=== PATIENT | male | born 1940 | race Caucasian/White ===

== ENCOUNTER 2016-07-15 11:47 | Emergency (ER) | payer MEDICARE ==
[~2016-07-15] VITALS: Ht 188 cm; Wt 97.1 kg
[~2016-07-15 11:47] MED LIST: ALBU8.5H2 IH; BUDE0.5A2 IH; CYCL10TA9 PO; HYDR-3730 PO; IPRA0.2S51 IH; TIOT18CA2 IH; [UNRECOGNIZED DRUG - OTHER] IH
--- OUTSIDE RECORDS SUMMARY | 2016-07-15 11:54 | XMS REPORT | Continuity of Care Document ---
Author Author [facility] Organization [facility] Address Unknown Phone Unavailable Care Team Providers Care Vehicle Assembler Name Role Phone SOPHY ALVARADO MD PCP Insurance Providers Payer Name Policy Number Subscriber Name Relationship [employer] [id number] Ruiz Larose 18 Self / Same As Patient Blue Cross [facility] Supp [id number] Ruiz Larose 18 Self / Same As Patient Advance Directives Directive Response Recorded Date/Time Advance Directives No 03/30/15 3:57pm Health Care Power of Analytical Chemist No 03/30/15 3:57pm Organ Donor No 03/30/15 3:57pm Problems No problem information available. Medications Current Home Medications Medication Dose Units Route Directions Days/Qty Instructions Start Date Albuterol 8.5 Gm 2 Puff Inhalation Twice A Day 06/30/10 Budesonide (Pulmicort Nebs) 0.5 Mg/2 Ml 1 Each Inhalation Twice A Day 06/30/10 Formoterol 20 Mcg/2 Ml 20 Mcg Inhalation Twice A Day 06/30/10 Ipratropium [place] 0.2 Mg/Ml 0.2 Mg Inhalation Daily 06/30/10 Tiotropium [place] 1 Inh 1 Inh Inhalation Daily 03/30/15 Cyclobenzaprine Hcl 10 Mg 10 Mg Oral Daily 03/30/15 Hydrocodone/Acetaminophen 1 Each 1-2 Each Oral Every 6 Hours 35 Social History Social History Problem Response Recorded Date/Time Alcohol Use Denies Use 03/30/2015 3:57pm Recreational Drug Use No 03/30/2015 3:57pm Hospital Discharge Instructions No hospital discharge instructions. Plan of Care Prescriptions See Medication Section Functional Status No functional status results. Allergies, Adverse Reactions, Alerts No known allergies. Immunizations No immunization records. Vital Signs No known vital signs results. Results No known relevant diagnostic tests, laboratory data and/or discharge summary. Procedures No known history of procedures. Encounters Encounter Location Arrival/Admit Date Discharge/Depart Date Attending Provider Discharged Recurring [facility] 11/19/15 9:00am 11:59pm HERB SANTANA DO
[2016-07-15] MEDS: RT-ALBUTEROL/IPRATROPIUM 3 ML (DUONEB) VIAL INH ONE (12:30)
--- NOTE | 2016-07-15 12:36 | ED Respiratory ---
General Chief Complaint: Respiratory Problems Stated Complaint: SOA Source: patient Exam Limitations: no limitations History of Present Illness Time seen by provider: 12:35 Initial Comments To ER with worsening shortness of breath over the past 2-3 days. Has a history of COPD and wears oxygen [id number]. He follows with Dr. Moreland. He was recently treated with steroids and antibiotics for pneumonia finishing these about 3 weeks ago. Timing/Duration: getting worse Severity: moderate Associated Symptoms: cough fever/chills (chills but no measured fever) shortness of breath wheezing Allergies and Home Medications Allergies Coded Allergies: No Known Drug Allergies (Unverified , 07/05/10) Home Medications Acetaminophen with Codeine 1 Each Tablet #14 1 EACH PO Q4H PRN PRN COUGH Prescribed by: JACKY RUANO on 07/15/16 1351 Albuterol 8.5 Gm Hfa.aer.ad 2 PUFF IH BID (Reported) Azithromycin 250 Mg Tablet #6 250 MG PO UD TAKE 2 TABLETS ON DAY ONE THEN TAKE 1 TABLET DAILY FOR FOUR MORE DAYS Prescribed by: JACKY RUANO on 07/15/16 1351 Budesonide 0.5 Mg/2 Ml Ampul.neb 1 EACH IH BID (Reported) Cyclobenzaprine HCl 10 Mg Tablet 10 MG PO DAILY (Reported) Formoterol 20 Mcg/2 Ml Vial.neb 20 MCG IH BID (Reported) Hydrocodone/Acetaminophen 1 Each Tablet #35 1-2 EACH PO Q6H Prescribed by: AALIYAH REID on 04/07/15 1507 Ipratropium [place] 0.2 Mg/Ml Solution 0.2 MG IH DAILY (Reported) Prednisone 5 Mg Tablet #55 5 MG PO UD 50 mg today, reduce dose by 1 tablet daily until gone Prescribed by: JACKY RUANO on 07/15/16 1351 Tiotropium [place] 1 Inh Aerp 1 INH IH DAILY (Reported) Constitutional: see HPI EENTM: see HPI Respiratory: see HPI cough short of breath (() wheezing Cardiovascular: no symptoms reported Genitourinary: no symptoms reported Musculoskeletal: no symptoms reported Skin: no symptoms reported Psychiatric/Neurological: No Symptoms Reported Hematologic/Lymphatic: No Symptoms Reported Immunological/Allergic: no symptoms reported Past Bkmvomt-Rwhboq-Cvmdqc Hx Patient Social History Former Smoker/When Quit: May 08, 1986 Immunizations Up To Date Date of Pneumonia Vaccine: Jan 06, 2014 Date of Influenza Vaccine: Jan 06, 2015 Surgeries HX Surgeries: Yes (RIGHT SHOULDER X2, LEFT SHOULDER X1, bilat feet sx) Respiratory Hx Respiratory Disorders: Yes (WEARS OXYGEN AT HS AND PRN) Respiratory Disorders: COPD Cardiovascular Hx Cardiac Disorders: Yes (HX OF RHUEMATIC FEVER 6TH GRADER) Neurological Hx Neurological Disorders: No Genitourinary Hx Genitourinary Disorders: No Gastrointestinal Hx Gastrointestinal Disorders: Yes Gastrointestinal Disorders: Gall Bladder Disease Musculoskeletal Hx Musculoskeletal Disorders: Yes Musculoskeletal Disorders: Arthritis Endocrine Hx Endocrine Disorders: No HEENT HX ENT Disorders: Yes (GLASSES, DENTURES) Cancer Hx Cancer: No Psychosocial Hx Psychiatric Problems: No Integumentary HX Skin/Integumentary Disorder: No Blood Transfusions Hx Blood Disorders: No Physical Exam Vital Signs Vital Sign - Last 12Hours 07/15/16 07/15/16 11:50 12:30 Temp 99.3 Pulse 110 Resp 28 B/P 156/90 Pulse Ox 93 O2 Delivery Room Air O2 Flow Rate 4 Capillary Refill : General Appearance: WD/WN no apparent distress Eyes: Bilateral Eye EOMI, Bilateral Eye Normal Inspection, Bilateral Eye PERRL HEENT: PERRL/EOMI normal ENT inspection Neck: non-tender full range of motion Respiratory: no respiratory distress no accessory muscle use decreased breath sounds wheezing Cardiovascular: regular rate, rhythm no murmur Gastrointestinal: normal bowel sounds non tender soft Neurologic/Psychiatric: alert normal mood/affect oriented x 3 Skin: normal color warm/dry Progress/Results/Core Measures Results/Orders Lab Results Laboratory Tests Test 07/15/16 12:20 07/15/16 12:51 Range/Units Alanine Aminotransferase (ALT/SGPT) 35 0-55 U/L Albumin 4.2 3.2-4.5 G/DL Alkaline Phosphatase 197 H 40-136 U/L Anion Gap 9 5-14 MMOL/L Aspartate Amino Transf (AST/SGOT) 23 5-34 U/L BUN/Creatinine Ratio 14 Basophils # (Auto) 0.1 0.0-0.1 10^3/uL Basophils (%) (Auto) 1 0-10 % Blood Urea Nitrogen 15 7-18 MG/DL Calcium Level 9.5 8.5-10.1 MG/DL Carbon Dioxide Level 26 21-32 MMOL/L Chloride Level 102 98-107 MMOL/L Creatinine 1.05 0.60-1.30 MG/DL Eosinophils # (Auto) 0.7 H 0.0-0.3 10^3/uL Eosinophils (%) (Auto) 7 0-10 % Estimat Glomerular Filtration Rate > 60 Glucose Level 247 H 70-105 MG/DL Hematocrit 44 40-54 % Hemoglobin 14.7 13.3-17.7 G/DL Lactic Acid Level 1.91 0.50-2.00 MMOL/L Lymphocytes # (Auto) 1.1 1.0-4.0 X 10^3 Lymphocytes (%) (Auto) 10 L 12-44 % Mean Corpuscular Hemoglobin 31 25-34 PG Mean Corpuscular Hemoglobin Concent 33 32-36 G/DL Mean Corpuscular Volume 93 80-99 FL Mean Platelet Volume 10.3 7.4-10.4 FL Monocytes # (Auto) 0.6 0.0-1.0 X 10^3 Monocytes (%) (Auto) 6 0-12 % Neutrophils # (Auto) 8.3 H 1.8-7.8 X 10^3 Neutrophils (%) (Auto) 77 H 42-75 % Platelet Count 205 130-400 10^3/uL Potassium Level 4.6 3.6-5.0 MMOL/L Red Blood Count 4.77 4.35-5.85 10^6/uL Red Cell Distribution Width 12.4 10.0-14.5 % Sodium Level 137 135-145 MMOL/L Total Bilirubin 0.5 0.1-1.0 MG/DL Total Protein 7.4 6.4-8.2 G/DL White Blood Count 10.7 4.3-11.0 10^3/uL Christiano Test YES-POS Arterial Blood Base Excess 2.3 -2.5-2.5 MMOL/L Arterial Blood HCO3 27 23-27 MMOL/L Arterial Blood Oxygen Saturation 98 94-100 % Arterial Blood Partial Pressure CO2 48 H 35-45 MMHG Arterial Blood Partial Pressure O2 102 H 79-93 MMHG Arterial Blood Total CO2 28.6 21.0-31.0 MMOL/L Arterial Blood pH 7.37 7.37-7.43 Blood Gas Inspired Oxygen 4L Blood Gas Patient Temperature 98.5 Blood Gas Puncture Site RT RAD Blood Gas Ventilator Setting NO My Orders Orders-JACKY RUANO ELECTROMECHANISMS DESIGN DRAFTER Cbc With Automated Diff (07/15/16 12:19) Comprehensive Metabolic Panel (07/15/16 12:19) Chest Pa/Lat (2 View) (07/15/16 12:19) Saline Lock/Iv-Start (07/15/16 12:19) Albuterol/Ipra Inhalation Soln (Duoneb I (07/15/16 12:30) Methylprednisolone Sod Succ (Solu-Medrol (07/15/16 12:30) Svn Sm Volume Nebulizer Rt-Rfs (07/15/16 12:19) Lactic Acid Analyzer (07/15/16 12:19) Blood Culture (07/15/16 12:19) Albuterol Pre-Mix Nebs (Rt) (Proventil P (07/15/16 12:45) Svn Sm Volume Nebulizer Rt-Rfs (07/15/16 12:42) Arterial Blood Gas (07/15/16 12:52) Medications Given in ED Current Medications Medications Dose Ordered Sig/Zina Route Start Time Stop Time Status Last Admin Dose Admin Albuterol/ Ipratropium 6 ml ONCE ONCE INH 07/15/16 12:30 07/15/16 12:31 DC 07/15/16 12:30 6 ML Methylprednisolone Sodium Succinate 125 mg ONCE ONCE IVP 07/15/16 12:30 07/15/16 12:31 DC 07/15/16 12:54 125 MG Vital Signs/I&O Vital Sign - Last 12Hours 07/15/16 07/15/16 07/15/16 11:50 12:30 12:58 Temp 99.3 Pulse 110 Resp 28 B/P 156/90 Pulse Ox 93 92 97 O2 Delivery Room Air O2 Flow Rate 4 4 Diagnostic Imaging Diagonstic Imaging: Xray Plain Films/CT/US/NM/MRI: chest Comments NAME: [facility] REC#: [id number] PT STATUS: REG ER : 1940 PHYSICIAN: JACKY RUANO APRN ADMIT DATE: 07/15/16/ER Draft Date of Exam:07/15/16 CHEST PA/LAT (2 VIEW) INDICATION: History of COPD with cough and shortness of breath x3 to 4 days. TECHNIQUE: 2-view chest 1:52 PM. CORRELATION STUDY: 08/26/2015. FINDINGS: The heart size, mediastinal configuration and pulmonary vasculature are within normal limits. There are rather pronounced emphysematous changes about lung cross. Rather marked bullous changes at the lung apices right greater than left with areas of scarring appearing generally stable. No infiltrate. Likely prior rotator cuff surgery with anchor screws over the right humeral head. IMPRESSION: Marked severity emphysematous lung disease. Negative for acute cardiopulmonary abnormality. Dictated on workstation # [id number] Dict: 07/15/16 1344 Trans: 07/15/16 1349 [id number] Interpreted by: MESHA CROWLEY DO Electronically signed by: Departure Communication Progress Notes 1303- dyspnea improved. O2 94% on baseline 4 L of O2. Obviously he does have oxygen at home to use. He also has a nebulizer and an adequate supply of albuterol. 1340-lungs remain very wheezy after 2 DuoNeb and 2 albuterol treatments. Oxygen saturation is 97 percent on his baseline 4 L of oxygen. Impression Impression: Primary Impression: COPD exacerbation Disposition: HOME, SELF-CARE Condition: Stable Departure-Patient Inst. Decision time for Depature: 13:39 Referrals: NO,LOCAL PHYSICIAN (PCP/Family) Primary Care Physician Patient Instructions: Exacerbation of COPD Add. Discharge Instructions: 1. Steroids as directed 2. Antibiotic as directed 3. Continue with your oxygen therapy and nebulized breathing treatments 4. Follow-up with Dr. Rob next week 5. Return to emergency room if you feel the chart worsening in any way Scripts Acetaminophen with Codeine (Acetaminophen-Cod #3 Tablet)1 Each Tablet1 Each PO Q4H PRN COUGH #14 TAB Prov:JACKY RUANO APRN 07/15/16 Azithromycin 250 Mg [id number] Mg PO UD #6 TAB TAKE 2 TABLETS ON DAY ONE THEN TAKE 1 TABLET DAILY FOR FOUR MORE DAYS Prov:JACKY RUANO APRN 07/15/16 Prednisone 5 Mg Tablet5 Mg PO UD #55 TAB 50 mg today, reduce dose by 1 tablet daily until gone Prov:JACKY RUANO APRN 07/15/16 Copy Copies To 1: LASHAY ROB MD, PETER J APRN Jul 15, 2016 12:36
[2016-07-15 12:37] LABS: BASOPHILS # (AUTO) 0.1 10^3/uL (0.0-0.1); BASOPHILS % (AUTO) 1 % (0-10); EOSINOPHILS # (AUTO) 0.7 10^3/uL (0.0-0.3); EOSINOPHILS % (AUTO) 7 % (0-10); LYMPHOCYTES # (AUTO) 1.1 X 10^3 (1.0-4.0); LYMPHOCYTES % (AUTO) 10 % (12-44); MEAN CORPUSCULAR HEMOGLOBIN 31 PG (25-34); MEAN CORPUSCULAR HGB CONC 33 G/DL (32-36); MEAN CORPUSCULAR VOLUME 93 FL (80-99); MEAN PLATELET VOLUME 10.3 FL (7.4-10.4); MONOCYTES # (AUTO) 0.6 X 10^3 (0.0-1.0); MONOCYTES % (AUTO) 6 % (0-12); NEUTROPHILS # (AUTO) 8.3 X 10^3 (1.8-7.8); NEUTROPHILS % (AUTO) 77 % (42-75); PLATELET COUNT 205 10^3/uL (130-400); RED BLOOD COUNT 4.77 10^6/uL (4.35-5.85); RED CELL DISTRIBUTION WIDTH 12.4 % (10.0-14.5); WHITE BLOOD COUNT 10.7 10^3/uL (4.3-11.0)
[2016-07-15] MEDS: methylPREDNISolone 125 MG (Solu-MEDROL) VIAL IVP ONE (12:54)
[2016-07-15 12:56] LABS: ALANINE AMINOTRANSFERASE 35 U/L (0-55); ALBUMIN 4.2 G/DL (3.2-4.5); ANION GAP 9 MMOL/L (5-14); ASPARTATE AMINO TRANSFERASE 23 U/L (5-34); BILIRUBIN,TOTAL 0.5 MG/DL (0.1-1.0); BLOOD UREA NITROGEN 15 MG/DL (7-18); BUN/CREATININE RATIO 14; CALCIUM 9.5 MG/DL (8.5-10.1); CARBON DIOXIDE 26 MMOL/L (21-32); CHLORIDE 102 MMOL/L (98-107); CREATININE SERUM 1.05 MG/DL (0.60-1.30); GFR ESTIMATED > 60; GLUCOSE 247 MG/DL (70-105); POTASSIUM 4.6 MMOL/L (3.6-5.0); SODIUM 137 MMOL/L (135-145); TOTAL PROTEIN 7.4 G/DL (6.4-8.2)
[2016-07-15] MEDS: RT-ALBUTEROL SULF 2.5 MG/3 ML PRE-MIX VIAL INH SCH (12:57)
[2016-07-15 12:59] LABS: ABG BASE EXCESS 2.3 MMOL/L (-2.5-2.5); ABG HCO3 27 MMOL/L (23-27); ABG OXYGEN SATURATION 98 % (94-100); ABG PCO2 48 MMHG (35-45); ABG PH 7.37 (7.37-7.43); ABG PO2 102 MMHG (79-93); ABG TCO2 28.6 MMOL/L (21.0-31.0)
[2016-07-15 13:00] LABS: ALLENS TEST YES-POS; PATIENT TEMP 98.5
--- NOTE | 2016-07-15 13:49 | Diagnostic Imaging Report ---
INDICATION: History of COPD with cough and shortness of breath x3 to 4 days. TECHNIQUE: 2-view chest 1:52 PM. CORRELATION STUDY: 08/26/2015. FINDINGS: The heart size, mediastinal configuration and pulmonary vasculature are within normal limits. There are rather pronounced emphysematous changes about lung cross. Rather marked bullous changes at the lung apices right greater than left with areas of scarring appearing generally stable. No infiltrate. Likely prior rotator cuff surgery with anchor screws over the right humeral head. IMPRESSION: Marked severity emphysematous lung disease. Negative for acute cardiopulmonary abnormality. Dictated by: Dictated on workstation # [id number]
[2016-07-15] MEDS ORDERED: PRED5TAB PO (13:51)
[2016-07-15] MEDS ORDERED: ACET1TAB43 PO (13:51)
[2016-07-15] MEDS ORDERED: AZIT250T5 PO (13:51)
[2016-07-15 14:14] VITALS: BP 142/78
== END 2016-07-15 14:15 | disposition home or self-care (01) ==
LOC: EDUNIT# 11:47 → ER 11:50
DX: J44.1 Chronic obstructive pulmonary disease with (acute) exacerbation (principal)
CPT/HCPCS: 36415; 71020; 80053; 82805; 83605; 85025; 87040; 94640; 96374

== ENCOUNTER → 2018-08-06 | Outpatient (CLI) | payer MEDICARE ==
[~2018-08-06] VITALS: Ht 175.3 cm; Wt 95.7 kg
[~2018-08-06] MED LIST changes: +ACET1TAB43 PO; +AZIT250T12 PO; +PRED5TAB PO; +RT-ALBUTEROL SULF 2.5 MG/3 ML PRE-MIX VIAL INH ONE
[2018-08-06 10:51] VITALS: BP 130/60
== END ==
LOC: RT 10:46
PROVIDERS: ATTEND Nurse Practitioner Family
DX: J43.9 Emphysema, unspecified (principal); R09.02 Hypoxemia; R06.02 Shortness of breath; J45.909 Unspecified asthma, uncomplicated; E66.9 Obesity, unspecified; Z68.31 Body mass index [BMI] 31.0-31.9, adult
CPT/HCPCS: 94060; 94726; 94729

== ENCOUNTER → 2018-08-20 | Outpatient (CLI) | payer MEDICARE ==
[~2018-08-20] MED LIST changes: -RT-ALBUTEROL SULF 2.5 MG/3 ML PRE-MIX VIAL INH ONE
[2018-08-20 12:31] LABS: ABG BASE EXCESS 1.9 MMOL/L (-2.5-2.5); ABG OXYGEN SATURATION 84 % (94-100); ABG PCO2 48 MMHG (35-45); ABG PH 7.36 (7.37-7.43); ABG PO2 50 MMHG (79-93); ABG TCO2 28.5 MMOL/L (21.0-31.0)
[2018-08-20 12:33] LABS: ALLENS TEST YES-POS; INSPIRED O2 2; PATIENT TEMP 97; VENTILATOR NO
--- NOTE | 2018-08-20 13:51 | Diagnostic Imaging Report ---
INDICATION: Reactive airways disease. PA and lateral chest. FINDINGS: There are emphysematous changes in the lungs with some air trapping. There are no infiltrates, effusions or pneumothoraces. IMPRESSION: COPD. No acute abnormalities seen. Dictated by: Dictated on workstation # [id number]
== END ==
LOC: RAD 11:36
PROVIDERS: ATTEND Nurse Practitioner Family
DX: J43.9 Emphysema, unspecified (principal); J45.909 Unspecified asthma, uncomplicated; E66.9 Obesity, unspecified
CPT/HCPCS: 71046; 82805

== ENCOUNTER 2018-09-13 08:00 | Outpatient (RCR) | payer MEDICARE ==
[2018-09-13 14:00] VITALS: BP 123/60
[2018-09-13 15:00] VITALS: BP 100/64
[2018-09-20 13:00] VITALS: BP 130/40
[2018-09-20 13:46] VITALS: BP 110/54
[2018-10-09 13:40] VITALS: BP 120/62
[2018-10-09 14:45] VITALS: BP 128/65
[2018-10-30 14:00] VITALS: BP 142/60
[2018-10-30 15:00] VITALS: BP 121/61
[2018-11-01 13:45] VITALS: BP 125/60
[2018-11-01 14:40] VITALS: BP 122/60
[2018-11-13 14:00] VITALS: BP 130/64
[2018-11-13 15:00] VITALS: BP 120/60
[2018-11-15 13:20] VITALS: BP 140/60
[2018-11-15 14:30] VITALS: BP 120/50
== END 2018-12-12 | disposition home or self-care (01) ==
LOC: PULM 08:00
PROVIDERS: ATTEND Internal Medicine Critical Care Medicine
DX: J45.909 Unspecified asthma, uncomplicated (principal); E66.9 Obesity, unspecified; R06.02 Shortness of breath; R09.02 Hypoxemia; Z87.09 Personal history of other diseases of the respiratory system

== ENCOUNTER → 2018-11-29 | Outpatient (CLI) | payer MEDICARE ==
[2018-11-29 14:14] LABS: BASOPHILS % (AUTO) 0 % (0-10); EOSINOPHILS # (AUTO) 0.4 10^3/uL (0.0-0.3); EOSINOPHILS % (AUTO) 5 % (0-10); HEMATOCRIT 44 % (40-54); HEMOGLOBIN 14.6 G/DL (13.3-17.7); LYMPHOCYTES # (AUTO) 1.3 X 10^3 (1.0-4.0); LYMPHOCYTES % (AUTO) 15 % (12-44); MEAN CORPUSCULAR HEMOGLOBIN 31 PG (25-34); MEAN CORPUSCULAR HGB CONC 33 G/DL (32-36); MEAN CORPUSCULAR VOLUME 93 FL (80-99); MEAN PLATELET VOLUME 9.9 FL (7.4-10.4); MONOCYTES # (AUTO) 0.6 X 10^3 (0.0-1.0); MONOCYTES % (AUTO) 7 % (0-12); NEUTROPHILS # (AUTO) 6.2 X 10^3 (1.8-7.8); NEUTROPHILS % (AUTO) 73 % (42-75); PLATELET COUNT 212 10^3/uL (130-400); RED CELL DISTRIBUTION WIDTH 12.4 % (10.0-14.5); WHITE BLOOD COUNT 8.4 10^3/uL (4.3-11.0)
[2018-11-29 14:32] LABS: BUN/CREATININE RATIO 12; CALCIUM 9.5 MG/DL (8.5-10.1); CARBON DIOXIDE 27 MMOL/L (21-32); CHLORIDE 104 MMOL/L (98-107); CREATININE SERUM 0.92 MG/DL (0.60-1.30); GFR ESTIMATED > 60; GLUCOSE 150 MG/DL (70-105); POTASSIUM 4.1 MMOL/L (3.6-5.0); SODIUM 140 MMOL/L (135-145)
--- NOTE | 2018-11-29 17:02 | Diagnostic Imaging Report ---
INDICATION: Shortness of breath, dyspnea, and COPD exacerbation. Comparison made with prior examination from 08/20/2018. FINDINGS: Heart size is normal. There is some air trapping compatible with COPD. This is some interstitial scarring in the lung bases. No pleural effusion or pneumothorax. Mediastinum is unremarkable. There is a questionable soft tissue density in the left lung base. Underlying mass cannot be excluded. IMPRESSION: COPD and some interstitial scarring in the lung bases. Questionable soft tissue density in the left lung base. Underlying mass cannot be excluded. Further evaluation with CT chest is recommended. Dictated by: Dictated on workstation # [id number]
== END ==
LOC: LAB 14:00
PROVIDERS: ATTEND Nurse Practitioner Family
DX: J44.9 Chronic obstructive pulmonary disease, unspecified (principal)
CPT/HCPCS: 36415; 71046; 80048; 82330; 83880; 85025

== ENCOUNTER → 2018-12-04 | Outpatient (CLI) | payer MEDICARE ==
--- NOTE | 2018-12-04 15:20 | Diagnostic Imaging Report ---
PROCEDURE: CT chest with contrast only. TECHNIQUE: Multiple contiguous axial images were obtained through the chest after administration of intravenous contrast. Auto Exposure Controls were utilized during the CT exam to meet ALARA standards for radiation dose reduction. INDICATION: COPD. COMPARISON: Correlation is made with prior CT chest study from 04/15/2016. FINDINGS: No axillary lymphadenopathy is detected. No mediastinal or hilar lymphadenopathy is detected. No pericardial or pleural fluid is identified. Central airways remain patent. Emphysematous changes throughout both lungs are again noted. No parenchymal mass or infiltrate is identified. Upper abdomen is unremarkable. IMPRESSION: Overall stable CT chest when compared with exam from 04/15/2016. Emphysematous changes are again noted. No thoracic lymphadenopathy or evidence of parenchymal mass is detected. Dictated by: Dictated on workstation # [id number]
== END ==
LOC: RAD 13:25
PROVIDERS: ATTEND Nurse Practitioner Family
DX: J43.9 Emphysema, unspecified (principal)
CPT/HCPCS: 71260

== ENCOUNTER 2018-12-27 13:00 | Outpatient (RCR) | payer MEDICARE ==
[2018-12-27 12:55] VITALS: BP 90/60
[2018-12-27 14:05] VITALS: BP 98/60
[2019-01-01 13:00] VITALS: BP 88/50
[2019-01-08 13:00] VITALS: BP 130/58
[2019-01-15 12:30] VITALS: BP 139/60
[2019-01-15 13:00] VITALS: BP 114/82
[2019-01-15 13:39] VITALS: BP 122/70
[2019-01-17 13:00] VITALS: BP 140/62
[2019-01-17 14:30] VITALS: BP 120/60
[2019-01-22 13:00] VITALS: BP 125/50
[2019-01-22 14:02] VITALS: BP 122/74
[2019-01-24 13:00] VITALS: BP 110/60
[2019-01-24 14:11] VITALS: BP 108/56
[2019-01-29 13:00] VITALS: BP 120/60
[2019-01-29 13:50] VITALS: BP 120/74
[2019-02-12 13:00] VITALS: BP 120/60
[2019-02-12 14:12] VITALS: BP 100/60
== END 2019-03-27 | disposition home or self-care (01) ==
LOC: PULM 13:00
PROVIDERS: ATTEND Internal Medicine Critical Care Medicine
DX: J45.909 Unspecified asthma, uncomplicated (principal); E66.9 Obesity, unspecified; R06.02 Shortness of breath; R09.02 Hypoxemia; Z87.09 Personal history of other diseases of the respiratory system

== ENCOUNTER → 2019-02-20 | Outpatient (CLI) | payer MEDICARE ==
--- NOTE | 2019-02-20 14:53 | Diagnostic Imaging Report ---
INDICATION: COPD. TIME OF EXAM: 02:21 p.m. Correlation is made with prior chest from 11/29/2018. FINDINGS: The heart size is stable. Lungs are hyperinflated consistent with COPD. There is some density in the right mid lung peripherally which appears to be more prominent than prior exam and may represent some developing infiltrate. Remainder of the lung cross appears to be fairly clear. No effusion is seen. There is no pneumothorax. IMPRESSION: COPD. There is some questionable developing infiltrate right mid lung, as described. Follow-up to confirm clearing could be performed. Dictated by: Dictated on workstation # [id number]
== END ==
LOC: RAD 13:53
PROVIDERS: ATTEND Nurse Practitioner Family
DX: J44.1 Chronic obstructive pulmonary disease with (acute) exacerbation (principal)
CPT/HCPCS: 71046

== ENCOUNTER → 2019-04-02 | Outpatient (CLI) | payer MEDICARE ==
[~2019-04-02] MED LIST changes: +CATHETER FLUSH 10 ML SYR IV PRN; +HOLD METFORMIN - RECEIVED CONTRAST 20 ML VIAL IV SCH; +IOHEXOL 350 MG/ML 100 ML (OMNIPAQUE 350) VIAL IV ONE; +NS 100 ML (IVPB) BAG IV ONE
[2019-04-02 09:25] LABS: BUN/CREATININE RATIO 15; GFR ESTIMATED > 60
--- NOTE | 2019-04-02 10:50 | Diagnostic Imaging Report ---
PROCEDURE: CT chest with contrast only. TECHNIQUE: Multiple contiguous axial images were obtained through the chest after administration of intravenous contrast. Auto Exposure Controls were utilized during the CT exam to meet ALARA standards for radiation dose reduction. INDICATION: Wheezing, pneumonia. COMPARISON: The previous CT chest exam of 12/04/2018 noted emphysematous change but failed to show any sign of an acute abnormality or of malignancy. FINDINGS: On this exam, the emphysematous changes involving both lungs are again noted and do not seem to have progressed. There is still no evidence for failure, pneumonia or for pleural effusion to indicate an acute abnormality. There is a small 5 mm nodular density in the right lung base (image 91 of 193). In retrospect, this was present on the prior CTA chest exam of 04/15/2016 (image 87 of 169). This finding does not appear to have changed significantly since the prior study and there is generalized stability over a three-year period, would indicate it is most likely a benign process. The heart size is within normal limits. Coronary calcifications are evident. The aorta is not abnormally dilated. There is no sign of dissection. There is no defect within the pulmonary arteries to indicate a pulmonary embolus. There is no mediastinal or hilar adenopathy. The thyroid gland does not appear to be enlarged. There is a small 4 mm rounded area of low density in the right lobe of the thyroid. This finding was also present on the prior CTA chest exam of 12/04/2018, has not changed. This finding was difficult to visualize on the previous CTA chest exam of 04/15/2016. I do suspect this area of low density is a benign process. Even so, ultrasound would be recommended for further study. The sections through the upper abdomen failed to show any sign of an acute abnormality. The bone windows unremarkable for a fracture or for destructive lesion. IMPRESSION: 1. There is chronic pulmonary disease but there is no evidence for an acute cardiopulmonary abnormality. 2. The small nodule in the right lung base is most likely a benign process. 3. The small area of low density in the right lobe of thyroid is unlikely to be related to malignancy. Even so, ultrasound would be recommended for further study. Dictated by: Dictated on workstation # [id number]
== END ==
LOC: RAD 08:48
PROVIDERS: ATTEND Nurse Practitioner Family
DX: J43.9 Emphysema, unspecified (principal); J45.909 Unspecified asthma, uncomplicated; R91.1 Solitary pulmonary nodule; J98.4 Other disorders of lung; Z87.09 Personal history of other diseases of the respiratory system
CPT/HCPCS: 36415; 71260; 82565; 84520

== ENCOUNTER → 2019-05-07 | Outpatient (CLI) | payer MEDICARE ==
[2019-05-07 09:18] LABS: BUN/CREATININE RATIO 11; CREATININE SERUM 0.81 MG/DL (0.60-1.30); GFR ESTIMATED > 60
--- NOTE | 2019-05-07 11:14 | Diagnostic Imaging Report ---
PROCEDURE: CT chest with contrast only. TECHNIQUE: Multiple contiguous axial images were obtained through the chest after administration of intravenous contrast. Auto Exposure Controls were utilized during the CT exam to meet ALARA standards for radiation dose reduction. INDICATION: COPD. Asthma. Cough. COMPARISON: 04/02/2019. FINDINGS: The heart size is within normal limits. No pericardial effusion is present. There is calcified aortic and coronary atherosclerotic plaque without evidence of aneurysm. There is no mediastinal, hilar, or axillary lymphadenopathy. Stable small nodule in the right lobe of the thyroid. The lungs are hyperexpanded. Centrilobular and paraseptal emphysema is again seen, greatest in the lung apices. A small amount of opacities is seen in the periphery of the right mid lung. Subsegmental atelectasis is seen in the lung bases. Stable subcentimeter nodule in the right lung base. No new suspicious pulmonary nodules. No evidence of pulmonary mass. There is no pleural effusion or pneumothorax. The osseous structures demonstrate no acute abnormalities. Limited views of the upper abdominal structures demonstrate no acute abnormalities. Both adrenal glands are unremarkable. IMPRESSION: 1. New small amount of opacities in the periphery of the right mid lung, which may represent infectious or inflammatory etiology. 2. Centrilobular and paraseptal emphysema, greatest in the apices. Dictated by: Dictated on workstation # [id number]
== END ==
LOC: RAD 08:35
PROVIDERS: ATTEND Nurse Practitioner Family
DX: J43.9 Emphysema, unspecified (principal); R09.02 Hypoxemia
CPT/HCPCS: 36415; 71260; 82565; 84520

== ENCOUNTER → 2020-04-25 | Outpatient (CLI) | payer OTHER, MEDICARE ==
[~2020-04-25] MED LIST changes: -CATHETER FLUSH 10 ML SYR IV PRN; -HOLD METFORMIN - RECEIVED CONTRAST 20 ML VIAL IV SCH; -IOHEXOL 350 MG/ML 100 ML (OMNIPAQUE 350) VIAL IV ONE; -NS 100 ML (IVPB) BAG IV ONE
== END ==
LOC: LAB 22:11
PROVIDERS: ATTEND Internal Medicine
DX: Z01.89 Encounter for other specified special examinations (principal)
CPT/HCPCS: 36415; 84145

== ENCOUNTER 2020-05-11 10:14 | Observation (INO) | payer MEDICARE ==
[~2020-05-11] VITALS: Ht 182 cm; Wt 84.9 kg
[2020-05-11 10:40] LABS: BASOPHILS % (AUTO) 0 % (0-10); EOSINOPHILS # (AUTO) 0.1 10^3/uL (0.0-0.3); EOSINOPHILS % (AUTO) 2 % (0-10); HEMATOCRIT 38 % (40-54); HEMOGLOBIN 12.2 g/dL (13.3-17.7); LYMPHOCYTES # (AUTO) 0.7 10^3/uL (1.0-4.0); LYMPHOCYTES % (AUTO) 9 % (12-44); MEAN CORPUSCULAR HEMOGLOBIN 31 pg (25-34); MEAN CORPUSCULAR HGB CONC 32 g/dL (32-36); MEAN CORPUSCULAR VOLUME 95 fL (80-99); MONOCYTES # (AUTO) 0.7 10^3/uL (0.0-1.0); MONOCYTES % (AUTO) 8 % (0-12); NEUTROPHILS # (AUTO) 6.8 10^3/uL (1.8-7.8); NEUTROPHILS % (AUTO) 81 % (42-75); PLATELET COUNT 160 10^3/uL (130-400); WHITE BLOOD COUNT 8.5 10^3/uL (4.3-11.0)
[2020-05-11 10:45] LABS: ALBUMIN 3.2 GM/DL (3.2-4.5); CHLORIDE 104 MMOL/L (98-107); POTASSIUM 4.1 MMOL/L (3.6-5.0); SODIUM 136 MMOL/L (135-145)
[2020-05-11 10:46] LABS: CALCIUM 8.2 MG/DL (8.5-10.1)
[2020-05-11 10:47] LABS: GLUCOSE 215 MG/DL (70-105); TOTAL PROTEIN 6.1 GM/DL (6.4-8.2)
[2020-05-11 10:49] LABS: BILIRUBIN,TOTAL 0.5 MG/DL (0.1-1.0); CARBON DIOXIDE 26 MMOL/L (21-32); FIBRIN DEGRADATION PRODUCTS 2.93 UG/ML (0.00-0.49); INR 1.1 (0.8-1.4); PROTHROMBIN TIME PATIENT 14.9 SEC (12.2-14.7)
[2020-05-11 10:51] LABS: ALKALINE PHOSPHATASE 164 U/L (40-136); CREATININE SERUM 0.76 MG/DL (0.60-1.30); GFR ESTIMATED > 60
[2020-05-11 10:52] LABS: BUN/CREATININE RATIO 24
[2020-05-11 10:54] LABS: ALANINE AMINOTRANSFERASE 17 U/L (0-55)
--- NOTE | 2020-05-11 10:59 | Diagnostic Imaging Report ---
PROCEDURE: CT head wo r/o stroke. TECHNIQUE: Multiple contiguous axial images were obtained through the brain without the use of intravenous contrast. Auto Exposure Controls were utilized during the CT exam to meet ALARA standards for radiation dose reduction. INDICATION: Slurred speech and left-sided weakness. Patient is COVID positive. Stroke. COMPARISON: None available. FINDINGS: Multiple images are degraded by the patient's right cochlear implant device, which diminishes detail, and interpretation was made in light of this technical confine. BRAIN: No parenchymal hemorrhage, midline shift, or mass effect. Huntley-white matter differentiation appears adequately preserved, without findings to suggest acute territorial infarct. No prominent white matter changes. Mild prominence of the ventricles and sulci is compatible with cortical and cerebellar parenchymal volume loss, commensurate with age. EXTRA-AXIAL SPACES: No subdural or epidural collections. ORBITS AND PARANASAL SINUSES: Visualized orbits and globes are intact. Visualized paranasal sinuses and mastoid air cells are clear. Right cochlear implant device is demonstrated. CALVARIUM AND SOFT TISSUES: The calvarium is intact. No fractures or suspicious bony lesions. A small triangular-shaped metallic density object is demonstrated adjacent to the left zygomatic arch. IMPRESSION: Examination is limited by streak artifact caused by the patient's right cochlear implant device. Allowing for this, no acute intracranial pathology is identified. Incidental note is made of a metallic density object adjacent to the left zygomatic arch, presumably retained foreign body. Other chronic and incidental findings are detailed above. Dictated by: Dictated on workstation # [id number]
--- NOTE | 2020-05-11 11:23 | Diagnostic Imaging Report ---
INDICATION: Stroke and Covid positive. Time of exam: 11:21 a.m. Correlation is made with prior chest 02/20/2019. Lungs are hyperinflated consistent with COPD. There is interstitial and airspace infiltrate right mid-lower lung field consistent with pneumonia. There is minimal infiltrate in the left base as well. No effusion or pneumothorax is detected. IMPRESSION: Bilateral infiltrates consistent with pneumonia. Dictated by: Dictated on workstation # [id number]
[2020-05-11] MEDS ORDERED: CATHETER FLUSH 10 ML SYR IV PRN ×2 (11:45→16:45)
[2020-05-11] MEDS ORDERED: IOHEXOL 350 MG/ML 100 ML (OMNIPAQUE 350) VIAL IV ONE (11:45)
[2020-05-11] MEDS ORDERED: HOLD METFORMIN - RECEIVED CONTRAST 20 ML VIAL IV SCH (11:45)
[2020-05-11] MEDS ORDERED: NS 100 ML (IVPB) BAG IV ONE (11:45)
--- NOTE | 2020-05-11 12:10 | Diagnostic Imaging Report ---
PROCEDURE: CT angiography of the head and CT angiography of the neck with and without contrast. TECHNIQUE: Contiguous noncontrast images were obtained from the skull base through the vertex. After intravenous contrast administration, helical CT angiography of the neck was performed. Source data was reformatted into 3D MIP projections. Delayed post contrast acquisition was also obtained. Auto Exposure Controls were utilized during the CT exam to meet ALARA standards for radiation dose reduction. INDICATION: Stroke, slurred speech, and left-sided weakness. COMPARISON: Comparison is made with head CT earlier same day. FINDINGS: Delayed post contrast images are without abnormal enhancing lesion. CT angiographic portion of the study demonstrates three-vessel branching pattern to the aortic arch. Both common carotid arteries are widely patent. There is some calcified plaque at the carotid bifurcations bilaterally. Calcified plaque at the carotid siphons bilaterally is also seen. The M1 and M2 segments of the middle cerebral arteries bilaterally are patent. No filling defect or thromboembolism is identified. No large branch occlusion is seen. The right and left middle cerebral arteries are widely patent. The posterior cerebral arteries are patent. Basilar artery is patent. The left vertebral artery is dominant. Right vertebral artery is small. Both vertebral arteries are patent. IMPRESSION: Bilateral carotid plaques. There is no evidence of intracranial thromboembolism or filling defect. No large branch occlusion is identified. Dictated by: Dictated on workstation # [id number]
--- NOTE | 2020-05-11 12:50 | ED Neurological Problem ---
General Chief Complaint: Neuro-Stroke Like Symptoms Stated Complaint: STROKE Nursing Triage Note: patient woke up "normal" at 0530, states around 0700 noticed numbness around his mouth and some left side weakness. Nursing Sepsis Screen: No Definite Risk Source: patient Exam Limitations: no limitations History of Present Illness Date Seen by Provider: May 11, 2020 Time Seen by Provider: 10:15 Initial Comments This 79-year-old gentleman presents to the emergency room with complaints of left-sided facial droop, dysarthria, and left hand weakness that was first noticed around 07: 00. He woke around 05: 00 and noted feeling normal at that time. He woke again around 07: 00 and noticed the deficits. 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 EMS notes some left process inspector weakness as well. He is noted to be Covid positive. Based on his history and his daughter's history, it sounds that he tested positive sometime between April 18 and April 25. He was admitted to [facility] and was discharged last week. He is presently on oxygen at 5 L/min. Dr. Shah is his primary care provider. Allergies and Home Medications Allergies Coded Allergies: No Known Drug Allergies (Unverified , 05/11/20) Home Medications Acetaminophen with Codeine 1 Each Tablet, 1 EACH PO Q4H PRN for COUGH Prescribed by: JACKY RUANO on 07/15/16 1351 Albuterol 8.5 Gm Hfa.aer.ad, 2 PUFF IH BID, (Reported) Azithromycin 250 Mg Tablet, 250 MG PO UD TAKE 2 TABLETS ON DAY ONE THEN TAKE 1 TABLET DAILY FOR FOUR MORE DAYS Prescribed by: JACKY RUANO on 07/15/16 1351 Budesonide 0.5 Mg/2 Ml Ampul.neb, 1 EACH IH BID, (Reported) Cyclobenzaprine HCl 10 Mg Tablet, 10 MG PO DAILY, (Reported) Formoterol 20 Mcg/2 Ml Vial.neb, 20 MCG IH BID, (Reported) Hydrocodone/Acetaminophen 1 Each Tablet, 1-2 EACH PO Q6H Prescribed by: AALIYAH REID on 04/07/15 1507 Ipratropium Mica 0.2 Mg/Ml Solution, 0.2 MG IH DAILY, (Reported) Prednisone 5 Mg Tablet, 5 MG PO UD 50 mg today, reduce dose by 1 tablet daily until gone Prescribed by: JACKY RUANO on 07/15/16 1351 Tiotropium Mica 1 Inh Aerp, 1 INH IH DAILY, (Reported) Patient Home Medication List Home Medication List Reviewed: Yes Review of Systems Review of Systems Constitutional: no symptoms reported Eyes: No Symptoms Reported Ears, Nose, Mouth, Throat: no symptoms reported Respiratory: see HPI Cardiovascular: no symptoms reported Gastrointestinal: no symptoms reported Genitourinary: no symptoms reported Musculoskeletal: no symptoms reported Skin: no symptoms reported Psychiatric/Neurological: See HPI Endocrine: No Symptoms Reported Hematologic/Lymphatic: No Symptoms Reported Past Dknhovg-Jwiryd-Qsonll Hx Past Med/Social Hx: Reviewed Nursing Past Med/Soc Hx Patient Social History Alcohol Use: Denies Use Recreational Drug Use: No Smoking Status: Former Smoker Former Smoker, Quit: Aug 06, 1986 2nd Hand Smoke Exposure: Yes Recent Foreign Travel: No Contact w/Someone Who Travel: No Recent Infectious Disease Expo: No Recent Hopitalizations: No Immunizations Up To Date Date of Pneumonia Vaccine: Jan 06, 2014 Date of Influenza Vaccine: Jan 06, 2015 Past Medical History Surgeries: Yes (RIGHT SHOULDER X2, LEFT SHOULDER X1, bilat feet sx) Respiratory: Yes (WEARS OXYGEN AT HS AND PRN) COPD 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 4.0oz. 95.421947fq; 27.00 BMI Method:Stated General Appearance: WD/WN, no apparent distress HEENT: PERRL/EOMI, normal ENT inspection, pharynx normal Neck: normal inspection Respiratory: lungs clear, normal breath sounds, no respiratory distress Cardiovascular: regular rate, rhythm, no edema, no murmur Gastrointestinal: normal bowel sounds, non tender, soft Extremities: normal inspection, no pedal edema Neurologic/Psychiatric: alert, normal mood/affect, oriented x 3, abnormal glove factory sewer II-XII (Left-sided facial droop around the mouth and dysarthria. Forehead is spared. Slight decrease in process inspector strength on the left.), motor weakness (Heat Plant Specialist weakness on the left) Crainal Nerves: abnormal speech, facial asymmetry, facial droop Coordination/Gait: normal finger to nose, normal gait Motor/Sensory: no motor deficit, no sensory deficit, no pronator drift Stroke NIH Stroke Scale Assessment Level of Consciousness: 0=Alert (0), Level of Consciousness-Questions: 0=Answers both month/age (0), LOC Commands: 0=Performs both tasks (0), Visual Tolbert: 0=No visual loss (0), Facial Movement (Facial Paresis): 1=Minor paralysis (1), Motor Function-Arms Right: 0=No drift (0), Motor Function-Arms Left: 0=No drift (0), Motor Function-Legs Right: 0=No drift (0), Motor Function-Legs Left: 0=No drift (0), Limb Ataxia: 0=Absent (0), Sensory: 0=Normal:no loss (0), Best Language: 0=No aphasia (0), Dysarthria: 1=Mild to moderate loss (1), Extinction & Inattention: 0=No abnormality (0), Total: 2 Progress/Results/Core Measures Results/Orders Lab Results Laboratory Tests Test 05/11/20 10:20 Range/Units White Blood Count 8.5 4.3-11.0 10^3/uL Red Blood Count 3.99 L 4.30-5.52 10^6/uL Hemoglobin 12.2 L 13.3-17.7 g/dL Hematocrit 38 L 40-54 % Mean Corpuscular Volume 95 80-99 fL Mean Corpuscular Hemoglobin 31 25-34 pg Mean Corpuscular Hemoglobin Concent 32 32-36 g/dL Red Cell Distribution Width 12.8 10.0-14.5 % Platelet Count 160 130-400 10^3/uL Mean Platelet Volume 10.0 9.0-12.2 fL Immature Granulocyte % (Auto) 1 % Neutrophils (%) (Auto) 81 H 42-75 % Lymphocytes (%) (Auto) 9 L 12-44 % Monocytes (%) (Auto) 8 0-12 % Eosinophils (%) (Auto) 2 0-10 % Basophils (%) (Auto) 0 0-10 % Neutrophils # (Auto) 6.8 1.8-7.8 10^3/uL Lymphocytes # (Auto) 0.7 L 1.0-4.0 10^3/uL Monocytes # (Auto) 0.7 0.0-1.0 10^3/uL Eosinophils # (Auto) 0.1 0.0-0.3 10^3/uL Basophils # (Auto) 0.0 0.0-0.1 10^3/uL Immature Granulocyte # (Auto) 0.1 0.0-0.1 10^3/uL Prothrombin Time 14.9 H 12.2-14.7 SEC INR Comment 1.1 0.8-1.4 Activated Partial Thromboplast Time 32 24-35 SEC D-Dimer 2.93 H 0.00-0.49 UG/ML Sodium Level 136 135-145 MMOL/L Potassium Level 4.1 3.6-5.0 MMOL/L Chloride Level 104 98-107 MMOL/L Carbon Dioxide Level 26 21-32 MMOL/L Anion Gap 6 5-14 MMOL/L Blood Urea Nitrogen 18 7-18 MG/DL Creatinine 0.76 0.60-1.30 MG/DL Estimat Glomerular Filtration Rate > 60 BUN/Creatinine Ratio 24 Glucose Level 215 H 70-105 MG/DL Glucometer 193 H 70-110 MG/DL Calcium Level 8.2 L 8.5-10.1 MG/DL Corrected Calcium 8.8 8.5-10.1 MG/DL Total Bilirubin 0.5 0.1-1.0 MG/DL Aspartate Amino Transf (AST/SGOT) 14 5-34 U/L Alanine Aminotransferase (ALT/SGPT) 17 0-55 U/L Alkaline Phosphatase 164 H 40-136 U/L Troponin I < 0.028 <0.028 NG/ML Total Protein 6.1 L 6.4-8.2 GM/DL Albumin 3.2 3.2-4.5 GM/DL My Orders Orders - JOHN FARIA MD Cbc With Automated Diff (05/11/20 10:31) Protime With Inr (05/11/20 10:31) Partial Thromboplastin Time (05/11/20 10:31) Comprehensive Metabolic Panel (05/11/20 10:31) Fibrin Degradation Products (05/11/20 10:31) Troponin I (05/11/20 10:31) Ua Culture If Indicated (05/11/20 10:31) Chest 1 View, Ap/Pa Only (05/11/20 10:31) Ekg Tracing (05/11/20 10:31) Nothing By Mouth (05/11/20 Lunch) Accucheck Stat ONCE (05/11/20 10:31) Ed Iv/Invasive Line Start (05/11/20 10:31) Ed Iv/Invasive Line Start (05/11/20 10:31) Vital Signs Stroke Patient Q15M (05/11/20 10:31) Ct Head Wo-R/O Stroke (05/11/20 10:31) O2 (05/11/20 10:31) Intake & Output 06,14,22 (05/11/20 10:31) Monitor-Rhythm Ecg Trace Only (05/11/20 10:31) Dysphagia Screening Tool (05/11/20 10:31) Lipid Panel (05/12/20 06:00) Ct Angio Head/Neck (05/11/20 10:47) Iohexol Injection (Omnipaque 350 Mg/Ml 1 (05/11/20 11:45) Received Contrast (Hold Metformin- Contr (05/11/20 11:45) Sodium Chloride Flush (Catheter Flush Sy (05/11/20 11:45) Ns (Ivpb) (Sodium Chloride 0.9% Ivpb Bag (05/11/20 11:45) Aspirin Tablet (Aspirin Tablet) (05/11/20 14:00) Medications Given in ED Current Medications Medications Dose Ordered Sig/Zina Route Start Time Stop Time Status Last Admin Dose Admin Iohexol 75 ml ONCE ONCE IV 05/11/20 11:45 05/11/20 11:46 DC 05/11/20 11:47 75 ML Sodium Chloride 10 ml NEEDED PRN IV 05/11/20 11:45 05/11/20 16:34 DC 05/11/20 11:47 10 ML Sodium Chloride 100 ml ONCE ONCE IV 05/11/20 11:45 05/11/20 11:46 DC 05/11/20 11:47 80 ML Vital Signs/I&O 05/11/20 05/11/20 10:15 10:20 Temp 37.0 Pulse 92 Resp 20 B/P (MAP) 100/69 (79) Pulse Ox 97 97 O2 Delivery Room Air Nasal Cannula O2 Flow Rate 5.00 Blood Pressure Mean: 79 FSBG Bedside Testing Finger Stick Blood Glucose: 193 Blood Glucose Action Taken: dr notified Progress Progress Note : Progress Note Work-up was essentially unremarkable. Case was discussed with Dr. Barrett at 12:50. Admission was recommended for further evaluation including MRI and echocardiogram. Patient's cochlear implant card was provided to the die maintenance technician. She will research if it is MRI compatible. Stroke activation was paged on patient assessment. Unfortunately, he was not a TPA candidate due to his Eliquis use add greater than 4.5 hours from last known well time. He was g iven aspirin in the emergency room. Initial ECG Impression Date: May 11, 2020 Initial ECG Impression Time: 10:18 Initial ECG Rate: 95 Initial ECG Rhythm: Normal Sinus Comment Sinus rhythm with no ST elevation or depression. No abnormal intervals. Sinus pause x1. No axis deviation. Diagnostic Imaging Diagonstic Imaging: Xray Plain Films/CT/US/NM/MRI: chest Comments NAME: KEN LAROSE i[employer]at [employer] REC#: [id number] PT STATUS: ADM IN : 1940 PHYSICIAN: JOHN FARIA MD ADMIT DATE: 05/11/20 Signed Date of Exam:05/11/20 CHEST 1 VIEW, AP/PA ONLY INDICATION: Stroke and Covid positive. Time of exam: 11:21 a.m. Correlation is made with prior chest 02/20/2019. Lungs are hyperinflated consistent with COPD. There is interstitial and airspace infiltrate right mid-lower lung field consistent with pneumonia. There is minimal infiltrate in the left base as well. No effusion or pneumothorax is detected. IMPRESSION: Bilateral infiltrates consistent with pneumonia. Dictated by: Dictated on workstation # [id number] Dict: 05/11/20 1121 Trans: 05/11/20 1557 [facility] [id number] Interpreted by: MANDIE BURGOS MD Electronically signed by: MANDIE BURGOS MD 05/11/20 1557 Reviewed: Reviewed by Me Comments CT viewed by me and report reviewed. See report below: NAME: KEN LAROSE iFrat [employer] REC#: [id number] PT STATUS: REG ER : 1940 PHYSICIAN: JOHN FARIA MD ADMIT DATE: 05/11/20/ER Signed Date of Exam:05/11/20 CT HEAD WO-R/O STROKE PROCEDURE: CT head wo r/o stroke. TECHNIQUE: Multiple contiguous axial images were obtained through the brain without the use of intravenous contrast. Auto Exposure Controls were utilized during the CT exam to meet ALARA standards for radiation dose reduction. INDICATION: Slurred speech and left-sided weakness. Patient is COVID positive. Stroke. COMPARISON: None available. FINDINGS: Multiple images are degraded by the patient's right cochlear implant device, which diminishes detail, and interpretation was made in light of this technical confine. BRAIN: No parenchymal hemorrhage, midline shift, or mass effect. Huntley-white matter differentiation appears adequately preserved, without findings to suggest acute territorial infarct. No prominent white matter changes. Mild prominence of the ventricles and sulci is compatible with cortical and cerebellar parenchymal volume loss, commensurate with age. EXTRA-AXIAL SPACES: No subdural or epidural collections. ORBITS AND PARANASAL SINUSES: Visualized orbits and globes are intact. Visualized paranasal sinuses and mastoid air cells are clear. Right cochlear implant device is demonstrated. CALVARIUM AND SOFT TISSUES: The calvarium is intact. No fractures or suspicious bony lesions. A small triangular-shaped metallic density object is demonstrated adjacent to the left zygomatic arch. IMPRESSION: Examination is limited by streak artifact caused by the patient's right cochlear implant device. Allowing for this, no acute intracranial pathology is identified. Incidental note is made of a metallic density object adjacent to the left zygomatic arch, presumably retained foreign body. Other chronic and incidental findings are detailed above. Dictated by: Dictated on workstation # [id number] Dict: 05/11/20 1043 Trans: 05/11/20 1210 AS6 [id number] Interpreted by: DAVID REY DO Electronically signed by: DAVID REY DO 05/11/20 1210 Diagonstic Imaging: CT Plain Films/CT/US/NM/MRI: other (Angiogram head and neck) Comments NAME: LACHELLEKEN P MED REC#: [id number] PT STATUS: ADM IN : 1940 PHYSICIAN: JOHN FARIA MD ADMIT DATE: 05/11/20 Signed Date of Exam:05/11/20 CT ANGIO HEAD/NECK PROCEDURE: CT angiography of the head and CT angiography of the neck with and without contrast. TECHNIQUE: Contiguous noncontrast images were obtained from the skull base through the vertex. After intravenous contrast administration, helical CT angiography of the neck was performed. Source data was reformatted into 3D MIP projections. Delayed post contrast acquisition was also obtained. Auto Exposure Controls were utilized during the CT exam to meet ALARA standards for radiation dose reduction. INDICATION: Stroke, slurred speech, and left-sided weakness. COMPARISON: Comparison is made with head CT earlier same day. FINDINGS: Delayed post contrast images are without abnormal enhancing lesion. CT angiographic portion of the study demonstrates three-vessel branching pattern to the aortic arch. Both common carotid arteries are widely patent. There is some calcified plaque at the carotid bifurcations bilaterally. Calcified plaque at the carotid siphons bilaterally is also seen. The M1 and M2 segments of the middle cerebral arteries bilaterally are patent. No filling defect or thromboembolism is identified. No large branch occlusion is seen. The right and left middle cerebral arteries are widely patent. The posterior cerebral arteries are patent. Basilar artery is patent. The left vertebral artery is dominant. Right vertebral artery is small. Both vertebral arteries are patent. IMPRESSION: Bilateral carotid plaques. There is no evidence of intracranial thromboembolism or filling defect. No large branch occlusion is identified. Dictated by: Dictated on workstation # [id number] Dict: 05/11/20 1158 Trans: 05/11/20 1558 AS6 [id number] Interpreted by: MANDIE BURGOS MD Electronically signed by: MANDIE BURGOS MD 05/11/20 1558 Reviewed: Reviewed by Me Departure Communication (Admissions) Time/Spoke to Admitting Phy: 13:35 Dr. Estes Impression Primary Impression: Dysarthria Additional Impression: Facial droop Disposition: ADMITTED INPATIENT Condition: Improved Admissions Decision to Admit Reason: Admit from ER (General) Decision to Admit/Date: May 11, 2020 Time/Decision to Admit Time: 12:50 Departure-Patient Inst. Referrals: LASHAY ROB MD (PCP/Family) Primary Care Physician JOHN FARIA MD May 11, 2020 12:50
[2020-05-11] MEDS ORDERED: ASPIRIN 325 MG (5 GR) TABLET PO ONE (14:00)
[2020-05-11 15:40] LABS: BILIRUBIN,URINE NEGATIVE (NEGATIVE); CLARITY,URINE CLEAR; COLOR,URINE YELLOW; GLUCOSE, URINE (UA) 2+ (NEGATIVE); KETONES,URINE NEGATIVE (NEGATIVE); LEUKOCYTE ESTERASE ,URINE NEGATIVE (NEGATIVE); NITRITE,URINE NEGATIVE (NEGATIVE); PH,URINE 5.5 (5-9); PROTEIN,URINE NEGATIVE (NEGATIVE)
[2020-05-11 15:50] LABS: BACTERIA,URINE NEGATIVE /HPF; SQUAMOUS EPITHELIAL CELL,UR RARE /HPF
--- NOTE | 2020-05-11 15:50 | NUR ---
KEN LAROSE admitted to room 423-1, with an admitting diagnosis of dysarthria, and left facial drooping , on 05/11/20 from er via cart, accompanied by ed staff. KEN LAROSE introduced to surroundings, call light, bed controls, phone, TV, temperature control, lights, meal times, smoking policy, visitor policy, side rail policy, bathrooms and showers. Patient Rights given to patient in the handbook. KEN LAROSE verbalizes understanding that [facility] is not responsible for the loss or damage to any personal effects or valuables that are kept in the patients posession during their hospitalization.KEN LAROSE verbalizes understanding of Interdisciplinary Patient Education. Patient and/or family were informed about the Rapid Response Team and its purpose.
[2020-05-11] MEDS ORDERED: BISACODYL 10 MG SUPP (DULCOLAX) PR PRN (16:45)
[2020-05-11] MEDS ORDERED: NS IV 1000 ML 1,000 ML IV ONE (16:45)
[2020-05-11] MEDS ORDERED: ONDANSETRON 4 MG/2 ML (SDV) Z0FRAN IV PRN (16:45)
[2020-05-11 16:52] VITALS: BP 102/59
[2020-05-11] MEDS ORDERED: polyethylene glycoL POWDER 17 GM (MIRALAX) PACK PO PRN (20:00)
[2020-05-11] MEDS ORDERED: MELATONIN 3 MG TABLET PO PRN (20:00)
[2020-05-11] MEDS ORDERED: ACETAMINOPHEN 325 MG TABLET PO PRN (20:00)
[2020-05-11 21:02] VITALS: BP 99/56
[2020-05-11] MEDS: inSUlin ASPART (NovoLOG) 1 UNIT/0.01 ML (CHARGE PER UNIT) SC SCH (21:15)
[2020-05-11] MEDS: APIXABAN 5 MG (ELIQUIS) TABLET PO SCH (21:15)
[2020-05-12 00:20] VITALS: BP 110/53
[2020-05-12 04:32] VITALS: BP 103/51
[2020-05-12] MEDS: inSUlin ASPART (NovoLOG) 1 UNIT/0.01 ML (CHARGE PER UNIT) SC SCH ×4 (06:09→20:14)
[2020-05-12 07:22] LABS: BUN/CREATININE RATIO 19; CALCIUM 8.2 MG/DL (8.5-10.1); CARBON DIOXIDE 24 MMOL/L (21-32); CHLORIDE 105 MMOL/L (98-107); CHOLESTEROL 94 MG/DL (< 200); CREATININE SERUM 0.64 MG/DL (0.60-1.30); GFR ESTIMATED > 60; GLUCOSE 118 MG/DL (70-105); HDL CHOLESTEROL 29 MG/DL (40-60); MAGNESIUM 1.9 MG/DL (1.6-2.4); POTASSIUM 4.4 MMOL/L (3.6-5.0); SODIUM 136 MMOL/L (135-145); TRIGLYCERIDES 60 MG/DL (<150); VLDL CHOLESTEROL 12 MG/DL (5-40)
[2020-05-12 07:30] VITALS: BP 166/76
[2020-05-12] MEDS: ASPIRIN E.C. 325 MG (ECOTRIN) TABLET PO SCH (08:24)
[2020-05-12] MEDS: DOCUSATE SODIUM 100 MG (COLACE) CAP PO SCH (08:24)
[2020-05-12] MEDS: APIXABAN 5 MG (ELIQUIS) TABLET PO SCH ×2 (08:24→20:40)
--- NOTE | 2020-05-12 08:52 | ST Dysphagia Evaluation ---
Speech Evaluation-General Medical Diagnosis CVA Onset Date: May 11, 2020 Therapy Diagnosis Therapy Diagnosis: Oropharyngeal Dysphagia Precautions Precautions: Aspiration Referral Referring Physician: Dr. Estes Medical History Reviewed History: Yes Social History Home: Single Level Current Living Status: Spouse Speech PLF/Current-Dysphagia Prior Level of Function Patient lived at home with his where he was independent for much of his daily needs. Subjective Patient was sitting up eating breakfast (regular diet level) without difficulty. Patient was compliant with the Bedside Dysphagia Evaluation. Cognitive Status Patient Orientation: Person, Place, Situation Oral Motor Skills Denture Type: Full- Upper & Lower Current Food Consistancy: Regular, Thin Liquids Ability to Follow Directions: Good Oral Expression Ability: No Impairment Patient is CHER-[place]IGHT[place] with cochlear implant Voice Voice Phonatory-Based Quality: Normal Voice Pitch: Normal Voice Loudness: Normal Face Facial Symmetry: Asymmetrical Very slight left side facial droop Oral-Facial Assessment Oral-Facial Dentition: Normal Labial Seal Description: Droops Left Smile: Droops Left Very mild droop, appears to be resolving Voluntary Cough: Yes Can Clear Throat Volitionally: Yes Dysphagia Evaluation Consistencies Presented: Regular, Thin Liquid, Mechanical Soft, Pureed Oral phase is within normal range of function for all consistencies. Pharyngeal phase is within normal range of function for all consistencies. Dietary Recommendations: Regular Liquid Recommendations: Thin Swallowing Precautions: Alternate Liquids/Solids, Double Swallow, Decreased Bolus 1/2 Tsp, Liquids from Straw, Small Bites and Sips, Sitting Upright 90 Degrees, Sitting 90 Degrees 30 Post Intake Dysphagia Evaluation Summary Patient is a 79 y/o male who was admitted via the ED due to stroke like symptoms. Patient was referred for a Bedside Dysphagia Evaluation and speech assessment. The patient was eating a regular consistency breakfast when I entered his room. He was not exhibiting any difficulty with the sausage or biscuit. Patient also had soft scrambled eggs and pudding without difficulty. He was noted to take 3 whole pills with thin liquids without difficulty as well. Patient's speech is intelligible with a very slight left sided facial droop. Patient is [place]ER[place] with cochlear implant. He was able to express himself adequately as well as demonstrate the ability to follow directions. Patient is recommended to continue regular diet level with thin liquids. No further ST services are warranted at this time. Barriers to Learning CHER-AE HEIGHTS with cochlear implant Speech-Plan Patient/Family Goals Patient/Family Goals: Patient plans on returning to his home where he lives with his . Treatment Plan Speech Therapy Treatment Plan: Discontinue ST Treatment Duration: May 12, 2020 Frequency: 1 time per week Estimated Hrs Per Day: .5 hour per day Rehab Potential: Good Barriers to Learning: CHER[place] with cochlear implant Pt/Family Agrees to Plan: Yes Safety Risks/Education Teaching Recipient: Patient Teaching Methods: Discussion Response to Teaching: Verbalize Understanding Education Topics Provided: Safety of oral intake, diet level Time Speech Therapy Time In: 08:05 Speech Therapy Time Out: 08:30 Total Billed Time: 25 Billed Treatment Time 1, SPSNDCOMP, SLTS, DYSEVS, DYST NARDA Darby May 12, 2020 08:52
--- NOTE | 2020-05-12 09:23 | Diagnostic Imaging Report ---
PROCEDURE: US carotid duplex, bilateral. TECHNIQUE: Multiple Real-time grayscale images were obtained over the carotid arteries in various projections, bilaterally. Additional spectral analysis and color Doppler duplex images were also obtained. INDICATION: Stroke. FINDINGS: Overall, the quality of the study is somewhat limited. The study is limited due to poor patient positioning and the patient repeatedly swallowing through the study. There is a moderate amount of plaque in the carotid systems. The velocities appear normal in the common carotid as well as the proximal and mid internal carotid arteries. The velocity in the distal left internal carotid artery is normal. The distal right ICA was not well visualized. In addition, the vertebral arteries could not be visualized. No significant velocity elevation is identified. IMPRESSION: Bilateral carotid plaque. No high-grade stenosis is identified. The distal right ICA could not be visualized sonographically but was visualized and shown to be patent on the CT angiogram of one day earlier. Parameters based on the consensus panel Huntley-Scale and Doppler ultrasound criteria published March 2003, Radiology, Volume 229. DOPPLER (peak systolic velocity M/S Right Left CCA 0.95 1.01 ICA Proximal 0.82 0.84 ICA Mid 0.73 1.16 ICA Distal NOT SEEN 0.93 RATIO 0.86 1.15 ECA 1.20 0.96 VERT NOT SEEN NOT SEEN Dictated by: Dictated on workstation # [id number]
--- NOTE | 2020-05-12 11:30 | Physical Therapy Evaluation ---
PT Evaluation-General Medical Diagnosis Admission Date May 11, 2020 at 13:50 Medical Diagnosis: CVA Onset Date: May 11, 2020 Therapy Diagnosis Therapy Diagnosis: debility/weakness Height/Weight Height (Feet): 5 Height (Inches): 9.00 Weight (Pounds): 206 Weight (Ounces): 4.0 Precautions Precautions/Isolations: Contact Isolation, Droplet Isolation Weight Bear Status Right Lower Extremity: Right Full Weight Bearing Left Lower Extremity: Left Full Weight Bearing Referral Physician: Franklyn Reason for Referral: Evaluation/Treatment Medical History Pertinent Medical History: Arthritis, COPD (5L at home continuous) Additional Medical History DVT's Current History EMS secondary to left sided weakness/Covid (+) Reviewed History: Yes Social History Home: Single Level Prior Prior Level of Function SCALE: Activities may be completed with or without assistive devices. 9-Biscbwtdqf-fckulsu completes the activity by him/herself with no assistance from a helper. 5-Set-up or Clean-up Assistance-helper sets up or cleans up; patient completes activity. [place] assists only prior to or following the activity. 4-Supervision or Touching Assistance-helper provides verbal cues and/or touching/steadying and/or contact guard assistance as patient completes activity. Assistance may be provided throughout the activity or intermittently. 3-Partial/Moderate Assistance-helper does LESS THAN HALF the effort. [place] lifts, holds or supports trunk or limbs, but provides less than half the effort. 2-Substantial/Maximal Assistance-helper does MORE THAN HALF the effort. [place] lifts or holds trunk or limbs and provides more than half the effort. 4-Bvszapqoq-iitfpu does ALL the effort. Patient does none of the effort to complete the activity. Or, the assistance of 2 or more helpers is required for the patient to complete the activity. If activity was not attempted, code reason: 7-Patient Refused. 9-Not Applicable-not attempted and the patient did not perform the activity before the current illness, exacerbation or injury. 10-Not Attempted due to Environmental Limitations-(lack of equipment, weather restraints, etc.). 88-Not Attempted due to Medical Conditions or Safety Concerns. Bed Mobility: 6 Transfers (B,C,W/C): 6 Gait: 6 Stairs: 6 Indoor Mobility (Ambulation): Independent Stairs: Independent Prior Devices Use: None meals on wheels PT Evaluation-Current Subjective Patient voices concern to return to home. Patient is SOA with minimal activity and currently on 5L NC as in home. Objective Patient Orientation: Normal For Age Attachments: Oxygen ROM/Strength ROM Lower Extremities bilateral LE WFL Strength Lower Extremities 4-/5 grossly bilateral Le Integumentary/Posture Integumentary refer to nursing notes Bowel Incontinence: No Bladder Incontinence: No Posture WFL Neuromuscular (Tone, Coordination, Reflexes) grossly intact Sensory Vision: Wears Glasses Hearing: Impaired Transfers Sit to Lying (QC): 5 Lying to Sitting/Side of Bed(Q: 5 Sit to Stand (QC): 4 Gait Does the Patient Walk?: Yes Mode of Locomotion: Walk Anticipated Mode of Locomotion: Walk Walk 10 feet (QC): 4 Walk 50 ft with 2 Turns(QC): 4 Walk 150 ft (QC): 4 Gait Assistive Device: None Comments/Gait Description SBA for safety (patient able to negotiate O2 tubing independently) Balance Sitting Static: Normal Sitting Dynamic: Normal Standing Static: Fair Standing Dynamic: Fair Picking up an Object (QC): 5 (seated position) Assessment/Needs 79 y.o. male, will benefit from short term skilled PT to address functional strength and mobility to improve current LOF to safely return to home at maximum LOF and improved pulmonary function. Rehab Potential: Fair (COPD) PT Group Home Goals Group Home Goals PT Electrode Cleaner Goals Time Frame: May 23, 2020 Roll Left & Right (QC): 6 Sit to Lying (QC): 6 Lying-Sitting on Side/Bed(QC): 6 Sit to Stand (QC): 6 Chair/Fmi-rq-Zvnxe Xfer(QC): 6 Toilet Transfer (QC): 6 Car Transfer (QC): 6 Does the Patient Walk: Yes Walk 10 feet (QC): 6 Walk 50ft with 2 Turns (QC): 6 Walk 150 ft (QC): 6 PT Plan Problem List Problem List: Activity Tolerance Treatment/Plan Treatment Plan: Continue Plan of Care Treatment Plan: Bed Mobility, Education, Functional Activity Lucy, Functional Strength, Gait, Safety, Therapeutic Exercise, Transfers Treatment Duration: May 23, 2020 Frequency: 6 times per week Estimated Hrs Per Day: .5 hour per day Patient and/or Family Agrees t: Yes Time/GCodes Time In: 1030 Time Out: 1044 Total Billed Treatment Time: 14 Total Billed Treatment 1 visit EVModC 14 min BROOKE CHE PT May 12, 2020 11:30
[2020-05-12 12:44] VITALS: BP 118/58
--- NOTE | 2020-05-12 13:29 | Occupational Therapy Eval ---
OT Evaluation-General/PLF Medical Diagnosis Admission Date May 11, 2020 at 13:50 Medical Diagnosis: CVA/Covid-19 Onset Date: May 11, 2020 Therapy Diagnosis Therapy Diagnosis: Weakness Height/Weight Height (Feet): 5 Height (Inches): 9.00 Weight (Pounds): 206 Weight (Ounces): 4.0 Precautions Precautions/Isolations: Contact Isolation, Droplet Isolation Weight Bear Status Weight Bearing Restriction: Weight Bearing/Tolerated Referral Physician: Franklyn Referral Reason: Activity Tolerance, Self Care, Evaluation/Treatment, Strengthening/ROM Medical History Pertinent Medical History: Arthritis, COPD (5L at home continuous) Additional Medical History Right shoulder surgery x 2, left shoulder surgery x 1. Bilateral foot surgery. Reviewed History: Yes Social History Home: Single Level Current Living Status: Alone Entry Into Home: Stairs With Railing Steps Into Home: 2 ADL-Prior Level of Function SCALE: Activities may be completed with or without assistive devices. 2-Jyzlnlypoc-xvrianj completes the activity by him/herself with no assistance from a helper. 5-Set-up or Clean-up Assistance-helper sets up or cleans up; patient completes activity. [place] assists only prior to or following the activity. 4-Supervision or Touching Assistance-helper provides verbal cues and/or touching/steadying and/or contact guard assistance as patient completes activity . Assistance may be provided throughout the activity or intermittently. 3-Partial/Moderate Assistance-helper does LESS THAN HALF the effort. [place] lifts, holds or supports trunk or limbs, but provides less than half the effort. 2-Substantial/Maximal Assistance-helper does MORE THAN HALF the effort. [place] lifts or holds trunk or limbs and provides more than half the effort. 0-Jeyvsvafn-xbjrsk does ALL the effort. Patient does none of the effort to complete the activity. Or, the assistance of 2 or more helpers is required for the patient to complete the activity. If activity was not attempted, code reason: 7-Patient Refused. 9-Not Applicable-not attempted and the patient did not perform the activity before the current illness, exacerbation or injury. 10-Not Attempted due to Environmental Limitations-(lack of equipment, weather restraints, etc.). 88-Not Attempted due to Medical Conditions or Safety Concerns. ADL PLOF Comments Pt. verbalizes that he lives alone. He states that within the last year, he was receiving home care, but was not currently before this hospitalization. Pt. states that he is able to bathe/dress self, but "I don't do it very well." Pt. states that he has a walker and uses it "sometimes." Self Care: Unknown Functional Cognition: Unknown DME/Equipment: Tub/Shower DME/Equipment Comments Pt. verbalizes that he has a walker. OT Current Status Subjective Pt. does not report pain but states that he "just can't get my wind." Pt. is very [place] and so communication is difficult at times. Appearance Pt. in bed. Agrees to work with OT. Mental Status/Objective Patient Orientation: Person, Place Attachments: Oxygen Current Glasses/Contacts: Yes Dentures/Partials: Yes Hand Dominance: Right Upper Extremity ROM WFL Upper Extremity Strength WFL bilateral UE ADL-Treatment Oral Hygiene (QC): 7 (Pt. declines brushing teeth as he has dentures. Dentures are in a cup and pt. states that he can't wear them until he has some fixodent. ) Shower/Bathe Self (QC): 7 (Pt. declines showering and states that he is afraid he "wont be able to get air.") On/Off Footwear (QC): 4 Pt. is on 5 L 02. Pt. fatigues and becomes SOA with any activity. He is encouraged to rest in between tasks. Pt. is able to transfer supine-sit with S BA and increased effort. He is able to doff/don slipper socks. Pt. is able to stand and transfer to reclining chair. All needs met up in chair. Education OT Patient Education: Correct positioning, Modified ADL techniques, Progress toward Goal/Update tx plan, Purpose of tx/functional activities, Reviewed precautions, Rehab process, Transfer techniques Teaching Recipient: Patient Teaching Methods: Demonstration, Discussion Response to Teaching: Verbalize Understanding, Return Demonstration OT Short Term Goals Short Term Goals Time Frame: May 19, 2020 Eatin Oral hygiene: 3 Toileting hygiene: 3 Shower/bathe self: 3 Upper body dressin Lower body dressin Putting on/taking off footwear: 3 OT New Accounts Banking Representative Goals New Accounts Banking Representative Goals Time Frame: May 26, 2020 Eating (QC): 6 Oral Hygiene (QC): 6 Toileting Hygiene (QC): 6 Shower/Bathe Self (QC): 4 Upper Body Dressing (QC): 5 Lower Body Dressing (QC): 4 On/Off Footwear (QC): 4 Additional Goals: 1-Demonstrate ADL Tasks, 2-Verbalize Understanding, 3-ImproveStrength/Lucy 1=Demonstrate adherence to instructed precautions during ADL tasks. 2=Patient will verbalize/demonstrate understanding of assistive devices/modifications for ADL. 3=Patient will improve strength/tolerance for activity to enable patient to per form ADL's. OT Education/Plan Problem List/Assessment Assessment: Decreased Activ Tolerance, Impaired I ADL's, Impaired Self-Care Skills Discharge Recommendations Plan/Recommendations: Continue POC Therapy Discharge Recommendati: Post Acute OT Treatment Plan/Plan of Care Treatment,Training & Education: Yes Patient would benefit from OT for education, treatment and training to promote independence in ADL's, mobility, safety and/or upper extremity function for ADL's. Plan of Care: ADL Retraining, Functional Mobility, UE Funct Exercise/Act Treatment Duration: May 26, 2020 Frequency: 5 times per week Estimated Hrs Per Day: .25 hour per day Agreement: Yes Rehab Potential: Fair Time/GCodes Start Time: 10:55 Stop Time: 11:10 Total Time Billed (hr/min): 15 Billed Treatment Time 1, AR BUTLER OT May 12, 2020 13:29
--- NOTE | 2020-05-12 14:33 | NUR ---
CM/SS: Visited with pt in room in full PPE based on his isolation guidelines related to his discharge plan related to home care services and a ride home. Plan: Pt is from home and will discharge back to home with [facility] resumed. Summary: Pt has had [facility] prior to his admission to the hospital and will resume [facility] at time of discharge. Pt reports not having a ride due to being COVID positive. Talk with CASSIDY Gentile in Infection Control and she had determine based on the information that pt is no longer needed to be in isolation. CASSIDY Osborne who is known to this pt and will assist in getting pt a ride to his home today. This worker will follow up. [facility] [phone], is notified as to his discharge from hospital today. Information to be faxed over and their care will resume with orders.
[2020-05-12] MEDS ORDERED: APIX5TAB PO (15:25)
[2020-05-12] MEDS ORDERED: ASPI325T32 PO (15:25)
[2020-05-12] MEDS ORDERED: ATOR40TA PO (15:25)
--- NOTE | 2020-05-12 15:26 | History & Physical-Hospitalist ---
History of Present Illness HPI/Chief Complaint Ruiz Bhatia is a 79 year old male with PMH oxygen dependent COPD, history of DVT on Eliquis, who presented with slurred speech. He reportedly woke up at 7 am and had speech difficulty. He says that he was drooling out the left side of his mouth. He had left hand weakness. He denies any leg weakness. He denies any fev ers or chills. He denies any vision trouble. He denies chest pain and palpitations. He denies shortness of breath and cough. He denies abdominal pain, nausea, and vomiting. He has no other complaints or concerns. Source: patient Exam Limitations: no limitations Date Seen 05/12/20 Time Seen by a Provider: 10:15 Attending Physician Kathrin Dorado MD PCP Lex Jeffers MD Referring Physician Date of Admission May 11, 2020 at 13:50 Home Medications & Allergies Home Medications Reviewed patient Home Medication Reconciliation performed by pharmacy medication reconciliations concrete engineering technician and/or nursing. Patients Allergies have been reviewed. Allergies Allergies Coded Allergies No Known Drug Allergies (Unverified05/11/20) Past Dkjaqst-Chaewm-Nomiib Hx Past Med/Social Hx: Reviewed Nursing Past Med/Soc Hx Patient Social History Alcohol Use: Denies Use Recreational Drug Use: No Smoking Status: Former Smoker Former Smoker, Quit: Aug 06, 1986 2nd Hand Smoke Exposure: Yes Recent Foreign Travel: No Contact w/other who traveled: No Recent Hopitalizations: No Recent Infectious Disease Expo: Yes Immunizations Up To Date Date of Pneumonia Vaccine: Jan 06, 2014 Date of Influenza Vaccine: Feb 26, 2020 Past Medical History Cardiac: Deep Vein Thrombosis Reproductive: No Gastrointestinal: Gall Bladder Disease Musculoskeletal: Arthritis History of Blood Disorders: No Family History FH: pancreatic cancer G8 SISTER Review of Systems Constitutional: no symptoms reported EENTM: no symptoms reported Respiratory: no symptoms reported Cardiovascular: no symptoms reported Gastrointestinal: no symptoms reported Genitourinary: no symptoms reported Musculoskeletal: no symptoms reported Skin: no symptoms reported Psychiatric/Neurological: No Symptoms Reported Physical Exam Physical Exam Vital Signs Vital Signs - First Documented 05/11/20 05/11/20 10:15 10:20 Temp 37.0 Pulse 92 Resp 20 B/P (MAP) 100/69 (79) Pulse Ox 97 O2 Delivery Room Air O2 Flow Rate 5.00 Capillary Refill : Less Than 3 Seconds Height, Weight, BMI Height: 5'9.00" Weight: 206lbs. 4.0oz. 95.175648vv; 25.63 BMI Method:Stated General Appearance: No Apparent Distress, WD/WN HEENT: PERRL/EOMI, Pharynx Normal Neck: Normal Inspection, Supple Respiratory: Lungs Clear, Normal Breath Sounds, No Respiratory Distress Cardiovascular: Regular Rate, Rhythm, No Edema, No Murmur Gastrointestinal: Normal Bowel Sounds, Non Tender, Soft Extremity: Normal Inspection, Non Tender, No Pedal Edema Neurologic/Psychiatric: Alert, Oriented x3, No Motor/Sensory Deficits, Normal Mood/Affect, Facial Droop Skin: Normal Color, Warm/Dry Results Results/Procedures Labs Laboratory Tests 05/11/20 10:20 05/12/20 06:28 Patient resulted labs reviewed. Imaging: Reviewed Imaging Report Assessment/Plan Admission Diagnosis Presumed acute ischemic stroke Admission Status: Observation Reason for Inpatient Admission: Stroke requring further evaluation Assessment and Plan Presumed acute ischemic stroke CT without evidence of stroke, imaging distorted due to cochlear implant Unable to obtain MRI due to cochlear implant Started on ASA EKG showed sinus rhythm Monitor on telemetry Echo unremarkable CTA showed bilateral carotid plaques, no significant stenosis or other abnormalities Carotid ultrasound without evidence of signifcant stenosis Lipid panel with low HDL Started on Lipitor History of DVT Continue Eliquis COPD Chronic hypoxic respiratory failure Continue home meds Continue supplemental oxygen DVT Prophylaxis: already receiving therapeutic anticoagulation Diagnosis/Problems Diagnosis/Problems (1) Stroke Status: Acute Qualifiers: Qualified Codes: I63.9 - Cerebral infarction, unspecified (2) COPD (chronic obstructive pulmonary disease) Status: Chronic (3) Chronic hypoxemic respiratory failure Status: Chronic (4) History of DVT (deep vein thrombosis) Status: Chronic Clinical Quality Measures DVT/VTE Risk/Contraindication: Risk Factor Score Per Nursin RFS Level Per Nursing on Admit: 2=Moderate KATHRIN DORADO MD May 12, 2020 15:26
[2020-05-12 16:16] VITALS: BP 114/74
--- NOTE | 2020-05-12 16:49 | NUR ---
CM/SS: [facility] WILL RESEARCH DIRECTOR PT AT 11AM ON May - PT WILL NEED TO BE AT THE OUTPATIENT ENTRANCE PRIOR TO THE 11AM RESEARCH DIRECTOR.
[2020-05-12 20:55] VITALS: BP 150/65
[2020-05-13 00:24] VITALS: BP 122/57
[2020-05-13 04:22] VITALS: BP 104/55
[2020-05-13] MEDS: inSUlin ASPART (NovoLOG) 1 UNIT/0.01 ML (CHARGE PER UNIT) SC SCH (06:12)
[2020-05-13] MEDS ORDERED: METF-397 PO (07:38)
[2020-05-13] MEDS ORDERED: metFORMIN 500 MG (GLUCOPHAGE) TAB PO NR (07:45)
[2020-05-13 08:00] VITALS: BP 121/57
[2020-05-13] MEDS: DOCUSATE SODIUM 100 MG (COLACE) CAP PO SCH (08:26)
[2020-05-13] MEDS: APIXABAN 5 MG (ELIQUIS) TABLET PO SCH (08:26)
[2020-05-13] MEDS: ASPIRIN E.C. 325 MG (ECOTRIN) TABLET PO SCH (08:26)
--- NOTE | 2020-05-13 10:39 | NUR ---
SPOKE WITH [facility]ARID[facility] NEW MEDICATION, STATES SHE WILL RELAY TO [facility] RN. VERBALIZES THEY ALREADY ARE TAKING PATIENT'S BLOOD SUGAR
--- NOTE | 2020-05-13 11:09 | NUR ---
CM/SS: Pt discharging with [facility] to transport home. Final Discharge Orders are faxed to [facility] [place] - [phone].
[2020-05-13 11:21] VITALS: BP 121/57
--- NOTE | 2020-05-18 12:41 | Physician Query-Final Dx ---
GONZALO WARREN 05/18/20 1241: Final Diagnosis Give Final Diagnosis Please give Final Diagnosis TODD DORADO MD 05/28/202023: Final Diagnosis Give Final Diagnosis Cryptogenic stroke GONZALO WARREN May 18, 2020 12:41 TODD DORADO MD May 28, 2020 20:24
--- NOTE | 2020-05-28 20:23 | Discharge Summary ---
Discharge Summary Hospital Course Was the Problem List Reviewed?: Yes Problems/Dx: (1) Stroke Status: Acute Qualifiers: Qualified Codes: I63.9 - Cerebral infarction, unspecified (2) COPD (chronic obstructive pulmonary disease) Status: Chronic (3) Chronic hypoxemic respiratory failure Status: Chronic (4) History of DVT (deep vein thrombosis) Status: Chronic Hospital Course Date of Admission: May 11, 2020 at 16:52 Admission Diagnosis : Stroke Family Physician/Provider: Lex Jeffers MD Date of Discharge: 05/28/20 Discharge Diagnosis: Cryptogenic stroke Hospital Course: Ruiz Bhatia is a 79 year old male with PMH oxygen dependent COPD, DVT on Eliquis, cochlear implant, who presented with slurred speech and was admitted with acute ischemic stroke. He underwent CT head which was unrevealing. He underwent a CTA which showed no significant stenosis or occlusion. He underwent echocardiogram which was unrevealing. He was started on aspirin and a statin. He was unable to undergo MRI due to his cochlear implant. He was also found to have newly diagnosed diabetes and was started on metformin. He was discharged home in stable condition. He should follow up with his PCP in one week. Labs and Pending Lab Test: Home Meds Active Metformin HCl 500 Mg Tablet 500 Mg PO DAILY 30 Days TAKE 1 TAB ONCE DAILY X1 WEEK, THEN 1 TAB TWICE DAILY X1 WEEK, THEN 2 TABS TWICE DAILY Aspirin EC (Aspirin) 325 Mg Tablet.dr 325 Mg PO DAILY 30 Days Lipitor (Atorvastatin Calcium) 40 Mg Tablet 40 Mg PO HS 30 Days Eliquis (Apixaban) 5 Mg Tablet 5 Mg PO BID 30 Days Reported Cyclobenzaprine HCl 10 Mg Tablet 10 Mg PO DAILY Spiriva (Tiotropium [place]) 1 Inh Aerp 1 Inh IH DAILY Ipratropium [place] 0.2 Mg/Ml Solution 0.2 Mg IH DAILY Perforomist (Formoterol) 20 Mcg/2 Ml Vial.neb 20 Mcg IH BID Budesonide 0.5 Mg/2 Ml Ampul.neb 1 Each IH BID Proair Hfa (Albuterol) 8.5 Gm Hfa.aer.ad 2 Puff IH BID Assessment/Pt Instructions Take medications as prescribed. Follow up with your PCP. Discharge Planning: <30 minutes discharge planning Discharge Instructions Discharge Diet: ADA Diet Activity as Tolerated: Yes Discharge Physical Examination Allergies: Coded Allergies: No Known Drug Allergies (Unverified , 1/4/21) Discharge Summary Date of Admission May 11, 2020 at 16:52 Date of Discharge May 13, 2020 at 11:21 Discharge Date: May 13, 2020 Discharge Time: 11: Admission Diagnosis Presumed acute ischemic stroke Discharge Diagnosis Cryptogenic stroke (1) Stroke Status: Acute Qualifiers: Qualified Codes: I63.9 - Cerebral infarction, unspecified (2) COPD (chronic obstructive pulmonary disease) Status: Chronic (3) Chronic hypoxemic respiratory failure Status: Chronic (4) History of DVT (deep vein thrombosis) Status: Chronic (5) Cryptogenic stroke Clinical Quality Measures DVT/VTE Risk/Contraindication: Risk Factor Score Per Nursin RFS Level Per Nursing on Admit: 2=Moderate TODD DORADO MD May 28, 2020 20:23
== END 2020-05-13 11:21 | disposition home health service (06) ==
LOC: EDUNIT# 10:14 → ER 10:15 → EDLOC 13:50 → INTOOBSV 13:50 → UNDOADMOB 13:50 → 4TH 13:50 → UNDODISOB 05-13 11:27
PROVIDERS: ADMIT Internal Medicine; ATTEND Internal Medicine
DX: I63.9 Cerebral infarction, unspecified (principal); J44.9 Chronic obstructive pulmonary disease, unspecified; J96.11 Chronic respiratory failure with hypoxia; M19.90 Unspecified osteoarthritis, unspecified site; Z79.01 Long term (current) use of anticoagulants; Z79.82 Long term (current) use of aspirin; Z79.899 Other long term (current) drug therapy; Z79.51 Long term (current) use of inhaled steroids; Z87.891 Personal history of nicotine dependence
CPT/HCPCS: 70450; 70496; 70498; 71045; 80048; 80053; 80061; 81000; 82962 ×3; 83036; 83735; 84484; 85025; 85379; 85610; 85730; 92507; 92523; 92526; 92610; 93005; 93041; 93308; 93880; 94664; 94760; 97162; 97167; 99284; G0378; 36415

== ENCOUNTER 2020-06-16 08:46 | Inpatient (IN) | payer MEDICARE ==
[~2020-06-16] VITALS: Ht 182 cm; Wt 90.8 kg
[~2020-06-16 08:46] MED LIST changes: +ALBU2.5V4 NEB; +AMLO-250 PO; +APIX5TAB PO; +ASPI325T32 PO; +ATOR40TA PO; +ATOR40TA70 PO; +BUDE0.5A NEB; +DILT120C85 PO; +FORM20VI IH; +INSU100I14 SQ; +INSU100I29 SC; +LISI10TA25 PO; +METF-397 PO; +METO-333 PO; +MONT10TA32 PO; +OMEP20CA18 PO; +PRAM0.257 PO; +REVE175V IH; +SEMA0.25 INJ; +TMSL.4C PO
[2020-06-16] MEDS ORDERED: ACETAMINOPHEN 500 MG TAB (TYLENOL) PO PRN (09:00)
[2020-06-16] MEDS ORDERED: DOCUSATE SODIUM 100 MG (COLACE) CAP PO PRN ×2 (09:00→11:15)
[2020-06-16] MEDS ORDERED: guaiFENesin/CODEINE (ROBITUSSIN AC) 10ML UDC PO PRN ×2 (09:00→11:15)
[2020-06-16] MEDS ORDERED: ALPRAZolam 0.25 MG (XANAX) TAB PO PRN ×2 (09:00→11:15)
[2020-06-16] MEDS ORDERED: MELATONIN 3 MG TABLET PO PRN ×2 (09:00→11:15)
[2020-06-16] MEDS ORDERED: LOPERAMIDE 2 MG (IMODIUM) TABLET PO PRN ×2 (09:00→11:15)
[2020-06-16] MEDS ORDERED: ONDANSETRON 4 MG (ZOFRAN) ORAL DISSOLVE TAB PO PRN (09:00)
[2020-06-16] MEDS ORDERED: CALCIUM CARBONATE 500 MG (TUMS) TAB.CHEW PO PRN ×2 (09:00→11:15)
[2020-06-16] MEDS ORDERED: diphenhydrAMINE 25 MG TAB (BENADRYL) PO PRN ×2 (09:00→11:15)
[2020-06-16] MEDS ORDERED: BISACODYL 10 MG SUPP (DULCOLAX) PR PRN (09:00)
[2020-06-16] MEDS ORDERED: LACTULOSE SYRUP 10GM/15ML (ENULOSE) 30ML UDC PO PRN (09:00)
[2020-06-16] MEDS ORDERED: FLEET ENEMA ADULT 1 EA BTL PR PRN (09:00)
[2020-06-16 10:00] VITALS: BP 110/63
--- NOTE | 2020-06-16 10:51 | Occupational Therapy Eval ---
OT Evaluation-General/PLF Medical Diagnosis Admission Date Jun 16, 2020 at 10:00 Medical Diagnosis: Post COVID PNA Onset Date: Jun 10, 2020 Therapy Diagnosis Therapy Diagnosis: weakness, decreased ADL status Height/Weight Height (Feet): 5 Height (Inches): 9.00 Weight (Pounds): 206 Weight (Ounces): 4.0 Referral Physician: Orlin Referral Reason: Activity Tolerance, Self Care, Evaluation/Treatment, Strengthening/ROM Medical History Pertinent Medical History: Atrial Fib, CAD, COPD, CVA, Neuropathy Additional Medical History COPD (5L O2 at home), arthritis, BLACKFEET, COVID-19 PNA (03/2020), cochlear implant Current [place] [facility] [place]. Pt had 2 episodes of bacterial PNA since COVID PNA 03/2020. Pt transferred to ARU 06/16/2020 for continued medication management and skilled therapy. Reviewed History: Yes Social History Home: Single Level Current Living Status: Alone Steps Into Home: 2 ADL-Prior Level of Function SCALE: Activities may be completed with or without assistive devices. 1-Vnebiabgrt-ykmauea completes the activity by him/herself with no assistance from a helper. 5-Set-up or Clean-up Assistance-helper sets up or cleans up; patient completes activity. [place] assists only prior to or following the activity. 4-Supervision or Touching Assistance-helper provides verbal cues and/or touching/steadying and/or contact guard assistance as patient completes activity. Assistance may be provided throughout the activity or intermittently. 3-Partial/Moderate Assistance-helper does LESS THAN HALF the effort. [place] lifts, holds or supports trunk or limbs, but provides less than half the effort. 2-Substantial/Maximal Assistance-helper does MORE THAN HALF the effort. [place] lifts or holds trunk or limbs and provides more than half the effort. 6-Blhupchvq-qwthac does ALL the effort. Patient does none of the effort to complete the activity. Or, the assistance of 2 or more helpers is required for the patient to complete the activity. If activity was not attempted, code reason: 7-Patient Refused. 9-Not Applicable-not attempted and the patient did not perform the activity before the current illness, exacerbation or injury. 10-Not Attempted due to Environmental Limitations-(lack of equipment, weather restraints, etc.). 88-Not Attempted due to Medical Conditions or Safety Concerns. ADL PLOF Comments Pt reports independent at PLOF with all ADLs and functional mobility. Pt drives, coks/cleans. He has a cast iron tub with SC, but does not have anywhere for a GB. Self Care: Independent Functional Cognition: Independent DME/Equipment: Bath Chair, Tub DME/Equipment Comments FWW OT Current Status Subjective Pt agreeable to OT tx, reports some pain in his heels, nurse notified. Pt did not provide pain rating. Mental Status/Objective Patient Orientation: Person, Place, Time, Situation Attachments: Oxygen (4L), Telemetry Current Glasses/Contacts: Yes Hearing Aids: Yes Dentures/Partials: Yes Hand Dominance: Right Upper Extremity ROM WFL, Slightly decreased ROM due to prior accidents/injuries but functional. Upper Extremity Coordination WFL Upper Extremity Sensation WFL, pt denies tingling/numbness Upper Extremity Strength grossly 4/5 BUEs ADL-Treatment Eating (QC): 6 (Per pt report, pt independent with eating. Able to open contiainers, cut food, and use utensils.) Oral Hygiene (QC): 5 (set up assist. ) Shower/Bathe Self (QC): 3 (Pt required assistance washing bilateral lower legs/feet. Pt able to wash all other parts, SBA in stand to wash buttocks.) Upper Body Dressing (QC): 5 (set up assist) Lower Body Dressing (QC): 3 (Pt able to thread bilateral legs, min A with threading RLE due to gripper socks. Pt able to manage pants up wtih CGA, and assist to tie drawstring.) On/Off Footwear (QC): 3 (Mod A. Pt able to doff, assist to thread socks over toes, then pt able to pull up.) Toileting Hygiene (QC): 4 (Pt able to manage pants up/down and complete hygiene. CGA in stand at [facility].) Other Treatments Pt agreeable to OT evaluation and tx. Pt transferred EOB to w/c via SPT, SBA. Pt then transferred w/c to recliner SBA. Pt completed sponge bath and dressing, requiring frequent rest breaks. Pt completed oral care with set up assist at tray table. Pt completed x10 reps BUE exercises in order to increase activity tolerance and strength, completing the following: shoulder flexion, elbow flexion/extension, and shoulder horizontal abduction. Pt demo'd understanding of exercises, educated to complete throughout the day. Post tx, pt seated in recliner, call light in reach and all needs met. Education OT Patient Education: Correct positioning, Energy conservation, Modified ADL techniques, Progress toward Goal/Update tx plan, Purpose of tx/functional activities Teaching Recipient: Patient Teaching Methods: Discussion Response to Teaching: Verbalize Understanding OT Short Term Goals Short Term Goals Time Frame: Jun 26, 2020 Toileting hygiene: 4 Shower/bathe self: 4 Putting on/taking off footwear: 4 OT Jail Goals Vehicle Painter Goals Time Frame: Jul 10, 2020 Eating (QC): 6 Oral Hygiene (QC): 6 Toileting Hygiene (QC): 6 Shower/Bathe Self (QC): 6 Upper Body Dressing (QC): 6 Lower Body Dressing (QC): 6 On/Off Footwear (QC): 6 Additional Goals: 1-Demonstrate ADL Tasks, 2-Verbalize Understanding, 3-ImproveStrength/Lucy 1=Demonstrate adherence to instructed precautions during ADL tasks. 2=Patient will verbalize/demonstrate understanding of assistive devices/modifications for ADL. 3=Patient will improve strength/tolerance for activity to enable patient to perform ADL's. OT Education/Plan Problem List/Assessment Assessment: Decreased Activ Tolerance, Decreased UE Strength Discharge Recommendations Plan/Recommendations: Continue POC Treatment Plan/Plan of Care Patient would benefit from OT for education, treatment and training to promote independence in ADL's, mobility, safety and/or upper extremity function for ADL's. Plan of Care: ADL Retraining, Functional Mobility, UE Funct Exercise/Act Treatment Duration: Jul 10, 2020 Frequency: At least 5 of 7 days/Wk (IRF) Estimated Hrs Per Day: 1 hour per day Due to COVID-19 viral infection, the patient has deficits that warrant inpatient Acute Rehab. The patient will clearly benefit from intensive PT and OT, however, due to patient's observed endurance and therapy considerations, he may not be able to tolerate the full 3 hours of scheduled therapy. Therefore, he will be scheduled for as much therapy as he can tolerate with intentional rest breaks, shortened sessions, including providing therapy across 6 to 7 days. As the patient tolerates, the intensity, frequency, and duration of his therapy program will be increased. Time/GCodes Start Time: 10:00 Stop Time: 11:00 Total Time Billed (hr/min): 60 Billed Treatment Time 1, EVL (15'), ADL 2 (35'), EX (10') SHAYLEE BOUCHER OT Jun 16, 2020 10:50
[2020-06-16] MEDS ORDERED: ACETAMINOPHEN 325 MG TABLET PO PRN ×2 (11:00→11:15)
--- NOTE | 2020-06-16 11:06 | PM&R Post Admission Assessment ---
PM&R HP Date of Visit: Jun 16, 2020 Time of Visit: 10:30 History of Present Illness CC: Debility and multiple hospital stays since COVID and CVA HPI: This is a 79yoWM clinic patient of [facility] [place] [facility] well known to me from multiple hospital stays since COVID PNA who he dependent on O2 at 5L/min at home who presents to the IRF in need of strengthening in order to return home with help. PLOF is independent with walker used. Patient reports feeling a bit fatigued today due to N/V/D and low sugar early this am. DUe to severe debility from COVID and CVA he will require 15/7. Med-surg DC note: Hospital Course: Pt had a lengthy hospital course, he was moved over from [facility] [place] ER due to recurrent pneumonia required bronchoscopy which showed yeast. Pt was maintained on broad spectrum antibiotics, PT and OT consulted, along with Cardiology. AF with RVR managed with increased dose of Cardizem. Overall he was deemed stable for DC, labs remained stable and he was transferred to inpatient rehab for further recovery since the Covid pneumonia and stroke in the last two months. Past Jxkmbyd-Blugij-Tsuibv Hx Past Med/Social Hx: Reviewed Nursing Past Med/Soc Hx, Reviewed and Corrections made Patient Social History Marrital Status: Employed/Student: retired Alcohol Use: Denies Use Smoking Status: Former Smoker Former Smoker, Quit: Aug 06, 1986 2nd Hand Smoke Exposure: Yes Recent Hopitalizations: No Immunizations Up To Date Date of Pneumonia Vaccine: Jan 06, 2014 Date of Influenza Vaccine: Feb 26, 2020 Past Medical History Respiratory: Chronic Bronchitis, COPD, Emphysema, Pneumonia 03/2020 Cardiac: Atrial Fibrillation, Coronary Artery Disease, Deep Vein Thrombosis, High Cholesterol Neurological: Neuropathy, Stroke, TIA Reproductive: No Gastrointestinal: Gall Bladder Disease Musculoskeletal: Arthritis Endocrine: Diabetes, Insulin dep Hearing Impairment: Hard of Hearing History of Blood Disorders: No Family History FH: pancreatic cancer G8 SISTER Self Care: Independent Functional Cognition: Independent Occupation: retired PM&R Allergy/Meds/Data Review Allergies Coded Allergies: No Known Drug Allergies (Unverified , 05/11/20) Home Medications Scheduled Amlodipine Besylate (Amlodipine Besylate), 5 MG PO DAILY, (Reported) Apixaban (Eliquis), 5 MG PO BID, (Reported) Aspirin (Aspirin EC), 325 MG PO DAILY, (Reported) Atorvastatin Calcium (Atorvastatin Calcium), 40 MG PO HS, (Reported) Budesonide (Budesonide), 0.5 MG NEB BID, (Reported) Cyclobenzaprine HCl (Cyclobenzaprine HCl), 10 MG PO DAILY, (Reported) Diltiazem HCl (Diltiazem ER), 120 MG PO BID, (Reported) Formoterol Fumarate (Perforomist), 20 MCG IH BID, (Reported) Insulin Aspart (Novolog Flexpen), 10 UNITS SQ AC, (Reported) Insulin Detemir (Levemir Flextouch), 25 UNITS SC BID, (Reported) Lisinopril (Lisinopril), 10 MG PO DAILY, (Reported) Metformin HCl (Metformin HCl), 500 MG PO BID, (Reported) Metoprolol Tartrate (Metoprolol Tartrate), 25 MG PO BID, (Reported) Montelukast Sodium (Montelukast Sodium), 10 MG PO DAILY, (Reported) Omeprazole (Omeprazole), 20 MG PO DAILY, (Reported) Pramipexole Di-HCl (Pramipexole Dihydrochloride), 0.25 MG PO HS, (Reported) Prednisone (Prednisone), 5 MG PO DAILY, (Reported) Revefenacin (Yupelri), 175 MCG IH DAILY, (Reported) Semaglutide (Ozempic), 0.25 MG INJ WEEK, (Reported) Tamsulosin HCl (Flomax), 0.4 MG PO DAILY, (Reported) Scheduled PRN Albuterol Sulfate (Albuterol Sulfate), 3 ML NEB Q6H PRN for SHORTNESS OF BREATH, (Reported) Discontinued Medications Albuterol (Proair Hfa), 2 PUFF IH BID, (Reported) Discontinued Reason: Duplicate Order Apixaban (Eliquis), 5 MG PO BID Discontinued Reason: Duplicate Order Aspirin (Aspirin EC), 325 MG PO DAILY Discontinued Reason: No Longer Taking Atorvastatin Calcium (Lipitor), 40 MG PO HS Discontinued Reason: No Longer Taking Budesonide (Budesonide), 1 EACH IH BID, (Reported) Discontinued Reason: No Longer Taking Formoterol (Perforomist), 20 MCG IH BID, (Reported) Discontinued Reason: Prescription changed Ipratropium Palermo (Ipratropium Palermo), 0.2 MG IH DAILY, (Reported) Discontinued Reason: No Longer Taking Metformin HCl (Metformin HCl), 500 MG PO DAILY Discontinued Reason: No Longer Taking Tiotropium Palermo (Spiriva), 1 INH IH DAILY, (Reported) Discontinued Reason: No Longer Taking Current Medications Current Medications Reviewed Review of Systems Constitutional: see HPI, malaise, weakness EENTM: no symptoms reported Respiratory: dyspnea on exertion, short of breath Gastrointestinal: no symptoms reported Genitourinary: no symptoms reported Musculoskeletal: back pain Skin: no symptoms reported Psychiatric/Neurological: Depressed All Other Systems Reviewed Negative Unless Noted: Yes Physical Exam Physical Exam Vital Signs Capillary Refill : Height, Weight, BMI Height: 5'9.00" Weight: 206lbs. 4.0oz. 95.716125ke; 29.37 BMI Method:Stated General Appearance: No Apparent Distress, WD/WN, Chronically ill Eyes: Bilateral Eye Normal Inspection, Bilateral Eye PERRL HEENT: PERRL/EOMI, Normal ENT Inspection, Pharynx Normal Neck: Full Range of Motion, Normal Inspection, Non Tender, Supple, Carotid Bruit Respiratory: Chest Non Tender, No Accessory Muscle Use, No Respiratory Distress, Crackles, Wheezing Cardiovascular: Regular Rate, Rhythm, No Edema, No Gallop, No JVD, No Murmur, Normal Peripheral Pulses Gastrointestinal: Normal Bowel Sounds, No Organomegaly, No Pulsatile Mass, Non Tender, Soft Back: Normal Inspection, No CVA Tenderness, No Vertebral Tenderness Extremity: Normal Capillary Refill, Normal Inspection, Normal Range of Motion, Non Tender, No Calf Tenderness, No Pedal Edema Neurologic/Psychiatric: Alert, Oriented x3, No Motor/Sensory Deficits, Normal Mood/Affect, Motor Weakness (generalized weakness) Skin: Normal Color, Warm/Dry Lymphatic: No Adenopathy PM&R Medical Assessment & Plan REHAB/MEDICAL ASSESSMENT AND PLAN: REHAB IMPAIRMENT GROUP: COVID-19 PNA with CVA debility ETIOLOGIC DIAGNOSIS: COVID-19 PNA with CVA debility The comorbidities that impact the patients function and/or functional outcome by: Severe COPD with O2 dependence, severe debility, multiple hospital stays, AF w/RVR REHAB PLAN: The patient is being admitted to our comprehensive inpatient rehabilitation facility and can tolerate the intensity of service consisting of at least: 180 minutes of therapy a day, 5 out of 7 days a week Rehab treatment will consist of: PT OT will focus on regaining function from COVID-19 PNA debility and CVA with facial weakness and generalized weakness in order to return home The patient/family has a good understanding of our discharge process and will benefit from an interdisciplinary inpatient rehabilitation program. The patient has potential to make improvement and is in need of at least two of the following multidisciplinary therapies including but not limited to physical, occupational, speech, and prosthetics and orthotics. Additionally the patient will need services from respiratory, nutritional services, wound care, psychology, etc. (Customize this to each patient). Given the patients complex condition and risk of further medical complications, rehabilitation services cannot be safely or effectively provided at a lower level of care such as a care home facility. BARRIERS TO DISCHARGE: Severe COPD and debility ESTIMATED LOS: 10 days DISPOSITION: Home with HH RELEVANT CHANGES SINCE PREADMISSION SCREENING: I have compared the patients medical and functional status at the time of the preadmission screening and there are: no changes PROGNOSIS: Guarded REHABILITATION GOALS: 1. PT OT will focus on regaining function from COVID-19 PNA debility and CVA with facial weakness and generalized weakness in order to return home All the above goals were reviewed with the patient and he/she is in agreement. By signing this document, I acknowledge that I have personally performed a full physical examination on this patient within 24 hours of admission to this inpatient rehabilitation facility and have determined the patient to be able to tolerate the above course of treatment at an intensive level for a reasonable period of time. I will be completing a detailed individualized Plan of Care for this patient by day #4 of the patients stay based upon the Preadmission Screen, the Post-Admission Evaluation, and the therapy evaluations. 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 ICD Codes: B94.8 - Sequelae of other specified infectious and parasitic diseases (2) A-fib ICD Codes: I48.91 - Unspecified atrial fibrillation (3) Presbycusis of both ears ICD Codes: H91.13 - Presbycusis, bilateral (4) Pneumonia ICD Codes: J18.9 - Pneumonia, unspecified organism (5) Cryptogenic stroke ICD Codes: I63.9 - Cerebral infarction, unspecified (6) History of DVT (deep vein thrombosis) Status: Chronic ICD Codes: Z86.718 - Personal history of other venous thrombosis and embolism (7) Chronic hypoxemic respiratory failure Status: Chronic ICD Codes: J96.11 - Chronic respiratory failure with hypoxia (8) Stroke Status: Acute ICD Codes: I63.9 - Cerebral infarction, unspecified (9) COPD (chronic obstructive pulmonary disease) Status: Chronic ICD Codes: J44.9 - Chronic obstructive pulmonary disease, unspecified (10) COPD exacerbation Status: Acute Assessment/Plan Assessment and Plan Assess & Plan/Chief Complaint Assessment: Recurrent PNA s/p bronchoscopy due to 2 recent PNA admit at [facility] [place] on broad spectrum abx with yeast on Cx COVID-19 PNA 03/2020 admit at [facility] [place] no abx on that admit Severe COPD O2 dependent 5L/min at home AF w/recent AF w/RVR at [facility] [place] last admit CAD TIA/CVA 05/2020 admitted [facility] insulin dependent Neuropathy Cochlear implant very ZUNI Lives alone with helpers GERD BPH Plan: IRF protocol IV abx to complete Bronch appreciated Cardiology consultation Dr Moreland appreciated Monitor labs IV steroids DC Insulin BON LOAIZA DO Jun 16, 2020 11:06
[2020-06-16] MEDS ORDERED: ONDANSETRON 4 MG/2 ML (SDV) Z0FRAN IVP PRN (11:15)
[2020-06-16] MEDS ORDERED: HYDROcodone/APAP 5 MG/325 MG (LORTAB) TAB PO PRN (11:15)
[2020-06-16] MEDS ORDERED: RT-ALBUTEROL/IPRATROPIUM 3 ML (DUONEB) VIAL INH PRN (11:15)
[2020-06-16] MEDS ORDERED: RT-ALBUTEROL SULF 2.5 MG/3 ML PRE-MIX VIAL ONE (11:19)
[2020-06-16] MEDS: inSUlin ASPART (NovoLOG) 1 UNIT/0.01 ML (CHARGE PER UNIT) SQ SCH ×2 (11:44→16:17)
[2020-06-16] MEDS: DOCUSATE SODIUM 100 MG (COLACE) CAP PO SCH ×2 (11:45→21:09)
[2020-06-16] MEDS: SENNA W/DOCUSATE (SENOKOT S) TABLET PO SCH ×2 (11:45→21:09)
[2020-06-16] MEDS: polyethylene glycoL POWDER 17 GM (MIRALAX) PACK PO SCH ×2 (11:45→21:05)
--- NOTE | 2020-06-16 11:51 | Physical Therapy Evaluation ---
PT Evaluation-General Medical Diagnosis Admission Date Jun 16, 2020 at 10:00 Medical Diagnosis: Post COVID PNA Onset Date: Jun 10, 2020 Therapy Diagnosis Therapy Diagnosis: generalized weakness/debility Height/Weight Height (Feet): 5 Height (Inches): 9.00 Weight (Pounds): 206 Weight (Ounces): 4.0 Precautions Precautions/Isolations: Fall Prevention, Standard Precautions Referral Physician: Orlin Reason for Referral: Evaluation/Treatment Medical History Pertinent Medical History: Atrial Fib, CAD, COPD, CVA, Neuropathy Current History [place] ac[place] [facility] [place]. Pt had 2 episodes of bacterial PNA since COVID PNA 03/2020. Pt transferred to ARU 06/16/2020 for continued medication management and skilled therapy. Reviewed History: Yes Social History Home: Single Level Current Living Status: Alone PT Steps Into Home: 2 Prior Prior Level of Function SCALE: Activities may be completed with or without assistive devices. 4-Ctnssyhsvi-sfppfdm completes the activity by him/herself with no assistance from a helper. 5-Set-up or Clean-up Assistance-helper sets up or cleans up; patient completes activity. [place] assists only prior to or following the activity. 4-Supervision or Touching Assistance-helper provides verbal cues and/or touching/steadying and/or contact guard assistance as patient completes activity. Assistance may be provided throughout the activity or intermittently. 3-Partial/Moderate Assistance-helper does LESS THAN HALF the effort. [place] lifts, holds or supports trunk or limbs, but provides less than half the effort. 2-Substantial/Maximal Assistance-helper does MORE THAN HALF the effort. [place] lifts or holds trunk or limbs and provides more than half the effort. 7-Bvselltmp-ksqhcf does ALL the effort. Patient does none of the effort to complete the activity. Or, the assistance of 2 or more helpers is required for the patient to complete the activity. If activity was not attempted, code reason: 7-Patient Refused. 9-Not Applicable-not attempted and the patient did not perform the activity before the current illness, exacerbation or injury. 10-Not Attempted due to Environmental Limitations-(lack of equipment, weather restraints, etc.). 88-Not Attempted due to Medical Conditions or Safety Concerns. Bed Mobility: 6 Transfers (B,C,W/C): 6 Gait: 6 Stairs: 6 Indoor Mobility (Ambulation): Independent Stairs: Independent Prior Devices Use: Walker short distance in home due to SOA (chronic) per patient due to covid PT Evaluation-Current Subjective Patient agrees to PT. He does report fatigue. Pain Numeric Pain Scale: 0-No Pain Location: No Pain Reported Objective Patient Orientation: Normal For Age Attachments: Oxygen (4L HF NC) ROM/Strength ROM Lower Extremities bilateral LE WFL Strength Lower Extremities 4-/5 grossly bilateral LE Integumentary/Posture Integumentary refer to nursing notes Bowel Incontinence: No Bladder Incontinence: No Posture WFL Neuromuscular (Tone, Coordination, Reflexes) grossly intact Sensory Vision: Wears Glasses Hearing: Impaired Hand Dominance: Right Sensation Right Lower Extremit: Impaired Sensation Left Lower Extremity: Impaired Transfers Roll Left & Right (QC): 5 Sit to Lying (QC): 5 Lying to Sitting/Side of Bed(Q: 5 Sit to Stand (QC): 4 Chair/Ukj-wc-[place] Xfer(QC): 4 Toilet Transfer (QC): 4 Car Transfer (QC): 4 Gait Does the Patient Walk?: Yes Mode of Locomotion: Walk Anticipated Mode of Locomotion: Walk Walk 10 feet (QC): 4 Walk 50 ft with 2 Turns(QC): 4 Walk 150 ft (QC): 4 Walking 10ft/uneven surface-QC: 4 Gait Assistive Device: FWW Comments/Gait Description slow, steady (multiple standing recovery periods due to SOA) with SAO2 > 90% on 4L HF NC Wheelchair Training Does the Pt Use a Wheelchair?: No Wheel 50 ft with 2 turns (QC): 9 Wheel 150 ft (QC): 9 Stairs #of Steps: 8 1 Step (curb) (QC): 4 4 Steps (QC): 4 12 Steps (QC): 9 Balance Sitting Static: Normal Sitting Dynamic: Normal Standing Static: Normal Standing Dynamic: Normal Picking up an Object (QC): 5 (seated position) Treatment Ambulating with FWW 150' 4 sets with seated recovery periods due to SOA with SAO2 >90%/noted pursed lip breathing for recovery Assessment/Needs 79 y.o. male, will benefit from skilled PT to address functional strength and mobility to improve current LOF to ensure safe return to home. Due to COVID-19 viral infection, the patient has deficits that warrant inpatient Acute Rehab. The patient will clearly benefit from intensive PT and OT, however, due to patient's observed endurance and therapy considerations, he may not be able to tolerate the full 3 hours of scheduled therapy. Therefore, he will be scheduled for as much therapy as he can tolerate with intentional rest breaks, shortened sessions, including providing therapy across 6 to 7 days. As the patient tolerates, the intensity, frequency, and duration of his therapy program will be increased. Rehab Potential: Fair PT Fci Goals Fci Goals PT Nut Roaster Goals Time Frame: Jul 10, 2020 Roll Left & Right (QC): 6 Sit to Lying (QC): 6 Lying-Sitting on Side/Bed(QC): 6 Sit to Stand (QC): 6 Chair/Awe-du-Bznpw Xfer(QC): 6 Toilet Transfer (QC): 6 Car Transfer (QC): 6 Does the Patient Walk: Yes Walk 10 feet (QC): 6 Walk 50ft with 2 Turns (QC): 6 Walk 150 ft (QC): 6 Walking 10ft on Uneven Surface: 6 1 Step (curb) (QC): 6 4 Steps (QC): 6 12 Steps (QC): 9 Picking up an Object (QC): 6 Wheel 50 feet with 2 turns (QC: 9 Wheel 150 feet: 9 PT Plan Problem List Problem List: Activity Tolerance, Functional Strength, Gait, Transfer, Bed Mobility Treatment/Plan Treatment Plan: Continue Plan of Care Treatment Plan: Bed Mobility, Concurrent Therapy, Education, Functional Activity Lucy, Functional Strength, Group Therapy, Gait, Safety, Therapeutic Exercise, Transfers Treatment Duration: Jul 10, 2020 Frequency: At least 5 of 7 days/Wk (IRF) Estimated Hrs Per Day: 1 hour per day Due to COVID-19 viral infection, the patient has deficits that warrant inpatient Acute Rehab. The patient will clearly benefit from intensive PT and OT, however, due to patient's observed endurance and therapy considerations, he may not be able to tolerate the full 3 hours of scheduled therapy. Therefore, he will be scheduled for as much therapy as he can tolerate with intentional rest breaks, shortened sessions, including providing therapy across 6 to 7 days. As the patient tolerates, the intensity, frequency, and duration of his therapy program will be increased. Safety Risks/Education Patient Education: Safety Issues Teaching Recipient: Patient Teaching Methods: Discussion Response to Teaching: Verbalize Understanding Time/GCodes Time In: 1100 Time Out: 1200 Total Billed Treatment Time: 60 Total Billed Treatment 1 visit EVModC 15 min FA x 3 45 min BROOKE CHE PT Jun 16, 2020 11:51
[2020-06-16] MEDS: MEROPENEM 500 MG in WATER (STERILE) FOR INJECTION 10 ML IV SCH ×3 (13:06→23:53)
[2020-06-16 14:37] VITALS: BP 110/63
[2020-06-16 16:00] VITALS: BP 103/55
[2020-06-16] MEDS: inSUlin ASPART (NovoLOG) 1 UNIT/0.01 ML (CHARGE PER UNIT) SC SCH (16:16)
[2020-06-16] MEDS ORDERED: RT-ALBUTEROL/IPRATROPIUM 3 ML (DUONEB) VIAL INH SCH (18:00)
[2020-06-16] MEDS: metFORMIN 500 MG (GLUCOPHAGE) TAB PO SCH (18:10)
[2020-06-16] MEDS: TAMSULOSIN 0.4 MG (FLOMAX) CAP PO SCH (18:10)
[2020-06-16] MEDS: RT-ALBUTEROL/IPRATROPIUM 3 ML (DUONEB) VIAL INH SCH ×2 (20:35→20:42)
[2020-06-16] MEDS: RT-BUDESONIDE NEBS 0.5 MG/2ML (PULMICORT) AMP IH SCH (20:35)
[2020-06-16] MEDS: ARFORMOTEROL 15 MCG/2 ML (BROVANA) INH SOLUTIION IH SCH (20:35)
[2020-06-16] MEDS ORDERED: SENNA W/DOCUSATE (SENOKOT S) TABLET PO SCH (21:00)
[2020-06-16] MEDS: PRAMIPEXOLE 0.125 MG (MIRAPEX) TABLET PO SCH ×2 (21:05→21:08)
[2020-06-16] MEDS: APIXABAN 5 MG (ELIQUIS) TABLET PO SCH (21:08)
[2020-06-16] MEDS: meTOprolol TARTRATE 25 MG (LOPRESSOR) TABLET PO SCH (21:08)
[2020-06-16] MEDS: MONTELUKAST 10 MG (SINGULAIR) TAB PO SCH (21:08)
[2020-06-17 05:33] LABS: BASOPHILS % (AUTO) 0 % (0-10); EOSINOPHILS # (AUTO) 0.4 10^3/uL (0.0-0.3); EOSINOPHILS % (AUTO) 4 % (0-10); HEMATOCRIT 34 % (40-54); HEMOGLOBIN 10.7 g/dL (13.3-17.7); LYMPHOCYTES # (AUTO) 0.9 10^3/uL (1.0-4.0); LYMPHOCYTES % (AUTO) 9 % (12-44); MEAN CORPUSCULAR HEMOGLOBIN 30 pg (25-34); MEAN CORPUSCULAR HGB CONC 31 g/dL (32-36); MEAN CORPUSCULAR VOLUME 96 fL (80-99); MEAN PLATELET VOLUME 10.5 fL (9.0-12.2); MONOCYTES # (AUTO) 0.7 10^3/uL (0.0-1.0); MONOCYTES % (AUTO) 7 % (0-12); NEUTROPHILS # (AUTO) 7.2 10^3/uL (1.8-7.8); NEUTROPHILS % (AUTO) 73 % (42-75); PLATELET COUNT 363 10^3/uL (130-400); WHITE BLOOD COUNT 9.8 10^3/uL (4.3-11.0)
[2020-06-17 05:44] LABS: ALBUMIN 2.7 GM/DL (3.2-4.5); CHLORIDE 100 MMOL/L (98-107); POTASSIUM 4.9 MMOL/L (3.6-5.0); SODIUM 136 MMOL/L (135-145)
[2020-06-17 05:45] LABS: CALCIUM 7.9 MG/DL (8.5-10.1)
[2020-06-17 05:46] LABS: GLUCOSE 146 MG/DL (70-105); TOTAL PROTEIN 4.6 GM/DL (6.4-8.2)
[2020-06-17] MEDS: inSUlin ASPART (NovoLOG) 1 UNIT/0.01 ML (CHARGE PER UNIT) SC SCH ×4 (05:46→20:00)
[2020-06-17 05:48] LABS: BILIRUBIN,TOTAL 0.4 MG/DL (0.1-1.0); CARBON DIOXIDE 29 MMOL/L (21-32)
[2020-06-17 05:50] LABS: ALKALINE PHOSPHATASE 157 U/L (40-136); CREATININE SERUM 0.79 MG/DL (0.60-1.30); GFR ESTIMATED > 60
[2020-06-17 05:51] LABS: BUN/CREATININE RATIO 32
[2020-06-17] MEDS: MEROPENEM 500 MG in WATER (STERILE) FOR INJECTION 10 ML IV SCH ×2 (05:52→12:59)
[2020-06-17 05:53] LABS: ALANINE AMINOTRANSFERASE 22 U/L (0-55)
[2020-06-17 05:56] VITALS: BP 93/58
[2020-06-17] MEDS: inSUlin ASPART (NovoLOG) 1 UNIT/0.01 ML (CHARGE PER UNIT) SQ SCH ×3 (06:56→17:55)
[2020-06-17] MEDS: ARFORMOTEROL 15 MCG/2 ML (BROVANA) INH SOLUTIION IH SCH ×2 (07:50→19:21)
[2020-06-17] MEDS: RT-BUDESONIDE NEBS 0.5 MG/2ML (PULMICORT) AMP IH SCH ×2 (07:50→19:21)
[2020-06-17] MEDS: RT-ALBUTEROL/IPRATROPIUM 3 ML (DUONEB) VIAL INH SCH ×4 (07:50→19:24)
[2020-06-17] MEDS: ANIDULAFUNGIN INJECTION 100 MG in NS (IVPB) 100 ML IV SCH (08:08)
[2020-06-17] MEDS: DOCUSATE SODIUM 100 MG (COLACE) CAP PO SCH ×2 (08:10→21:44)
[2020-06-17] MEDS: metFORMIN 500 MG (GLUCOPHAGE) TAB PO SCH ×2 (08:10→17:52)
[2020-06-17] MEDS: SENNA W/DOCUSATE (SENOKOT S) TABLET PO SCH ×2 (08:10→21:44)
[2020-06-17] MEDS: APIXABAN 5 MG (ELIQUIS) TABLET PO SCH ×2 (08:10→21:44)
[2020-06-17] MEDS: CYCLOBENZAPRINE 10 MG (FLEXERIL) TAB PO SCH (08:10)
[2020-06-17] MEDS: ASPIRIN E.C. 325 MG (ECOTRIN) TABLET PO SCH (08:10)
[2020-06-17] MEDS: KCL 10 MEQ TAB (MICRO K) PO SCH (08:11)
[2020-06-17] MEDS: FUROSEMIDE 40 MG (LASIX) TAB PO SCH (08:11)
[2020-06-17 08:12] VITALS: BP 91/55
[2020-06-17] MEDS ORDERED: PANTOPRAZOLE 20 MG TABLET (PROTONIX) PO SCH (09:00)
[2020-06-17] MEDS ORDERED: lisINopril 10 MG (PRINIVIL) TABLET PO SCH (09:00)
[2020-06-17] MEDS: polyethylene glycoL POWDER 17 GM (MIRALAX) PACK PO SCH ×2 (09:00→21:45)
[2020-06-17] MEDS: meTOprolol TARTRATE 25 MG (LOPRESSOR) TABLET PO SCH ×2 (09:00→21:45)
[2020-06-17] MEDS ORDERED: amLODIPine 5 MG (NORVASC) TAB PO SCH (09:00)
--- NOTE | 2020-06-17 09:24 | ST Cognitive Linguistic Eval ---
Speech Evaluation-General Medical Diagnosis Post COVID PNA Onset Date: Jun 10, 2020 Therapy Diagnosis Therapy Diagnosis: Cognitive-communication Precautions Precautions/Isolations: Fall Prevention, Standard Precautions Referral Referring Physician: Dr. Ordaz Medical History Pertinent Medical History: Atrial Fib, CAD, COPD, CVA, Neuropathy Reviewed History: Yes Social History Current Living Status: Alone Speech PLF-Current Status Prior Level of Function Patient lives in his home alone with neighbor and friend support for his daily needs. Subjective Patient was pleasant and cooperative with the cognitive assessment. Language Eval: Auditory Comprehends Simple Yes/No Ques: Functional Indent/Objects [place]: Functional Ident/Pics in Multiple [place]: Functional Follows 1-Step Commands: Functional Follows Complex Directions: Mild Follows General Conversations: Functional Language Eval: Verbal Language Completes Spontaneous Greeting: Functional Produces Auto, Serial Info: Functional Imitates Simple Words/Phrases: Functional Word Finding: Mild Requests Basic Needs: Functional States Basic Personal Info: Functional Expresses Complex Ideas: Mild Objective Cognitive Domain Attention: WNL Memory: Mild Problem Solving: Functional Executive Functions: WNL Visuospatial Skills: WNL Composite Severity Rating: Mild Clock Drawing Severity Rating: Mild Objective Formal/Standardized Tests [facility] Status ([facility]) Results /, Mild Neurocognitive Disorder range of function Oral Motor/Speech Production Within Normal Limits Impression Patient is a pleasant 79 y/o male who has been in and out of the hospital over the past year. He was admitted this time due to COVID recovery since March,. Patient was given the UMS this morning with a MNCD range of function score obtained. The patient will receive skilled ST with focus on safety awareness, memory and problem solving so that he may return home safer. Speech Patient Assess Expression of Ideas/Wants: Exhibits (3) Understanding Verbal Content: Usually Understands (3) Brief Interview-Mental Status: Yes Repetition of Three Words: Three (3) Temporal Orientation: Year: Correct (3) Temporal Orientation: Month: Accurate within 5 days(2) Temporal Orientation: Day: Correct (1) Recall : Wear to say "Sock": Yes,after cueing (1) Recall : Color: No, could not recall (0) Recall : Bed: Yes,after cueing (1) Memory/Recall Ability: That he or she is in a hsp/hsp unit Speech Short Term Goals Short Term Goals Short Term Goals 1) Patient will complete memory tasks related to his daily needs at 90% or greater with minimal cues. 2) Patient will complete problem solving tasks related to his daily needs at 90% or greater with minimal cues. 3) Patient will complete safety awareness tasks related to his daily needs at 90% or greater with minimal cues. Speech Electronics System Mechanic Goals Electronics System Mechanic Goals Patient will improve cognitive-communication necessary for safety and daily living tasks with minimal assist. Speech-Plan Patient/Family Goals Patient/Family Goals: Patient plans to return to his home with support upon discharge. Treatment Plan Speech Therapy Treatment Plan: Continue Plan of Care Treatment Duration: Jul 03, 2020 Frequency: 4 times per week (Patient will receive ST 4-5x per week) Estimated Hrs Per Day: .5 hour per day Rehab Potential: Fair Barriers to Learning: Patient's lengthy serious illness, decline in function Pt/Family Agrees to Plan: Yes Safety Risks/Education Teaching Recipient: Patient Teaching Methods: Discussion Response to Teaching: Verbalize Understanding Education Topics Provided: Safety within his room, utilization of his call light as needed Time Speech Therapy Time In: 08:30 Speech Therapy Time Out: 09:00 Total Billed Time: 30 Billed Treatment Time 1, EMI RODRIGUEZ BETHANIA ST Jun 17, 2020 09:24
--- NOTE | 2020-06-17 09:26 | PM&R Progress Note ---
Subjective HPI/CC On Admission Date Seen by Provider: Jun 17, 2020 Time Seen by Provider: 08:40 Subjective/Events-last exam 06/17/20: Was nauseated a bit so initiated an Amylase and Lipase KUB and work up BP 91/55 Blood sugar is doing okay Bowels moved yesterday WBC 9.8 Hgb 10.7 Later in evening sugars were low so held insulin Review of Systems General: Fatigue, Malaise Pulmonary: Dyspnea Gastrointestinal: Nausea Objective Exam Vital Signs Vital Signs Date Time Temp Pulse Resp B/P (MAP) Pulse Ox O2 Delivery O2 Flow Rate FiO2 06/18/20 01:00 156 06/17/20 20:00 97 Nasal Cannula 2.00 06/17/20 18:07 36.4 22 103/67 (79) Capillary Refill : General Appearance: No Apparent Distress, WD/WN, Chronically ill HEENT: PERRL/EOMI, Normal ENT Inspection, Pharynx Normal Neck: Full Range of Motion, Normal Inspection, Non Tender, Supple, Carotid Bruit Respiratory: Chest Non Tender, No Accessory Muscle Use, No Respiratory Distress, Crackles, Wheezing Cardiovascular: Regular Rate, Rhythm, No Edema, No Gallop, No JVD, No Murmur, Normal Peripheral Pulses Gastrointestinal: Normal Bowel Sounds, No Organomegaly, No Pulsatile Mass, Non Tender, Soft Back: Normal Inspection, No CVA Tenderness, No Vertebral Tenderness Extremity: Normal Capillary Refill, Normal Inspection, Normal Range of Motion, Non Tender, No Calf Tenderness, No Pedal Edema Neurologic/Psychiatric: Alert, Oriented x3, No Motor/Sensory Deficits, Normal Mood/Affect, Motor Weakness (generalized weakness) Skin: Normal Color, Warm/Dry Lymphatic: No Adenopathy Results/Procedures Lab Patient resulted labs reviewed. FIM Transfers Therapy Code Descriptions/Definitions Functional [place] Measure: 0=Not Assessed/NA 4=Minimal Assistance 1=Total Assistance 5=Supervision or Setup 2=Maximal Assistance 6=Modified [place] 3=Moderate Assistance 7=Complete IndependenceSCALE: Activities may be completed with or without assistive devices. 9-Cdpxysnwyp-jfsbznt completes the activity by him/herself with no assistance from a helper. 5-Set-up or Clean-up Assistance-helper sets up or cleans up; patient completes activity. [place] assists only prior to or following the activity. 4-Supervision or Touching Assistance-helper provides verbal cues and/or touching/steadying and/or contact guard assistance as patient completes activi ty. Assistance may be provided throughout the activity or intermittently. 3-Partial/Moderate Assistance-helper does LESS THAN HALF the effort. [place] lifts, holds or supports trunk or limbs, but provides less than half the effort. 2-Substantial/Maximal Assistance-helper does MORE THAN HALF the effort. [place] lifts or holds trunk or limbs and provides more than half the effort. 6-Ofybrdarf-whevut does ALL the effort. Patient does none of the effort to complete the activity. Or, the assistance of 2 or more helpers is required for the patient to complete the activity. If activity was not attempted, code reason: 7-Patient Refused. 9-Not Applicable-not attempted and the patient did not perform the activity before the current illness, exacerbation or injury. 10-Not Attempted due to Environmental Limitations-(lack of equipment, weather restraints, etc.). 88-Not Attempted due to Medical Conditions or Safety Concerns. Roll Left to Right (QC): 5 Sit to Lying (QC): 5 Sit to Stand (QC): 4 Chair/Eov-nv-Bgdeg Xfer(QC): 4 Car Transfer (QC): 4 Gait Training Does the Patient Walk?: Yes Walk 10 feet (QC): 4 Walk 50 ft with 2 Turns(QC): 4 Walk 150 ft (QC): 4 Walking 10ft/uneven surface-QC: 4 Gait Assistive Device: FWW Wheelchair Training Does the Pt Use a Wheelchair?: No Wheel 50 ft with 2 turns (QC): 9 Wheel 150 ft (QC): 9 Stair Training #of Steps: 8 1 Step (curb) (QC): 4 4 Steps (QC): 4 12 Steps (QC): 9 Balance Picking up an Object (QC): 5 (seated position) ADL-Treatment Eating (QC): 6 (Per pt report, pt independent with eating. Able to open contiainers, cut food, and use utensils.) Oral Hygiene (QC): 5 (set up assist. ) Shower/Bathe Self (QC): 3 (Pt required assistance washing bilateral lower legs/feet. Pt able to wash all other parts, SBA in stand to wash buttocks.) Upper Body Dressing (QC): 5 (set up assist) Lower Body Dressing (QC): 3 (Pt able to thread bilateral legs, min A with threading RLE due to gripper socks. Pt able to manage pants up wtih CGA, and assist to tie drawstring.) On/Off Footwear (QC): 3 (Mod A. Pt able to doff, assist to thread socks over toes, then pt able to pull up.) Toileting Hygiene (QC): 4 (Pt able to manage pants up/down and complete hygiene. CGA in stand at FWW.) Assessment/Plan Assessment and Plan Assess & Plan/Chief Complaint Assessment: Recurrent PNA s/p bronchoscopy due to 2 recent PNA admit at [facility] on broad spectrum abx with yeast on Cx COVID-19 PNA 03/2020 admit at [facility] no abx on that admit Severe COPD O2 dependent 5L/min at home AF w/recent AF w/RVR at [facility] last admit CAD TIA/CVA 05/2020 admitted [facility] DM insulin dependent Neuropathy Cochlear implant very [place] Lives alone with helpers GERD BPH Plan: IRF protocol IV abx to complete Bronch appreciated Cardiology consultation Dr Moreland appreciated Monitor labs IV steroids DC Insulin 06/17/20: Decrease insulin Monitor O2 Monitor ileus (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
--- NOTE | 2020-06-17 09:26 | Individualized Plan of Care ---
Individualized Plan of Care Rehab Nursing IPOC Order Admission Date Jun 16, 2020 at 10:00 Current Orders Orders Admission Order(Inpt,Obs,Sdc) (06/16/20 08:57) Vital Signs: Per Unit Policy ( ,16,00 (06/16/20 08:57) Victorino Baig (06/16/20 08:57) Sequential Compression Device Q4H (06/16/20 08:57) Wagon Driver Salesperson-Inpt Rehab Con (06/16/20 08:57) Rehab Nursing Orders-Ipoc (06/16/20 08:57) Physical Therapy Rehab Orders (06/16/20 08:57) Occupational Therapy Rehab Ord (06/16/20 08:57) Speech Therapy Rehab Orders (06/16/20 08:57) Cbc With Automated Diff (06/17/20 06:00) Comprehensive Metabolic Panel (06/17/20 06:00) Intake & Output 06,14,22 (06/16/20 08:57) Precautions (Aru) (06/16/20 08:57) Weekly Weight WEEK (06/16/20 08:57) Initiate Admission Nursing Pro .admission (06/16/20 08:57) Acetaminophen Tablet (Tylenol Tablet) (06/16/20 09:00) Alprazolam Tablet (Xanax Tablet) (06/16/20 09:00) Calcium Carbonate Chew Tablet (Antacid C (06/16/20 09:00) Diphenhydramine Tablet (Benadryl Tablet) (06/16/20 09:00) Docusate Sodium Capsule (Colace Capsule) (06/16/20 09:00) Docusate Sodium Capsule (Colace Capsule) (06/16/20 09:00) Bisacodyl Suppository (Dulcolax Supposit (06/16/20 09:00) Lactulose Oral Solution (Enulose Oral So (06/16/20 09:00) Na Phos/Na Biphos Enema (Fleet Enema Alberto (06/16/20 09:00) Guaifenesin/Codeine Syrup (Robitussin Ac (06/16/20 09:00) Loperamide Tablet (Imodium Tablet) (06/16/20 09:00) Melatonin Tablet (Melatonin Tablet) (06/16/20 09:00) Polyethylene Glycol Powder Pkt (Miralax (06/16/20 09:00) Ondansetron Oral Dissolve Tab (Zofran (06/16/20 09:00) Senna S Tablet (Senokot S Tablet) (06/16/20 09:00) Initiate Admission Nursing Pro .admission (06/16/20 08:57) Admission Arrival Bed Request (06/16/20 10:00) Acetaminophen Tablet/Caplet (Tylenol T (06/16/20 11:00) Accucheck Achs ACHS (06/16/20 11:03) Iv Maintain (Order) (06/16/20 11:03) Initiate Admission Nursing Pro .admission (06/16/20 11:03) Nursing Communication (Order) (06/16/20 11:03) Telemetry (06/16/20 11:03) General/Regular (06/16/20 Lunch) Albuterol/Ipra Inhalation Soln (Duoneb I (06/16/20 11:15) Anidulafungin Injection (Eraxis Injectio (06/17/20 09:00) Apixaban Tablet (Eliquis Tablet) (06/16/20 21:00) Arformoterol Inhalation Soln (Brovana In (06/16/20 21:00) Aspirin Enteric Coated Tablet (Ecotrin T (06/17/20 09:00) Atorvastatin Tablet (Lipitor) (06/16/20 21:00) Budesonide Inhalation Solution (Pulmicor (06/16/20 21:00) Cyclobenzaprine Tablet (Flexeril Tablet) (06/17/20 09:00) Hydrocodone/Apap 5/325 Tablet (Lortab 5 (06/16/20 11:15) Meropenem (Merrem 500 Mg) (06/16/20 12:00) Montelukast Tablet (Singulair Tablet) (06/16/20 21:00) Insulin Aspart (Novolog) (Novolog (Charg (06/16/20 16:00) Ondansetron Injection (Zofran Injectio (06/16/20 11:15) Pantoprazole Tablet (Protonix Tablet) (06/17/20 09:00) Pramipexole Tablet (Mirapex Tablet) (06/16/20 21:00) Pramipexole Tablet (Mirapex Tablet) (06/16/20 21:00) Tamsulosin Capsule (Flomax Capsule) (06/16/20 18:00) Amlodipine Tablet (Norvasc Tablet) (06/17/20 09:00) Diltiazem Cd 24 Hr Capsule (Cardizem Cd (06/16/20 21:00) Insulin Aspart (Novolog) (Novolog (Charg (06/16/20 12:00) Insulin Determir (Per Unit) (Levemir (Pe (06/16/20 21:00) Lisinopril Tablet (Zestril Tablet) (06/17/20 09:00) Metoprolol Tartrate (Ir) Tab (Lopressor (06/16/20 21:00) Metformin Tablet (Glucophage Tablet) (06/16/20 18:00) Bipap (Bilevel) Set Up (06/16/20 11:03) Consult Cardiology (06/16/20 11:03) Consult Physician (06/16/20 11:03) Consult Pulmonology (06/16/20 11:03) Incentive Spirometry Initial (06/16/20 11:03) Telemetry Nursing Assessment ( (06/16/20 11:03) Incentive Spirometry (Nursing) Q2H (06/16/20 11:03) Albuterol Pre-Mix Nebs (Rt) (Proventil (06/16/20 11:19) Patient Visit (06/16/20 ) Pt Eval Moderate Complexity (06/16/20 ) Functional Activities, Ea 15 (06/16/20 ) Albuterol/Ipra Inhalation Soln (Duoneb I (06/16/20 18:00) Albuterol/Ipra Inhalation Soln (Duoneb I (06/16/20 18:00) Mat Initiate Protocol (06/16/20 14:50) Nursing Communication (Order) (06/16/20 11:00) Furosemide Tablet (Lasix Tablet) (06/17/20 09:00) Potassium Chloride (Tablet) (Klor Con Ta (06/17/20 09:00) Pantoprazole Tablet (Protonix Tablet) (06/17/20 21:00) Amylase (06/17/20 09:43) Lipase (06/17/20 09:43) Abdomen/Kub 1[place] (06/17/20 09:43) Clear Liquid (06/17/20 Lunch) Patient Visit (06/17/20 ) Speech Sound Lang Comp (06/17/20 ) Treat. Speech/Lang/Voice (06/17/20 ) Patient Visit (06/17/20 ) Functional Activities, Ea 15 (06/17/20 ) Exercise Therap, Ea 15 Min (06/17/20 ) Gait Training, Ea 15 Min (06/17/20 ) Rehab-Intensity Of Therapy (06/17/20 19:37) Bisacodyl Suppository (Dulcolax Supposit (06/17/20 19:45) Lactulose Oral Solution (Enulose Oral So (06/17/20 19:45) Polyethylene Glycol Powder Pkt (Miralax (06/17/20 19:45) Soap Suds Enema Until Clear (06/17/20 22:46) Insulin Aspart (Novolog) (Novolog (Charg (06/18/20 07:00) Insulin Determir (Per Unit) (Levemir (Pe (06/18/20 21:00) Cbc With Automated Diff (06/18/20 05:12) Comprehensive Metabolic Panel (06/18/20 05:12) General/Regular (06/18/20 Breakfast) Rehab Nursing Orders: Ongoing Assess. of Cognitive Status, Ongoing Assess. of Function Status, Bladder Management, Bladder Scan, Bladder Training, Bowel Management, Bowel Training, Disease Management & Educaiton, DVT Prophylaxis, Fall Prevention, Fluid/Electrolyte/Nutrition Mgmt, Infection Prevention, Medication Management & Education, Management of Risks & Complications, Management of Skin Intergrity, Nutrition Management, Pain Management, Patient/Family Support, Safety Management, Swallow Precautions Intensity of Therapy to be met Patient to be seen: Min.3h per day/5 of 7d PT IPOC Problem List: Activity Tolerance, Functional Strength, Gait, Transfer, Bed Mobility Treatment Plan: Continue Plan of Care Bed Mobility, Concurrent Therapy, Education, Functional Activity Lucy, Functional Strength, Group Therapy, Gait, Safety, Therapeutic Exercise, Transfers Treatment Duration: Jul 10, 2020 Frequency: At least 5 of 7 days/Wk (IRF) Estimated Hrs Per Day: 1 hour per day OT IPOC Problems: Decreased Activ Tolerance, Decreased UE Strength OT Treatment, Training and Edu: Yes Plan of Care: ADL Retraining, Functional Mobility, UE Funct Exercise/Act Treatment Duration: Jul 10, 2020 Frequency: At least 5 of 7 days/Wk (IRF) Estimated Hrs Per Day: [address] IPOC Speech Therapy Treatment Plan: Discontinue ST Treatment Duration: Jun 17, 2020 Frequency: Modified Program (IRF) Estimated Hrs Per Day: Other Wagon Driver Salesperson/Case Mgmt Wagon Driver Salesperson/Case Managemen: Discharge Planning Dietitian/Linoleum Installer Dietitian/Linoleum Installer to monitor nutritional status and make changes and/or recommendations as needed and work with speech pathology on dietary upgrades as the occur. Physician IPOC Medical Issues being managed closely and that require the 24 hour availability of a physician: Multiple hospital stays will require close monitoring and management of yeast pneumonitis residual form COVID and CVA Medical Issues: Bowel/Bladder Function, DVT Prophylaxis, Falls Precautions, Fluid/Electrolyte/Nutrition Balance, Infection Protection, Pain Management Brief Synthesis of Preadmission Screen, Post-Admission Evaluation, and Therapy Evaluations: PT OT will focus on regaining function in order to return home to live in dependently and prevent falls and increase stamina Medical Prognosis: Good Anticipated Length of Stay: 10 days This patient was highly independent (or other level of function) pre- morbidly. Due to a COVID-19 viral infection, the patient now has deficits that warrant inpatient Acute Rehab. The patient will clearly benefit from intensive PT and OT, however, due to patients observed endurance and therapy considerations during the COVID-19 pandemic, including PPE optimization, therapy will receive (specify) e.g., 1 hour of PT and 1 hour of OT 5 out of 7 days per the patients week. The patient also needs 24 hour Rehab Nursing care and Rehab Physician management for active medical issues including for example - COVID-19 respiratory symptom recovery and PNA. Patient currently requires supervision for ambulation, transfers, bed mobility and toileting hygiene; minimum/moderate assistance for shower/bathe, LE dressing and on/off footwear; se tup for oral hygiene. BON LOAIZA DO Jun 17, 2020 09:26
--- NOTE | 2020-06-17 09:59 | Physical Therapy Daily Note ---
PT Daily Note-Current Subjective Pt. in bathroom, agrees to Rx. States he sits and sleeps in recliner at home and only walks about 20 steps at at a time at home because of SOB. Pt. states he uses 4 L O2 at home and has tripped on the extended tubing several times. Pt. states he seldom uses a FWW at home because there isnt any room for it in his house "too crowded" Pt. agrees to Rx but wants several rest breaks which were granted Pain Location: No Pain Reported Mental Status Patient Orientation: Normal For Age Attachments: Oxygen (2L) pt. is very hard of hearing Transfers SCALE: Activities may be completed with or without assistive devices. 4-Pfagodgpcd-oknhajq completes the activity by him/herself with no assistance from a helper. 5-Set-up or Clean-up Assistance-helper sets up or cleans up; patient completes activity. [place] assists only prior to or following the activity. 4-Supervision or Touching Assistance-helper provides verbal cues and/or touching/steadying and/or contact guard assistance as patient completes activity. Assistance may be provided throughout the activity or intermittently. 3-Partial/Moderate Assistance-helper does LESS THAN HALF the effort. [place] lifts, holds or supports trunk or limbs, but provides less than half the effort. 2-Substantial/Maximal Assistance-helper does MORE THAN HALF the effort. [place] lifts or holds trunk or limbs and provides more than half the effort. 5-Jkcbsivyz-zorkup does ALL the effort. Patient does none of the effort to complete the activity. Or, the assistance of 2 or more helpers is required for the patient to complete the activity. If activity was not attempted, code reason: 7-Patient Refused. 9-Not Applicable-not attempted and the patient did not perform the activity before the current illness, exacerbation or injury. 10-Not Attempted due to Environmental Limitations-(lack of equipment, weather restraints, etc.). 88-Not Attempted due to Medical Conditions or Safety Concerns. Sit to Stand (QC): 5 Chair/Qts-cs-Lbwwm Xfer(QC): 4 Toilet Transfer (QC): 5 pt. needs instructed in safe turns while using extended O2 tubing as pt. gets feet tangled in tube and turns wrong direction winding himself up in the tube Gait Training Does the Patient Walk?: Yes Walk 10 feet (QC): 4 Gait Persons Needed: 1 Gait Assistive Device: FWW pt. ambulated 20ft x 2 30ft x2 , 10 ft x1 with assist for portable O2 at 2L. Pt. requires instruction for safety and turns, becomes SOB, sats >90% with activity Exercises Seated Therapy Exercises: Ankle pumps, Sit to stand, Long arc quads, Hip fl exion, Hip abd/add Seated Reps: 20 Treatments toileted managing pants with min assist and clean up indep Assessment Current Status: Good Progress pts. baseline was poor as he apparently only walked inside his home for 20 to 25 ft at a time and slept in recliner PT Nursing Home Goals Nursing Home Goals PT Nursing Home Goals Time Frame: Jul 10, 2020 Roll Left & Right (QC): 6 Sit to Lying (QC): 6 Lying-Sitting on Side/Bed(QC): 6 Sit to Stand (QC): 6 Chair/Kns-di-Ammpy Xfer(QC): 6 Toilet Transfer (QC): 6 Car Transfer (QC): 6 Does the Patient Walk: Yes Walk 10 feet (QC): 6 Walk 50ft with 2 Turns (QC): 6 Walk 150 ft (QC): 6 Walking 10ft on Uneven Surface: 6 1 Step (curb) (QC): 6 4 Steps (QC): 6 12 Steps (QC): 9 Picking up an Object (QC): 6 Wheel 50 feet with 2 turns (QC: 9 Wheel 150 feet: 9 PT Plan Treatment/Plan Treatment Plan: Continue Plan of Care Treatment Plan: Bed Mobility, Concurrent Therapy, Education, Functional Activity Lucy, Functional Strength, Group Therapy, Gait, Safety, Therapeutic Exercise, Transfers Treatment Duration: Jul 10, 2020 Frequency: At least 5 of 7 days/Wk (IRF) Estimated Hrs Per Day: 1 hour per day Patient and/or Family Agrees t: Yes Safety Risks/Education Patient Education: Gait Training, Transfer Techniques, Correct Positioning, Disease Process, Safety Issues Teaching Recipient: Patient Teaching Methods: Demonstration, Discussion Response to Teaching: Verbalize Understanding, Return Demonstration, Reinforcement Needed Time/GCodes Time In: 900 Time Out: 1000 Total Billed Treatment Time: 60 Total Billed Treatment 1,FA20m,GT25m,EX15m CHRIS REARDON SPARMAKER Jun 17, 2020 09:59
[2020-06-17 10:03] LABS: AMYLASE 43 U/L (25-125); LIPASE 17 U/L (8-78)
--- NOTE | 2020-06-17 10:25 | Occupational Ther Daily Note ---
OT Current Status-Daily Note Subjective Pt described soreness in L shoulder throughout the day and gave no pain rating. Mental Status/Objective Patient Orientation: Person, Place, Time, Situation Attachments: Oxygen (2L), Telemetry ADL-Treatment Therapy Code Descriptions/Definitions Functional [place] Measure: 0=Not Assessed/NA 4=Minimal Assistance 1=Total Assistance 5=Supervision or Setup 2=Maximal Assistance 6=Modified [place] 3=Moderate Assistance 7=Complete IndependenceSCALE: Activities may be completed with or without assistive devices. 0-Lvcabexfzh-xvvpyfo completes the activity by him/herself with no assistance from a helper. 5-Set-up or Clean-up Assistance-helper sets up or cleans up; patient completes activity. [place] assists only prior to or following the activity. 4-Supervision or Touching Assistance-helper provides verbal cues and/or touching/steadying and/or contact guard assistance as patient completes activ ity. Assistance may be provided throughout the activity or intermittently. 3-Partial/Moderate Assistance-helper does LESS THAN HALF the effort. [place] lifts, holds or supports trunk or limbs, but provides less than half the effort. 2-Substantial/Maximal Assistance-helper does MORE THAN HALF the effort. [place] lifts or holds trunk or limbs and provides more than half the effort. 2-Gjhnjdqeh-pdzgnf does ALL the effort. Patient does none of the effort to complete the activity. Or, the assistance of 2 or more helpers is required for the patient to complete the activity. If activity was not attempted, code reason: 7-Patient Refused. 9-Not Applicable-not attempted and the patient did not perform the activity before the current illness, exacerbation or injury. 10-Not Attempted due to Environmental Limitations-(lack of equipment, weather restraints, etc.). 88-Not Attempted due to Medical Conditions or Safety Concerns. Toileting Hygiene (QC): 4 (SBA standing at toilet to urinate) Other Treatment Pt began tx seated in recliner. Pt ambulated to therapy gym with FWW with one rest break required. O2 saturation at 98%. In gym, pt participated in arm bike exercise for 10min, min resistance, to increase activity tolerance, and gross motor strength. Pt required 2 rest breaks, and during exercise pt stated pain in shoulder and not being able to put on a coat. OT explained benefits of therapy and how therapy can help him with his needs of dressing. Pt then participated in standing ring arch activity to increase BUE AROM, dynamic standing balance and activity tolerance. Before beginning activity, pt stated that the ring arch looked like "kindergarten shit." After education on how the ring arch would increase his shoulder ROM and help decrease pain with time, pt agreed to activity. Pt also mentioned soreness in L shoulder and described no pain rating, but pain throughout the day. Pt educated on how soreness can decrease with continued therapy. pt ambulated back to room with FWW at [facility]. Pt seated in recliner with chair alarm on, call light in reach and all needs met. Upon leaving room, pt chair alarm went off and OT went into room. Pt was up out of chair and ambulated to restroom without FWW, O2 tubing caught in recliner. Pt educated on safety precautions and the need to press call light to let nursing know. Pt indicated he needed to go and didn't have time to wait on anyone. OT again educated pt on safety and instructed pt to use call light. Pt toileted standing at toilet, SBA then ambulated back to recliner using FWW. Chair alarm on, with call light in reach and all needs met. OT notified pt's nurse. Education OT Patient Education: Correct positioning, Energy conservation, Exercise program, Modified ADL techniques, Progress toward Goal/Update tx plan, Purpose of tx/functional activities, Rehab process, Safety issues, Transfer techniques Teaching Recipient: Patient Teaching Methods: Discussion Response to Teaching: Verbalize Understanding OT Short Term Goals Short Term Goals Time Frame: Jun 26, 2020 Toileting hygiene: 4 Shower/bathe self: 4 Putting on/taking off footwear: 4 OT Penitentiary Goals Penitentiary Goals Time Frame: Jul 10, 2020 Eating (QC): 6 Oral Hygiene (QC): 6 Toileting Hygiene (QC): 6 Shower/Bathe Self (QC): 6 Upper Body Dressing (QC): 6 Lower Body Dressing (QC): 6 On/Off Footwear (QC): 6 Additional Goals: 1-Demonstrate ADL Tasks, 2-Verbalize Understanding, 3- ImproveStrength/Lu[place] 1=Demonstrate adherence to instructed precautions during ADL tasks. 2=Patient will verbalize/demonstrate understanding of assistive devices/modifications for ADL. 3=Patient will improve strength/tolerance for activity to enable patient to perform ADL's. OT Education/Plan Problem List/Assessment Assessment: Decreased Activ Tolerance, Decreased Safety Aware, Decreased UE Strength, Impaired Funct Balance, Impaired I ADL's, Impaired Self-Care Skills, Restricted Funct UE ROM Discharge Recommendations Plan/Recommendations: Continue POC Treatment Plan/Plan of Care Patient would benefit from OT for education, treatment and training to promote independence in ADL's, mobility, safety and/or upper extremity function for ADL's. Plan of Care: ADL Retraining, Functional Mobility, UE Funct Exercise/Act Treatment Duration: Jul 10, 2020 Frequency: At least 5 of 7 days/Wk (IRF) Estimated Hrs Per Day: 1 hour per day Rehab Potential: Fair Time/GCodes Start Time: 10:00 Stop Time: 11:00 Total Time Billed (hr/min): 60 Billed Treatment Time 1, EX (10'), ADL (10'), FA 3 (40') SHAYLEE BOUCHER OT Jun 17, 2020 10:25
--- NOTE | 2020-06-17 11:34 | Progress Note - Cardiology ---
Cardiology SOAP Progress Note Subjective: Sitting up in recliner at the bedside States "tired" this morning No c/o CP or palpitations No c/o syncope or near syncope No c/o SOB this morning Objective: I&O/Vital Signs 06/18/20 06/18/20 06/18/20 06/18/20 01:00 06:15 07:00 07:10 Temp 36.2 Pulse 156 78 85 Resp 22 B/P (MAP) 111/60 (77) Pulse Ox 93 94 O2 Delivery Nasal Cannula Nasal Cannula O2 Flow Rate 2.00 2.00 06/18/20 06/18/20 06/18/20 06/18/20 07:10 07:10 08:55 09:18 B/P (MAP) 113/69 (84) Pulse Ox 94 94 92 O2 Delivery Nasal Cannula Nasal Cannula Nasal Cannula Nasal Cannula O2 Flow Rate 2.00 2.00 2.00 3.00 06/18/20 00:00 Intake Total 650 ml Output Total 200 ml Balance 450 ml Weight (Pounds): 206 Weight (Ounces): 4.0 Weight (Calculated Kilograms): 95.095943 Constitutional: AAO x 3, well-developed, well-nourished Respiratory: No accessory muscle use, No respiratory distress; other (prolonged exp phase) Cardiovascular: irregularly irregular; No JVD; S1 and S2 Gastrointestional: No tender; round, audible bowel sounds Extremities: other (mild bilat LE swelling) Neurologic/Psychiatric: grossly intact (moves all extremities) Skin: No rash on exposed areas, No ulcerations on exposed areas Results/Procedures: Labs Laboratory Tests 06/17/20 11:34: Glucometer 76 06/17/20 16:34: Glucometer 141H 06/17/20 20:02: Glucometer 44*L 06/17/20 20:11: Glucometer 43*L 06/17/20 20:38: Glucometer 141H 06/18/20 05:42: Glucometer 190H 06/18/20 05:50: White Blood Count 9.3, Red Blood Count 3.99L, Hemoglobin 12.1L, Hematocrit 38L, Mean Corpuscular Volume 96, Mean Corpuscular Hemoglobin 30, Mean Corpuscular Hemoglobin Concent 32, Red Cell Distribution Width 14.2, Platelet Count 383, Mean Platelet Volume 10.3, Immature Granulocyte % (Auto) 10, Neutrophils (%) (Auto) 69, Lymphocytes (%) (Auto) 10L, Monocytes (%) (Auto) 7, Eosinophils (%) (Auto) 4, Basophils (%) (Auto) 1, Neutrophils # (Auto) 6.4, Lymphocytes # (Auto) 0.9L, Monocytes # (Auto) 0.7, Eosinophils # (Auto) 0.4H, Basophils # (Auto) 0.1, Immature Granulocyte # (Auto) 0.9H, Neutrophils % (Manual) 64, Lymphocytes % (Manual) 10, Monocytes % (Manual) 8, Eosinophils % (Manual) 6, Myelocytes % 2, Atypical Lymphocytes 5, Reactive Lymphocytes 5, Clumped Platelets OCCASIONAL, Blood Morphology Comment NORMAL, Sodium Level 137, Potassium Level 4.3, Chloride Level 95L, Carbon Dioxide Level 31, Anion Gap 11, Blood Urea Nitrogen 18, Creatinine 0.81, Estimat Glomerular Filtration Rate > 60, BUN/Creatinine Ratio 22, Glucose Level 175H, Calcium Level 8.7, Corrected Calcium 9.4, Total Bilirubin 0.7, Aspartate Amino Transf (AST/SGOT) 19, Alanine Aminotransferase (ALT/SGPT) 21, Alkaline Phosphatase 153H, Total Protein 5.6L, Albumin 3.1L, Smear Scan YES 06/18/20 11:05: Glucometer 178H A/P: Assessment: Recurrent pneumonia after COVID-19 infection in March 2020, third hospitalization for pneumonia. Underwent bronchoscopy with Dr. Moreland earlier - managed by Dr. Moreland History of COPD, maintained on steroids and bronchodilators. Echocardiogram done on May 12, 2020 showing normal left ventricular size and function, aortic sclerosis. Persistent atrial fibrillation - rate controlled OAC on Eliquis. History of TIA/CVA in May 2020 Diabetes mellitus History of peripheral neuropathy H/O cochlear implant, significant hearing loss Gastroesophageal reflux disease BPH Plan: Somewhat low BP this morning Reduce antihypertensive regimen Normal LVEF on recent echo - stop VIVIEN Stop Norvasc Monitor lab YEIMI GATES Jun 17, 2020 11:34
--- NOTE | 2020-06-17 15:07 | Diagnostic Imaging Report ---
INDICATION: Abdominal pain. COMPARISON: CT chest dated 06/10/2020. FINDINGS: A single frontal radiographic view of the abdomen was obtained and demonstrates nondistended loops of small bowel. There is no large collection of free intraperitoneal air. Large amounts of air and stool are seen scattered throughout the colon. There is extraosseous opacity projecting over the left upper abdominal quadrant at the level of T12. Although the patient has known renal calculi, this is much larger than expected given appearance of the calculi on the prior exam and may be on the basis of debris contained within the bowel. No unexpected radiopaque foreign bodies are identified. IMPRESSION: 1. Large amount of colonic air and stool. Please correlate for constipation. 2. Nonobstructed small bowel gas pattern. Dictated by: Dictated on workstation # [id number]
[2020-06-17] MEDS: TAMSULOSIN 0.4 MG (FLOMAX) CAP PO SCH (17:52)
[2020-06-17 18:07] VITALS: BP 103/67
--- NOTE | 2020-06-17 18:17 | Progress Note - Cardiology ---
Cardiology SOAP Progress Note Subjective: Gen malaise Shortness of breath with activity No cp or palp or syncope Swelling improving No n/v/d Objective: I&O/Vital Signs 06/17/20 06/17/20 06/17/20 06/17/20 06:50 07:51 07:52 07:52 Pulse 89 Pulse Ox 97 95 95 O2 Delivery Nasal Cannula Nasal Cannula Nasal Cannula O2 Flow Rate 4.00 2.00 2.00 06/17/20 06/17/20 06/17/20 06/17/20 08:12 09:00 12:22 18:07 Temp 36.4 Pulse 85 94 86 Resp 22 B/P (MAP) 91/55 (67) 103/67 (79) Pulse Ox 95 O2 Delivery Nasal Cannula Nasal Cannula O2 Flow Rate 4.00 3.00 06/17/20 00:00 Intake Total 400 ml Output Total 350 ml Balance 50 ml Weight (Pounds): 206 Weight (Ounces): 4.0 Weight (Calculated Kilograms): 95.475356 Constitutional: AAO x 3, well-developed, well-nourished Respiratory: No accessory muscle use, No respiratory distress; other (prolonged exp phase) Cardiovascular: irregularly irregular; No JVD; S1 and S2 Gastrointestional: No tender; round, audible bowel sounds Extremities: other (mild bilat LE swelling) Neurologic/Psychiatric: grossly intact (moves all extremities) Skin: No rash on exposed areas, No ulcerations on exposed areas Results/Procedures: Labs Laboratory Tests 06/16/20 20:20: Glucometer 209H 06/17/20 04:43: White Blood Count 9.8, Red Blood Count 3.56L, Hemoglobin 10.7L, Hematocrit 34L, Mean Corpuscular Volume 96, Mean Corpuscular Hemoglobin 30, Mean Corpuscular Hemoglobin Concent 31L, Red Cell Distribution Width 14.7H, Platelet Count 363, Mean Platelet Volume 10.5, Immature Granulocyte % (Auto) 7, Neutrophils (%) (Auto) 73, Lymphocytes (%) (Auto) 9L, Monocytes (%) (Auto) 7, Eosinophils (%) (Auto) 4, Basophils (%) (Auto) 0, Neutrophils # (Auto) 7.2, Lymphocytes # (Auto) 0.9L, Monocytes # (Auto) 0.7, Eosinophils # (Auto) 0.4H, Basophils # (Auto) 0.0, Immature Granulocyte # (Auto) 0.7H, Sodium Level 136, Potassium Level 4.9, Chloride Level 100, Carbon Dioxide Level 29, Anion Gap 7, Blood Urea Nitrogen 25H, Creatinine 0.79, Estimat Glomerular Filtration Rate > 60, BUN/Creatinine Ratio 32, Glucose Level 146H, Calcium Level 7.9L, Corrected Calcium 8.9, Total Bilirubin 0.4, Aspartate Amino Transf (AST/SGOT) 15, Alanine Aminotransferase (ALT/SGPT) 22, Alkaline Phosphatase 157H, Total Protein 4.6L, Albumin 2.7L 06/17/20 04:53: Amylase Level 43, Lipase 17 06/17/20 05:22: Glucometer 152H 06/17/20 11:34: Glucometer 76 06/17/20 16:34: Glucometer 141H Laboratory Tests 06/17/20 04:43 A/P: Assessment: Recurrent pneumonia after COVID-19 infection in March 2020, third hospitalization for pneumonia. Underwent bronchoscopy with Dr. Moreland earlier - managed by Dr. Moreland History of COPD, maintained on steroids and bronchodilators. Echocardiogram done on May 12, 2020 showing normal left ventricular size and function, aortic sclerosis. Persistent atrial fibrillation - rate controlled OAC on Eliquis. History of TIA/CVA in May 2020 Diabetes mellitus History of peripheral neuropathy H/O cochlear implant, significant hearing loss Gastroesophageal reflux disease BPH Plan: Somewhat low BP this morning Reduce antihypertensive regimen Normal LVEF on recent echo - stop VIVIEN Stop Norvasc Monitor lab SUSIE SMILEY MD FACP FAC CCDS Jun 17, 2020 18:17
[2020-06-17] MEDS ORDERED: polyethylene glycoL POWDER 17 GM (MIRALAX) PACK PO NR (19:45)
[2020-06-17] MEDS ORDERED: LACTULOSE SYRUP 10GM/15ML (ENULOSE) 30ML UDC PO NR (19:45)
[2020-06-17] MEDS ORDERED: BISACODYL 10 MG SUPP (DULCOLAX) PR NR (19:45)
[2020-06-17] MEDS: MONTELUKAST 10 MG (SINGULAIR) TAB PO SCH (21:42)
[2020-06-17] MEDS: PRAMIPEXOLE 0.125 MG (MIRAPEX) TABLET PO SCH ×2 (21:43→21:45)
[2020-06-17] MEDS: PANTOPRAZOLE 40 MG (PROTONIX) TAB PO SCH (21:44)
--- NOTE | 2020-06-18 05:54 | PM&R Progress Note ---
Subjective HPI/CC On Admission Date Seen by Provider: Jun 18, 2020 Time Seen by Provider: 10:00 Subjective/Events-last exam 06/18/20: Clearing out bowels with supp and laxatives Less distention Ate bfast regular type 2L/min O2 now Overall much better 06/17/20: Was nauseated a bit so initiated an Amylase and Lipase KUB and work up BP 91/55 Blood sugar is doing okay Bowels moved yesterday WBC 9.8 Hgb 10.7 Later in evening sugars were low so held insulin Review of Systems General: Fatigue, Malaise Neurological: Weakness Objective Exam Vital Signs Vital Signs Date Time Temp Pulse Resp B/P (MAP) Pulse Ox O2 Delivery O2 Flow Rate FiO2 06/19/20 01:00 90 06/18/20 20:45 Nasal Cannula 2.00 06/18/20 19:19 98 06/18/20 18:00 36.6 18 101/55 (70) Capillary Refill : General Appearance: No Apparent Distress, WD/WN, Chronically ill HEENT: PERRL/EOMI, Normal ENT Inspection, Pharynx Normal Neck: Full Range of Motion, Normal Inspection, Non Tender, Supple, Carotid Bruit Respiratory: Chest Non Tender, No Accessory Muscle Use, No Respiratory Distress, Crackles, Wheezing Cardiovascular: Regular Rate, Rhythm, No Edema, No Gallop, No JVD, No Murmur, Normal Peripheral Pulses Gastrointestinal: Normal Bowel Sounds, No Organomegaly, No Pulsatile Mass, Non Tender, Soft Back: Normal Inspection, No CVA Tenderness, No Vertebral Tenderness Extremity: Normal Capillary Refill, Normal Inspection, Normal Range of Motion, Non Tender, No Calf Tenderness, No Pedal Edema Neurologic/Psychiatric: Alert, Oriented x3, No Motor/Sensory Deficits, Normal Mood/Affect, Motor Weakness (generalized weakness) Skin: Normal Color, Warm/Dry Lymphatic: No Adenopathy Results/Procedures Lab Laboratory Tests 06/18/20 05:50 Patient resulted labs reviewed. FIM Transfers Therapy Code Descriptions/Definitions Functional [place] Measure: 0=Not Assessed/NA 4=Minimal Assistance 1=Total Assistance 5=Supervision or Setup 2=Maximal Assistance 6=Modified [place] 3=Moderate Assistance 7=Complete IndependenceSCALE: Activities may be completed with or without assistive devices. 9-Aqltftzmdp-yuleeaq completes the activity by him/herself with no assistance from a helper. 5-Set-up or Clean-up Assistance-helper sets up or cleans up; patient completes activity. [place] assists only prior to or following the activity. 4-Supervision or Touching Assistance-helper provides verbal cues and/or touching/steadying and/or contact guard assistance as patient completes activity. Assistance may be provided throughout the activity or intermittently. 3-Partial/Moderate Assistance-helper does LESS THAN HALF the effort. [place] lifts, holds or supports trunk or limbs, but provides less than half the effort. 2-Substantial/Maximal Assistance-helper does MORE THAN HALF the effort. [place] lifts or holds trunk or limbs and provides more than half the effort. 4-Yqsgrgypq-ytvcnx does ALL the effort. Patient does none of the effort to complete the activity. Or, the assistance of 2 or more helpers is required for the patient to complete the activity. If activity was not attempted, code reason: 7-Patient Refused. 9-Not Applicable-not attempted and the patient did not perform the activity before the current illness, exacerbation or injury. 10-Not Attempted due to Environmental Limitations-(lack of equipment, weather restraints, etc.). 88-Not Attempted due to Medical Conditions or Safety Concerns. Roll Left to Right (QC): 5 Sit to Lying (QC): 5 Sit to Stand (QC): 5 Chair/Lrz-ar-Qdwhq Xfer(QC): 4 Car Transfer (QC): 4 Gait Training Does the Patient Walk?: Yes Walk 10 feet (QC): 4 Walk 50 ft with 2 Turns(QC): 4 Walk 150 ft (QC): 4 Walking 10ft/uneven surface-QC: 4 Gait Persons Needed: 1 Gait Assistive Device: FWW Wheelchair Training Does the Pt Use a Wheelchair?: No Wheel 50 ft with 2 turns (QC): 9 Wheel 150 ft (QC): 9 Stair Training #of Steps: 8 1 Step (curb) (QC): 4 4 Steps (QC): 4 12 Steps (QC): 9 Balance Picking up an Object (QC): 5 (seated position) ADL-Treatment Eating (QC): 6 (Per pt report, pt independent with eating. Able to open contia iners, cut food, and use utensils.) Oral Hygiene (QC): 5 (set up assist. ) Shower/Bathe Self (QC): 3 (Pt required assistance washing bilateral lower legs/feet. Pt able to wash all other parts, SBA in stand to wash buttocks.) Upper Body Dressing (QC): 5 (set up assist) Lower Body Dressing (QC): 3 (Pt able to thread bilateral legs, min A with threading RLE due to gripper socks. Pt able to manage pants up wtih CGA, and assist to tie drawstring.) On/Off Footwear (QC): 3 (Mod A. Pt able to doff, assist to thread socks over toes, then pt able to pull up.) Toileting Hygiene (QC): 4 (SBA standing at toilet to urinate) Assessment/Plan Assessment and Plan Assess & Plan/Chief Complaint Assessment: Recurrent PNA s/p bronchoscopy due to 2 recent PNA admit at [facility] on broad spectrum abx with yeast on Cx COVID-19 PNA 03/2020 admit at [facility] no abx on that admit Severe COPD O2 dependent 5L/min at home AF w/recent AF w/RVR at [facility] last admit CAD TIA/CVA 05/2020 admitted [facility] DM insulin dependent Neuropathy Cochlear implant very [place] Lives alone with helpers GERD BPH Plan: IRF protocol IV abx to complete Bronch appreciated Cardiology consultation Dr Moreland appreciated Monitor labs IV steroids DC Insulin 06/17/20: Decrease insulin Monitor O2 Monitor ileus 06/18/20: Laxatives maintained Monitor closely O2 Increase activity (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
[2020-06-18 06:15] VITALS: BP 111/60
[2020-06-18 06:55] LABS: BASOPHILS # (AUTO) 0.1 10^3/uL (0.0-0.1); BASOPHILS % (AUTO) 1 % (0-10); EOSINOPHILS # (AUTO) 0.4 10^3/uL (0.0-0.3); EOSINOPHILS % (AUTO) 4 % (0-10); HEMATOCRIT 38 % (40-54); HEMOGLOBIN 12.1 g/dL (13.3-17.7); LYMPHOCYTES # (AUTO) 0.9 10^3/uL (1.0-4.0); LYMPHOCYTES % (AUTO) 10 % (12-44); MEAN CORPUSCULAR HEMOGLOBIN 30 pg (25-34); MEAN CORPUSCULAR HGB CONC 32 g/dL (32-36); MEAN CORPUSCULAR VOLUME 96 fL (80-99); MEAN PLATELET VOLUME 10.3 fL (9.0-12.2); MONOCYTES # (AUTO) 0.7 10^3/uL (0.0-1.0); MONOCYTES % (AUTO) 7 % (0-12); NEUTROPHILS # (AUTO) 6.4 10^3/uL (1.8-7.8); NEUTROPHILS % (AUTO) 69 % (42-75); PLATELET COUNT 383 10^3/uL (130-400); WHITE BLOOD COUNT 9.3 10^3/uL (4.3-11.0)
[2020-06-18] MEDS: RT-ALBUTEROL/IPRATROPIUM 3 ML (DUONEB) VIAL INH SCH ×4 (07:09→19:17)
[2020-06-18] MEDS: RT-BUDESONIDE NEBS 0.5 MG/2ML (PULMICORT) AMP IH SCH ×2 (07:10→19:17)
[2020-06-18] MEDS: ARFORMOTEROL 15 MCG/2 ML (BROVANA) INH SOLUTIION IH SCH ×2 (07:10→23:03)
[2020-06-18 07:20] LABS: ALANINE AMINOTRANSFERASE 21 U/L (0-55); ALBUMIN 3.1 GM/DL (3.2-4.5); ALKALINE PHOSPHATASE 153 U/L (40-136); ATYPICAL LYMPHOCYTES 5 %; BILIRUBIN,TOTAL 0.7 MG/DL (0.1-1.0); BUN/CREATININE RATIO 22; CALCIUM 8.7 MG/DL (8.5-10.1); CARBON DIOXIDE 31 MMOL/L (21-32); CHLORIDE 95 MMOL/L (98-107); CREATININE SERUM 0.81 MG/DL (0.60-1.30); EOSINOPHILS % (MANUAL) 6 %; GFR ESTIMATED > 60; GLUCOSE 175 MG/DL (70-105); LYMPHOCYTES % (MANUAL) 10 %; MONOCYTES % (MANUAL) 8 %; MYELOCYTES % 2 %; NEUTROPHILS % (MANUAL) 64 %; POTASSIUM 4.3 MMOL/L (3.6-5.0); REACTIVE LYMPHOCYTES 5 %; SODIUM 137 MMOL/L (135-145); TOTAL PROTEIN 5.6 GM/DL (6.4-8.2)
[2020-06-18 07:21] LABS: PLATELET CLUMPS OCCASIONAL; RBC MORPH NORMAL; SMEAR SCAN COMMENT YES
[2020-06-18] MEDS: inSUlin ASPART (NovoLOG) 1 UNIT/0.01 ML (CHARGE PER UNIT) SQ SCH ×3 (07:39→16:51)
[2020-06-18] MEDS: inSUlin ASPART (NovoLOG) 1 UNIT/0.01 ML (CHARGE PER UNIT) SC SCH ×4 (07:39→20:29)
[2020-06-18 09:18] VITALS: BP 113/69
[2020-06-18] MEDS: meTOprolol TARTRATE 25 MG (LOPRESSOR) TABLET PO SCH ×2 (09:24→20:33)
[2020-06-18] MEDS: DOCUSATE SODIUM 100 MG (COLACE) CAP PO SCH ×2 (09:25→20:33)
[2020-06-18] MEDS: CYCLOBENZAPRINE 10 MG (FLEXERIL) TAB PO SCH (09:25)
[2020-06-18] MEDS: PANTOPRAZOLE 40 MG (PROTONIX) TAB PO SCH ×2 (09:25→20:33)
[2020-06-18] MEDS: metFORMIN 500 MG (GLUCOPHAGE) TAB PO SCH ×2 (09:25→18:06)
[2020-06-18] MEDS: APIXABAN 5 MG (ELIQUIS) TABLET PO SCH ×2 (09:25→20:33)
[2020-06-18] MEDS: ASPIRIN E.C. 325 MG (ECOTRIN) TABLET PO SCH (09:25)
[2020-06-18] MEDS: SENNA W/DOCUSATE (SENOKOT S) TABLET PO SCH ×2 (09:25→20:33)
[2020-06-18] MEDS: ANIDULAFUNGIN INJECTION 100 MG in NS (IVPB) 100 ML IV SCH (09:25)
--- NOTE | 2020-06-18 09:27 | Physical Therapy Daily Note ---
PT Daily Note-Current Subjective Patient in recliner pre tx, agrees to PT, has no complaints of pain. Appearance Patient in recliner post tx with nurse call, phone, tray, all needs met, chair alarm on. Mental Status Patient Orientation: Person, Place, Situation Attachments: Oxygen Transfers SCALE: Activities may be completed with or without assistive devices. 6-Jwbtauphdb-jzlbwwn completes the activity by him/herself with no assistance from a helper. 5-Set-up or Clean-up Assistance-helper sets up or cleans up; patient completes activity. [place] assists only prior to or following the activity. 4-Supervision or Touching Assistance-helper provides verbal cues and/or touching/steadying and/or contact guard assistance as patient completes a ctivity. Assistance may be provided throughout the activity or intermittently. 3-Partial/Moderate Assistance-helper does LESS THAN HALF the effort. [place] lifts, holds or supports trunk or limbs, but provides less than half the effort. 2-Substantial/Maximal Assistance-helper does MORE THAN HALF the effort. [place] lifts or holds trunk or limbs and provides more than half the effort. 0-Ydojcntch-fycgve does ALL the effort. Patient does none of the effort to complete the activity. Or, the assistance of 2 or more helpers is required for the patient to complete the activity. If activity was not attempted, code reason: 7-Patient Refused. 9-Not Applicable-not attempted and the patient did not perform the activity before the current illness, exacerbation or injury. 10-Not Attempted due to Environmental Limitations-(lack of equipment, weather restraints, etc.). 88-Not Attempted due to Medical Conditions or Safety Concerns. Sit to Stand (QC): 4 Chair/Lty-pf-Igyll Xfer(QC): 4 SBA, occasional cues for positioning Gait Training Distance: 150', 75'x2 Walk 10 feet (QC): 4 Walk 50 ft with 2 Turns(QC): 4 Walk 150 ft (QC): 4 Gait Persons Needed: 1 Gait Assistive Device: FWW SBA, slow but steady ambulation, cues for purse lip breathing Exercises Seated Therapy Exercises: Ankle pumps, Long arc quads, Hip flexion Seated Reps: 20 NuStep Minutes: 15 NuStep Workload: 4 Treatments transfers, ambulation, LE exercise Assessment Current Status: Fair Progress slowly improving endurance PT Business Department Chair Goals Business Department Chair Goals PT Business Department Chair Goals Time Frame: Jul 10, 2020 Roll Left & Right (QC): 6 Sit to Lying (QC): 6 Lying-Sitting on Side/Bed(QC): 6 Sit to Stand (QC): 6 Chair/Yox-jk-Qkilj Xfer(QC): 6 Toilet Transfer (QC): 6 Car Transfer (QC): 6 Does the Patient Walk: Yes Walk 10 feet (QC): 6 Walk 50ft with 2 Turns (QC): 6 Walk 150 ft (QC): 6 Walking 10ft on Uneven Surface: 6 1 Step (curb) (QC): 6 4 Steps (QC): 6 12 Steps (QC): 9 Picking up an Object (QC): 6 Wheel 50 feet with 2 turns (QC: 9 Wheel 150 feet: 9 PT Plan Problem List Problem List: Activity Tolerance, Functional Strength, Safety, Balance, Gait, Transfer, Bed Mobility, ROM Treatment/Plan Treatment Plan: Continue Plan of Care Treatment Plan: Bed Mobility, Concurrent Therapy, Education, Functional Activity Lucy, Functional Strength, Group Therapy, Gait, Safety, Therapeutic Exercise, Transfers Treatment Duration: Jul 10, 2020 Frequency: At least 5 of 7 days/Wk (IRF) Estimated Hrs Per Day: 1 hour per day Patient and/or Family Agrees t: Yes Safety Risks/Education Patient Education: Gait Training, Transfer Techniques, Correct Positioning, Safety Issues Teaching Recipient: Patient Teaching Methods: Demonstration, Discussion Response to Teaching: Reinforcement Needed Time/GCodes Time In: 829 Time Out: 929 Total Billed Treatment Time: 60 Total Billed Treatment 1 visit EX 30' GT 30' DONALD TURPIN PT Jun 18, 2020 09:27
[2020-06-18] MEDS: polyethylene glycoL POWDER 17 GM (MIRALAX) PACK PO SCH ×2 (09:33→19:27)
--- NOTE | 2020-06-18 10:22 | Occupational Ther Daily Note ---
OT Current Status-Daily Note Subjective Pt states that he doesn't want to do therapy as he has already done therapy. OT explained that he has done PT and speech therapy, and explained benefits of OT. Pt states pain in his shoulders and not wanting to do therapy because of it. OT explains the benefits and how shoulder pain can decrease over time. Pt agreeable to OT tx. Mental Status/Objective Patient Orientation: Person, Place, Time, Situation Attachments: IV, Oxygen, Telemetry ADL-Treatment Therapy Code Descriptions/Definitions Functional [place] Measure: 0=Not Assessed/NA 4=Minimal Assistance 1=Total Assistance 5=Supervision or Setup 2=Maximal Assistance 6=Modified [place] 3=Moderate Assistance 7=Complete IndependenceSCALE: Activities may be completed with or without assistive devices. 3-Huuqfxfimw-jemvyrs completes the activity by him/herself with no assistance from a helper. 5-Set-up or Clean-up Assistance-helper sets up or cleans up; patient completes activity. [place] assists only prior to or following the activity. 4-Supervision or Touching Assistance-helper provides verbal cues and/or touching/steadying and/or contact guard assistance as patient completes activity. Assistance may be provided throughout the activity or intermittently. 3-Partial/Moderate Assistance-helper does LESS THAN HALF the effort. [place] lifts, holds or supports trunk or limbs, but provides less than half the effort. 2-Substantial/Maximal Assistance-helper does MORE THAN HALF the effort. [place] lifts or holds trunk or limbs and provides more than half the effort. 9-Fnlikrnyn-enxxvx does ALL the effort. Patient does none of the effort to complete the activity. Or, the assistance of 2 or more helpers is required for the patient to complete the activity. If activity was not attempted, code reason: 7-Patient Refused. 9-Not Applicable-not attempted and the patient did not perform the activity before the current illness, exacerbation or injury. 10-Not Attempted due to Environmental Limitations-(lack of equipment, weather restraints, etc.). 88-Not Attempted due to Medical Conditions or Safety Concerns. Oral Hygiene (QC): 7 Toileting Hygiene (QC): 7 Toilet Transfer (QC): 7 Other Treatment Pt began tx seated in recliner. Pt states that he does not need OT due to the issue is not in his arms, but his endurance/lung function. OT explains the benefits of therapy and how OT can work with his activity tolerance and to increase lung function. OT encouraged pt to complete ADLS in his room, but he declined. Pt ambulated to therapy gym with FWW at [facility]. In gym, pt participated in arm bike exercise for 10 min, min resistance, with 1 rest break required to increase activity tolerance and gross motor strength. Pt participated in arm exercises with 2 lb weights and did 15 reps of each of the following; shoulder flexion, elbow extension and flexion, supination and pronation, and wrist flexion to increase arm strength and activity tolerance. Pt then participated in irene exercise with no resistance to increase BUE AROM, and activity tolerance for 5 min and required 1 rest break. With rest break, OT encouraged pt to continue pulleys after he caught his breath, pt states "I've already done this for 10 minutes". OT educated pt he has completed pulleys for a few minutes, but the goal was 5 mins, educating him on the purpose of the activity. Pt then able to continue for the remainder of the 5 minutes. Pt them ambulated back to room and in recliner, post tx, with call light in reach, chair alarm on and all needs met. Education OT Patient Education: Correct positioning, Energy conservation, Modified ADL techniques, Progress toward Goal/Update tx plan, Purpose of tx/functional activities, Rehab process, Safety issues Teaching Recipient: Patient Teaching Methods: Discussion Response to Teaching: Verbalize Understanding OT Short Term Goals Short Term Goals Time Frame: Jun 26, 2020 Toileting hygiene: 4 Shower/bathe self: 4 Putting on/taking off footwear: 4 OT Vp Client Services Goals Intermediate Goals Time Frame: Jul 10, 2020 Eating (QC): 6 Oral Hygiene (QC): 6 Toileting Hygiene (QC): 6 Shower/Bathe Self (QC): 6 Upper Body Dressing (QC): 6 Lower Body Dressing (QC): 6 On/Off Footwear (QC): 6 Additional Goals: 1-Demonstrate ADL Tasks, 2-Verbalize Understanding, 3- ImproveStrength/Lucy 1=Demonstrate adherence to instructed precautions during ADL tasks. 2=Patient will verbalize/demonstrate understanding of assistive devices/modifications for ADL. 3=Patient will improve strength/tolerance for activity to enable patient to perform ADL's. OT Education/Plan Problem List/Assessment Assessment: Decreased Activ Tolerance, Decreased Safety Aware, Decreased UE Strength, Impaired Coordination, Impaired I ADL's, Impaired Self-Care Skills, Restricted Funct UE ROM Discharge Recommendations Plan/Recommendations: Continue POC Treatment Plan/Plan of Care Patient would benefit from OT for education, treatment and training to promote independence in ADL's, mobility, safety and/or upper extremity function for ADL's. Plan of Care: ADL Retraining, Functional Mobility, UE Funct Exercise/Act Treatment Duration: Jul 10, 2020 Frequency: At least 5 of 7 days/Wk (IRF) Estimated Hrs Per Day: 1 hour per day Rehab Potential: Fair Time/GCodes Start Time: 10:00 Stop Time: 11:00 Total Time Billed (hr/min): 60 Billed Treatment Time 1, EX 4 (60') SHAYLEE BOUCHER OT Jun 18, 2020 10:22
--- NOTE | 2020-06-18 10:24 | Speech Therapy Daily Note ---
Speech Daily Progress Note Subjective Date Seen by Provider: Jun 18, 2020 Time Seen by Provider: 00:30 Patient was sitting in his recliner following his PT session. He states it "wore me out". He was c/o being gassy following them giving him a laxative the previous night. Objective Patient completed a series of q/a related to his needs/support upon returning to his home with 85% given minimal cues/repetitions. Assessment Assessment Current Status: Good Progress Treatment Plan Continue Plan of Care Speech Short Term Goals Short Term Goals Short Term Goals 1) Patient will complete memory tasks related to his daily needs at 90% or greater with minimal cues. 2) Patient will complete problem solving tasks related to his daily needs at 90% or greater with minimal cues. 3) Patient will complete safety awareness tasks related to his daily needs at 90% or greater with minimal cues. Speech Animal Doctor Goals Long-Term Goals Patient will improve cognitive-communication necessary for safety and daily living tasks with minimal assist. Speech-Plan Patient/Family Goals Patient/Family Goals: Patient plans on returning to his home upon discharge. He has friends/neighbors for daily support. Treatment Plan Speech Therapy Treatment Plan: Continue Plan of Care Treatment Duration: Jun 17, 2020 Frequency: 4 times per week (Patient will receive ST 4-5x per week) Estimated Hrs Per Day: .5 hour per day Rehab Potential: Fair Barriers to Learning: Patient's lengthy illness of COVID, age Pt/Family Agrees to Plan: Yes Safety Risks/Education Teaching Recipient: Patient Teaching Methods: Demonstration, Discussion Response to Teaching: Verbalize Understanding, Return Demonstration Education Topics Provided: Safety within his room and upon his return home Time Speech Therapy Time In: 09:30 Speech Therapy Time Out: 10:00 Total Billed Time: 30 Billed Treatment Time 1, SLNARDA Ford Jun 18, 2020 10:24
--- NOTE | 2020-06-18 10:40 | Speech Therapy Daily Note ---
Speech Daily Progress Note Subjective Date Seen by Provider: Jun 18, 2020 Time Seen by Provider: 00:30 Speech Short Term Goals Short Term Goals Short Term Goals 1) Patient will complete memory tasks related to his daily needs at 90% or greater with minimal cues. 2) Patient will complete problem solving tasks related to his daily needs at 90% or greater with minimal cues. 3) Patient will complete safety awareness tasks related to his daily needs at 90% or greater with minimal cues. Speech Fagoter Goals Custodial Goals Patient will improve cognitive-communication necessary for safety and daily living tasks with minimal assist. Speech-Plan Treatment Plan Treatment Duration: Jun 17, 2020 Frequency: Modified Program (IRF) Estimated Hrs Per Day: Other Rehab Potential: NARDA Yeboah Jun 18, 2020 10:40
--- NOTE | 2020-06-18 17:47 | Progress Note - Cardiology ---
Cardiology SOAP Progress Note Subjective: No cp or palp or syncope Shortness of breath with activity Some gen malaise No n/v/d Objective: I&O/Vital Signs 06/18/20 06/18/20 06/18/20 06/18/20 06:15 07:00 07:10 07:10 Temp 36.2 Pulse 78 85 Resp 22 B/P (MAP) 111/60 (77) Pulse Ox 93 94 94 O2 Delivery Nasal Cannula Nasal Cannula Nasal Cannula O2 Flow Rate 2.00 2.00 2.00 06/18/20 06/18/20 06/18/20 06/18/20 07:10 08:55 09:18 13:00 Pulse 94 B/P (MAP) 113/69 (84) Pulse Ox 94 92 O2 Delivery Nasal Cannula Nasal Cannula Nasal Cannula O2 Flow Rate 2.00 2.00 3.00 06/18/20 00:00 Intake Total 650 ml Output Total 200 ml Balance 450 ml Weight (Pounds): 206 Weight (Ounces): 4.0 Weight (Calculated Kilograms): 95.025527 Constitutional: AAO x 3, well-developed, well-nourished Respiratory: No accessory muscle use, No respiratory distress; other (prolonged exp phase) Cardiovascular: irregularly irregular; No JVD; S1 and S2 Gastrointestional: No tender; round, audible bowel sounds Extremities: other (mild bilat LE swelling) Neurologic/Psychiatric: grossly intact (moves all extremities) Skin: No rash on exposed areas, No ulcerations on exposed areas Results/Procedures: Labs Laboratory Tests 06/17/20 20:02: Glucometer 44*L 06/17/20 20:11: Glucometer 43*L 06/17/20 20:38: Glucometer 141H 06/18/20 05:42: Glucometer 190H 06/18/20 05:50: White Blood Count 9.3, Red Blood Count 3.99L, Hemoglobin 12.1L, Hematocrit 38L, Mean Corpuscular Volume 96, Mean Corpuscular Hemoglobin 30, Mean Corpuscular Hemoglobin Concent 32, Red Cell Distribution Width 14.2, Platelet Count 383, Mean Platelet Volume 10.3, Immature Granulocyte % (Auto) 10, Neutrophils (%) (Auto) 69, Lymphocytes (%) (Auto) 10L, Monocytes (%) (Auto) 7, Eosinophils (%) (Auto) 4, Basophils (%) (Auto) 1, Neutrophils # (Auto) 6.4, Lymphocytes # (Auto) 0.9L, Monocytes # (Auto) 0.7, Eosinophils # (Auto) 0.4H, Basophils # (Auto) 0.1, Immature Granulocyte # (Auto) 0.9H, Neutrophils % (Manual) 64, Lymphocytes % (Manual) 10, Monocytes % (Manual) 8, Eosinophils % (Manual) 6, Myelocytes % 2, Atypical Lymphocytes 5, Reactive Lymphocytes 5, Clumped Platelets OCCASIONAL, Blood Morphology Comment NORMAL, Sodium Level 137, Potassium Level 4.3, Chloride Level 95L, Carbon Dioxide Level 31, Anion Gap 11, Blood Urea Nitrogen 18, Creatinine 0.81, Estimat Glomerular Filtration Rate > 60, BUN/Creatinine Ratio 22, Glucose Level 175H, Calcium Level 8.7, Corrected Calcium 9.4, Total Bilirubin 0.7, Aspartate Amino Transf (AST/SGOT) 19, Alanine Aminotransferase ( ALT/SGPT) 21, Alkaline Phosphatase 153H, Total Protein 5.6L, Albumin 3.1L, Smear Scan YES 06/18/20 11:05: Glucometer 178H 06/18/20 16:15: Glucometer 142H A/P: Assessment: Recurrent pneumonia after COVID-19 infection in March 2020, third hospitalization for pneumonia. Underwent bronchoscopy with Dr. Moreland earlier - managed by Dr. Moreland History of COPD, maintained on steroids and bronchodilators. Echocardiogram done on May 12, 2020 showing normal left ventricular size and function, aortic sclerosis. Persistent atrial fibrillation - rate controlled OAC on Eliquis. 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
[2020-06-18 18:00] VITALS: BP 101/55
[2020-06-18] MEDS: TAMSULOSIN 0.4 MG (FLOMAX) CAP PO SCH (18:06)
[2020-06-18] MEDS: PRAMIPEXOLE 0.125 MG (MIRAPEX) TABLET PO SCH ×2 (19:27→20:33)
[2020-06-18] MEDS: MONTELUKAST 10 MG (SINGULAIR) TAB PO SCH (20:33)
[2020-06-19] MEDS: inSUlin ASPART (NovoLOG) 1 UNIT/0.01 ML (CHARGE PER UNIT) SC SCH ×4 (05:15→21:11)
[2020-06-19 06:23] VITALS: BP 112/57
[2020-06-19] MEDS: inSUlin ASPART (NovoLOG) 1 UNIT/0.01 ML (CHARGE PER UNIT) SQ SCH ×3 (07:06→17:18)
[2020-06-19] MEDS: RT-ALBUTEROL/IPRATROPIUM 3 ML (DUONEB) VIAL INH SCH ×4 (07:27→18:21)
[2020-06-19] MEDS: ARFORMOTEROL 15 MCG/2 ML (BROVANA) INH SOLUTIION IH SCH ×2 (07:28→18:21)
[2020-06-19] MEDS: RT-BUDESONIDE NEBS 0.5 MG/2ML (PULMICORT) AMP IH SCH ×2 (07:28→18:21)
[2020-06-19] MEDS: DOCUSATE SODIUM 100 MG (COLACE) CAP PO SCH ×2 (08:41→21:18)
[2020-06-19] MEDS: SENNA W/DOCUSATE (SENOKOT S) TABLET PO SCH ×2 (08:42→21:18)
[2020-06-19] MEDS: polyethylene glycoL POWDER 17 GM (MIRALAX) PACK PO SCH ×2 (08:42→21:18)
--- NOTE | 2020-06-19 08:46 | Occupational Ther Daily Note ---
OT Current Status-Daily Note Subjective Pt reported no pain and agreeable to OT tx. Mental Status/Objective Patient Orientation: Person, Place, Time, Situation Attachments: Oxygen (4L), Telemetry ADL-Treatment Therapy Code Descriptions/Definitions Functional [place] Measure: 0=Not Assessed/NA 4=Minimal Assistance 1=Total Assistance 5=Supervision or Setup 2=Maximal Assistance 6=Modified [place] 3=Moderate Assistance 7=Complete IndependenceSCALE: Activities may be completed with or without assistive devices. 9-Lbynldwtlj-lcnchrr completes the activity by him/herself with no assistance from a helper. 5-Set-up or Clean-up Assistance-helper sets up or cleans up; patient completes a ctivity. [place] assists only prior to or following the activity. 4-Supervision or Touching Assistance-helper provides verbal cues and/or touching/steadying and/or contact guard assistance as patient completes activity. Assistance may be provided throughout the activity or intermittently. 3-Partial/Moderate Assistance-helper does LESS THAN HALF the effort. [place] lifts, holds or supports trunk or limbs, but provides less than half the effort. 2-Substantial/Maximal Assistance-helper does MORE THAN HALF the effort. [place] lifts or holds trunk or limbs and provides more than half the effort. 0-Ptttinnfq-dnqzbm does ALL the effort. Patient does none of the effort to complete the activity. Or, the assistance of 2 or more helpers is required for the patient to complete the activity. If activity was not attempted, code reason: 7-Patient Refused. 9-Not Applicable-not attempted and the patient did not perform the activity before the current illness, exacerbation or injury. 10-Not Attempted due to Environmental Limitations-(lack of equipment, weather restraints, etc.). 88-Not Attempted due to Medical Conditions or Safety Concerns. Shower/Bathe Self (QC): 5 (Set up. Pt able to use long handled sponge to wash lower legs/feet.) Upper Body Dressing (QC): 4 (SBA for safety awarness of oxygen tubing) Lower Body Dressing (QC): 4 (SBA for safety on oxygen tubing.) On/Off Footwear: 6 (Ind) Other Treatment Pt began tx seated in recliner. Pt stood at FWW and ambulated to shower and transferred to shower bench. Pt doffed clothing and showered. Upon finishing, pt donned shirt with a cue to take off oxygen. Then, pt donned pants and needed a cue to watch his oxygen tubing and move the tube to the front of his pants. Pt stated that it gets in the way, and OT stated the safety of watching the tubing and not tripping over the tubing. Pt ambulated to recliner for a rest break with FWW. Then pt ambulated to therapy gym with no rest breaks with FWW. In therapy gym, pt sat in chair and needed cues to reach back for armrest when sitting and stated safety of reaching back as well as cues to keep walker close to him throughout transfer. Pt attempted to put walker out to side, then take a few steps to the chair, skilled verbal cues and demonstration provided for proper technique. Pt participated in arm bike exercise for 10 min with minimal resistance with needing 2 rest breaks to increase BUE gross motor strength and activity tolerance. Pt stood with FWW and ambulated to another chair for irene exercise. Upon sitting in chair, pt needed minimal cues to watch where his oxygen tubing is and turning to sit the correct way as well as minimal cues to reach back for the armrest. pt participate in irene exercise with no resistance to increase BUE AROM and activity tolerance for 5 min with 1 rest break needed. Pt in chair in gym with PT, all needs met post tx. Education OT Patient Education: Correct positioning, Energy conservation, Modified ADL techniques, Progress toward Goal/Update tx plan, Purpose of tx/functional activ ities, Rehab process, Safety issues, Transfer techniques Teaching Recipient: Patient Teaching Methods: Demonstration Response to Teaching: Verbalize Understanding OT Short Term Goals Short Term Goals Time Frame: Jun 26, 2020 Toileting hygiene: 4 Shower/bathe self: 4 Putting on/taking off footwear: 4 OT Usp Goals Ski Edge Painter Goals Time Frame: Jul 10, 2020 Eating (QC): 6 Oral Hygiene (QC): 6 Toileting Hygiene (QC): 6 Shower/Bathe Self (QC): 6 Upper Body Dressing (QC): 6 Lower Body Dressing (QC): 6 On/Off Footwear (QC): 6 Additional Goals: 1-Demonstrate ADL Tasks, 2-Verbalize Understanding, 3- ImproveStrength/Lucy 1=Demonstrate adherence to instructed precautions during ADL tasks. 2=Patient will verbalize/demonstrate understanding of assistive devices/modifications for ADL. 3=Patient will improve strength/tolerance for activity to enable patient to perform ADL's. OT Education/Plan Problem List/Assessment Assessment: Decreased Activ Tolerance, Decreased Safety Aware, Decreased UE Strength, Impaired Funct Balance, Impaired I ADL's, Impaired Self-Care Skills Discharge Recommendations Plan/Recommendations: Continue POC Treatment Plan/Plan of Care Patient would benefit from OT for education, treatment and training to promote independence in ADL's, mobility, safety and/or upper extremity function for ADL's. Plan of Care: ADL Retraining, Functional Mobility, UE Funct Exercise/Act Treatment Duration: Jul 10, 2020 Frequency: At least 5 of 7 days/Wk (IRF) Estimated Hrs Per Day: 1 hour per day Rehab Potential: Fair Time/GCodes Start Time: 08:00 Stop Time: 09:00 Total Time Billed (hr/min): 60 Billed Treatment Time 1, ADL 3 (40'), EX (20') SHAYLEE BOUCHER OT Jun 19, 2020 08:46
[2020-06-19] MEDS: APIXABAN 5 MG (ELIQUIS) TABLET PO SCH ×2 (08:56→21:17)
[2020-06-19] MEDS: ANIDULAFUNGIN INJECTION 100 MG in NS (IVPB) 100 ML IV SCH (08:56)
[2020-06-19] MEDS: ASPIRIN E.C. 325 MG (ECOTRIN) TABLET PO SCH (08:56)
[2020-06-19] MEDS: metFORMIN 500 MG (GLUCOPHAGE) TAB PO SCH ×2 (08:56→17:18)
[2020-06-19] MEDS: CYCLOBENZAPRINE 10 MG (FLEXERIL) TAB PO SCH (08:56)
[2020-06-19] MEDS: meTOprolol TARTRATE 25 MG (LOPRESSOR) TABLET PO SCH ×2 (08:57→21:17)
[2020-06-19] MEDS: PANTOPRAZOLE 40 MG (PROTONIX) TAB PO SCH ×2 (08:57→21:17)
[2020-06-19] MEDS: FUROSEMIDE 40 MG (LASIX) TAB PO SCH (08:57)
[2020-06-19] MEDS: KCL 10 MEQ TAB (MICRO K) PO SCH (08:59)
--- NOTE | 2020-06-19 09:54 | Physical Therapy Daily Note ---
PT Daily Note-Current Subjective Patient in therapy gym pre tx, agrees to PT, has no complaints of pain. Appearance Patient in recliner post tx with nurse call, phone, tray, chair alarm on, legs elevated. Mental Status Patient Orientation: Person, Place, Situation Attachments: Oxygen Transfers SCALE: Activities may be completed with or without assistive devices. 1-Bremiveyze-vcdxnpx completes the activity by him/herself with no assistance from a helper. 5-Set-up or Clean-up Assistance-helper sets up or cleans up; patient completes activity. [place] assists only prior to or following the activity. 4-Supervision or Touching Assistance-helper provides verbal cues and/or touching/steadying and/or contact guard assistance as patient completes activity. Assistance may be provided throughout the activity or intermittently. 3-Partial/Moderate Assistance-helper does LESS THAN HALF the effort. [place] lifts, holds or supports trunk or limbs, but provides less than half the effort. 2-Substantial/Maximal Assistance-helper does MORE THAN HALF the effort. [place] lifts or holds trunk or limbs and provides more than half the effort. 4-Tpvsohdte-yxnimb does ALL the effort. Patient does none of the effort to complete the activity. Or, the assistance of 2 or more helpers is required for the patient to complete the activity. If activity was not attempted, code reason: 7-Patient Refused. 9-Not Applicable-not attempted and the patient did not perform the activity before the current illness, exacerbation or injury. 10-Not Attempted due to Environmental Limitations-(lack of equipment, weather restraints, etc.). 88-Not Attempted due to Medical Conditions or Safety Concerns. Sit to Stand (QC): 4 Chair/Bdw-km-Bldxj Xfer(QC): 4 CGA Gait Training Distance: 150'x3 Walk 10 feet (QC): 4 Walk 50 ft with 2 Turns(QC): 4 Walk 150 ft (QC): 4 Gait Persons Needed: 1 Gait Assistive Device: FWW slow but steady ambulation, SOB after ambulation but recovers quickly with purse lip breathing. Exercises Standing: Hip Abduction, Heel/toe raises, Marching, Mini squats Standing Reps: 15 NuStep Minutes: 15 NuStep Workload: 4 Treatments ambulation, transfers, functional strengthening Assessment Current Status: Fair Progress improving endurance, less rest breaks PT Long-Term Goals Long-Term Goals PT Art Supervisor Goals Time Frame: Jul 10, 2020 Roll Left & Right (QC): 6 Sit to Lying (QC): 6 Lying-Sitting on Side/Bed(QC): 6 Sit to Stand (QC): 6 Chair/Prt-gq-Ktigr Xfer(QC): 6 Toilet Transfer (QC): 6 Car Transfer (QC): 6 Does the Patient Walk: Yes Walk 10 feet (QC): 6 Walk 50ft with 2 Turns (QC): 6 Walk 150 ft (QC): 6 Walking 10ft on Uneven Surface: 6 1 Step (curb) (QC): 6 4 Steps (QC): 6 12 Steps (QC): 9 Picking up an Object (QC): 6 Wheel 50 feet with 2 turns (QC: 9 Wheel 150 feet: 9 PT Plan Problem List Problem List: Activity Tolerance, Functional Strength, Safety, Balance, Gait, Transfer, Bed Mobility, ROM Treatment/Plan Treatment Plan: Continue Plan of Care Treatment Plan: Bed Mobility, Concurrent Therapy, Education, Functional Activity Lucy, Functional Strength, Group Therapy, Gait, Safety, Therapeutic Exercise, Transfers Treatment Duration: Jul 10, 2020 Frequency: At least 5 of 7 days/Wk (IRF) Estimated Hrs Per Day: 1 hour per day Patient and/or Family Agrees t: Yes Safety Risks/Education Patient Education: Gait Training, Transfer Techniques, Correct Positioning, Safety Issues Teaching Recipient: Patient Teaching Methods: Demonstration, Discussion Response to Teaching: Reinforcement Needed Time/GCodes Time In: 0900 Time Out: 1000 Total Billed Treatment Time: 60 Total Billed Treatment 1 visit GT 30' EX 30' DONALD TURPIN PT Jun 19, 2020 09:53
--- NOTE | 2020-06-19 10:21 | PM&R Progress Note ---
Subjective HPI/CC On Admission Date Seen by Provider: Jun 19, 2020 Time Seen by Provider: 10:30 Subjective/Events-last exam 06/19/20: Patient feels good Lungs are clear Eraxis completing soon Participation is good BM+ 06/18/20: Clearing out bowels with supp and laxatives Less distention Ate bfast regular type 2L/min O2 now Overall much better 06/17/20: Was nauseated a bit so initiated an Amylase and Lipase KUB and work up BP 91/55 Blood sugar is doing okay Bowels moved yesterday WBC 9.8 Hgb 10.7 Later in evening sugars were low so held insulin Review of Systems General: Fatigue Pulmonary: Dyspnea Objective Exam Vital Signs Vital Signs Date Time Temp Pulse Resp B/P (MAP) Pulse Ox O2 Delivery O2 Flow Rate FiO2 06/19/20 20:17 Nasal Cannula 4.00 06/19/20 19:00 88 06/19/20 18:23 99 06/19/20 17:07 36.5 16 96/51 (66) 06/19/20 14:55 36 Capillary Refill : General Appearance: No Apparent Distress, WD/WN, Chronically ill HEENT: PERRL/EOMI, Normal ENT Inspection, Pharynx Normal Neck: Full Range of Motion, Normal Inspection, Non Tender, Supple, Carotid Bruit Respiratory: Chest Non Tender, No Accessory Muscle Use, No Respiratory Distress, Crackles, Wheezing Cardiovascular: Regular Rate, Rhythm, No Edema, No Gallop, No JVD, No Murmur, Normal Peripheral Pulses Gastrointestinal: Normal Bowel Sounds, No Organomegaly, No Pulsatile Mass, Non Tender, Soft Back: Normal Inspection, No CVA Tenderness, No Vertebral Tenderness Extremity: Normal Capillary Refill, Normal Inspection, Normal Range of Motion, Non Tender, No Calf Tenderness, No Pedal Edema Neurologic/Psychiatric: Alert, Oriented x3, No Motor/Sensory Deficits, Normal Mood/Affect, Motor Weakness (generalized weakness) Skin: Normal Color, Warm/Dry Lymphatic: No Adenopathy Results/Procedures Lab Patient resulted labs reviewed. FIM Transfers Therapy Code Descriptions/Definitions Functional [place] Measure: 0=Not Assessed/NA 4=Minimal Assistance 1=Total Assistance 5=Supervision or Setup 2=Maximal Assistance 6=Modified [place] 3=Moderate Assistance 7=Complete IndependenceSCALE: Activities may be completed with or without assistive devices. 9-Dkqxxkwpgh-zwgooyh completes the activity by him/herself with no assistance from a helper. 5-Set-up or Clean-up Assistance-helper sets up or cleans up; patient completes activity. [place] assists only prior to or following the activity. 4-Supervision or Touching Assistance-helper provides verbal cues and/or touching/steadying and/or contact guard assistance as patient completes activity. Assistance may be provided throughout the activity or intermittently. 3-Partial/Moderate Assistance-helper does LESS THAN HALF the effort. [place] lifts, holds or supports trunk or limbs, but provides less than half the effort. 2-Substantial/Maximal Assistance-helper does MORE THAN HALF the effort. [place] lifts or holds trunk or limbs and provides more than half the effort. 4-Nuvvehamr-uqjrxj does ALL the effort. Patient does none of the effort to complete the activity. Or, the assistance of 2 or more helpers is required for the patient to complete the activity. If activity was not attempted, code reason: 7-Patient Refused. 9-Not Applicable-not attempted and the patient did not perform the activity before the current illness, exacerbation or injury. 10-Not Attempted due to Environmental Limitations-(lack of equipment, weather restraints, etc.). 88-Not Attempted due to Medical Conditions or Safety Concerns. Roll Left to Right (QC): 5 Sit to Lying (QC): 5 Sit to Stand (QC): 4 Chair/Fjg-mu-Jwpzj Xfer(QC): 4 Car Transfer (QC): 4 Gait Training Does the Patient Walk?: Yes Distance: 150'x3 Walk 10 feet (QC): 4 Walk 50 ft with 2 Turns(QC): 4 Walk 150 ft (QC): 4 Walking 10ft/uneven surface-QC: 4 Gait Persons Needed: 1 Gait Assistive Device: FWW Wheelchair Training Does the Pt Use a Wheelchair?: No Wheel 50 ft with 2 turns (QC): 9 Wheel 150 ft (QC): 9 Stair Training #of Steps: 8 1 Step (curb) (QC): 4 4 Steps (QC): 4 12 Steps (QC): 9 Balance Picking up an Object (QC): 5 (seated position) ADL-Treatment Eating (QC): 6 (Per pt report, pt independent with eating. Able to open contiainers, cut food, and use utensils.) Oral Hygiene (QC): 7 Shower/Bathe Self (QC): 5 (Set up) Upper Body Dressing (QC): 4 (SBA for safety awarness of oxygen tubing) Lower Body Dressing (QC): 4 (SBA for safety on oxygen tubing.) On/Off Footwear (QC): 6 (Ind) Toileting Hygiene (QC): 7 Toilet Transfer (QC): 7 Assessment/Plan Assessment and Plan Assess & Plan/Chief Complaint Assessment: Recurrent PNA s/p bronchoscopy due to 2 recent PNA admit [place] [facility] [place] spectrum abx with yeast on Cx COVID-19 PNA 03/2020 admit at [facility] [place] no abx on that admit Severe COPD O2 dependent 5L/min at home AF w/recent AF w/RVR at [facility] [place] last admit CAD TIA/CVA 05/2020 admitted [facility] insulin dependent Neuropathy Cochlear implant very [place] Lives alone with helpers GERD BPH Plan: IRF protocol IV abx to complete Bronch appreciated Cardiology consultation Dr Moreland appreciated Monitor labs IV steroids DC Insulin 06/17/20: Decrease insulin Monitor O2 Monitor ileus 06/18/20: Laxatives maintained Monitor closely O2 Increase activity 06/19/20: Monitor lungs O2 maintained Monitor for falls (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
--- NOTE | 2020-06-19 10:56 | Speech Therapy Daily Note ---
Speech Daily Progress Note Subjective Date Seen by Provider: Jun 19, 2020 Time Seen by Provider: 00:30 Patient was resting in his recliner following his other therapies. Objective Patient completed a series of safety awareness card, "what's wrong with this picture?" at 85% with minimal cues given. Assessment Assessment Current Status: Good Progress Treatment Plan Continue Plan of Care Speech Short Term Goals Short Term Goals Short Term Goals 1) Patient will complete memory tasks related to his daily needs at 90% or greater with minimal cues. 2) Patient will complete problem solving tasks related to his daily needs at 90% or greater with minimal cues. 3) Patient will complete safety awareness tasks related to his daily needs at 90% or greater with minimal cues. Speech Alf Goals Broadcast Operations Technician Goals Patient will improve cognitive-communication necessary for safety and daily living tasks with minimal assist. Speech-Plan Patient/Family Goals Patient/Family Goals: Patient plans on returning to his home with family and friends support. Treatment Plan Speech Therapy Treatment Plan: Continue Plan of Care Treatment Duration: Jun 17, 2020 Frequency: 4 times per week (Patient will receive ST 4-5x per week) Estimated Hrs Per Day: .5 hour per day Rehab Potential: [place] Barriers to Learning: Patient's recent 2 month illness, debility, age Pt/Family Agrees to Plan: Yes Safety Risks/Education Teaching Recipient: Patient Teaching Methods: Demonstration, Discussion Response to Teaching: Verbalize Understanding, Return Demonstration Education Topics Provided: Continued safety within his room and upon his return home Time Speech Therapy Time In: 10:00 Speech Therapy Time Out: 10:30 Total Billed Time: 30 Billed Treatment Time 1, NARDA Lucero Jun 19, 2020 10:56
[2020-06-19 14:55] VITALS: BP 112/57
--- NOTE | 2020-06-19 16:52 | Progress Note - Cardiology ---
Cardiology SOAP Progress Note Subjective: No cp or palp or syncope Gen weakness and malaise No n/v/d Exertional shortness of breath as before Objective: I&O/Vital Signs 06/19/20 06/19/20 06/19/20 06/19/20 06:23 07:00 07:27 07:33 Temp 36.6 Pulse 100 108 Resp 21 B/P (MAP) 112/57 (75) Pulse Ox 94 98 100 O2 Delivery Nasal Cannula Nasal Cannula O2 Flow Rate 4.00 4.00 06/19/20 06/19/20 06/19/20 06/19/20 07:37 09:13 11:09 13:00 Pulse 83 Pulse Ox 99 98 O2 Delivery Nasal Cannula Nasal Cannula O2 Flow Rate 2.00 4.00 06/19/20 06/19/20 14:55 14:55 Temp 36.6 Pulse 78 Pulse Ox 98 96 O2 Delivery Nasal Cannula O2 Flow Rate 4.00 FiO2 36 06/19/20 00:00 Intake Total 1500 ml Balance 1500 ml Weight (Pounds): 206 Weight (Ounces): 4.0 Weight (Calculated Kilograms): 95.484004 Constitutional: AAO x 3, well-developed, well-nourished Respiratory: No accessory muscle use, No respiratory distress; other (prolonged exp phase) Cardiovascular: irregularly irregular; No JVD; S1 and S2 Gastrointestional: No tender; round, audible bowel sounds Extremities: other (mild bilat LE swelling) Neurologic/Psychiatric: grossly intact (moves all extremities) Skin: No rash on exposed areas, No ulcerations on exposed areas Results/Procedures: Labs Laboratory Tests 06/18/20 20:13: Glucometer 150H 06/19/20 05:06: Glucometer 140H 06/19/20 11:16: Glucometer 134H 06/19/20 16:28: Glucometer 195H Laboratory Tests 06/18/20 05:50 A/P: Assessment: Recurrent pneumonia after COVID-19 infection in March 2020, third hospitalization for pneumonia. Underwent bronchoscopy with Dr. Moreland earlier - managed by Dr. Moreland History of COPD, maintained on steroids and bronchodilators. Echocardiogram done on May 12, 2020 showing normal left ventricular size and function, aortic sclerosis. Persistent atrial fibrillation - rate controlled OAC on Eliquis. History of TIA/CVA in May 2020 Diabetes mellitus History of peripheral neuropathy H/O cochlear implant, significant hearing loss Gastroesophageal reflux disease BPH Plan: Continue current regimen Monitor labs from time to time SUSIE SMILEY MD FACP FACC CCDS Jun 19, 2020 16:52
[2020-06-19 17:07] VITALS: BP 96/51
[2020-06-19] MEDS: TAMSULOSIN 0.4 MG (FLOMAX) CAP PO SCH (17:18)
[2020-06-19 21:13] VITALS: BP 109/54
[2020-06-19] MEDS: PRAMIPEXOLE 0.125 MG (MIRAPEX) TABLET PO SCH ×2 (21:17→21:18)
[2020-06-19] MEDS: MONTELUKAST 10 MG (SINGULAIR) TAB PO SCH (21:17)
[2020-06-19] MEDS: CATHETER FLUSH 10 ML SYR IV SCH (21:26)
[2020-06-20 05:17] VITALS: BP 111/62
[2020-06-20] MEDS: inSUlin ASPART (NovoLOG) 1 UNIT/0.01 ML (CHARGE PER UNIT) SC SCH ×4 (05:49→20:54)
[2020-06-20] MEDS: CATHETER FLUSH 10 ML SYR IV SCH ×3 (06:56→20:55)
[2020-06-20] MEDS: inSUlin ASPART (NovoLOG) 1 UNIT/0.01 ML (CHARGE PER UNIT) SQ SCH ×3 (06:57→17:05)
[2020-06-20] MEDS: RT-BUDESONIDE NEBS 0.5 MG/2ML (PULMICORT) AMP IH SCH ×2 (07:10→19:04)
[2020-06-20] MEDS: RT-ALBUTEROL/IPRATROPIUM 3 ML (DUONEB) VIAL INH SCH ×2 (07:10→19:04)
[2020-06-20] MEDS: ARFORMOTEROL 15 MCG/2 ML (BROVANA) INH SOLUTIION IH SCH ×2 (07:10→19:05)
[2020-06-20] MEDS: polyethylene glycoL POWDER 17 GM (MIRALAX) PACK PO SCH ×2 (08:29→20:53)
[2020-06-20] MEDS: PANTOPRAZOLE 40 MG (PROTONIX) TAB PO SCH ×2 (08:29→20:53)
[2020-06-20] MEDS: metFORMIN 500 MG (GLUCOPHAGE) TAB PO SCH ×2 (08:29→17:05)
[2020-06-20] MEDS: ASPIRIN E.C. 325 MG (ECOTRIN) TABLET PO SCH (08:29)
[2020-06-20] MEDS: APIXABAN 5 MG (ELIQUIS) TABLET PO SCH ×2 (08:29→20:53)
[2020-06-20] MEDS: DOCUSATE SODIUM 100 MG (COLACE) CAP PO SCH ×2 (08:29→20:53)
[2020-06-20] MEDS: CYCLOBENZAPRINE 10 MG (FLEXERIL) TAB PO SCH (08:29)
[2020-06-20] MEDS: SENNA W/DOCUSATE (SENOKOT S) TABLET PO SCH ×2 (08:30→20:53)
[2020-06-20 08:40] VITALS: BP 102/56
[2020-06-20] MEDS: ANIDULAFUNGIN INJECTION 100 MG in NS (IVPB) 100 ML IV SCH (09:03)
[2020-06-20 09:57] VITALS: BP 131/58
[2020-06-20] MEDS: meTOprolol TARTRATE 25 MG (LOPRESSOR) TABLET PO SCH ×2 (09:57→20:53)
--- NOTE | 2020-06-20 11:48 | PM&R Progress Note ---
Subjective HPI/CC On Admission Date Seen by Provider: Jun 20, 2020 Time Seen by Provider: 12:15 Subjective/Events-last exam 06/20/20: Doesn't like the bed and chair alarm No pain reported Dyspnea improved Eraxis completing 06/19/20: Patient feels good Lungs are clear Eraxis completing soon Participation is good BM+ 06/18/20: Clearing out bowels with supp and laxatives Less distention Ate bfast regular type 2L/min O2 now Overall much better 06/17/20: Was nauseated a bit so initiated an Amylase and Lipase KUB and work up BP 91/55 Blood sugar is doing okay Bowels moved yesterday WBC 9.8 Hgb 10.7 Later in evening sugars were low so held insulin Review of Systems General: Fatigue, Malaise Pulmonary: Dyspnea Objective Exam Vital Signs Vital Signs Date Time Temp Pulse Resp B/P (MAP) Pulse Ox O2 Delivery O2 Flow Rate FiO2 06/21/20 05:29 36.6 91 18 119/59 (79) 95 Nasal Cannula 4.00 06/19/20 14:55 36 Capillary Refill : General Appearance: No Apparent Distress, WD/WN, Chronically ill HEENT: PERRL/EOMI, Normal ENT Inspection, Pharynx Normal Neck: Full Range of Motion, Normal Inspection, Non Tender, Supple, Carotid Bruit Respiratory: Chest Non Tender, No Accessory Muscle Use, No Respiratory Distress, Crackles, Wheezing Cardiovascular: Regular Rate, Rhythm, No Edema, No Gallop, No JVD, No Murmur, Normal Peripheral Pulses Gastrointestinal: Normal Bowel Sounds, No Organomegaly, No Pulsatile Mass, Non Tender, Soft Back: Normal Inspection, No CVA Tenderness, No Vertebral Tenderness Extremity: Normal Capillary Refill, Normal Inspection, Normal Range of Motion, Non Tender, No Calf Tenderness, No Pedal Edema Neurologic/Psychiatric: Alert, Oriented x3, No Motor/Sensory Deficits, Normal Mood/Affect, Motor Weakness (generalized weakness) Skin: Normal Color, Warm/Dry Lymphatic: No Adenopathy Results/Procedures Lab Patient resulted labs reviewed. FIM Transfers Therapy Code Descriptions/Definitions Functional [place] Measure: 0=Not Assessed/NA 4=Minimal Assistance 1=Total Assistance 5=Supervision or Setup 2=Maximal Assistance 6=Modified [place] 3=Moderate Assistance 7=Complete IndependenceSCALE: Activities may be completed with or without assistive devices. 5-Vgdiomnftb-nlwcofc completes the activity by him/herself with no assistance from a helper. 5-Set-up or Clean-up Assistance-helper sets up or cleans up; patient completes activity. [place] assists only prior to or following the activity. 4-Supervision or Touching Assistance-helper provides verbal cues and/or touching/steadying and/or contact guard assistance as patient completes activity. Assistance may be provided throughout the activity or intermittently. 3-Partial/Moderate Assistance-helper does LESS THAN HALF the effort. [place] lifts, holds or supports trunk or limbs, but provides less than half the effort. 2-Substantial/Maximal Assistance-helper does MORE THAN HALF the effort. [place] lifts or holds trunk or limbs and provides more than half the effort. 9-Ateoapoyv-qvkrae does ALL the effort. Patient does none of the effort to complete the activity. Or, the assistance of 2 or more helpers is required for the patient to complete the activity. If activity was not attempted, code reason: 7-Patient Refused. 9-Not Applicable-not attempted and the patient did not perform the activity before the current illness, exacerbation or injury. 10-Not Attempted due to Environmental Limitations-(lack of equipment, weather restraints, etc.). 88-Not Attempted due to Medical Conditions or Safety Concerns. Roll Left to Right (QC): 5 Sit to Lying (QC): 5 Sit to Stand (QC): 4 Chair/Spw-pi-Xemkb Xfer(QC): 4 Car Transfer (QC): 4 Gait Training Does the Patient Walk?: Yes Distance: 150'x3 Walk 10 feet (QC): 4 Walk 50 ft with 2 Turns(QC): 4 Walk 150 ft (QC): 4 Walking 10ft/uneven surface-QC: 4 Gait Persons Needed: 1 Gait Assistive Device: FWW Wheelchair Training Does the Pt Use a Wheelchair?: No Wheel 50 ft with 2 turns (QC): 9 Wheel 150 ft (QC): 9 Stair Training #of Steps: 8 1 Step (curb) (QC): 4 4 Steps (QC): 4 12 Steps (QC): 9 Balance Picking up an Object (QC): 5 (seated position) ADL-Treatment Eating (QC): 6 (Per pt report, pt independent with eating. Able to open contiainers, cut food, and use utensils.) Oral Hygiene (QC): 7 Shower/Bathe Self (QC): 5 (Set up. Pt able to use long handled sponge to wash lower legs/feet.) Upper Body Dressing (QC): 4 (SBA for safety awarness of oxygen tubing) Lower Body Dressing (QC): 4 (SBA for safety on oxygen tubing.) On/Off Footwear (QC): 6 (Ind) Toileting Hygiene (QC): 7 Toilet Transfer (QC): 7 Assessment/Plan Assessment and Plan Assess & Plan/Chief Complaint Assessment: Recurrent PNA s/p bronchoscopy due to 2 recent [place] [facility] [place] with yeast on Cx COVID-19 PNA 03/2020 [place] [facility] [place] admit Severe COPD O2 dependent 5L/min at home AF w/recent AF w/RVR [place] [facility] [place] CAD TIA/CVA 05/2020 admitted [facility] insulin dependent Neuropathy Cochlear implant very [place] Lives alone with helpers GERD BPH Plan: IRF protocol IV abx to complete Bronch appreciated Cardiology consultation Dr Moreland appreciated Monitor labs IV steroids DC Insulin 06/17/20: Decrease insulin Monitor O2 Monitor ileus 06/18/20: Laxatives maintained Monitor closely O2 Increase activity 06/19/20: Monitor lungs O2 maintained Monitor for falls 06/20/20: Monitor for falls Pain monitoring O2 (1) [id number] syndrome (2) A-fib (3) Presbycusis of both ears (4) Pneumonia (5) Cryptogenic stroke (6) History of DVT (deep vein thrombosis) Status: Chronic (7) Chronic hypoxemic respiratory failure Status: Chronic (8) Stroke Status: Acute (9) COPD (chronic obstructive pulmonary disease) Status: Chronic (10) COPD exacerbation Status: Acute BON LOAIZA DO Jun 20, 2020 11:48
--- NOTE | 2020-06-20 12:28 | Physical Therapy Daily Note ---
PT Daily Note-Current Subjective Pt. agrees to Rx and states he really want to get out of his room. "I'm no so big on exercises but I like to walk" Pain Location: No Pain Reported Mental Status Attachments: Oxygen, IV Transfers SCALE: Activities may be completed with or without assistive devices. 9-Cyptkbejil-zjzgxxy completes the activity by him/herself with no assistance from a helper. 5-Set-up or Clean-up Assistance-helper sets up or cleans up; patient completes activity. [place] assists only prior to or following the activity. 4-Supervision or Touching Assistance-helper provides verbal cues and/or touch ing/steadying and/or contact guard assistance as patient completes activity. Assistance may be provided throughout the activity or intermittently. 3-Partial/Moderate Assistance-helper does LESS THAN HALF the effort. [place] lifts, holds or supports trunk or limbs, but provides less than half the effort. 2-Substantial/Maximal Assistance-helper does MORE THAN HALF the effort. [place] lifts or holds trunk or limbs and provides more than half the effort. 6-Vkvtuekmm-zvzicb does ALL the effort. Patient does none of the effort to complete the activity. Or, the assistance of 2 or more helpers is required for the patient to complete the activity. If activity was not attempted, code reason: 7-Patient Refused. 9-Not Applicable-not attempted and the patient did not perform the activity before the current illness, exacerbation or injury. 10-Not Attempted due to Environmental Limitations-(lack of equipment, weather restraints, etc.). 88-Not Attempted due to Medical Conditions or Safety Concerns. Sit to Stand (QC): 5 Gait Training Does the Patient Walk?: Yes Walk 10 feet (QC): 4 Walk 50 ft with 2 Turns(QC): 4 Walk 150 ft (QC): 4 Gait Persons Needed: 1 Gait Assistive Device: FWW no LOB needs rest break after 160 ft, then ambulated 160 ft further Exercises Seated Therapy Exercises: Ankle pumps, Sit to stand, Long arc quads, Hip flexion, Hip abd/add Seated Reps: 12 Assessment Current Status: Good Progress PT Snf Goals Snf Goals PT Snf Goals Time Frame: Jul 10, 2020 Roll Left & Right (QC): 6 Sit to Lying (QC): 6 Lying-Sitting on Side/Bed(QC): 6 Sit to Stand (QC): 6 Chair/Tre-tm-Odvth Xfer(QC): 6 Toilet Transfer (QC): 6 Car Transfer (QC): 6 Does the Patient Walk: Yes Walk 10 feet (QC): 6 Walk 50ft with 2 Turns (QC): 6 Walk 150 ft (QC): 6 Walking 10ft on Uneven Surface: 6 1 Step (curb) (QC): 6 4 Steps (QC): 6 12 Steps (QC): 9 Picking up an Object (QC): 6 Wheel 50 feet with 2 turns (QC: 9 Wheel 150 feet: 9 PT Plan Treatment/Plan Treatment Plan: Continue Plan of Care Treatment Plan: Bed Mobility, Concurrent Therapy, Education, Functional Activity Lucy, Functional Strength, Group Therapy, Gait, Safety, Therapeutic Exercise, Transfers Treatment Duration: Jul 10, 2020 Frequency: At least 5 of 7 days/Wk (IRF) Estimated Hrs Per Day: 1 hour per day Patient and/or Family Agrees t: Yes Safety Risks/Education Patient Education: Gait Training, Transfer Techniques, Correct Positioning, Disease Process, Safety Issues Teaching Recipient: Patient Teaching Methods: Demonstration, Discussion Response to Teaching: Verbalize Understanding, Return Demonstration, Reinforcement Needed Time/GCodes Time In: 1015 Time Out: 1040 Total Billed Treatment Time: 25 Total Billed Treatment 1,1,EX10,GT15m CHRIS REARDON DICTAPHONE OPERATOR Jun 20, 2020 12:28
--- NOTE | 2020-06-20 15:54 | Progress Note - Cardiology ---
Cardiology SOAP Progress Note Subjective: No cp or palp or syncope Shortness of breath as before Gen malaise No n/v/d Objective: I&O/Vital Signs 06/20/20 06/20/20 06/20/20 06/20/20 05:17 07:00 07:36 07:41 Temp 36.8 Pulse 100 94 Resp 20 B/P (MAP) 111/62 (78) Pulse Ox 95 98 98 O2 Delivery Nasal Cannula Nasal Cannula Nasal Cannula O2 Flow Rate 4.00 4.00 4.00 06/20/20 06/20/20 06/20/20 06/20/20 07:46 08:40 09:35 09:57 Pulse 72 70 B/P (MAP) 102/56 (71) 131/58 (82) Pulse Ox 98 O2 Delivery Nasal Cannula Nasal Cannula O2 Flow Rate 4.00 4.00 06/20/20 12:47 Pulse 81 06/19/20 23:59 Intake Total 640 ml Balance 640 ml Weight (Pounds): 206 Weight (Ounces): 4.0 Weight (Calculated Kilograms): 95.310286 Constitutional: AAO x 3, well-developed, well-nourished Respiratory: No accessory muscle use, No respiratory distress; other (prolonged exp phase) Cardiovascular: irregularly irregular; No JVD; S1 and S2 Gastrointestional: No tender; round, audible bowel sounds Extremities: other (mild bilat LE swelling) Neurologic/Psychiatric: grossly intact (moves all extremities) Skin: No rash on exposed areas, No ulcerations on exposed areas Results/Procedures: Labs Laboratory Tests 06/19/20 16:28: Glucometer 195H 06/19/20 20:34: Glucometer 179H 06/20/20 05:35: Glucometer 157H 06/20/20 15:36: Glucometer 155H A/P: Assessment: Recurrent pneumonia after COVID-19 infection in March 2020, third hospitalization for pneumonia. Underwent bronchoscopy with Dr. Moreland earlier - managed by Dr. Moreland History of COPD, maintained on steroids and bronchodilators. Echocardiogram done on May 12, 2020 showing normal left ventricular size and function, aortic sclerosis. Persistent atrial fibrillation - rate controlled OAC on Eliquis. History of TIA/CVA in May 2020 Diabetes mellitus History of peripheral neuropathy H/O cochlear implant, significant hearing loss Gastroesophageal reflux disease BPH Plan: Continue current regimen Monitor labs from time to time SUSIE SMILEY MD FACP FACC CCDS Jun 20, 2020 15:54
[2020-06-20 16:19] VITALS: BP 103/56
[2020-06-20] MEDS: TAMSULOSIN 0.4 MG (FLOMAX) CAP PO SCH (17:05)
[2020-06-20 20:50] VITALS: BP 124/58
[2020-06-20] MEDS: PRAMIPEXOLE 0.125 MG (MIRAPEX) TABLET PO SCH ×2 (20:52→20:54)
[2020-06-20] MEDS: MONTELUKAST 10 MG (SINGULAIR) TAB PO SCH (20:53)
[2020-06-21 05:29] VITALS: BP 119/59
[2020-06-21] MEDS: inSUlin ASPART (NovoLOG) 1 UNIT/0.01 ML (CHARGE PER UNIT) SC SCH ×4 (05:38→20:03)
[2020-06-21] MEDS ORDERED: RT-ALBUTEROL/IPRATROPIUM 3 ML (DUONEB) VIAL ONE (06:21)
[2020-06-21] MEDS ORDERED: RT-BUDESONIDE NEBS 0.5 MG/2ML (PULMICORT) AMP ONE (06:22)
[2020-06-21] MEDS: inSUlin ASPART (NovoLOG) 1 UNIT/0.01 ML (CHARGE PER UNIT) SQ SCH ×4 (06:55→17:25)
[2020-06-21] MEDS: CATHETER FLUSH 10 ML SYR IV SCH ×3 (06:55→20:31)
[2020-06-21] MEDS: metFORMIN 500 MG (GLUCOPHAGE) TAB PO SCH ×2 (08:31→17:25)
[2020-06-21] MEDS: polyethylene glycoL POWDER 17 GM (MIRALAX) PACK PO SCH ×2 (08:31→20:30)
[2020-06-21] MEDS: ASPIRIN E.C. 325 MG (ECOTRIN) TABLET PO SCH (08:31)
[2020-06-21] MEDS: CYCLOBENZAPRINE 10 MG (FLEXERIL) TAB PO SCH (08:31)
[2020-06-21] MEDS: APIXABAN 5 MG (ELIQUIS) TABLET PO SCH ×2 (08:31→20:30)
[2020-06-21] MEDS: PANTOPRAZOLE 40 MG (PROTONIX) TAB PO SCH ×2 (08:31→20:30)
[2020-06-21] MEDS: meTOprolol TARTRATE 25 MG (LOPRESSOR) TABLET PO SCH ×2 (08:31→20:29)
[2020-06-21] MEDS: KCL 10 MEQ TAB (MICRO K) PO SCH (08:31)
[2020-06-21] MEDS: FUROSEMIDE 40 MG (LASIX) TAB PO SCH (08:31)
[2020-06-21 08:34] VITALS: BP 113/58
[2020-06-21] MEDS: DOCUSATE SODIUM 100 MG (COLACE) CAP PO SCH ×2 (08:34→20:30)
[2020-06-21] MEDS: SENNA W/DOCUSATE (SENOKOT S) TABLET PO SCH ×2 (08:34→20:30)
[2020-06-21] MEDS: ANIDULAFUNGIN INJECTION 100 MG in NS (IVPB) 100 ML IV SCH (09:03)
[2020-06-21] MEDS: RT-BUDESONIDE NEBS 0.5 MG/2ML (PULMICORT) AMP IH SCH ×2 (09:12→18:35)
[2020-06-21] MEDS: RT-ALBUTEROL/IPRATROPIUM 3 ML (DUONEB) VIAL INH SCH ×2 (09:12→18:36)
[2020-06-21] MEDS: ARFORMOTEROL 15 MCG/2 ML (BROVANA) INH SOLUTIION IH SCH ×2 (09:12→18:35)
--- NOTE | 2020-06-21 11:42 | PM&R Progress Note ---
Subjective HPI/CC On Admission Date Seen by Provider: Jun 21, 2020 Time Seen by Provider: 11:45 Subjective/Events-last exam 06/21/20: Patient feels good Minimal dyspnea Sore throat so Chloraseptic spray ordered BM+ 06/20/20: Doesn't like the bed and chair alarm No pain reported Dyspnea improved Eraxis completing 06/19/20: Patient feels good Lungs are clear Eraxis completing soon Participation is good BM+ 06/18/20: Clearing out bowels with supp and laxatives Less distention Ate bfast regular type 2L/min O2 now Overall much better 06/17/20: Was nauseated a bit so initiated an Amylase and Lipase KUB and work up BP 91/55 Blood sugar is doing okay Bowels moved yesterday WBC 9.8 Hgb 10.7 Later in evening sugars were low so held insulin Review of Systems General: Fatigue, Malaise Pulmonary: Dyspnea Objective Exam Vital Signs Vital Signs Date Time Temp Pulse Resp B/P (MAP) Pulse Ox O2 Delivery O2 Flow Rate FiO2 06/21/20 09:22 98 Nasal Cannula 4.00 06/21/20 08:34 98 113/58 (76) 06/21/20 05:29 36.6 18 06/19/20 14:55 36 Capillary Refill : General Appearance: No Apparent Distress, WD/WN, Chronically ill HEENT: PERRL/EOMI, Normal ENT Inspection, Pharynx Normal Neck: Full Range of Motion, Normal Inspection, Non Tender, Supple, Carotid Bruit Respiratory: Chest Non Tender, Lungs Clear, Normal Breath Sounds, No Accessory Muscle Use, No Respiratory Distress Cardiovascular: Regular Rate, Rhythm, No Edema, No Gallop, No JVD, No Murmur, Normal Peripheral Pulses Gastrointestinal: Normal Bowel Sounds, No Organomegaly, No Pulsatile Mass, Non Tender, Soft Back: Normal Inspection, No CVA Tenderness, No Vertebral Tenderness Extremity: Normal Capillary Refill, Normal Inspection, Normal Range of Motion, Non Tender, No Calf Tenderness, No Pedal Edema Neurologic/Psychiatric: Alert, Oriented x3, No Motor/Sensory Deficits, Normal Mood/Affect, Motor Weakness (generalized weakness) Skin: Normal Color, Warm/Dry Lymphatic: No Adenopathy Results/Procedures Lab Patient resulted labs reviewed. FIM Transfers Therapy Code Descriptions/Definitions Functional [place] Measure: 0=Not Assessed/NA 4=Minimal Assistance 1=Total Assistance 5=Supervision or Setup 2=Maximal Assistance 6=Modified [place] 3=Moderate Assistance 7=Complete IndependenceSCALE: Activities may be completed with or without assistive devices. 4-Nldxezqzgu-nsvevmj completes the activity by him/herself with no assistance from a helper. 5-Set-up or Clean-up Assistance-helper sets up or cleans up; patient completes activity. [place] assists only prior to or following the activity. 4-Supervision or Touching Assistance-helper provides verbal cues and/or touching/steadying and/or contact guard assistance as patient completes activity. Assistance may be provided throughout the activity or intermittently. 3-Partial/Moderate Assistance-helper does LESS THAN HALF the effort. [place] lifts, holds or supports trunk or limbs, but provides less than half the effort. 2-Substantial/Maximal Assistance-helper does MORE THAN HALF the effort. [place] lifts or holds trunk or limbs and provides more than half the effort. 3-Mgaxkzlto-qaiuxk does ALL the effort. Patient does none of the effort to complete the activity. Or, the assistance of 2 or more helpers is required for the patient to complete the activity. If activity was not attempted, code reason: 7-Patient Refused. 9-Not Applicable-not attempted and the patient did not perform the activity before the current illness, exacerbation or injury. 10-Not Attempted due to Environmental Limitations-(lack of equipment, weather restraints, etc.). 88-Not Attempted due to Medical Conditions or Safety Concerns. Roll Left to Right (QC): 5 Sit to Lying (QC): 5 Sit to Stand (QC): 5 Chair/Qnk-qe-Rltmk Xfer(QC): 4 Car Transfer (QC): 4 Gait Training Does the Patient Walk?: Yes Distance: 150'x3 Walk 10 feet (QC): 4 Walk 50 ft with 2 Turns(QC): 4 Walk 150 ft (QC): 4 Walking 10ft/uneven surface-QC: 4 Gait Persons Needed: 1 Gait Assistive Device: FWW Wheelchair Training Does the Pt Use a Wheelchair?: No Wheel 50 ft with 2 turns (QC): 9 Wheel 150 ft (QC): 9 Stair Training #of Steps: 8 1 Step (curb) (QC): 4 4 Steps (QC): 4 12 Steps (QC): 9 Balance Picking up an Object (QC): 5 (seated position) ADL-Treatment Eating (QC): 6 (Per pt report, pt independent with eating. Able to open cont iainers, cut food, and use utensils.) Oral Hygiene (QC): 7 Shower/Bathe Self (QC): 5 (Set up. Pt able to use long handled sponge to wash lower legs/feet.) Upper Body Dressing (QC): 4 (SBA for safety awarness of oxygen tubing) Lower Body Dressing (QC): 4 (SBA for safety on oxygen tubing.) On/Off Footwear (QC): 6 (Ind) Toileting Hygiene (QC): 7 Toilet Transfer (QC): 7 Assessment/Plan Assessment and Plan Assess & Plan/Chief Complaint Assessment: Recurrent PNA s/p bronchoscopy due to 2 recent PNA admit at [facility] on broad spectrum abx with yeast on Cx COVID-19 PNA 03/2020 admit at [facility] no abx on that admit Severe COPD O2 dependent 5L/min at home AF w/recent AF w/RVR at [facility] last admit CAD TIA/CVA 05/2020 admitted [facility] DM insulin dependent Neuropathy Cochlear implant very [place] Lives alone with helpers GERD BPH Plan: IRF protocol IV abx to complete Bronch appreciated Cardiology consultation Dr Moreland appreciated Monitor labs IV steroids DC Insulin 06/17/20: Decrease insulin Monitor O2 Monitor ileus 06/18/20: Laxatives maintained Monitor closely O2 Increase activity 06/19/20: Monitor lungs O2 maintained Monitor for falls 06/20/20: Monitor for falls Pain monitoring O2 06/21/20: Monitor O2 Nebs MDI (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
[2020-06-21] MEDS ORDERED: CHLORASEPTIC SPRAY 177 ML LIQUID MC PRN (12:00)
--- NOTE | 2020-06-21 14:04 | Progress Note - Cardiology ---
Cardiology SOAP Progress Note Subjective: No cp or palp or syncope No shortness of breath at rest; present with mild to mod activity Gen malaise present No n/v/d Objective: I&O/Vital Signs 06/21/20 06/21/20 06/21/20 06/21/20 05:29 07:00 08:34 09:12 Temp 36.6 Pulse 91 72 98 Resp 18 B/P (MAP) 119/59 (79) 113/58 (76) Pulse Ox 95 98 O2 Delivery Nasal Cannula Nasal Cannula O2 Flow Rate 4.00 4.00 06/21/20 06/21/20 06/21/20 09:12 09:17 09:22 Pulse Ox 98 98 O2 Delivery Nasal Cannula Nasal Cannula Nasal Cannula O2 Flow Rate 4.00 4.00 4.00 06/21/20 00:00 Intake Total 500 ml Balance 500 ml Weight (Pounds): 206 Weight (Ounces): 4.0 Weight (Calculated Kilograms): 95.773965 Constitutional: AAO x 3, well-developed, well-nourished Respiratory: No accessory muscle use, No respiratory distress; other (prolonged exp phase) Cardiovascular: irregularly irregular; No JVD; S1 and S2 Gastrointestional: No tender; round, audible bowel sounds Extremities: other (mild bilat LE swelling) Neurologic/Psychiatric: grossly intact (moves all extremities) Skin: No rash on exposed areas, No ulcerations on exposed areas Results/Procedures: Labs Laboratory Tests 06/20/20 15:36: Glucometer 155H 06/20/20 20:36: Glucometer 168H 06/21/20 05:02: Glucometer 127H 06/21/20 10:53: Glucometer 179H A/P: Assessment: Recurrent pneumonia after COVID-19 infection in March 2020, third hospitalization for pneumonia. Underwent bronchoscopy with Dr. Moreland earlier - managed by Dr. Moreland History of COPD, maintained on steroids and bronchodilators. Echocardiogram done on May 12, 2020 showing normal left ventricular size and function, aortic sclerosis. Persistent atrial fibrillation - rate controlled OAC on Eliquis. History of TIA/CVA in May 2020 Diabetes mellitus History of peripheral neuropathy H/O cochlear implant, significant hearing loss Gastroesophageal reflux disease BPH Plan: Ok to d/c tele Continue current regimen Monitor labs from time to time SUSIE SMILEY MD FACP FACC CCDS Jun 21, 2020 14:04
[2020-06-21 17:02] VITALS: BP 101/56
[2020-06-21] MEDS: TAMSULOSIN 0.4 MG (FLOMAX) CAP PO SCH (17:25)
[2020-06-21 20:28] VITALS: BP 112/58
[2020-06-21] MEDS: PRAMIPEXOLE 0.125 MG (MIRAPEX) TABLET PO SCH ×2 (20:29→20:30)
[2020-06-21] MEDS: MONTELUKAST 10 MG (SINGULAIR) TAB PO SCH (20:29)
[2020-06-22] MEDS: inSUlin ASPART (NovoLOG) 1 UNIT/0.01 ML (CHARGE PER UNIT) SC SCH ×4 (05:41→21:37)
[2020-06-22 05:52] VITALS: BP 143/73
[2020-06-22] MEDS: CATHETER FLUSH 10 ML SYR IV SCH ×3 (06:04→21:38)
[2020-06-22] MEDS: inSUlin ASPART (NovoLOG) 1 UNIT/0.01 ML (CHARGE PER UNIT) SQ SCH ×3 (06:04→17:07)
[2020-06-22 06:35] LABS: BASOPHILS % (AUTO) 0 % (0-10); EOSINOPHILS # (AUTO) 0.2 10^3/uL (0.0-0.3); EOSINOPHILS % (AUTO) 2 % (0-10); HEMATOCRIT 34 % (40-54); HEMOGLOBIN 10.8 g/dL (13.3-17.7); LYMPHOCYTES % (AUTO) 10 % (12-44); MEAN CORPUSCULAR HEMOGLOBIN 30 pg (25-34); MEAN CORPUSCULAR HGB CONC 32 g/dL (32-36); MEAN CORPUSCULAR VOLUME 95 fL (80-99); MEAN PLATELET VOLUME 10.5 fL (9.0-12.2); MONOCYTES # (AUTO) 0.7 10^3/uL (0.0-1.0); MONOCYTES % (AUTO) 8 % (0-12); NEUTROPHILS # (AUTO) 7.3 10^3/uL (1.8-7.8); NEUTROPHILS % (AUTO) 74 % (42-75); PLATELET COUNT 244 10^3/uL (130-400); WHITE BLOOD COUNT 9.9 10^3/uL (4.3-11.0)
[2020-06-22] MEDS: RT-ALBUTEROL/IPRATROPIUM 3 ML (DUONEB) VIAL INH SCH ×2 (06:45→18:23)
[2020-06-22] MEDS: RT-BUDESONIDE NEBS 0.5 MG/2ML (PULMICORT) AMP IH SCH ×2 (06:46→18:23)
[2020-06-22] MEDS: ARFORMOTEROL 15 MCG/2 ML (BROVANA) INH SOLUTIION IH SCH ×2 (06:46→18:23)
[2020-06-22 06:54] LABS: ALBUMIN 3.1 GM/DL (3.2-4.5); CHLORIDE 100 MMOL/L (98-107); POTASSIUM 4.3 MMOL/L (3.6-5.0); SODIUM 137 MMOL/L (135-145)
[2020-06-22 06:55] LABS: CALCIUM 8.1 MG/DL (8.5-10.1)
[2020-06-22 06:56] LABS: GLUCOSE 171 MG/DL (70-105); TOTAL PROTEIN 5.8 GM/DL (6.4-8.2)
[2020-06-22 06:57] LABS: CARBON DIOXIDE 27 MMOL/L (21-32)
[2020-06-22 06:58] LABS: BILIRUBIN,TOTAL 0.4 MG/DL (0.1-1.0)
[2020-06-22 07:00] LABS: ALKALINE PHOSPHATASE 270 U/L (40-136); CREATININE SERUM 0.78 MG/DL (0.60-1.30); GFR ESTIMATED > 60
--- NOTE | 2020-06-22 07:00 | PM&R Progress Note ---
Subjective HPI/CC On Admission Date Seen by Provider: Jun 22, 2020 Time Seen by Provider: 11:00 Subjective/Events-last exam 06/22/20: No pain reported Breathing better O2 maintained AP 270 unsure of source 06/21/20: Patient feels good Minimal dyspnea Sore throat so Chloraseptic spray ordered BM+ 06/20/20: Doesn't like the bed and chair alarm No pain reported Dyspnea improved Eraxis completing 06/19/20: Patient feels good Lungs are clear Eraxis completing soon Participation is good BM+ 06/18/20: Clearing out bowels with supp and laxatives Less distention Ate bfast regular type 2L/min O2 now Overall much better 06/17/20: Was nauseated a bit so initiated an Amylase and Lipase KUB and work up BP 91/55 Blood sugar is doing okay Bowels moved yesterday WBC 9.8 Hgb 10.7 Later in evening sugars were low so held insulin Review of Systems General: Fatigue Pulmonary: Dyspnea Neurological: Weakness Objective Exam Vital Signs Vital Signs Date Time Temp Pulse Resp B/P (MAP) Pulse Ox O2 Delivery O2 Flow Rate FiO2 06/22/20 21:26 94 18 120/68 (85) 96 Nasal Cannula 4.00 06/22/20 17:36 36.6 06/19/20 14:55 36 Capillary Refill : General Appearance: No Apparent Distress, WD/WN, Chronically ill HEENT: PERRL/EOMI, Normal ENT Inspection, Pharynx Normal Neck: Full Range of Motion, Normal Inspection, Non Tender, Supple, Carotid Bruit Respiratory: Chest Non Tender, Lungs Clear, Normal Breath Sounds, No Accessory Muscle Use, No Respiratory Distress Cardiovascular: Regular Rate, Rhythm, No Edema, No Gallop, No JVD, No Murmur, Normal Peripheral Pulses Gastrointestinal: Normal Bowel Sounds, No Organomegaly, No Pulsatile Mass, Non Tender, Soft Back: Normal Inspection, No CVA Tenderness, No Vertebral Tenderness Extremity: Normal Capillary Refill, Normal Inspection, Normal Range of Motion, Non Tender, No Calf Tenderness, No Pedal Edema Neurologic/Psychiatric: Alert, Oriented x3, No Motor/Sensory Deficits, Normal Mood/Affect, Motor Weakness (generalized weakness) Skin: Normal Color, Warm/Dry Lymphatic: No Adenopathy Results/Procedures Lab Patient resulted labs reviewed. FIM Transfers Therapy Code Descriptions/Definitions Functional [place] Measure: 0=Not Assessed/NA 4=Minimal Assistance 1=Total Assistance 5=Supervision or Setup 2=Maximal Assistance 6=Modified Robert 3=Moderate Assistance 7=Complete IndependenceSCALE: Activities may be completed with or without assistive devices. 8-Ipjntenghw-wtkbeaf completes the activity by him/herself with no assistance from a helper. 5-Set-up or Clean-up Assistance-helper sets up or cleans up; patient completes activity. [place] assists only prior to or following the activity. 4-Supervision or Touching Assistance-helper provides verbal cues and/or touching/steadying and/or contact guard assistance as patient completes activity. Assistance may be provided throughout the activity or intermittently. 3-Partial/Moderate Assistance-helper does LESS THAN HALF the effort. [place] lifts, holds or supports trunk or limbs, but provides less than half the effort. 2-Substantial/Maximal Assistance-helper does MORE THAN HALF the effort. [place] lifts or holds trunk or limbs and provides more than half the effort. 0-Dghtcwoyr-tbmmwq does ALL the effort. Patient does none of the effort to complete the activity. Or, the assistance of 2 or more helpers is required for the patient to complete the activity. If activity was not attempted, code reason: 7-Patient Refused. 9-Not Applicable-not attempted and the patient did not perform the activity before the current illness, exacerbation or injury. 10-Not Attempted due to Environmental Limitations-(lack of equipment, weather restraints, etc.). 88-Not Attempted due to Medical Conditions or Safety Concerns. Roll Left to Right (QC): 5 Sit to Lying (QC): 5 Sit to Stand (QC): 5 Chair/Xzn-gg-Ezkwv Xfer(QC): 4 Car Transfer (QC): 4 Gait Training Does the Patient Walk?: Yes Distance: 150'x3 Walk 10 feet (QC): 4 Walk 50 ft with 2 Turns(QC): 4 Walk 150 ft (QC): 4 Walking 10ft/uneven surface-QC: 4 Gait Persons Needed: 1 Gait Assistive Device: FWW Wheelchair Training Does the Pt Use a Wheelchair?: No Wheel 50 ft with 2 turns (QC): 9 Wheel 150 ft (QC): 9 Stair Training #of Steps: 8 1 Step (curb) (QC): 4 4 Steps (QC): 4 12 Steps (QC): 9 Balance Picking up an Object (QC): 5 (seated position) ADL-Treatment Eating (QC): 6 (Per pt report, pt independent with eating. Able to open contiainers, cut food, and use utensils.) Oral Hygiene (QC): 7 Shower/Bathe Self (QC): 5 (Set up. Pt able to use long handled sponge to wash lower legs/feet.) Upper Body Dressing (QC): 4 (SBA for safety awarness of oxygen tubing) Lower Body Dressing (QC): 4 (SBA for safety on oxygen tubing.) On/Off Footwear (QC): 6 (Ind) Toileting Hygiene (QC): 7 Toilet Transfer (QC): 7 Assessment/Plan Assessment and Plan Assess & Plan/Chief Complaint Assessment: Recurrent PNA s/p bronchoscopy due to 2 recent PNA admit at [facility] [place] on broad spectrum abx with yeast on Cx COVID-19 PNA 03/2020 admit at [facility] no abx on that admit Severe COPD O2 dependent 5L/min at home AF w/recent AF w/RVR at [facility] last admit CAD TIA/CVA 05/2020 admitted [facility] DM insulin dependent Neuropathy Cochlear implant very [place] Lives alone with helpers GERD BPH Elevated AP of uncertain source Plan: IRF protocol IV abx to complete Bronch appreciated Cardiology consultation Dr Moreland appreciated Monitor labs IV steroids DC Insulin 06/17/20: Decrease insulin Monitor O2 Monitor ileus 06/18/20: Laxatives maintained Monitor closely O2 Increase activity 06/19/20: Monitor lungs O2 maintained Monitor for falls 06/20/20: Monitor for falls Pain monitoring O2 06/21/20: Monitor O2 Nebs MDI 06/22/20: Monitor O2 Monitor BP Improved status (1) [id number]-19 syndrome (2) A-fib (3) Presbycusis of both ears (4) Pneumonia (5) Cryptogenic stroke (6) History of DVT (deep vein thrombosis) Status: Chronic (7) Chronic hypoxemic respiratory failure Status: Chronic (8) Stroke Status: Acute (9) COPD (chronic obstructive pulmonary disease) Status: Chronic (10) COPD exacerbation Status: Acute BON LOAIZA DO Jun 22, 2020 07:00
[2020-06-22 07:01] LABS: BUN/CREATININE RATIO 22
[2020-06-22 07:03] LABS: ALANINE AMINOTRANSFERASE 24 U/L (0-55)
[2020-06-22] MEDS: meTOprolol TARTRATE 25 MG (LOPRESSOR) TABLET PO SCH ×2 (08:00→21:18)
[2020-06-22] MEDS: ASPIRIN E.C. 325 MG (ECOTRIN) TABLET PO SCH (08:00)
[2020-06-22] MEDS: DOCUSATE SODIUM 100 MG (COLACE) CAP PO SCH ×2 (08:00→21:18)
[2020-06-22] MEDS: APIXABAN 5 MG (ELIQUIS) TABLET PO SCH ×2 (08:01→21:18)
[2020-06-22] MEDS: CYCLOBENZAPRINE 10 MG (FLEXERIL) TAB PO SCH (08:01)
[2020-06-22] MEDS: polyethylene glycoL POWDER 17 GM (MIRALAX) PACK PO SCH ×2 (08:01→21:21)
[2020-06-22] MEDS: PANTOPRAZOLE 40 MG (PROTONIX) TAB PO SCH ×2 (08:01→21:18)
[2020-06-22] MEDS: SENNA W/DOCUSATE (SENOKOT S) TABLET PO SCH ×2 (08:01→21:18)
[2020-06-22] MEDS: metFORMIN 500 MG (GLUCOPHAGE) TAB PO SCH ×2 (08:01→17:07)
--- NOTE | 2020-06-22 09:07 | Occupational Ther Daily Note ---
OT Current Status-Daily Note Subjective Pt seated in recliner, agreeable to OT tx with focus on ADLS. Mental Status/Objective Attachments: Oxygen (3L) ADL-Treatment Therapy Code Descriptions/Definitions Functional [place] Measure: 0=Not Assessed/NA 4=Minimal Assistance 1=Total Assistance 5=Supervision or Setup 2=Maximal Assistance 6=Modified [place] 3=Moderate Assistance 7=Complete IndependenceSCALE: Activities may be completed with or without assistive devices. 4-Kwcybqjdwb-jhywnrx completes the activity by him/herself with no assistance from a helper. 5-Set-up or Clean-up Assistance-helper sets up or cleans up; patient completes activity. [place] assists only prior to or following the activity. 4-Supervision or Touching Assistance-helper provides verbal cues and/or touching/steadying and/or contact guard assistance as patient completes activity. Assistance may be provided throughout the activity or intermittently. 3-Partial/Moderate Assistance-helper does LESS THAN HALF the effort. [place] lifts, holds or supports trunk or limbs, but provides less than half the effort. 2-Substantial/Maximal Assistance-helper does MORE THAN HALF the effort. [place] lifts or holds trunk or limbs and provides more than half the effort. 2-Zffnkaome-xgqjab does ALL the effort. Patient does none of the effort to complete the activity. Or, the assistance of 2 or more helpers is required for the patient to complete the activity. If activity was not attempted, code reason: 7-Patient Refused. 9-Not Applicable-not attempted and the patient did not perform the activity before the current illness, exacerbation or injury. 10-Not Attempted due to Environmental Limitations-(lack of equipment, weather restraints, etc.). 88-Not Attempted due to Medical Conditions or Safety Concerns. Shower/Bathe Self (QC): 4 (Pt able to wash/dry all parts seated on SC, supervision in stand at [facility]. Pt removed oxygen NC in order to wash face. Required verbal cue to put NC back on.) Lower Body Dressing (QC): 4 (Supervision, pt able to doff pants/brief, and don brief. Verbal cue required in order to watch O2 tubing and manage while threading pants.) On/Off Footwear: 6 (IND donning/doffing gripper socks) Other Treatment Pt seated on recliner, used FWW to ambulate into restroom and onto SC. Pt doffed clothes, completed showering, then donned clothes. Pt required cues throughout tx in order to manage O2 tubing with dressing and with transfers. Pt returned to recliner and took a seated rest break. He then used FWW to perform functional mobility to therapy gym, [facility]. In order to increase BUE strength and functional endurance, pt completed pulleys, BUE x5 mins. Pt required 1 rest break with task, and a rest break post. Pt used FWW to return to his room, [facility] with 1 standing rest break as pt told a story. Pt transferred to recliner. Post tx, pt seated in recliner, call light in reach and all needs met, chair alarm on. Education OT Patient Education: Correct positioning, Exercise program, Modified ADL techniques, Progress toward Goal/Update tx plan, Purpose of tx/functional activities Teaching Recipient: Patient Teaching Methods: Discussion Response to Teaching: Verbalize Understanding OT Short Term Goals Short Term Goals Time Frame: Jun 26, 2020 Toileting hygiene: 4 Shower/bathe self: 4 Putting on/taking off footwear: 4 OT Optical Scientist Goals Optical Scientist Goals Time Frame: Jul 10, 2020 Eating (QC): 6 Oral Hygiene (QC): 6 Toileting Hygiene (QC): 6 Shower/Bathe Self (QC): 6 Upper Body Dressing (QC): 6 Lower Body Dressing (QC): 6 On/Off Footwear (QC): 6 Additional Goals: 1-Demonstrate ADL Tasks, 2-Verbalize Understanding, 3-Improve Strength/Lucy 1=Demonstrate adherence to instructed precautions during ADL tasks. 2=Patient will verbalize/demonstrate understanding of assistive devices/modifications for ADL. 3=Patient will improve strength/tolerance for activity to enable patient to pe rform ADL's. OT Education/Plan Problem List/Assessment Assessment: Decreased Activ Tolerance, Decreased UE Strength, Impaired I ADL's, Impaired Self-Care Skills Discharge Recommendations Plan/Recommendations: Continue POC Treatment Plan/Plan of Care Patient would benefit from OT for education, treatment and training to promote independence in ADL's, mobility, safety and/or upper extremity function for ADL's. Plan of Care: ADL Retraining, Functional Mobility, UE Funct Exercise/Act Treatment Duration: Jul 10, 2020 Frequency: At least 5 of 7 days/Wk (IRF) Estimated Hrs Per Day: 1 hour per day Rehab Potential: Fair Time/GCodes Start Time: 08:00 Stop Time: 09:00 Total Time Billed (hr/min): 60 Billed Treatment Time 1, ADL 3 (50'), EX (10') SHAYLEE BOUCHER OT Jun 22, 2020 09:07
[2020-06-22] MEDS: ANIDULAFUNGIN INJECTION 100 MG in NS (IVPB) 100 ML IV SCH (10:02)
--- NOTE | 2020-06-22 10:12 | Physical Therapy Daily Note ---
PT Daily Note-Current Subjective Patient in recliner pre tx, agrees to PT, has no complaints of pain. Appearance Patient in recliner post tx with nurse call, phone, tray, legs elevated, chair alarm on. Mental Status Patient Orientation: Person, Place, Situation Attachments: Oxygen Transfers SCALE: Activities may be completed with or without assistive devices. 7-Lwvyikpnjy-qvqutos completes the activity by him/herself with no assistance from a helper. 5-Set-up or Clean-up Assistance-helper sets up or cleans up; patient completes activity. [place] assists only prior to or following the activity. 4-Supervision or Touching Assistance-helper provides verbal cues and/or touching/steadying and/or contact guard assistance as patient completes a ctivity. Assistance may be provided throughout the activity or intermittently. 3-Partial/Moderate Assistance-helper does LESS THAN HALF the effort. [place] lifts, holds or supports trunk or limbs, but provides less than half the effort. 2-Substantial/Maximal Assistance-helper does MORE THAN HALF the effort. [place] lifts or holds trunk or limbs and provides more than half the effort. 4-Tfxmtsojr-vgybdf does ALL the effort. Patient does none of the effort to complete the activity. Or, the assistance of 2 or more helpers is required for the patient to complete the activity. If activity was not attempted, code reason: 7-Patient Refused. 9-Not Applicable-not attempted and the patient did not perform the activity before the current illness, exacerbation or injury. 10-Not Attempted due to Environmental Limitations-(lack of equipment, weather restraints, etc.). 88-Not Attempted due to Medical Conditions or Safety Concerns. Sit to Stand (QC): 4 Chair/Ocg-wu-Dvjut Xfer(QC): 4 During therapy patient needs to have a BM, ambulates back to his room and he toilets himself, cleans himself, pushed down and pulls up underwear by himself Gait Training Distance: 150'x2 Walk 10 feet (QC): 4 Walk 50 ft with 2 Turns(QC): 4 Walk 150 ft (QC): 4 Gait Assistive Device: FWW SBA, slow but steady ambulation Exercises Standing: Hip Abduction, Heel/toe raises, Marching, Mini squats LAQ alternating for 5 min NuStep Minutes: 15 NuStep Workload: 4 Treatments transfers, ambulation, LE strengthening, toileting Assessment Current Status: Fair Progress improving endurance, no SOB with activity but does need occasional rest breaks PT Log Preparer Goals Snf Goals PT Snf Goals Time Frame: Jul 10, 2020 Roll Left & Right (QC): 6 Sit to Lying (QC): 6 Lying-Sitting on Side/Bed(QC): 6 Sit to Stand (QC): 6 Chair/Psr-jn-Tkusl Xfer(QC): 6 Toilet Transfer (QC): 6 Car Transfer (QC): 6 Does the Patient Walk: Yes Walk 10 feet (QC): 6 Walk 50ft with 2 Turns (QC): 6 Walk 150 ft (QC): 6 Walking 10ft on Uneven Surface: 6 1 Step (curb) (QC): 6 4 Steps (QC): 6 12 Steps (QC): 9 Picking up an Object (QC): 6 Wheel 50 feet with 2 turns (QC: 9 Wheel 150 feet: 9 PT Plan Problem List Problem List: Activity Tolerance, Functional Strength, Safety, Balance, Gait, Transfer, Bed Mobility, ROM Treatment/Plan Treatment Plan: Continue Plan of Care Treatment Plan: Bed Mobility, Concurrent Therapy, Education, Functional Activity Lucy, Functional Strength, Group Therapy, Gait, Safety, Therapeutic Exercise, Transfers Treatment Duration: Jul 10, 2020 Frequency: At least 5 of 7 days/Wk (IRF) Estimated Hrs Per Day: 1 hour per day Patient and/or Family Agrees t: Yes Safety Risks/Education Patient Education: Gait Training, Transfer Techniques, Correct Positioning, Safety Issues Teaching Recipient: Patient Teaching Methods: Demonstration, Discussion Response to Teaching: Reinforcement Needed Time/GCodes Time In: 914 Time Out: 1015 Total Billed Treatment Time: 60 Total Billed Treatment 1 visit EX 30' FA 30' DONALD TURPIN PT Jun 22, 2020 10:12
--- NOTE | 2020-06-22 11:07 | Progress Note - Cardiology ---
Cardiology SOAP Progress Note Subjective: Sitting up in recliner at the bedside States he feels "good" today Gen weakness improving No c/o CP or palpitations Objective: I&O/Vital Signs 06/23/20 06/23/20 06/23/20 06:00 07:33 10:02 Temp 36.6 Pulse 105 Resp 24 B/P (MAP) 121/62 (81) Pulse Ox 94 99 91 O2 Delivery Nasal Cannula Nasal Cannula Nasal Cannula O2 Flow Rate 4.00 4.00 06/23/20 00:00 Intake Total 720 ml Balance 720 ml Weight (Pounds): 206 Weight (Ounces): 4.0 Weight (Calculated Kilograms): 95.351572 Constitutional: AAO x 3, well-developed, well-nourished Respiratory: No accessory muscle use, No respiratory distress; other (prolonged exp phase) Cardiovascular: irregularly irregular; No JVD; S1 and S2 Gastrointestional: No tender; round, audible bowel sounds Extremities: other (mild bilat LE swelling) Neurologic/Psychiatric: grossly intact (moves all extremities) Skin: No rash on exposed areas, No ulcerations on exposed areas Results/Procedures: Labs Laboratory Tests 06/22/20 11:18: Glucometer 217H 06/22/20 15:42: Glucometer 173H 06/22/20 21:15: Glucometer 243H 06/23/20 05:50: Glucometer 167H 06/23/20 10:54: Glucometer 174H A/P: Assessment: Recurrent pneumonia after COVID-19 infection in March 2020, third hospitalization for pneumonia. Underwent bronchoscopy with Dr. Moreland earlier - managed by Dr. Moreland History of COPD, maintained on steroids and bronchodilators. Echocardiogram done on May 12, 2020 showing normal left ventricular size and function, aortic sclerosis. Persistent atrial fibrillation - rate controlled OAC on Eliquis. History of TIA/CVA in May 2020 Diabetes mellitus History of peripheral neuropathy H/O cochlear implant, significant hearing loss Gastroesophageal reflux disease BPH Plan: Continue current regimen Monitor labs from time to time YEIMI GATES Jun 22, 2020 11:07
--- NOTE | 2020-06-22 12:27 | Speech Therapy Daily Note ---
Speech Daily Progress Note Subjective Date Seen by Provider: Jun 22, 2020 Time Seen by Provider: 00:30 Patient was resting in his recliner watching television when I entered his room. Patient states he thinks he is slowly getting stronger. Objective Patient completed cognitive task of word expansion given the last letter of the previous word at 85% with minimal cues. Assessment Assessment Current Status: Good Progress Treatment Plan Continue Plan of Care Speech Short Term Goals Short Term Goals Short Term Goals 1) Patient will complete memory tasks related to his daily needs at 90% or greater with minimal cues. 2) Patient will complete problem solving tasks related to his daily needs at 90% or greater with minimal cues. 3) Patient will complete safety awareness tasks related to his daily needs at 90% or greater with minimal cues. Speech Custodial Goals Custodial Goals Patient will improve cognitive-communication necessary for safety and daily living tasks with minimal assist. Speech-Plan Patient/Family Goals Patient/Family Goals: Patient is in hopes he gains enough strength to be able to return home with support. Treatment Plan Speech Therapy Treatment Plan: Continue Plan of Care Treatment Duration: Jun 17, 2020 Frequency: 4 times per week (Patient will receive ST 4-5x per week) Estimated Hrs Per Day: .5 hour per day Rehab Potential: Fair Barriers to Learning: Patient's lengthy illness and debility Pt/Family Agrees to Plan: Yes Safety Risks/Education Teaching Recipient: Patient Teaching Methods: Demonstration, Discussion Response to Teaching: Verbalize Understanding, Return Demonstration Education Topics Provided: Continued safety within his room Time Speech Therapy Time In: 09:00 Speech Therapy Time Out: 09:30 Total Billed Time: 30 Billed Treatment Time 1, NARDA Lucero Jun 22, 2020 12:27
--- NOTE | 2020-06-22 17:05 | Progress Note - Cardiology ---
Cardiology SOAP Progress Note Subjective: Gen malaise and weakness, better but not resolved No cp or palp or syncope or shortness of breath at rest No n/v/d Objective: I&O/Vital Signs 06/22/20 06/22/20 06/22/20 05:52 06:46 09:00 Temp 36.4 Pulse 87 Resp 17 B/P (MAP) 143/73 (96) Pulse Ox 99 99 O2 Delivery Nasal Cannula Nasal Cannula Nasal Cannula O2 Flow Rate 4.00 4.00 4.00 06/22/20 00:00 Intake Total 400 ml Balance 400 ml Weight (Pounds): 206 Weight (Ounces): 4.0 Weight (Calculated Kilograms): 95.122438 Constitutional: AAO x 3, well-developed, well-nourished Respiratory: No accessory muscle use, No respiratory distress; other (prolonged exp phase) Cardiovascular: irregularly irregular; No JVD; S1 and S2 Gastrointestional: No tender; round, audible bowel sounds Extremities: other (mild bilat LE swelling) Neurologic/Psychiatric: grossly intact (moves all extremities) Skin: No rash on exposed areas, No ulcerations on exposed areas Results/Procedures: Labs Laboratory Tests 06/21/20 20:02: Glucometer 107 06/22/20 05:37: Glucometer 150H 06/22/20 05:44: White Blood Count 9.9, Red Blood Count 3.55L, Hemoglobin 10.8L, Hematocrit 34L, Mean Corpuscular Volume 95, Mean Corpuscular Hemoglobin 30, Mean Corpuscular Hemoglobin Concent 32, Red Cell Distribution Width 13.9, Platelet Count 244, Mean Platelet Volume 10.5, Immature Granulocyte % (Auto) 6, Neutrophils (%) (Auto) 74, Lymphocytes (%) (Auto) 10L, Monocytes (%) (Auto) 8, Eosinophils (%) (Auto) 2, Basophils (%) (Auto) 0, Neutrophils # (Auto) 7.3, Lymphocytes # (Auto) 1.0, Monocytes # (Auto) 0.7, Eosinophils # (Auto) 0.2, Basophils # (Auto) 0.0, Immature Granulocyte # (Auto) 0.6H, Sodium Level 137, Potassium Level 4.3, Chloride Level 100, Carbon Dioxide Level 27, Anion Gap 10, Blood Urea Nitrogen 17, Creatinine 0.78, Estimat Glomerular Filtration Rate > 60, BUN/Creatinine Ratio 22, Glucose Level 171H, Calcium Level 8.1L, Corrected Calcium 8.8, Total Bilirubin 0.4, Aspartate Amino Transf (AST/SGOT) 19, Alanine Aminotransferase (ALT/SGPT) 24, Alkaline Phosphatase 270H, Total Protein 5.8L, Albumin 3.1L 06/22/20 11:18: Glucometer 217H 06/22/20 15:42: Glucometer 173H Laboratory Tests 06/22/20 05:44 A/P: Assessment: Recurrent pneumonia after COVID-19 infection in March 2020, third hospitalization for pneumonia. Underwent bronchoscopy with Dr. Moreland earlier - managed by Dr. Moreland History of COPD, maintained on steroids and bronchodilators. Echocardiogram done on May 12, 2020 showing normal left ventricular size and function, aortic sclerosis. Persistent atrial fibrillation - rate controlled OAC on Eliquis. History of TIA/CVA in May 2020 Diabetes mellitus History of peripheral neuropathy H/O cochlear implant, significant hearing loss Gastroesophageal reflux disease BPH Plan: Cardiac status clinically stable Monitor labs from time to time SUSIE SMILEY MD FACP FACC CCDS Jun 22, 2020 17:05
[2020-06-22] MEDS: TAMSULOSIN 0.4 MG (FLOMAX) CAP PO SCH (17:07)
[2020-06-22 17:36] VITALS: BP 122/58
[2020-06-22] MEDS: PRAMIPEXOLE 0.125 MG (MIRAPEX) TABLET PO SCH ×2 (21:17→21:21)
[2020-06-22] MEDS: MONTELUKAST 10 MG (SINGULAIR) TAB PO SCH (21:19)
[2020-06-22 21:26] VITALS: BP 120/68
[2020-06-23] MEDS: inSUlin ASPART (NovoLOG) 1 UNIT/0.01 ML (CHARGE PER UNIT) SC SCH ×4 (05:53→20:56)
[2020-06-23 06:00] VITALS: BP 121/62
[2020-06-23] MEDS: CATHETER FLUSH 10 ML SYR IV SCH ×3 (06:32→20:57)
[2020-06-23] MEDS: inSUlin ASPART (NovoLOG) 1 UNIT/0.01 ML (CHARGE PER UNIT) SQ SCH ×3 (06:32→17:23)
[2020-06-23] MEDS: RT-BUDESONIDE NEBS 0.5 MG/2ML (PULMICORT) AMP IH SCH ×2 (06:52→18:21)
[2020-06-23] MEDS: ARFORMOTEROL 15 MCG/2 ML (BROVANA) INH SOLUTIION IH SCH ×2 (06:52→18:20)
[2020-06-23 08:30] VITALS: BP 120/58
[2020-06-23] MEDS: PANTOPRAZOLE 40 MG (PROTONIX) TAB PO SCH ×2 (08:52→20:54)
[2020-06-23] MEDS: metFORMIN 500 MG (GLUCOPHAGE) TAB PO SCH ×2 (08:52→17:56)
[2020-06-23] MEDS: FUROSEMIDE 40 MG (LASIX) TAB PO SCH (08:52)
[2020-06-23] MEDS: meTOprolol TARTRATE 25 MG (LOPRESSOR) TABLET PO SCH ×2 (08:52→20:53)
[2020-06-23] MEDS: CYCLOBENZAPRINE 10 MG (FLEXERIL) TAB PO SCH (08:52)
[2020-06-23] MEDS: KCL 10 MEQ TAB (MICRO K) PO SCH (08:52)
[2020-06-23] MEDS: ASPIRIN E.C. 325 MG (ECOTRIN) TABLET PO SCH (08:52)
[2020-06-23] MEDS: APIXABAN 5 MG (ELIQUIS) TABLET PO SCH ×2 (08:52→20:52)
[2020-06-23] MEDS: DOCUSATE SODIUM 100 MG (COLACE) CAP PO SCH ×2 (08:53→20:57)
[2020-06-23] MEDS: polyethylene glycoL POWDER 17 GM (MIRALAX) PACK PO SCH ×2 (08:53→19:40)
[2020-06-23] MEDS: SENNA W/DOCUSATE (SENOKOT S) TABLET PO SCH ×2 (08:53→20:57)
--- NOTE | 2020-06-23 09:07 | Occupational Ther Daily Note ---
OT Current Status-Daily Note Subjective Pt stated that he was "having a bad morning." OT reassured pt that they would take breaks when needed. Pt agreed to OT tx. Mental Status/Objective Patient Orientation: Person, Place, Time, Situation Attachments: Oxygen (4L) ADL-Treatment Therapy Code Descriptions/Definitions Functional [place] Measure: 0=Not Assessed/NA 4=Minimal Assistance 1=Total Assistance 5=Supervision or Setup 2=Maximal Assistance 6=Modified [place] 3=Moderate Assistance 7=Complete IndependenceSCALE: Activities may be completed with or without assistive devices. 2-Xjmxcuwhnu-qeorxgm completes the activity by him/herself with no assistance from a helper. 5-Set-up or Clean-up Assistance-helper sets up or cleans up; patient completes activity. [place] assists only prior to or following the activity. 4-Supervision or Touching Assistance-helper provides verbal cues and/or touching/steadying and/or contact guard assistance as patient completes activity. Assistance may be provided throughout the activity or intermittently. 3-Partial/Moderate Assistance-helper does LESS THAN HALF the effort. [place] lifts, holds or supports trunk or limbs, but provides less than half the effort. 2-Substantial/Maximal Assistance-helper does MORE THAN HALF the effort. [place] lifts or holds trunk or limbs and provides more than half the effort. 7-Ohfwotusd-rbjecx does ALL the effort. Patient does none of the effort to complete the activity. Or, the assistance of 2 or more helpers is required for the patient to complete the activity. If activity was not attempted, code reason: 7-Patient Refused. 9-Not Applicable-not attempted and the patient did not perform the activity before the current illness, exacerbation or injury. 10-Not Attempted due to Environmental Limitations-(lack of equipment, weather restraints, etc.). 88-Not Attempted due to Medical Conditions or Safety Concerns. Upper Body Dressing (QC): 5 (Set up) Lower Body Dressing (QC): 4 (CGA while standing) Other Treatment Pt began tx in recliner. Pt donned clothing and ambulated to therapy gym, with no rest breaks needed at CGA with FWW. In therapy gym, pt participated in irene exercise for 5 min to increase BUE AROM, and activity tolerance. Pt needed 1 rest break. Pt then began bolt activity to increase fine motor strength, activity tolerance and BUE functional reaching. During this activity, pt stood and unscrewed and screwed back 12 bolts while standing and required 1 rest break and then stated that his back was hurting, gave no pain rating, so pt sat and completed 4 more bolts. Pt completed 2lb weight exercise to increase BUE strength and activity tolerance. Pt completed the following exercises, shoulder flexion, elbow flexion/extension, wrist flexion and supination/pronation. Pt then participated in balloon activity while sitting to increase activity tolerance and increase BUE AROM. Pt hit the balloon back and forth to OT. Pt ambulated back to room with FWW at [facility]. Pt sat in recliner, post tx, with chair alarm on and call light in reach. Education OT Patient Education: Correct positioning, Energy conservation, Exercise program, Modified ADL techniques, Progress toward Goal/Update tx plan, Purpose of tx/functional activities, Safety issues, Transfer techniques Teaching Recipient: Patient Teaching Methods: Discussion Response to Teaching: Verbalize Understanding OT Short Term Goals Short Term Goals Time Frame: Jun 26, 2020 Toileting hygiene: 4 Shower/bathe self: 4 Putting on/taking off footwear: 4 OT [facility]itent[facility] Goals Ice Cream Truck Driver Goals Time Frame: Jul 10, 2020 Eating (QC): 6 Oral Hygiene (QC): 6 Toileting Hygiene (QC): 6 Shower/Bathe Self (QC): 6 Upper Body Dressing (QC): 6 Lower Body Dressing (QC): 6 On/Off Footwear (QC): 6 Additional Goals: 1-Demonstrate ADL Tasks, 2-Verbalize Understanding, 3- ImproveStrength/Lucy 1=Demonstrate adherence to instructed precautions during ADL tasks. 2=Patient will verbalize/demonstrate understanding of assistive devices/modifications for ADL. 3=Patient will improve strength/tolerance for activity to enable patient to perform ADL's. OT Education/Plan Problem List/Assessment Assessment: Decreased Activ Tolerance, Decreased UE Strength, Impaired Funct Balance, Impaired I ADL's, Impaired Self-Care Skills, Restricted Funct UE ROM Discharge Recommendations Plan/Recommendations: Continue POC Treatment Plan/Plan of Care Patient would benefit from OT for education, treatment and training to promote independence in ADL's, mobility, safety and/or upper extremity function for ADL's. Plan of Care: ADL Retraining, Functional Mobility, UE Funct Exercise/Act Treatment Duration: Jul 10, 2020 Frequency: At least 5 of 7 days/Wk (IRF) Estimated Hrs Per Day: 1 hour per day Rehab Potential: Fair Time/GCodes Start Time: 08:00 Stop Time: 09:00 Total Time Billed (hr/min): 60 Billed Treatment Time 1, ADL (10'), EX (20'), FA 2 (30') SHAYLEE BOUCHER OT Jun 23, 2020 09:07
--- NOTE | 2020-06-23 09:58 | Physical Therapy Daily Note ---
PT Daily Note-Current Subjective Patient in recliner pre tx, agrees to PT, has no complaints of pain. Appearance Patient in recliner post tx with nurse call, phone, tray, all needs met. Chair alarm on. Mental Status Patient Orientation: Person, Place, Situation Attachments: Oxygen Transfers SCALE: Activities may be completed with or without assistive devices. 0-Vpkcrsgiol-niywfhh completes the activity by him/herself with no assistance from a helper. 5-Set-up or Clean-up Assistance-helper sets up or cleans up; patient completes activity. [place] assists only prior to or following the activity. 4-Supervision or Touching Assistance-helper provides verbal cues and/or touching/steadying and/or contact guard assistance as patient completes activity. Assistance may be provided throughout the activity or intermittently. 3-Partial/Moderate Assistance-helper does LESS THAN HALF the effort. [place] lifts, holds or supports trunk or limbs, but provides less than half the effort. 2-Substantial/Maximal Assistance-helper does MORE THAN HALF the effort. [place] lifts or holds trunk or limbs and provides more than half the effort. 5-Bmgdqgmtm-avrlol does ALL the effort. Patient does none of the effort to complete the activity. Or, the assistance of 2 or more helpers is required for the patient to complete the activity. If activity was not attempted, code reason: 7-Patient Refused. 9-Not Applicable-not attempted and the patient did not perform the activity before the current illness, exacerbation or injury. 10-Not Attempted due to Environmental Limitations-(lack of equipment, weather restraints, etc.). 88-Not Attempted due to Medical Conditions or Safety Concerns. Sit to Stand (QC): 4 Chair/Iib-re-Xqzvn Xfer(QC): 4 SBA Gait Training Distance: 150'x2 Walk 10 feet (QC): 4 Walk 50 ft with 2 Turns(QC): 4 Walk 150 ft (QC): 4 Gait Persons Needed: 1 Gait Assistive Device: FWW slow but steady ambulation, rest break due to fatigue afterwards, patient declines to ambulate further Exercises Seated Therapy Exercises: Ankle pumps, Hip flexion, Hip abd/add (with ball and RTB) Seated Reps: 20 Standing: Heel/toe raises, Mini squats Standing Reps: 15 LAQ alternating for 5 min with 2# ankle weights NuStep Minutes: 15 NuStep Workload: 4 Treatments transfers, ambulation, LE exercise Assessment Current Status: Fair Progress slowly improving endurance PT Loan Documents Closer Goals Prison Goals PT Loan Documents Closer Goals Time Frame: Jul 10, 2020 Roll Left & Right (QC): 6 Sit to Lying (QC): 6 Lying-Sitting on Side/Bed(QC): 6 Sit to Stand (QC): 6 Chair/Jwu-hm-Lamdw Xfer(QC): 6 Toilet Transfer (QC): 6 Car Transfer (QC): 6 Does the Patient Walk: Yes Walk 10 feet (QC): 6 Walk 50ft with 2 Turns (QC): 6 Walk 150 ft (QC): 6 Walking 10ft on Uneven Surface: 6 1 Step (curb) (QC): 6 4 Steps (QC): 6 12 Steps (QC): 9 Picking up an Object (QC): 6 Wheel 50 feet with 2 turns (QC: 9 Wheel 150 feet: 9 PT Plan Problem List Problem List: Activity Tolerance, Functional Strength, Safety, Balance, Gait, Transfer, Bed Mobility, ROM Treatment/Plan Treatment Plan: Continue Plan of Care Treatment Plan: Bed Mobility, Concurrent Therapy, Education, Functional Activity Lucy, Functional Strength, Group Therapy, Gait, Safety, Therapeutic Exercise, Transfers Treatment Duration: Jul 10, 2020 Frequency: At least 5 of 7 days/Wk (IRF) Estimated Hrs Per Day: 1 hour per day Patient and/or Family Agrees t: Yes Safety Risks/Education Patient Education: Gait Training, Transfer Techniques, Correct Positioning, Safety Issues Teaching Recipient: Patient Teaching Methods: Demonstration, Discussion Response to Teaching: Reinforcement Needed Time/GCodes Time In: 0900 Time Out: 1000 Total Billed Treatment Time: 60 Total Billed Treatment 1 visit GT 20' EX 40' DONALD TURPIN PT Jun 23, 2020 09:58
[2020-06-23] MEDS: RT-ALBUTEROL/IPRATROPIUM 3 ML (DUONEB) VIAL INH SCH ×2 (10:00→18:20)
[2020-06-23] MEDS: ANIDULAFUNGIN INJECTION 100 MG in NS (IVPB) 100 ML IV SCH (10:05)
--- NOTE | 2020-06-23 10:11 | Speech Therapy Daily Note ---
Speech Daily Progress Note Subjective Date Seen by Provider: Jun 23, 2020 Time Seen by Provider: 00:30 Patient was sitting up in his recliner finishing up his breathing treatment when I entered his room. Objective Patient answered general information questions with 85% accuracy given min to v/c's and/or repetitions. Assessment Assessment Current Status: Good Progress Treatment Plan Continue Plan of Care Speech Short Term Goals Short Term Goals Short Term Goals 1) Patient will complete memory tasks related to his daily needs at 90% or greater with minimal cues. 2) Patient will complete problem solving tasks related to his daily needs at 90% or greater with minimal cues. 3) Patient will complete safety awareness tasks related to his daily needs at 90% or greater with minimal cues. Speech In Shop Service Technician Goals [facility] Goals Patient will improve cognitive-communication necessary for safety and daily living tasks with minimal assist. Speech-Plan Patient/Family Goals Patient/Family Goals: Patient plans on returning to his home with friends and home health support. Treatment Plan Speech Therapy Treatment Plan: Continue Plan of Care Treatment Duration: Jun 17, 2020 Frequency: 4 times per week (Patient will receive ST 4-5x per week) Estimated Hrs Per Day: .5 hour per day Rehab Potential: Fair Barriers to Learning: Patient's recent lengthy illness of COVID and COPD Pt/Family Agrees to Plan: Yes Safety Risks/Education Teaching Recipient: Patient Teaching Methods: Demonstration, Discussion Response to Teaching: Verbalize Understanding, Return Demonstration Time Speech Therapy Time In: 10:00 Speech Therapy Time Out: 10:30 Total Billed Time: 30 Billed Treatment Time 1, NARDA Lucero Jun 23, 2020 10:11
--- NOTE | 2020-06-23 11:17 | PM&R Progress Note ---
Subjective HPI/CC On Admission Date Seen by Provider: Jun 23, 2020 Time Seen by Provider: 11:30 Subjective/Events-last exam 06/23/20: Patient feels good O2 not on his nose last night Daughter curious about repeat CXR but it takes 8 weeks to clear off CXR and he is doing well now and no fever and no elevated wbc and O2 sats ok Participating in therapy 06/22/20: No pain reported Breathing better O2 maintained AP 270 unsure of source 06/21/20: Patient feels good Minimal dyspnea Sore throat so Chloraseptic spray ordered BM+ 06/20/20: Doesn't like the bed and chair alarm No pain reported Dyspnea improved Eraxis completing 06/19/20: Patient feels good Lungs are clear Eraxis completing soon Participation is good BM+ 06/18/20: Clearing out bowels with supp and laxatives Less distention Ate bfast regular type 2L/min O2 now Overall much better 06/17/20: Was nauseated a bit so initiated an Amylase and Lipase KUB and work up BP 91/55 Blood sugar is doing okay Bowels moved yesterday WBC 9.8 Hgb 10.7 Later in evening sugars were low so held insulin Review of Systems General: Fatigue Pulmonary: Dyspnea Objective Exam Vital Signs Vital Signs Date Time Temp Pulse Resp B/P (MAP) Pulse Ox O2 Delivery O2 Flow Rate FiO2 06/24/20 06:22 36.6 92 21 139/75 (96) 95 Nasal Cannula 5.00 06/23/20 13:19 36 Capillary Refill : General Appearance: No Apparent Distress, WD/WN, Chronically ill HEENT: PERRL/EOMI, Normal ENT Inspection, Pharynx Normal Neck: Full Range of Motion, Normal Inspection, Non Tender, Supple, Carotid Bruit Respiratory: Chest Non Tender, Lungs Clear, Normal Breath Sounds, No Accessory Muscle Use, No Respiratory Distress Cardiovascular: Regular Rate, Rhythm, No Edema, No Gallop, No JVD, No Murmur, Normal Peripheral Pulses Gastrointestinal: Normal Bowel Sounds, No Organomegaly, No Pulsatile Mass, Non Tender, Soft Back: Normal Inspection, No CVA Tenderness, No Vertebral Tenderness Extremity: Normal Capillary Refill, Normal Inspection, Normal Range of Motion, Non Tender, No Calf Tenderness, No Pedal Edema Neurologic/Psychiatric: Alert, Oriented x3, No Motor/Sensory Deficits, Normal Mood/Affect, Motor Weakness (generalized weakness) Skin: Normal Color, Warm/Dry Lymphatic: No Adenopathy Results/Procedures Lab Patient resulted labs reviewed. FIM Transfers Therapy Code Descriptions/Definitions Functional [place] Measure: 0=Not Assessed/NA 4=Minimal Assistance 1=Total Assistance 5=Supervision or Setup 2=Maximal Assistance 6=Modified [place] 3=Moderate Assistance 7=Complete IndependenceSCALE: Activities may be completed with or without assistive devices. 3-Glvoiftlgc-adxzcqr completes the activity by him/herself with no assistance from a helper. 5-Set-up or Clean-up Assistance-helper sets up or cleans up; patient completes activity. [place] assists only prior to or following the activity. 4-Supervision or Touching Assistance-helper provides verbal cues and/or touching/steadying and/or contact guard assistance as patient completes activity. Assistance may be provided throughout the activity or intermittently. 3-Partial/Moderate Assistance-helper does LESS THAN HALF the effort. [place] lifts, holds or supports trunk or limbs, but provides less than half the effort. 2-Substantial/Maximal Assistance-helper does MORE THAN HALF the effort. [place] lifts or holds trunk or limbs and provides more than half the effort. 2-Fegoudtdp-lpxjed does ALL the effort. Patient does none of the effort to complete the activity. Or, the assistance of 2 or more helpers is required for the patient to complete the activity. If activity was not attempted, code reason: 7-Patient Refused. 9-Not Applicable-not attempted and the patient did not perform the activity before the current illness, exacerbation or injury. 10-Not Attempted due to Environmental Limitations-(lack of equipment, weather restraints, etc.). 88-Not Attempted due to Medical Conditions or Safety Concerns. Roll Left to Right (QC): 5 Sit to Lying (QC): 5 Sit to Stand (QC): 4 Chair/Ndz-dd-Kerrx Xfer(QC): 4 Car Transfer (QC): 4 Gait Training Does the Patient Walk?: Yes Distance: 150'x2 Walk 10 feet (QC): 4 Walk 50 ft with 2 Turns(QC): 4 Walk 150 ft (QC): 4 Walking 10ft/uneven surface-QC: 4 Gait Persons Needed: 1 Gait Assistive Device: FWW Wheelchair Training Does the Pt Use a Wheelchair?: No Wheel 50 ft with 2 turns (QC): 9 Wheel 150 ft (QC): 9 Stair Training #of Steps: 8 1 Step (curb) (QC): 4 4 Steps (QC): 4 12 Steps (QC): 9 Balance Picking up an Object (QC): 5 (seated position) ADL-Treatment Eating (QC): 6 (Per pt report, pt independent with eating. Able to open con tiainers, cut food, and use utensils.) Oral Hygiene (QC): 7 Shower/Bathe Self (QC): 4 (Pt able to wash/dry all parts seated on SC, supervision in stand at [facility]. Pt removed oxygen NC in order to wash face. Required verbal cue to put NC back on.) Upper Body Dressing (QC): 5 (Set up) Lower Body Dressing (QC): 4 (CGA while standing) On/Off Footwear (QC): 6 (IND donning/doffing gripper socks) Toileting Hygiene (QC): 7 Toilet Transfer (QC): 7 Assessment/Plan Assessment and Plan Assess & Plan/Chief Complaint Assessment: Recurrent PNA s/p bronchoscopy due to 2 recent PNA admit at [facility] on broad spectrum abx with yeast on Cx COVID-19 PNA 03/2020 admit at [facility] no abx on that admit Severe COPD O2 dependent 5L/min at home AF w/recent AF w/RVR at [facility] last admit CAD TIA/CVA 05/2020 admitted [facility] DM insulin dependent Neuropathy Cochlear implant very ROSEBUD Lives alone with helpers GERD BPH Elevated AP of uncertain source Plan: IRF protocol IV abx to complete Bronch appreciated Cardiology consultation Dr Moreland appreciated Monitor labs IV steroids DC Insulin 06/17/20: Decrease insulin Monitor O2 Monitor ileus 06/18/20: Laxatives maintained Monitor closely O2 Increase activity 06/19/20: Monitor lungs O2 maintained Monitor for falls 06/20/20: Monitor for falls Pain monitoring O2 06/21/20: Monitor O2 Nebs MDI 06/22/20: Monitor O2 Monitor BP Improved status 06/23/20: Monitor O2 IS Monitor strength (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
[2020-06-23 13:19] VITALS: BP 121/62
--- NOTE | 2020-06-23 15:02 | Progress Note - Cardiology ---
Cardiology SOAP Progress Note Subjective: No cp or palp or syncope No swelling Shortness of breath better Weakness better Objective: I&O/Vital Signs 06/23/20 06/23/20 06/23/20 06/23/20 06:00 07:33 10:02 13:19 Temp 36.6 36.6 Pulse 105 105 Resp 24 B/P (MAP) 121/62 (81) Pulse Ox 94 99 91 91 O2 Delivery Nasal Cannula Nasal Cannula Nasal Cannula O2 Flow Rate 4.00 4.00 FiO2 36 06/23/20 00:00 Intake Total 720 ml Balance 720 ml Weight (Pounds): 206 Weight (Ounces): 4.0 Weight (Calculated Kilograms): 95.903240 Constitutional: AAO x 3, well-developed, well-nourished Respiratory: No accessory muscle use, No respiratory distress; other (prolonged exp phase) Cardiovascular: irregularly irregular; No JVD; S1 and S2 Gastrointestional: No tender; round, audible bowel sounds Extremities: other (mild bilat LE swelling) Neurologic/Psychiatric: grossly intact (moves all extremities) Skin: No rash on exposed areas, No ulcerations on exposed areas Results/Procedures: Labs Laboratory Tests 06/22/20 15:42: Glucometer 173H 06/22/20 21:15: Glucometer 243H 06/23/20 05:50: Glucometer 167H 06/23/20 10:54: Glucometer 174H Laboratory Tests 06/22/20 05:44 A/P: Assessment: Recurrent pneumonia after COVID-19 infection in March 2020, third hospitalization for pneumonia. Underwent bronchoscopy with Dr. Moreland earlier - managed by Dr. Moreland History of COPD, maintained on steroids and bronchodilators. Echocardiogram done on May 12, 2020 showing normal left ventricular size and function, aortic sclerosis. Persistent atrial fibrillation - rate controlled OAC on Eliquis. History of TIA/CVA in May 2020 Diabetes mellitus History of peripheral neuropathy H/O cochlear implant, significant hearing loss Gastroesophageal reflux disease BPH Plan: Cardiac status clinically stable Monitor labs from time to time SUSIE SMILEY MD FACP FAC CCDS Jun 23, 2020 15:01
[2020-06-23] MEDS: TAMSULOSIN 0.4 MG (FLOMAX) CAP PO SCH (17:56)
[2020-06-23 17:57] VITALS: BP 114/60
[2020-06-23] MEDS: PRAMIPEXOLE 0.125 MG (MIRAPEX) TABLET PO SCH ×2 (19:42→20:52)
[2020-06-23 20:30] VITALS: BP 143/83
[2020-06-23] MEDS: MONTELUKAST 10 MG (SINGULAIR) TAB PO SCH (20:53)
[2020-06-24] MEDS: inSUlin ASPART (NovoLOG) 1 UNIT/0.01 ML (CHARGE PER UNIT) SC SCH ×4 (05:48→21:58)
[2020-06-24] MEDS: CATHETER FLUSH 10 ML SYR IV SCH ×3 (05:48→21:59)
[2020-06-24 06:22] VITALS: BP 139/75
[2020-06-24] MEDS: inSUlin ASPART (NovoLOG) 1 UNIT/0.01 ML (CHARGE PER UNIT) SQ SCH ×3 (07:00→16:30)
--- NOTE | 2020-06-24 07:27 | Pulmonary Progress Note ---
Subjective Time Seen by a Provider: 07:24 Subjective/Events-last exam No complications noted. Sepsis Event Evaluation Height, Weight, BMI Height: 5'9.00" Weight: 206lbs. 4.0oz. 95.372937as; 29.13 BMI Method:Stated Exam Exam Vital Signs Date Time Temp Pulse Resp B/P (MAP) Pulse Ox O2 Delivery O2 Flow Rate FiO2 06/24/20 06:22 36.6 92 21 139/75 (96) 95 Nasal Cannula 5.00 06/23/20 20:30 Nasal Cannula 5.00 06/23/20 20:30 36.6 101 20 143/83 (103) 94 Nasal Cannula 5.00 06/23/20 18:24 91 Nasal Cannula 4.00 06/23/20 18:24 91 Nasal Cannula 4.00 06/23/20 18:21 91 Nasal Cannula 4.00 06/23/20 17:57 36.5 82 20 114/60 (78) 99 Nasal Cannula 5.00 06/23/20 13:19 36.6 105 91 36 06/23/20 10:02 91 Nasal Cannula 4.00 06/23/20 09:00 Nasal Cannula 4.00 06/23/20 08:30 80 19 120/58 (78) 96 Nasal Cannula 4.00 06/23/20 07:33 99 Nasal Cannula 4.00 I & O 06/24/20 07:00 Intake Total 1030 ml Balance 1030 ml Height & Weight Height: 5'9.00" Weight: 206lbs. 4.0oz. 95.002302fx; 29.13 BMI Method:Stated General Appearance: No Apparent Distress, WD/WN, Chronically ill HEENT: PERRL/EOMI, Normal ENT Inspection, Pharynx Normal Neck: Full Range of Motion, Normal Inspection, Non Tender, Supple, Carotid Bruit Respiratory: Chest Non Tender, Lungs Clear, Normal Breath Sounds, No Accessory Muscle Use, No Respiratory Distress Cardiovascular: Regular Rate, Rhythm, No Edema, No Gallop, No JVD, No Murmur, Normal Peripheral Pulses Extremity: Normal Capillary Refill, Normal Inspection, Normal Range of Motion, Non Tender, No Calf Tenderness, No Pedal Edema Neurologic/Psychiatric: Alert, Oriented x3, No Motor/Sensory Deficits, Normal Mood/Affect, Motor Weakness (generalized weakness) Skin: Normal Color, Warm/Dry Lymphatic: No Adenopathy Assessment/Plan Assessment/Plan Recurrent PNA s/p COVID 04/2020 -s/p bronchoscopy - Eraxis -He uses 5liters of oxygen at home -s/p Merrem -Ríos cultures pending Hx of COPD -DuoNebs Afib Pulmonary edema -echo EF 50-55% -s/p Lasix yesterday OHKAY OWINGEH Persistent atrial fibrillation - rate controlled - Eliquis. History of TIA/CVA in May 2020 Diabetes mellitus History of peripheral neuropathy H/O cochlear implant, significant hearing loss Gastroesophageal reflux disease BPH HERB SANTANA DO Jun 24, 2020 07:27
[2020-06-24] MEDS: ARFORMOTEROL 15 MCG/2 ML (BROVANA) INH SOLUTIION IH SCH ×2 (07:36→21:10)
[2020-06-24] MEDS: RT-BUDESONIDE NEBS 0.5 MG/2ML (PULMICORT) AMP IH SCH ×2 (07:36→21:10)
[2020-06-24] MEDS: RT-ALBUTEROL/IPRATROPIUM 3 ML (DUONEB) VIAL INH SCH ×2 (07:36→21:10)
[2020-06-24] MEDS: APIXABAN 5 MG (ELIQUIS) TABLET PO SCH ×2 (08:03→21:59)
[2020-06-24] MEDS: CYCLOBENZAPRINE 10 MG (FLEXERIL) TAB PO SCH (08:03)
[2020-06-24] MEDS: meTOprolol TARTRATE 25 MG (LOPRESSOR) TABLET PO SCH ×2 (08:03→21:58)
[2020-06-24] MEDS: metFORMIN 500 MG (GLUCOPHAGE) TAB PO SCH ×2 (08:03→17:31)
[2020-06-24] MEDS: ASPIRIN E.C. 325 MG (ECOTRIN) TABLET PO SCH (08:03)
[2020-06-24] MEDS: PANTOPRAZOLE 40 MG (PROTONIX) TAB PO SCH ×2 (08:04→21:58)
[2020-06-24] MEDS: DOCUSATE SODIUM 100 MG (COLACE) CAP PO SCH ×2 (08:04→21:50)
[2020-06-24] MEDS: polyethylene glycoL POWDER 17 GM (MIRALAX) PACK PO SCH ×2 (08:04→21:50)
[2020-06-24] MEDS: SENNA W/DOCUSATE (SENOKOT S) TABLET PO SCH ×2 (08:04→21:50)
[2020-06-24] MEDS: ANIDULAFUNGIN INJECTION 100 MG in NS (IVPB) 100 ML IV SCH (10:01)
--- NOTE | 2020-06-24 10:07 | Physical Therapy Daily Note ---
PT Daily Note-Current Subjective Patient in therapy gym pre tx, agrees to PT, has no complaints of pain. Will be co-treating with OT due to poor patient mobility, strength, endurance, coordinate UE and LE during activity, work on more advanced balance activities. Appearance Paitent in recliner post tx with nurse call, phone, tray, all needs met, chair alarm on. Mental Status Patient Orientation: Person, Place, Situation Attachments: Oxygen Transfers SCALE: Activities may be completed with or without assistive devices. 1-Fgcpmrroxq-dpielvi completes the activity by him/herself with no assistance from a helper. 5-Set-up or Clean-up Assistance-helper sets up or cleans up; patient completes activity. [place] assists only prior to or following the activity. 4-Supervision or Touching Assistance-helper provides verbal cues and/or touching/steadying and/or contact guard assistance as patient completes activity. Assistance may be provided throughout the activity or intermittently. 3-Partial/Moderate Assistance-helper does LESS THAN HALF the effort. [place] lifts, holds or supports trunk or limbs, but provides less than half the effort. 2-Substantial/Maximal Assistance-helper does MORE THAN HALF the effort. [place] lifts or holds trunk or limbs and provides more than half the effort. 7-Bhioqjsai-hecwub does ALL the effort. Patient does none of the effort to complete the activity. Or, the assistance of 2 or more helpers is required for the patient to complete the activity. If activity was not attempted, code reason: 7-Patient Refused. 9-Not Applicable-not attempted and the patient did not perform the activity befo re the current illness, exacerbation or injury. 10-Not Attempted due to Environmental Limitations-(lack of equipment, weather re straints, etc.). 88-Not Attempted due to Medical Conditions or Safety Concerns. Sit to Stand (QC): 4 Chair/Ogd-oo-Ujqkd Xfer(QC): 4 Gait Training Distance: 150'x3 Walk 10 feet (QC): 4 Walk 50 ft with 2 Turns(QC): 4 Walk 150 ft (QC): 4 Gait Assistive Device: FWW Patient has slow but steady ambulation, has no concern about keeping track of his O2 line and will turn and wrap himself in it, needs somebody to keep track of it constantly and out of the way or he would fall over it. Exercises LAQ alternating for 5 min NuStep Minutes: 15 NuStep Workload: 4 Neuromuscular ambulating while finding cones and picking them up or reaching for them Treatments PT worked on transfers, ambulation, balance, functional strengthening, OT worked on balance activity, UE positioning and safety during activity Assessment Current Status: Poor Progress Patient has poor safety awareness, doesn't keep track of his O2 line, poor compliance with safety and reaching for chair when sitting or standing PT Facility Planner Goals Shelter Goals PT Shelter Goals Time Frame: Jul 10, 2020 Roll Left & Right (QC): 6 Sit to Lying (QC): 6 Lying-Sitting on Side/Bed(QC): 6 Sit to Stand (QC): 6 Chair/Brj-ex-Kehcn Xfer(QC): 6 Toilet Transfer (QC): 6 Car Transfer (QC): 6 Does the Patient Walk: Yes Walk 10 feet (QC): 6 Walk 50ft with 2 Turns (QC): 6 Walk 150 ft (QC): 6 Walking 10ft on Uneven Surface: 6 1 Step (curb) (QC): 6 4 Steps (QC): 6 12 Steps (QC): 9 Picking up an Object (QC): 6 Wheel 50 feet with 2 turns (QC: 9 Wheel 150 feet: 9 PT Plan Problem List Problem List: Activity Tolerance, Functional Strength, Safety, Balance, Gait, Transfer, Bed Mobility, ROM Treatment/Plan Treatment Plan: Continue Plan of Care Treatment Plan: Bed Mobility, Concurrent Therapy, Education, Functional Activity Lucy, Functional Strength, Group Therapy, Gait, Safety, Therapeutic Exercise, Transfers Treatment Duration: Jul 10, 2020 Frequency: At least 5 of 7 days/Wk (IRF) Estimated Hrs Per Day: 1 hour per day Patient and/or Family Agrees t: Yes Safety Risks/Education Patient Education: Gait Training, Transfer Techniques, Correct Positioning, Safety Issues Teaching Recipient: Patient Teaching Methods: Demonstration, Discussion Response to Teaching: Reinforcement Needed Time/GCodes Time In: 0900 Time Out: 1000 Total Billed Treatment Time: 60 Total Billed Treatment 1 visit EX 30' GT 30' co-treated with OT for 15' from [id number] DONALD TURPIN PT Jun 24, 2020 10:07
--- NOTE | 2020-06-24 10:23 | Diagnostic Imaging Report ---
EXAMINATION: Portable erect AP chest at 10:10 AM. INDICATION: Pneumonia. FINDINGS: The heart size is within normal limits and stable when compared to 06/16/2020. The alveolar/interstitial pulmonary infiltrates throughout much of the right lung seen previously are again evident; however, there does seem to be somewhat greater involvement of the right upper lobe by pneumonia/atelectasis on today's exam than on the previous study. The left lower lobe atelectasis/infiltrate is essentially no different. The left upper lung remains generally clear. The mediastinum is not widened. The osseous structures are intact. Surgical clips are seen overlying the right humeral head. IMPRESSION: The appearance of the chest has worsened somewhat since the prior exam as there is slightly greater involvement of the right upper lobe by pneumonia/atelectasis. A followup study would be recommended for continued evaluation. Dictated by: Dictated on workstation # [id number]
--- NOTE | 2020-06-24 10:41 | Occupational Ther Daily Note ---
OT Current Status-Daily Note Subjective Pt reports no pain and agreeable to OT tx. Mental Status/Objective Patient Orientation: Person, Place, Time, Situation Attachments: Oxygen (5L) ADL-Treatment Therapy Code Descriptions/Definitions Functional [place] Measure: 0=Not Assessed/NA 4=Minimal Assistance 1=Total Assistance 5=Supervision or Setup 2=Maximal Assistance 6=Modified [place] 3=Moderate Assistance 7=Complete IndependenceSCALE: Activities may be completed with or without assistive devices. 7-Lzkeervtyv-rtyohdg completes the activity by him/herself with no assistance from a helper. 5-Set-up or Clean-up Assistance-helper sets up or cleans up; patient completes activity. [place] assists only prior to or following the activity. 4-Supervision or Touching Assistance-helper provides verbal cues and/or touching/steadying and/or contact guard assistance as patient completes activity. Assistance may be provided throughout the activity or intermittently. 3-Partial/Moderate Assistance-helper does LESS THAN HALF the effort. [place] lifts, holds or supports trunk or limbs, but provides less than half the effort. 2-Substantial/Maximal Assistance-helper does MORE THAN HALF the effort. [place] lifts or holds trunk or limbs and provides more than half the effort. 8-Djupflqkn-rfxjkv does ALL the effort. Patient does none of the effort to complete the activity. Or, the assistance of 2 or more helpers is required for the patient to complete the activity. If activity was not attempted, code reason: 7-Patient Refused. 9-Not Applicable-not attempted and the patient did not perform the activity before the current illness, exacerbation or injury. 10-Not Attempted due to Environmental Limitations-(lack of equipment, weather restraints, etc.). 88-Not Attempted due to Medical Conditions or Safety Concerns. Oral Hygiene (QC): 7 (pt declined.) Shower/Bathe Self (QC): 5 (Supervision) Upper Body Dressing (QC): 5 (Set up) Lower Body Dressing (QC): 4 (SBA for cues to watch oxygen tubing and to perform pants hike while standing. Pt able to thread legs through pants and perform pants hike while standing) On/Off Footwear: 6 (Ind) Toileting Hygiene (QC): 5 (Supervision) Toilet Transfer (QC): 4 (SBA for managing O2 tubing.) Other Treatment OT tx ([id number]) Pt began tx sitting in recliner and stated that he needed to use restroom before doing anything else. Pt also agreed to showering. Pt ambulated with FWW to bathroom and transferred to toilet. Pt required no cues to watch for oxygen tubing, but SBA overall. Upon finishing and performing hygiene, pt ambulated to shower and doffed clothing. Pt showered and donned clothing with one cue to watch and move oxygen tubing to don pants. Pt ambulated to sink and stood to complete hair grooming, pt declined oral care. Pt then ambulated to [facility] for rest break, then ambulated to therapy gym at SBA, requiring no rest breaks. In gym pt participated in armbike exercise for 10min with 1 rest break at minimal resistance. This exercise is to improve activity tolerance and gross motor strength. Pt then completed 5min of irene exercise to increase BUE AROM and activity tolerance with no resistance and needed no rest breaks. OT/PT cotreat ([id number]) due to the skill of 2 clinicians that a eeg tech does not possess due to the pt's activity tolerance, unsteady balance, and limited overall strength. OT works on BUE strength, UE placement, activity tolerance, and ADLs. PT works on LE strength, LE placement, gait, and endurance. Pt completed retrieving cones ambulating with FWW and reaching in all planes, including the floor, with 10 cones a piece and did the activity 2 times through. This activity works on pt's activity tolerance, functional reaching and dynamic standing balance. Pt in therapy gym, post tx, with PT and all needs met Education OT Patient Education: Correct positioning, Energy conservation, Modified ADL techniques, Progress toward Goal/Update tx plan, Purpose of tx/functional activities, Rehab process, Safety issues, Transfer techniques Teaching Recipient: Patient Teaching Methods: Discussion Response to Teaching: Verbalize Understanding OT Short Term Goals Short Term Goals Time Frame: Jun 26, 2020 Toileting hygiene: 4 Shower/bathe self: 4 Putting on/taking off footwear: 4 OT Longterm Goals Senior [employer] Goals Time Frame: Jul 10, 2020 Eating (QC): 6 Oral Hygiene (QC): 6 Toileting Hygiene (QC): 6 Shower/Bathe Self (QC): 6 Upper Body Dressing (QC): 6 Lower Body Dressing (QC): 6 On/Off Footwear (QC): 6 Additional Goals: 1-Demonstrate ADL Tasks, 2-Verbalize Understanding, 3- ImproveStrength/Lucy 1=Demonstrate adherence to instructed precautions during ADL tasks. 2=Patient will verbalize/demonstrate understanding of assistive devices/modifications for ADL. 3=Patient will improve strength/tolerance for activity to enable patient to perform ADL's. OT Education/Plan Problem List/Assessment Assessment: Decreased Activ Tolerance, Decreased Safety Aware, Decreased UE Strength, Impaired Funct Balance, Impaired I ADL's, Impaired Self-Care Skills Discharge Recommendations Plan/Recommendations: Continue POC Treatment Plan/Plan of Care Patient would benefit from OT for education, treatment and training to promote independence in ADL's, mobility, safety and/or upper extremity function for ADL's. Plan of Care: ADL Retraining, Functional Mobility, UE Funct Exercise/Act Treatment Duration: Jul 10, 2020 Frequency: At least 5 of 7 days/Wk (IRF) Estimated Hrs Per Day: 1 hour per day Rehab Potential: Fair Time/GCodes Start Time: 08:15 Stop Time: 09:15 Total Time Billed (hr/min): 60 Billed Treatment Time OT tx ([id number]) PT/OT cotreat ([id number]) 1, ADL 2 (30'), EX (15'), FA (15') SHAYLEE BOUCHER OT Jun 24, 2020 10:41
--- NOTE | 2020-06-24 10:43 | Speech Therapy Daily Note ---
Speech Daily Progress Note Subjective Date Seen by Provider: Jun 24, 2020 Time Seen by Provider: 00:30 Patient was resting in his recliner following his other therapies when I entered his room. Objective Patient completed a series of problem solving tasks with minimal cues at 90%. Assessment Assessment Current Status: Good Progress Treatment Plan Continue Plan of Care Speech Short Term Goals Short Term Goals Short Term Goals 1) Patient will complete memory tasks related to his daily needs at 90% or greater with minimal cues. 2) Patient will complete problem solving tasks related to his daily needs at 90% or greater with minimal cues. 3) Patient will complete safety awareness tasks related to his daily needs at 90% or greater with minimal cues. Speech Fci Goals Band Splitter Goals Patient will improve cognitive-communication necessary for safety and daily living tasks with minimal assist. Speech-Plan Patient/Family Goals Patient/Family Goals: Patient plans on returning to his home with friends/family support. Treatment Plan Speech Therapy Treatment Plan: Continue Plan of Care Treatment Duration: Jun 17, 2020 Frequency: 4 times per week (Patient will receive ST 4-5x per week) Estimated Hrs Per Day: .5 hour per day Rehab Potential: Fair Barriers to Learning: Patient's lengthy illness over the past 2 months, age Pt/Family Agrees to Plan: Yes Safety Risks/Education Teaching Recipient: Patient Teaching Methods: Demonstration, Discussion Response to Teaching: Verbalize Understanding, Return Demonstration Education Topics Provided: Continued safety within his room, communication of wants/needs Time Speech Therapy Time In: 10:00 Speech Therapy Time Out: 10:30 Total Billed Time: 30 Billed Treatment Time 1, NARDA Lucero Jun 24, 2020 10:43
--- NOTE | 2020-06-24 11:06 | PM&R Progress Note ---
Subjective HPI/CC On Admission Date Seen by Provider: Jun 24, 2020 Time Seen by Provider: 11:15 Subjective/Events-last exam 06/24/20: CXR report states it reveals worsening but clinically he is improved and PCT is negative along with wbc count Dr Moreland evaluated labs and we conferred No pain reported Ambulating well O2 maintained 06/23/20: Patient feels good O2 not on his nose last night Daughter curious about repeat CXR but it takes 8 weeks to clear off CXR and he is doing well now and no fever and no elevated wbc and O2 sats ok Participating in therapy 06/22/20: No pain reported Breathing better O2 maintained AP 270 unsure of source 06/21/20: Patient feels good Minimal dyspnea Sore throat so Chloraseptic spray ordered BM+ 06/20/20: Doesn't like the bed and chair alarm No pain reported Dyspnea improved Eraxis completing 06/19/20: Patient feels good Lungs are clear Eraxis completing soon Participation is good BM+ 06/18/20: Clearing out bowels with supp and laxatives Less distention Ate bfast regular type 2L/min O2 now Overall much better 06/17/20: Was nauseated a bit so initiated an Amylase and Lipase KUB and work up BP 91/55 Blood sugar is doing okay Bowels moved yesterday WBC 9.8 Hgb 10.7 Later in evening sugars were low so held insulin Review of Systems General: Fatigue Pulmonary: Dyspnea Objective Exam Vital Signs Vital Signs Date Time Temp Pulse Resp B/P (MAP) Pulse Ox O2 Delivery O2 Flow Rate FiO2 06/24/20 18:04 36.8 96 18 111/68 (82) 98 Nasal Cannula 5.00 06/23/20 13:19 36 Capillary Refill : General Appearance: No Apparent Distress, WD/WN, Chronically ill HEENT: PERRL/EOMI, Normal ENT Inspection, Pharynx Normal Neck: Full Range of Motion, Normal Inspection, Non Tender, Supple, Carotid Bruit Respiratory: Chest Non Tender, Lungs Clear, Normal Breath Sounds, No Accessory Muscle Use, No Respiratory Distress Cardiovascular: Regular Rate, Rhythm, No Edema, No Gallop, No JVD, No Murmur, Normal Peripheral Pulses Gastrointestinal: Normal Bowel Sounds, No Organomegaly, No Pulsatile Mass, Non Tender, Soft Back: Normal Inspection, No CVA Tenderness, No Vertebral Tenderness Extremity: Normal Capillary Refill, Normal Inspection, Normal Range of Motion, Non Tender, No Calf Tenderness, No Pedal Edema Neurologic/Psychiatric: Alert, Oriented x3, No Motor/Sensory Deficits, Normal Mood/Affect, Motor Weakness (generalized weakness) Skin: Normal Color, Warm/Dry Lymphatic: No Adenopathy Results/Procedures Lab Laboratory Tests 06/24/20 12:03 Patient resulted labs reviewed. FIM Transfers Therapy Code Descriptions/Definitions Functional [place] Measure: 0=Not Assessed/NA 4=Minimal Assistance 1=Total Assistance 5=Supervision or Setup 2=Maximal Assistance 6=Modified [place] 3=Moderate Assistance 7=Complete IndependenceSCALE: Activities may be completed with or without assistive devices. 7-Txzsngqlrh-wisalgo completes the activity by him/herself with no assistance from a helper. 5-Set-up or Clean-up Assistance-helper sets up or cleans up; patient completes activity. [place] assists only prior to or following the activity. 4-Supervision or Touching Assistance-helper provides verbal cues and/or touching/steadying and/or contact guard assistance as patient completes activity. Assistance may be provided throughout the activity or intermittently. 3-Partial/Moderate Assistance-helper does LESS THAN HALF the effort. [place] lifts, holds or supports trunk or limbs, but provides less than half the effort. 2-Substantial/Maximal Assistance-helper does MORE THAN HALF the effort. [place] lifts or holds trunk or limbs and provides more than half the effort. 9-Zfedkqicr-ymoauj does ALL the effort. Patient does none of the effort to complete the activity. Or, the assistance of 2 or more helpers is required for the patient to complete the activity. If activity was not attempted, code reason: 7-Patient Refused. 9-Not Applicable-not attempted and the patient did not perform the activity before the current illness, exacerbation or injury. 10-Not Attempted due to Environmental Limitations-(lack of equipment, weather restraints, etc.). 88-Not Attempted due to Medical Conditions or Safety Concerns. Roll Left to Right (QC): 5 Sit to Lying (QC): 5 Sit to Stand (QC): 4 Chair/Ivo-vw-Rxpzz Xfer(QC): 4 Car Transfer (QC): 4 Gait Training Does the Patient Walk?: Yes Distance: 150'x3 Walk 10 feet (QC): 4 Walk 50 ft with 2 Turns(QC): 4 Walk 150 ft (QC): 4 Walking 10ft/uneven surface-QC: 4 Gait Persons Needed: 1 Gait Assistive Device: FWW Wheelchair Training Does the Pt Use a Wheelchair?: No Wheel 50 ft with 2 turns (QC): 9 Wheel 150 ft (QC): 9 Stair Training #of Steps: 8 1 Step (curb) (QC): 4 4 Steps (QC): 4 12 Steps (QC): 9 Balance Picking up an Object (QC): 5 (seated position) ADL-Treatment Eating (QC): 6 (Per pt report, pt independent with eating. Able to open contiainers, cut food, and use utensils.) Oral Hygiene (QC): 7 Shower/Bathe Self (QC): 5 (Supervision) Upper Body Dressing (QC): 5 (Set up) Lower Body Dressing (QC): 4 (SBA for cues to watch oxygen tubing and to perform pants hike while standing. Pt able to thread legs trhough pants and perform pants hike while standing) On/Off Footwear (QC): 6 (Ind) Toileting Hygiene (QC): 5 (Supervision) Toilet Transfer (QC): 4 (SBA) Assessment/Plan Assessment and Plan Assess & Plan/Chief Complaint Assessment: Recurrent PNA s/p bronchoscopy due to 2 recent PNA admit at [facility] on broad spectrum abx with yeast on Cx COVID-19 PNA 03/2020 admit at [facility] no abx on that admit Severe COPD O2 dependent 5L/min at home AF w/recent AF w/RVR at [facility] last admit CAD TIA/CVA 05/2020 admitted H DM insulin dependent Neuropathy Cochlear implant very [place] Lives alone with helpers GERD BPH Elevated AP of uncertain source Plan: IRF protocol IV abx to complete Bronch appreciated Cardiology consultation Dr Moreland appreciated Monitor labs IV steroids DC Insulin 06/17/20: Decrease insulin Monitor O2 Monitor ileus 06/18/20: Laxatives maintained Monitor closely O2 Increase activity 06/19/20: Monitor lungs O2 maintained Monitor for falls 06/20/20: Monitor for falls Pain monitoring O2 06/21/20: Monitor O2 Nebs MDI 06/22/20: Monitor O2 Monitor BP Improved status 06/23/20: Monitor O2 IS Monitor strength 06/24/20: Monitor CXR and clinical lung exam Appreciate Dr Moreland input PT OT (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
--- NOTE | 2020-06-24 12:06 | Progress Note - Cardiology ---
Cardiology SOAP Progress Note Subjective: Sitting up in recliner at the bedside States he feels "pretty good" this morning No c/o CP, palpitations or SOB Objective: I&O/Vital Signs 06/24/20 06/24/20 06/24/20 06/24/20 06:22 07:36 07:42 07:48 Temp 36.6 Pulse 92 Resp 21 B/P (MAP) 139/75 (96) Pulse Ox 95 98 98 98 O2 Delivery Nasal Cannula Nasal Cannula Nasal Cannula Nasal Cannula O2 Flow Rate 5.00 5.00 4.00 4.00 06/24/20 09:11 O2 Delivery Nasal Cannula O2 Flow Rate 5.00 06/24/20 00:00 Intake Total 930 ml Balance 930 ml Weight (Pounds): 206 Weight (Ounces): 4.0 Weight (Calculated Kilograms): 95.766444 Constitutional: AAO x 3, well-developed, well-nourished Respiratory: No accessory muscle use, No respiratory distress; other (prolonged exp phase) Cardiovascular: irregularly irregular; No JVD; S1 and S2 Gastrointestional: No tender; round, audible bowel sounds Extremities: other (mild bilat LE swelling) Neurologic/Psychiatric: grossly intact (moves all extremities) Skin: No rash on exposed areas, No ulcerations on exposed areas Results/Procedures: Labs Laboratory Tests 06/23/20 16:20: Glucometer 142H 06/23/20 20:51: Glucometer 149H 06/24/20 05:47: Glucometer 147H 06/24/20 11:02: Glucometer 151H 06/24/20 12:03: White Blood Count 10.3, Red Blood Count 3.55L, Hemoglobin 10.7L, Hematocrit 34L, Mean Corpuscular Volume 95, Mean Corpuscular Hemoglobin 30, Mean Corpuscular Hemoglobin Concent 32, Red Cell Distribution Width 13.7, Platelet Count 211, Mean Platelet Volume 10.0, Immature Granulocyte % (Auto) 3, Neutrophils (%) (Auto) 82H, Lymphocytes (%) (Auto) 7L, Monocytes (%) (Auto) 6, Eosinophils (%) (Auto) 1, Basophils (%) (Auto) 0, Neutrophils # (Auto) 8.4H, Lymphocytes # (Auto) 0.7L, Monocytes # (Auto) 0.7, Eosinophils # (Auto) 0.1, Basophils # (Auto) 0.0, Immature Granulocyte # (Auto) 0.3H, Neutrophils % (Manual) 84, Lymphocytes % (Manual) 4, Monocytes % (Manual) 9, Eosinophils % (Manual) 0, Basophils % (Manual) 0, Myelocytes % 1, Band Neutrophils 2, Blood Morphology Comment NORMAL, Sodium Level 139, Potassium Level 3.8, Chloride Level 101, Carbon Dioxide Level 30, Anion Gap 8, Blood Urea Nitrogen 14, Creatinine 0.80, Estimat Glomerular Filtration Rate > 60, BUN/Creatinine Ratio 18, Glucose Level 149H, Calcium Level 8.6, Corrected Calcium 9.3, Phosphorus Level 2.9, Magnesium Level 1.4L, Total Bilirubin 0.4, Aspartate Amino Transf (AST/SGOT) 19, Alanine Aminotransferase (ALT/SGPT) 26, Alkaline Phosphatase 258H, B-Type Natriuretic Peptide 212.7H, Total Protein 5.9L, Albumin 3.1L, Procalcitonin 0.04 A/P: Assessment: Recurrent pneumonia after COVID-19 infection in March 2020, third h ospitalization for pneumonia. Underwent bronchoscopy with Dr. Moreland earlier - managed by Dr. Moreland History of COPD, maintained on steroids and bronchodilators. Echocardiogram done on May 12, 2020 showing normal left ventricular size and function, aortic sclerosis. Persistent atrial fibrillation - rate controlled OAC on Eliquis. History of TIA/CVA in May 2020 Diabetes mellitus History of peripheral neuropathy H/O cochlear implant, significant hearing loss Gastroesophageal reflux disease BPH Plan: Cardiac status clinically stable Monitor labs from time to time YEIMI GATES Jun 24, 2020 12:06
[2020-06-24 12:10] LABS: BASOPHILS % (AUTO) 0 % (0-10); EOSINOPHILS # (AUTO) 0.1 10^3/uL (0.0-0.3); EOSINOPHILS % (AUTO) 1 % (0-10); HEMATOCRIT 34 % (40-54); HEMOGLOBIN 10.7 g/dL (13.3-17.7); LYMPHOCYTES # (AUTO) 0.7 10^3/uL (1.0-4.0); LYMPHOCYTES % (AUTO) 7 % (12-44); MEAN CORPUSCULAR HEMOGLOBIN 30 pg (25-34); MEAN CORPUSCULAR HGB CONC 32 g/dL (32-36); MEAN CORPUSCULAR VOLUME 95 fL (80-99); MONOCYTES # (AUTO) 0.7 10^3/uL (0.0-1.0); MONOCYTES % (AUTO) 6 % (0-12); NEUTROPHILS # (AUTO) 8.4 10^3/uL (1.8-7.8); NEUTROPHILS % (AUTO) 82 % (42-75); PLATELET COUNT 211 10^3/uL (130-400); WHITE BLOOD COUNT 10.3 10^3/uL (4.3-11.0)
[2020-06-24 12:29] LABS: ALANINE AMINOTRANSFERASE 26 U/L (0-55); ALBUMIN 3.1 GM/DL (3.2-4.5); ALKALINE PHOSPHATASE 258 U/L (40-136); BILIRUBIN,TOTAL 0.4 MG/DL (0.1-1.0); BUN/CREATININE RATIO 18; CALCIUM 8.6 MG/DL (8.5-10.1); CARBON DIOXIDE 30 MMOL/L (21-32); CHLORIDE 101 MMOL/L (98-107); GFR ESTIMATED > 60; GLUCOSE 149 MG/DL (70-105); MAGNESIUM 1.4 MG/DL (1.6-2.4); PHOSPHORUS 2.9 MG/DL (2.3-4.7); POTASSIUM 3.8 MMOL/L (3.6-5.0); SODIUM 139 MMOL/L (135-145); TOTAL PROTEIN 5.9 GM/DL (6.4-8.2)
[2020-06-24 12:46] LABS: BAND NEUTROPHILS 2 %; BASOPHILS % (MANUAL) 0 %; EOSINOPHILS % (MANUAL) 0 %; LYMPHOCYTES % (MANUAL) 4 %; MONOCYTES % (MANUAL) 9 %; MYELOCYTES % 1 %; NEUTROPHILS % (MANUAL) 84 %; RBC MORPH NORMAL
--- NOTE | 2020-06-24 15:06 | Progress Note - Cardiology ---
Cardiology SOAP Progress Note Subjective: Gen weakness, improving No shortness of breath at rest No cp or palp or syncope or swelling Objective: I&O/Vital Signs 06/24/20 06/24/20 06/24/20 06/24/20 06:22 07:36 07:42 07:48 Temp 36.6 Pulse 92 Resp 21 B/P (MAP) 139/75 (96) Pulse Ox 95 98 98 98 O2 Delivery Nasal Cannula Nasal Cannula Nasal Cannula Nasal Cannula O2 Flow Rate 5.00 5.00 4.00 4.00 06/24/20 09:11 O2 Delivery Nasal Cannula O2 Flow Rate 5.00 06/24/20 00:00 Intake Total 930 ml Balance 930 ml Weight (Pounds): 206 Weight (Ounces): 4.0 Weight (Calculated Kilograms): 95.909413 Constitutional: AAO x 3, well-developed, well-nourished Respiratory: No accessory muscle use, No respiratory distress; other (prolonged exp phase) Cardiovascular: irregularly irregular; No JVD; S1 and S2 Gastrointestional: No tender; round, audible bowel sounds Extremities: other (mild bilat LE swelling) Neurologic/Psychiatric: grossly intact (moves all extremities) Skin: No rash on exposed areas, No ulcerations on exposed areas Results/Procedures: Labs Laboratory Tests 06/23/20 16:20: Glucometer 142H 06/23/20 20:51: Glucometer 149H 06/24/20 05:47: Glucometer 147H 06/24/20 11:02: Glucometer 151H 06/24/20 12:03: White Blood Count 10.3, Red Blood Count 3.55L, Hemoglobin 10.7L, Hematocrit 34L, Mean Corpuscular Volume 95, Mean Corpuscular Hemoglobin 30, Mean Corpuscular Hemoglobin Concent 32, Red Cell Distribution Width 13.7, Platelet Count 211, Mean Platelet Volume 10.0, Immature Granulocyte % (Auto) 3, Neutrophils (%) (Auto) 82H, Lymphocytes (%) (Auto) 7L, Monocytes (%) (Auto) 6, Eosinophils (%) (Auto) 1, Basophils (%) (Auto) 0, Neutrophils # (Auto) 8.4H, Lymphocytes # (Auto) 0.7L, Monocytes # (Auto) 0.7, Eosinophils # (Auto) 0.1, Basophils # (Auto) 0.0, Immature Granulocyte # (Auto) 0.3H, Neutrophils % (Manual) 84, Lymphocytes % (Manual) 4, Monocytes % (Manual) 9, Eosinophils % (Manual) 0, Basophils % (Manual) 0, Myelocytes % 1, Band Neutrophils 2, Blood Morphology Comment NORMAL, Sodium Level 139, Potassium Level 3.8, Chloride Level 101, Carbo n Dioxide Level 30, Anion Gap 8, Blood Urea Nitrogen 14, Creatinine 0.80, Estimat Glomerular Filtration Rate > 60, BUN/Creatinine Ratio 18, Glucose Level 149H, Calcium Level 8.6, Corrected Calcium 9.3, Phosphorus Level 2.9, Magnesium Level 1.4L, Total Bilirubin 0.4, Aspartate Amino Transf (AST/SGOT) 19, Alanine Aminotransferase (ALT/SGPT) 26, Alkaline Phosphatase 258H, B-Type Natriuretic Peptide 212.7H, Total Protein 5.9L, Albumin 3.1L, Procalcitonin 0.04 Laboratory Tests 06/24/20 12:03 A/P: Assessment: Recurrent pneumonia after COVID-19 infection in March 2020, third hospitalization for pneumonia. Underwent bronchoscopy with Dr. Moreland earlier - managed by Dr. Moreland History of COPD, maintained on steroids and bronchodilators. Echocardiogram done on May 12, 2020 showing normal left ventricular size and function, aortic sclerosis. Persistent atrial fibrillation - rate controlled OAC on Eliquis. History of TIA/CVA in May 2020 Diabetes mellitus History of peripheral neuropathy H/O cochlear implant, significant hearing loss Gastroesophageal reflux disease BPH Plan: No new cardiac recs at this time Monitor labs from time to time SUSIE SMILEY MD FACP FACC CCDS Jun 24, 2020 15:06
[2020-06-24] MEDS: TAMSULOSIN 0.4 MG (FLOMAX) CAP PO SCH (17:31)
[2020-06-24 18:04] VITALS: BP 111/68
[2020-06-24 20:15] VITALS: BP 114/67
[2020-06-24] MEDS: PRAMIPEXOLE 0.125 MG (MIRAPEX) TABLET PO SCH ×2 (21:50→21:58)
[2020-06-24] MEDS: MONTELUKAST 10 MG (SINGULAIR) TAB PO SCH (21:58)
[2020-06-25 06:05] VITALS: BP 125/62
[2020-06-25] MEDS: CATHETER FLUSH 10 ML SYR IV SCH ×3 (06:33→21:52)
[2020-06-25] MEDS: inSUlin ASPART (NovoLOG) 1 UNIT/0.01 ML (CHARGE PER UNIT) SQ SCH ×3 (06:33→16:57)
[2020-06-25] MEDS: inSUlin ASPART (NovoLOG) 1 UNIT/0.01 ML (CHARGE PER UNIT) SC SCH ×4 (06:33→21:56)
--- NOTE | 2020-06-25 07:04 | Pulmonary Progress Note ---
Subjective Time Seen by a Provider: 07:02 Subjective/Events-last exam No complications noted. Sepsis Event Evaluation Height, Weight, BMI Height: 5'9.00" Weight: 206lbs. 4.0oz. 95.717571it; 29.13 BMI Method:Stated Exam Exam Vital Signs Date Time Temp Pulse Resp B/P (MAP) Pulse Ox O2 Delivery O2 Flow Rate FiO2 06/25/20 06:05 36.4 92 22 125/62 (83) 97 Nasal Cannula 4.00 06/24/20 21:17 98 Nasal Cannula 5.00 06/24/20 21:16 99 Nasal Cannula 5.00 06/24/20 21:11 99 Nasal Cannula 5.00 06/24/20 20:15 102 114/67 (83) 98 Nasal Cannula 4.00 06/24/20 20:15 98 Nasal Cannula 4.00 06/24/20 18:04 36.8 96 18 111/68 (82) 98 Nasal Cannula 5.00 06/24/20 09:11 Nasal Cannula 5.00 06/24/20 07:48 98 Nasal Cannula 4.00 06/24/20 07:42 98 Nasal Cannula 4.00 06/24/20 07:36 98 Nasal Cannula 5.00 I & O 06/25/20 07:00 Intake Total 1680 ml Balance 1680 ml Height & Weight Height: 5'9.00" Weight: 206lbs. 4.0oz. 95.177821tn; 29.13 BMI Method:Stated General Appearance: No Apparent Distress, WD/WN, Chronically ill HEENT: PERRL/EOMI, Normal ENT Inspection, Pharynx Normal Neck: Full Range of Motion, Normal Inspection, Non Tender, Supple, Carotid Bruit Respiratory: Chest Non Tender, Lungs Clear, Normal Breath Sounds, No Accessory Muscle Use, No Respiratory Distress Cardiovascular: Regular Rate, Rhythm, No Edema, No Gallop, No JVD, No Murmur, Normal Peripheral Pulses Extremity: Normal Capillary Refill, Normal Inspection, Normal Range of Motion, Non Tender, No Calf Tenderness, No Pedal Edema Neurologic/Psychiatric: Alert, Oriented x3, No Motor/Sensory Deficits, Normal Mood/Affect, Motor Weakness (generalized weakness) Skin: Normal Color, Warm/Dry Lymphatic: No Adenopathy Results Lab Laboratory Tests 06/24/20 12:03 Assessment/Plan Assessment/Plan Recurrent PNA s/p COVID 04/2020 -s/p bronchoscopy - Eraxis -He uses 5liters of oxygen at home -s/p Merrem -PCT is normal -CXR reviewed-- Doubt worsening infection Hx of COPD -DuoNebs Afib Pulmonary edema -echo EF 50-55% -Continue Lasix -BNP is elevated [id number] Persistent atrial fibrillation - rate controlled - Eliquis. History of TIA/CVA in May 2020 Diabetes mellitus History of peripheral neuropathy H/O cochlear implant, significant hearing loss Gastroesophageal reflux disease BPH HERB SANTANA DO Jun 25, 2020 07:04
[2020-06-25] MEDS: RT-ALBUTEROL/IPRATROPIUM 3 ML (DUONEB) VIAL INH SCH ×2 (07:07→19:45)
[2020-06-25] MEDS: ARFORMOTEROL 15 MCG/2 ML (BROVANA) INH SOLUTIION IH SCH ×2 (07:09→19:46)
[2020-06-25] MEDS: RT-BUDESONIDE NEBS 0.5 MG/2ML (PULMICORT) AMP IH SCH ×2 (07:09→19:45)
--- NOTE | 2020-06-25 07:10 | PM&R Progress Note ---
Subjective HPI/CC On Admission Date Seen by Provider: Jun 25, 2020 Time Seen by Provider: 10:00 Subjective/Events-last exam 06/25/20: Loose stools noted O2 maintained Eraxis will complete tomorrow at DC Restarted IV HH ordered placed 06/24/20: CXR report states it reveals worsening but clinically he is improved and PCT is negative along with wbc count Dr Moreland evaluated labs and we conferred No pain reported Ambulating well O2 maintained 06/23/20: Patient feels good O2 not on his nose last night Daughter curious about repeat CXR but it takes 8 weeks to clear off CXR and he is doing well now and no fever and no elevated wbc and O2 sats ok Participating in therapy 06/22/20: No pain reported Breathing better O2 maintained AP 270 unsure of source 06/21/20: Patient feels good Minimal dyspnea Sore throat so Chloraseptic spray ordered BM+ 06/20/20: Doesn't like the bed and chair alarm No pain reported Dyspnea improved Eraxis completing 06/19/20: Patient feels good Lungs are clear Eraxis completing soon Participation is good BM+ 06/18/20: Clearing out bowels with supp and laxatives Less distention Ate bfast regular type 2L/min O2 now Overall much better 06/17/20: Was nauseated a bit so initiated an Amylase and Lipase KUB and work up BP 91/55 Blood sugar is doing okay Bowels moved yesterday WBC 9.8 Hgb 10.7 Later in evening sugars were low so held insulin Review of Systems Pulmonary: Dyspnea Gastrointestinal: Diarrhea Objective Exam Vital Signs Vital Signs Date Time Temp Pulse Resp B/P (MAP) Pulse Ox O2 Delivery O2 Flow Rate FiO2 06/26/20 06:20 36.4 98 18 112/56 (74) 98 Nasal Cannula 5.00 06/23/20 13:19 36 Capillary Refill : General Appearance: No Apparent Distress, WD/WN, Chronically ill HEENT: PERRL/EOMI, Normal ENT Inspection, Pharynx Normal Neck: Full Range of Motion, Normal Inspection, Non Tender, Supple, Carotid Bruit Respiratory: Chest Non Tender, Lungs Clear, Normal Breath Sounds, No Accessory Muscle Use, No Respiratory Distress Cardiovascular: Regular Rate, Rhythm, No Edema, No Gallop, No JVD, No Murmur, Normal Peripheral Pulses Gastrointestinal: Normal Bowel Sounds, No Organomegaly, No Pulsatile Mass, Non Tender, Soft Back: Normal Inspection, No CVA Tenderness, No Vertebral Tenderness Extremity: Normal Capillary Refill, Normal Inspection, Normal Range of Motion, Non Tender, No Calf Tenderness, No Pedal Edema Neurologic/Psychiatric: Alert, Oriented x3, No Motor/Sensory Deficits, Normal Mood/Affect, Motor Weakness (generalized weakness) Skin: Normal Color, Warm/Dry Lymphatic: No Adenopathy Results/Procedures Lab Patient resulted labs reviewed. FIM Transfers Therapy Code Descriptions/Definitions Functional [place] Measure: 0=Not Assessed/NA 4=Minimal Assistance 1=Total Assistance 5=Supervision or Setup 2=Maximal Assistance 6=Modified [place] 3=Moderate Assistance 7=Complete IndependenceSCALE: Activities may be completed with or without assistive devices. 4-Hiijpijtbr-vjehfvq completes the activity by him/herself with no assistance from a helper. 5-Set-up or Clean-up Assistance-helper sets up or cleans up; patient completes activity. [place] assists only prior to or following the activity. 4-Supervision or Touching Assistance-helper provides verbal cues and/or touching/steadying and/or contact guard assistance as patient completes activity. Assistance may be provided throughout the activity or intermittently. 3-Partial/Moderate Assistance-helper does LESS THAN HALF the effort. [place] lifts, holds or supports trunk or limbs, but provides less than half the effort. 2-Substantial/Maximal Assistance-helper does MORE THAN HALF the effort. [place] lifts or holds trunk or limbs and provides more than half the effort. 8-Bccobgynv-wpnvit does ALL the effort. Patient does none of the effort to complete the activity. Or, the assistance of 2 or more helpers is required for the patient to complete the activity. If activity was not attempted, code reason: 7-Patient Refused. 9-Not Applicable-not attempted and the patient did not perform the activity before the current illness, exacerbation or injury. 10-Not Attempted due to Environmental Limitations-(lack of equipment, weather restraints, etc.). 88-Not Attempted due to Medical Conditions or Safety Concerns. Roll Left to Right (QC): 5 Sit to Lying (QC): 5 Sit to Stand (QC): 4 Chair/Yfc-gq-Yvcvc Xfer(QC): 4 Car Transfer (QC): 4 Gait Training Does the Patient Walk?: Yes Distance: 150'x3 Walk 10 feet (QC): 4 Walk 50 ft with 2 Turns(QC): 4 Walk 150 ft (QC): 4 Walking 10ft/uneven surface-QC: 4 Gait Persons Needed: 1 Gait Assistive Device: FWW Wheelchair Training Does the Pt Use a Wheelchair?: No Wheel 50 ft with 2 turns (QC): 9 Wheel 150 ft (QC): 9 Stair Training #of Steps: 8 1 Step (curb) (QC): 4 4 Steps (QC): 4 12 Steps (QC): 9 Balance Picking up an Object (QC): 5 (seated position) ADL-Treatment Eating (QC): 6 (Per pt report, pt independent with eating. Able to open contiainers, cut food, and use utensils.) Oral Hygiene (QC): 7 (pt declined.) Shower/Bathe Self (QC): 5 (Supervision) Upper Body Dressing (QC): 5 (Set up) Lower Body Dressing (QC): 4 (SBA for cues to watch oxygen tubing and to perform pants hike while standing. Pt able to thread legs through pants and perform pants hike while standing) On/Off Footwear (QC): 6 (Ind) Toileting Hygiene (QC): 5 (Supervision) Toilet Transfer (QC): 4 (SBA for managing O2 tubing.) Assessment/Plan Assessment and Plan Assess & Plan/Chief Complaint Assessment: Recurrent PNA s/p bronchoscopy due to 2 [place] [facility] [place] with yeast on Cx COVID-19 PNA 03[place]2020 [place] [facility] [place]x [place] admit Severe COPD O2 dependent 5L/min at home AF w/recent AF w[place] [facility] [place] CAD TIA/CVA 05/2020 admitted [facility] insulin dependent Neuropathy Cochlear implant very [place] Lives alone with helpers GERD BPH Elevated AP of uncertain source Plan: IRF protocol IV abx to complete Bronch appreciated Cardiology consultation Dr Moreland appreciated Monitor labs IV steroids DC Insulin 06/17/20: Decrease insulin Monitor O2 Monitor ileus 06/18/20: Laxatives maintained Monitor closely O2 Increase activity 06/19/20: Monitor lungs O2 maintained Monitor for falls 06/20/20: Monitor for falls Pain monitoring O2 06/21/20: Monitor O2 Nebs MDI 06/22/20: Monitor O2 Monitor BP Improved status 06/23/20: Monitor O2 IS Monitor strength 06/24/20: Monitor CXR and clinical lung exam Appreciate Dr Moreland input PT OT 06/25/20: DC tomorrow HH orders placed (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
[2020-06-25 07:53] VITALS: BP 115/56
[2020-06-25] MEDS: CYCLOBENZAPRINE 10 MG (FLEXERIL) TAB PO SCH (07:56)
[2020-06-25] MEDS: PANTOPRAZOLE 40 MG (PROTONIX) TAB PO SCH ×2 (07:56→21:51)
[2020-06-25] MEDS: ASPIRIN E.C. 325 MG (ECOTRIN) TABLET PO SCH (07:56)
[2020-06-25] MEDS: KCL 10 MEQ TAB (MICRO K) PO SCH (07:56)
[2020-06-25] MEDS: metFORMIN 500 MG (GLUCOPHAGE) TAB PO SCH ×2 (07:56→16:57)
[2020-06-25] MEDS: DOCUSATE SODIUM 100 MG (COLACE) CAP PO SCH ×2 (07:57→21:56)
[2020-06-25] MEDS: FUROSEMIDE 40 MG (LASIX) TAB PO SCH (07:57)
[2020-06-25] MEDS: meTOprolol TARTRATE 25 MG (LOPRESSOR) TABLET PO SCH ×2 (07:57→21:50)
[2020-06-25] MEDS: APIXABAN 5 MG (ELIQUIS) TABLET PO SCH ×2 (07:57→21:49)
[2020-06-25] MEDS: SENNA W/DOCUSATE (SENOKOT S) TABLET PO SCH ×2 (07:58→21:56)
[2020-06-25] MEDS: polyethylene glycoL POWDER 17 GM (MIRALAX) PACK PO SCH ×2 (07:58→21:56)
--- NOTE | 2020-06-25 08:14 | Occ Therapy Progress Note ---
Therapy Progress Note OT attempted tx this AM, pt states he is not going to participate as he is leaving tomorrow. OT educated pt on the purpose and benefits of therapy, encouraging him to complete ADLS. He replies "lady, I don't have to do anything except " OT will attempt again later this AM. 1, Refusal [id number] SHAYLEE BOUCHER OT Jun 25, 2020 08:14
--- NOTE | 2020-06-25 09:04 | Speech Therapy Daily Note ---
Speech Daily Progress Note Subjective Date Seen by Provider: Jun 25, 2020 Time Seen by Provider: 00:30 Patient was resting in his recliner. He is excited about returning to his home tomorrow. Objective Patient completed general information questions at the intermediate level with 90% given minimal v/c's. Assessment Assessment Current Status: Good Progress Treatment Plan Discontinue ST, Goals Met Speech Short Term Goals Short Term Goals Short Term Goals 1) Patient will complete memory tasks related to his daily needs at 90% or greater with minimal cues. 2) Patient will complete problem solving tasks related to his daily needs at 90% or greater with minimal cues. 3) Patient will complete safety awareness tasks related to his daily needs at 90% or greater with minimal cues. Speech Correction Goals Inhalation Therapy Teacher Goals Patient will improve cognitive-communication necessary for safety and daily living tasks with minimal assist. Speech-Plan Patient/Family Goals Patient/Family Goals: Patient is returning home tomorrow with family, friends and home health support. Treatment Plan Speech Therapy Treatment Plan: Discontinue ST, Goals Met Treatment Duration: Jun 17, 2020 Frequency: 4 times per week (Patient will receive ST 4-5x per week) Estimated Hrs Per Day: .5 hour per day Rehab Potential: Fair Barriers to Learning: Patient's recent lengthy illness, age Pt/Family Agrees to Plan: Yes Safety Risks/Education Teaching Recipient: Patient Teaching Methods: Demonstration, Discussion Response to Teaching: Verbalize Understanding, Return Demonstration Education Topics Provided: Continued safety upon his return home Time Speech Therapy Time In: 10:00 Speech Therapy Time Out: 10:30 Total Billed Time: 30 Billed Treatment Time 1, SLTS No QUALITY CODES: EXPRESSION OF IDEAS/WANTS: 4 UNDERSTANDING VERBAL CONTENT: 3 BRIEF INTERVIEW MENTAL STATUS: YES REPETITION OF 3 WORDS: 3 TEMPORAL ORIENTATION: YEAR:CORRECT, MONTH, CORRECT, DAY: CORRECT RECALL SOCK: YES WITH CUE, COLOR: YES, BED YES WITH CUE MEMORY/RECALL ABILITY: SEASON, LOCATION OF ROOM, THAT [facility] IS IN THE [facility] Jun 25, 2020 09:04
--- NOTE | 2020-06-25 09:38 | Occupational Ther Daily Note ---
OT Current Status-Daily Note Subjective Pt reported no pain. Pt agreed to shower after moderate encouragement.Upon entering therapy gym, pt initially declined arm bike exercise and stated that he "only agreed to walking." OT explained benefits of therapy and that OT focuses on UEs, and PT will have him walk more later this morning. Pt agreed to arm bike exercise. Mental Status/Objective Patient Orientation: Person, Place, Time, Situation Attachments: Oxygen (5L) ADL-Treatment Therapy Code Descriptions/Definitions Functional [place] Measure: 0=Not Assessed/NA 4=Minimal Assistance 1=Total Assistance 5=Supervision or Setup 2=Maximal Assistance 6=Modified [place] 3=Moderate Assistance 7=Complete IndependenceSCALE: Activities may be completed with or without assistive devices. 5-Zpyvvpxbgv-ymoidrm completes the activity by him/herself with no assistance from a helper. 5-Set-up or Clean-up Assistance-helper sets up or cleans up; patient completes activity. [place] assists only prior to or following the activity. 4-Supervision or Touching Assistance-helper provides verbal cues and/or touching/steadying and/or contact guard assistance as patient completes activity. Assistance may be provided throughout the activity or intermittently. 3-Partial/Moderate Assistance-helper does LESS THAN HALF the effort. [place] lifts, holds or supports trunk or limbs, but provides less than half the effort. 2-Substantial/Maximal Assistance-helper does MORE THAN HALF the effort. [place] lifts or holds trunk or limbs and provides more than half the effort. 5-Ytkaarphh-dqaoel does ALL the effort. Patient does none of the effort to complete the activity. Or, the assistance of 2 or more helpers is required for the patient to complete the activity. If activity was not attempted, code reason: 7-Patient Refused. 9-Not Applicable-not attempted and the patient did not perform the activity before the current illness, exacerbation or injury. 10-Not Attempted due to Environmental Limitations-(lack of equipment, weather restraints, etc.). 88-Not Attempted due to Medical Conditions or Safety Concerns. Eating (QC): 6 (per clinical judgement, Ind) Oral Hygiene (QC): 6 (Ind standing at sink) Shower/Bathe Self (QC): 5 (Supervision) Upper Body Dressing (QC): 5 (Set up, without cues, pt takes O2 off before donning shirt) Lower Body Dressing (QC): 4 (SBA, pt required cues to watch O2 tubing when donning brief) On/Off Footwear: 6 (Ind) Toileting Hygiene (QC): 6 (per clincial judgement, Ind) Toilet Transfer (QC): 4 (SBA) Other Treatment Pt began tx sitting in recliner, and agreeable to shower. Pt ambulated with FWW to shower and doffed clothing. Upon finishing shower, pt donned clothes, with a cue to watch where O2 tubing when donning pants. Pt ambulated to sink with FWW to perform oral hygiene at Ind standing at sink. When ambulating towards chair for rest break, OT stated the safety precautions when walking with O2 tubing in between legs. Pt stated that he doesn't care where his tubing is and OT educated pt on the possible fall risk, pt verbalizes understanding but indicates he still doesn't care. When discussing walking to therapy gym, pt declined, but OT explained benefits of therapy and pt agrees. Pt ambulated to therapy gym with FWW at [facility]. In gym, pt initially declined UE exercises, but with education pt participated in arm bike exercise for 10 min with minimal resistance and required 2 rest breaks. This is to increase his activity tolerance and BUE arm strength. Pt then completed moderate resistance theraputty activity, taking beads out of the putty, to increase fine motor strength and activity tolerance. Pt ambulated back to room with FWW at [facility], in recliner, post tx, with call light in reach, chair alarm on and all needs met. Education OT Patient Education: Correct positioning, Energy conservation, Modified ADL techniques, Progress toward Goal/Update tx plan, Purpose of tx/functional activities, Rehab process, Safety issues Teaching Recipient: Patient Teaching Methods: Discussion Response to Teaching: Verbalize Understanding OT Short Term Goals Short Term Goals Time Frame: Jun 26, 2020 Toileting hygiene: 4 Shower/bathe self: 4 Putting on/taking off footwear: 4 OT Assisted Goals Marketing Systems Manager Goals Time Frame: Jul 10, 2020 Eating (QC): 6 Oral Hygiene (QC): 6 Toileting Hygiene (QC): 6 Shower/Bathe Self (QC): 6 Upper Body Dressing (QC): 6 Lower Body Dressing (QC): 6 On/Off Footwear (QC): 6 Additional Goals: 1-Demonstrate ADL Tasks, 2-Verbalize Understanding, 3-ImproveStrength/Lucy 1=Demonstrate adherence to instructed precautions during ADL tasks. 2=Patient will verbalize/demonstrate understanding of assistive devices/modifications for ADL. 3=Patient will improve strength/tolerance for activity to enable patient to perform ADL's. OT Education/Plan Problem List/Assessment Assessment: Decreased Activ Tolerance, Decreased Safety Aware, Decreased UE Strength, Impaired Funct Balance, Impaired I ADL's, Impaired Self-Care Skills Discharge Recommendations Plan/Recommendations: Continue POC Treatment Plan/Plan of Care Patient would benefit from OT for education, treatment and training to promote independence in ADL's, mobility, safety and/or upper extremity function for ADL's. Plan of Care: ADL Retraining, Functional Mobility, UE Funct Exercise/Act Treatment Duration: Jul 10, 2020 Frequency: At least 5 of 7 days/Wk (IRF) Estimated Hrs Per Day: 1 hour per day Rehab Potential: Fair Time/GCodes Start Time: 09:00 Stop Time: 10:00 Total Time Billed (hr/min): 60 Billed Treatment Time 1, ADL 2 (30'), EX (10'), FA (20') SHAYLEE BOUCHER OT Jun 25, 2020 09:38
[2020-06-25] MEDS ORDERED: POTA10TA6 PO (10:03)
[2020-06-25] MEDS ORDERED: INSU100I29 SC (10:03)
[2020-06-25] MEDS ORDERED: DILT180C85 PO (10:03)
[2020-06-25] MEDS ORDERED: FURO40TA4 PO (10:03)
[2020-06-25] MEDS ORDERED: PANT40TA52 PO (10:03)
[2020-06-25] MEDS ORDERED: INSU100I14 SQ (10:03)
--- NOTE | 2020-06-25 10:05 | Progress Note - Cardiology ---
Cardiology SOAP Progress Note Subjective: Sitting up in recliner post shower No c/o CP, palpitations Feels SOB is good today Objective: I&O/Vital Signs 06/25/20 06/25/20 06/25/20 06/25/20 06:05 07:07 07:12 07:16 Temp 36.4 Pulse 92 Resp 22 B/P (MAP) 125/62 (83) Pulse Ox 97 99 100 100 O2 Delivery Nasal Cannula Nasal Cannula Nasal Cannula Nasal Cannula O2 Flow Rate 4.00 4.00 4.00 4.00 06/25/20 06/25/20 07:53 09:09 Pulse 79 B/P (MAP) 115/56 (75) Pulse Ox 98 O2 Delivery Nasal Cannula Nasal Cannula O2 Flow Rate 5.00 5.00 06/25/20 00:00 Intake Total 960 ml Balance 960 ml Weight (Pounds): 206 Weight (Ounces): 4.0 Weight (Calculated Kilograms): [id number] Constitutional: AAO x 3, well-developed, well-nourished Respiratory: No accessory muscle use, No respiratory distress; other (prolonged exp phase) Cardiovascular: irregularly irregular; No JVD; S1 and S2 Gastrointestional: No tender; round, audible bowel sounds Extremities: other (mild bilat LE swelling) Neurologic/Psychiatric: grossly intact (moves all extremities) Skin: No rash on exposed areas, No ulcerations on exposed areas Results/Procedures: Labs Laboratory Tests 06/24/20 11:02: Glucometer 151H 06/24/20 12:03: White Blood Count 10.3, Red Blood Count 3.55L, Hemoglobin 10.7L, Hematocrit 34L, Mean Corpuscular Volume 95, Mean Corpuscular Hemoglobin 30, Mean Corpuscular Hemoglobin Concent 32, Red Cell Distribution Width 13.7, Platelet Count 211, Mean Platelet Volume 10.0, Immature Granulocyte % (Auto) 3, Neutrophils (%) (Auto) 82H, Lymphocytes (%) (Auto) 7L, Monocytes (%) (Auto) 6, Eosinophils (%) (Auto) 1, Basophils (%) (Auto) 0, Neutrophils # (Auto) 8.4H, Lymphocytes # (Au to) 0.7L, Monocytes # (Auto) 0.7, Eosinophils # (Auto) 0.1, Basophils # (Auto) 0.0, Immature Granulocyte # (Auto) 0.3H, Neutrophils % (Manual) 84, Lymphocytes % (Manual) 4, Monocytes % (Manual) 9, Eosinophils % (Manual) 0, Basophils % (Manual) 0, Myelocytes % 1, Band Neutrophils 2, Blood Morphology Comment NORMAL, Sodium Level 139, Potassium Level 3.8, Chloride Level 101, Carbon Dioxide Level 30, Anion Gap 8, Blood Urea Nitrogen 14, Creatinine 0.80, Estimat Glomerular Filtration Rate > 60, BUN/Creatinine Ratio 18, Glucose Level 149H, Calcium Level 8.6, Corrected Calcium 9.3, Phosphorus Level 2.9, Magnesium Level 1.4L, Total Bilirubin 0.4, Aspartate Amino Transf (AST/SGOT) 19, Alanine Aminotransferase (ALT/SGPT) 26, Alkaline Phosphatase 258H, B-Type Natriuretic Peptide 212.7H, Total Protein 5.9L, Albumin 3.1L, Procalcitonin 0.04 06/24/20 16:24: Glucometer 205H 06/24/20 21:14: Glucometer 207H 06/25/20 05:36: Glucometer 208H A/P: Assessment: Recurrent pneumonia after COVID-19 infection in March 2020, third hospitalization for pneumonia. Underwent bronchoscopy with Dr. Moreland earlier - managed by Dr. Moreland History of COPD, maintained on steroids and bronchodilators. Echocardiogram done on May 12, 2020 showing normal left ventricular size and function, aortic sclerosis. Persistent atrial fibrillation - rate controlled OAC on Eliquis. History of TIA/CVA in May 2020 Diabetes mellitus History of peripheral neuropathy H/O cochlear implant, significant hearing loss Gastroesophageal reflux disease BPH Plan: No new cardiac recs at this time Monitor labs from time to time YEIMI GATES Jun 25, 2020 10:05
[2020-06-25] MEDS: ANIDULAFUNGIN INJECTION 100 MG in NS (IVPB) 100 ML IV SCH (10:35)
--- NOTE | 2020-06-25 11:46 | Physical Therapy Daily Note ---
PT Daily Note-Current Subjective Pt sitting in recliner upon arrival. Pt declines needing to use BR. Pt agrees to QC scoring for anticipated DC tomorrow. Pain Location: No Pain Reported Mental Status Patient Orientation: Person, Place Attachments: Oxygen, IV Transfers SCALE: Activities may be completed with or without assistive devices. 5-Upczxpkqin-amksysk completes the activity by him/herself with no assistance from a helper. 5-Set-up or Clean-up Assistance-helper sets up or cleans up; patient completes activity. [place] assists only prior to or following the activity. 4-Supervision or Touching Assistance-helper provides verbal cues and/or touching/steadying and/or contact guard assistance as patient completes activity. Assistance may be provided throughout the activity or intermittently. 3-Partial/Moderate Assistance-helper does LESS THAN HALF the effort. [place] lifts, holds or supports trunk or limbs, but provides less than half the effort. 2-Substantial/Maximal Assistance-helper does MORE THAN HALF the effort. [place] lifts or holds trunk or limbs and provides more than half the effort. 9-Ifafrwsgh-rubkjd does ALL the effort. Patient does none of the effort to complete the activity. Or, the assistance of 2 or more helpers is required for the patient to complete the activity. If activity was not attempted, code reason: 7-Patient Refused. 9-Not Applicable-not attempted and the patient did not perform the activity before the current illness, exacerbation or injury. 10-Not Attempted due to Environmental Limitations-(lack of equipment, weather restraints, etc.). 88-Not Attempted due to Medical Conditions or Safety Concerns. Roll Left & Right (QC): 6 Sit to Lying (QC): 6 Lying to Sitting/Side of Bed(Q: 5 Sit to Stand (QC): 6 Chair/Qob-ez-Hudlh Xfer(QC): 6 Toilet Transfer (QC): 5 Car Transfer (QC): 5 Weight Bearing Full Weight Bearing Full Weight Bearing Gait Training Does the Patient Walk?: Yes Distance: 150' x2 Walk 10 feet (QC): 6 Walk 50 ft with 2 Turns(QC): 5 Walk 150 ft (QC): 5 Walking 10ft/uneven surface-QC: 5 Gait Persons Needed: 1 Gait Assistive Device: FWW Wheelchair Training Does the Pt Use a Wheelchair?: No Stair Training Stair Training: Handrails/: 2 handrails #of Steps: 4 1 Step (curb) (QC): 5 4 Steps (QC): 5 12 Steps (QC): 7 Stairs: Pattern: Step to Balance Picking up an Object (QC): 7 Special Test Comments Pt reports having packaging operator at home. Treatments TF to standing, declines need for BR. Pt amb. in hallway and completes QC scoring items listed above. Pt returns to room to rest and eat lunch. All needs met, call light in hand. [id number]: Pt finishes QC scoring items including bed mobility. Pt declines need to use BR. All needs met, call light in hand. Assessment Current Status: Good Progress Pt hosea. tx well and is excited for DC. PT Stone Operator Goals Stone Operator Goals PT Stone Operator Goals Time Frame: Jul 10, 2020 Roll Left & Right (QC): 6 Sit to Lying (QC): 6 Lying-Sitting on Side/Bed(QC): 6 Sit to Stand (QC): 6 Chair/Udy-fl-Jhrqw Xfer(QC): 6 Toilet Transfer (QC): 6 Car Transfer (QC): 6 Does the Patient Walk: Yes Walk 10 feet (QC): 6 Walk 50ft with 2 Turns (QC): 6 Walk 150 ft (QC): 6 Walking 10ft on Uneven Surface: 6 1 Step (curb) (QC): 6 4 Steps (QC): 6 12 Steps (QC): 9 Picking up an Object (QC): 6 Wheel 50 feet with 2 turns (QC: 9 Wheel 150 feet: 9 PT Plan Treatment/Plan Treatment Plan: Continue Plan of Care Treatment Plan: Bed Mobility, Concurrent Therapy, Education, Functional Activity Lucy, Functional Strength, Group Therapy, Gait, Safety, Therapeutic Exercise, Transfers Treatment Duration: Jul 10, 2020 Frequency: At least 5 of 7 days/Wk (IRF) Estimated Hrs Per Day: 1 hour per day Patient and/or Family Agrees t: Yes Safety Risks/Education Patient Education: Correct Positioning Teaching Recipient: Patient Teaching Methods: Discussion Response to Teaching: Verbalize Understanding Time/GCodes Time In: 1115 Time Out: 1345 Total Billed Treatment Time: 60 Total Billed Treatment 1, GT (20m), FA x2 (25m) [id number]: 1, FA (15m) LARRY SEVILLA PETROGRAPHER Jun 25, 2020 11:46
[2020-06-25] MEDS: TAMSULOSIN 0.4 MG (FLOMAX) CAP PO SCH (16:57)
[2020-06-25 16:59] VITALS: BP 126/64
--- NOTE | 2020-06-25 21:31 | D/C HH Face to Face Order ---
D/C Face to Face Orders Reconcile Patient Problems Problems Reviewed?: Yes Instructions for Patient [facility] Patient Instructions/FollowUp: Dr Shah 1 week Physician to follow Patient: Pablo Discharge Diet for Home: ADA Diet, Cardiac Diet Patient Problems: s/p COVID PNA CVA COPD Patient Data-Allergies,Ht & Wt Patient Allergies: Coded Allergies: No Known Drug Allergies (Unverified , 05/11/20) Height (Feet): 5 Height (Inches): 9.00 Weight (Pounds): 206 Weight (Ounces): 4.0 Home Health Need/Face to Face Date of Face to Face: Jun 25, 2020 Clinical Findings: Generalized weakness and fatigue, Immune-compromised, Instability, Muscle weakness, Shortness of breath, Unsteady gait I have seen Pt [id number]: Yes Discharged To: Home Diagnosis/Conditions: s/p COVID PNA CVA COPD Patient is Homebound due to: [place] fall risk due to instabilty, Muscle weakness, Shortness of breath/distress Homebound Status Due to the above stated illness, injury or surgical procedure (medical condition or diagnosis) and associated clinical findings, the patient is homebound because of his/her inability to leave home except with aid of a supportive device and/or person AND leaving the home requires a considerable and taxing effort or is medically contraindicated. Pt req the following assistanc: Walker Home Health Nursing Orders Home Health Services Order: Nursing Services, Stevedoring Supervisor-Evaluate & Treat, Physical Therapy-Evaluate & Treat, Other (bath aide) Certify Stmt I certify that this patient is under my care and that I, a nurse practitioner or a physician; a project construction assistant manager working with me, had a face to face encounter that - meets the physician face to face encounter requirements with this patient as dated. BON LOAIZA DO Jun 25, 2020 21:31
[2020-06-25] MEDS: MONTELUKAST 10 MG (SINGULAIR) TAB PO SCH (21:51)
[2020-06-25] MEDS: PRAMIPEXOLE 0.125 MG (MIRAPEX) TABLET PO SCH (21:51)
[2020-06-26] MEDS: inSUlin ASPART (NovoLOG) 1 UNIT/0.01 ML (CHARGE PER UNIT) SC SCH (05:49)
[2020-06-26] MEDS: CATHETER FLUSH 10 ML SYR IV SCH (06:14)
[2020-06-26 06:20] VITALS: BP 112/56
--- NOTE | 2020-06-26 06:35 | Pulmonary Progress Note ---
Standard Progress Note Progress Notes Date Seen by Provider: Jun 26, 2020 Time Seen by Provider: 06:35 Assessment & Plan Recurrent PNA s/p COVID 04/2020 -s/p bronchoscopy - Eraxis -He uses 5liters of oxygen at home -s/p Merrem -PCT is normal -CXR reviewed-- Doubt worsening infection Hx of COPD -DuoNebs Afib Pulmonary edema -echo EF 50-55% -Continue Lasix -BNP is elevated [place] Persistent atrial fibrillation - rate controlled - Eliquis. History of TIA/CVA in May 2020 Diabetes mellitus History of peripheral neuropathy H/O cochlear implant, significant hearing loss Gastroesophageal reflux disease BPH HERB SANTANA DO Jun 26, 2020 06:35
[2020-06-26] MEDS: inSUlin ASPART (NovoLOG) 1 UNIT/0.01 ML (CHARGE PER UNIT) SQ SCH (07:32)
[2020-06-26] MEDS: RT-ALBUTEROL/IPRATROPIUM 3 ML (DUONEB) VIAL INH SCH (07:44)
[2020-06-26] MEDS: RT-BUDESONIDE NEBS 0.5 MG/2ML (PULMICORT) AMP IH SCH (07:45)
[2020-06-26] MEDS: ARFORMOTEROL 15 MCG/2 ML (BROVANA) INH SOLUTIION IH SCH (07:45)
--- NOTE | 2020-06-26 09:10 | Therapy Team Discharge Summary ---
Therapy Discharge Summary Discharge Recommendations Date of Discharge Physical Therapy Patient came to rehab with Post COVID PNA. Upon evaluation patient performed bed mobility and supine <-> sit with setup, sit <-> stand CGA, transfers CGA, car transfer CGA, ambulated 150' with a rolling walker with CGA (including 50' with at least 2 turns of 90 degrees and 10' over an uneven surface), went up and down 8 steps using 2 handrails with CGA, and picked up an object from the floor with setup. Patient has been performing bed mobility and transfer training, balance and endurance training, functional strengthening, stair training, gait training, and education. Patient has made some progress but has not met any of his nursing home goals besides bed mobility. Now, patient performs bed mobility with independence, supine <-> sit with setup, sit <-> stand SBA, transfers SBA, car transfer SBA, ambulates 150' with a rolling walker with SBA (including 50' with at least 2 turns of 90 degrees and 10' over an uneven surface), can go up and down 4 steps using 2 handrails with SBA, and refuses to worm picker an object from the floor. Patient is discharging from this facility today and will be d ischarged from PT at this time. Occupational Therapy Decreased Activ Tolerance, Decreased Safety Aware, Decreased UE Strength, Impaired Funct Balance, Impaired I ADL's, Impaired Self-Care Skills PT Nursing Home Goals [employer]arge Mill Operator Goals PT [employer]arge Mill Operator Goals Time Frame: Jul 10, 2020 Roll Left to Right (QC): 6 Sit to Lying (QC): 6 Lying-Sitting on Side/Bed(QC): 6 Sit to Stand (QC): 6 Chair/Dhb-gx-Gazhl Xfer(QC): 6 Car Transfer (QC): 6 Does the Patient Walk: Yes Walk 10 feet (QC): 6 Walk 10ft-Uneven Surface(QC): 6 Walk 50ft with 2 Turns (QC): 6 Walk 150 ft (QC): 6 Wheel 50 feet with 2 turns (QC: 9 1 Step (curb) (QC): 6 4 Steps (QC): 6 12 Steps (QC): 9 Picking up an Object (QC): 6 OT Litharge Mill Operator Goals Nursing Home Goals Time Frame: Jul 10, 2020 Eating (QC): 6 Oral Hygiene (QC): 6 Shower/Bathe Self (QC): 6 Upper Body Dressing (QC): 6 Lower Body Dressing (QC): 6 On/Off Footwear (QC): 6 Toileting Hygiene (QC): 6 Toilet/Commode Transfer (QC): 6 Additional Goals: 1-Demonstrate ADL Tasks, 2-Verbalize Understanding, 3- ImproveStrength/Lucy 1=Demonstrate adherence to instructed precautions during ADL tasks. 2=Patient will verbalize/demonstrate understanding of assistive devices/modifications for ADL. 3=Patient will improve strength/tolerance for activity to enable patient to perform ADL's. Speech Nursing Home Goals Litharge Mill Operator Goals Patient will improve cognitive-communication necessary for safety and daily living tasks with minimal assist. DONALD TURPIN PT Jun 26, 2020 09:10
[2020-06-26 09:23] VITALS: BP 115/75
[2020-06-26] MEDS: CYCLOBENZAPRINE 10 MG (FLEXERIL) TAB PO SCH (09:24)
[2020-06-26] MEDS: ASPIRIN E.C. 325 MG (ECOTRIN) TABLET PO SCH (09:24)
[2020-06-26] MEDS: meTOprolol TARTRATE 25 MG (LOPRESSOR) TABLET PO SCH (09:25)
[2020-06-26] MEDS: PANTOPRAZOLE 40 MG (PROTONIX) TAB PO SCH (09:25)
[2020-06-26] MEDS: metFORMIN 500 MG (GLUCOPHAGE) TAB PO SCH (09:25)
[2020-06-26] MEDS: APIXABAN 5 MG (ELIQUIS) TABLET PO SCH (09:25)
[2020-06-26] MEDS: polyethylene glycoL POWDER 17 GM (MIRALAX) PACK PO SCH (09:30)
[2020-06-26] MEDS: DOCUSATE SODIUM 100 MG (COLACE) CAP PO SCH (09:30)
[2020-06-26] MEDS: SENNA W/DOCUSATE (SENOKOT S) TABLET PO SCH (09:30)
[2020-06-26] MEDS: ANIDULAFUNGIN INJECTION 100 MG in NS (IVPB) 100 ML IV SCH (09:33)
--- NOTE | 2020-06-26 10:17 | Therapy Team Discharge Summary ---
Therapy Discharge Summary Discharge Recommendations Date of Discharge Occupational Therapy Pt admitted to ARU with COVID PNA. At [facility], pt was living alone and independent with all ADLs and functional mobility. Upon admission to ARU, pt was independent with feeding, and required set up assist with oral care, min A showering, set up assist upper body dressing, min A lower body dressing, mod A footwear and CGA toileting. OT txs focused on increasing safety and independence with ADLs and functional mobility, increasing BUE strength and functional endurance, and increasing awareness of O2 tubing with mobility. At discharge, pt was independent with oral care, feeding, toileting and footwear and required supervision with showering, set up assist upper body dressing, and SBA lower body dressing. Pt still did not attend to O2 tubing with mobility, requiring cues with transfers and lower body dressing. No further AE/DME recommendations at this time. Pt made progress towards goals, meeting independent level with eating, oral care, footwear and toileting. Pt to discharge from facility on this date, d/c from OT at this time. Decreased Activ Tolerance, Decreased Safety Aware, Decreased UE Strength, Impaired Funct Balance, Impaired I ADL's, Impaired Self-Care Skills PT Correction Goals Correction Goals PT Correction Goals Time Frame: Jul 10, 2020 Roll Left to Right (QC): 6 Sit to Lying (QC): 6 Lying-Sitting on Side/Bed(QC): 6 Sit to Stand (QC): 6 Chair/Pej-xs-Sojrk Xfer(QC): 6 Car Transfer (QC): 6 Does the Patient Walk: Yes Walk 10 feet (QC): 6 Walk 10ft-Uneven Surface(QC): 6 Walk 50ft with 2 Turns (QC): 6 Walk 150 ft (QC): 6 Wheel 50 feet with 2 turns (QC: 9 1 Step (curb) (QC): 6 4 Steps (QC): 6 12 Steps (QC): 9 Picking up an Object (QC): 6 OT Correction Goals Crocheter Hand Goals Time Frame: Jul 10, 2020 Eating (QC): 6 (met) Oral Hygiene (QC): 6 (met) Shower/Bathe Self (QC): 6 (not met, supervision) Upper Body Dressing (QC): 6 (not met, set up) Lower Body Dressing (QC): 6 (not met, SBA) On/Off Footwear (QC): 6 (met) Toileting Hygiene (QC): 6 (met) Toilet/Commode Transfer (QC): 6 Additional Goals: 1-Demonstrate ADL Tasks, 2-Verbalize Understanding, 3- ImproveStrength/Lucy 1=Demonstrate adherence to instructed precautions during ADL tasks. 2=Patient will verbalize/demonstrate understanding of assistive devices/modifications for ADL. 3=Patient will improve strength/tolerance for activity to enable patient to perform ADL's. Speech Crocheter Hand Goals Crocheter Hand Goals Patient will improve cognitive-communication necessary for safety and daily living tasks with minimal assist. SHAYLEE BOUCHER OT Jun 26, 2020 10:17
--- NOTE | 2020-06-26 10:44 | Discharge Summary ---
Diagnosis/Chief Complaint Date of Admission Jun 16, 2020 at 10:00 Date of Discharge Discharge Date: Jun 26, 2020 Discharge Diagnosis Assessment: Recurrent PNA s/p bronchoscopy due to 2 recent PNA admit at [facility] [place] on broad spectrum abx with yeast on Cx COVID-19 PNA 03/2020 admit at [facility] [place] no abx on that admit Severe COPD O2 dependent 5L/min at home AF w/recent AF w/RVR at [facility] [place] last admit CAD TIA/CVA 05/2020 admitted H DM insulin dependent Neuropathy Cochlear implant very [place] Lives alone with helpers GERD BPH Elevated AP of uncertain source Plan: IRF protocol IV abx to complete Bronch appreciated Cardiology consultation Dr Moreland appreciated Monitor labs IV steroids DC Insulin 06/17/20: Decrease insulin Monitor O2 Monitor ileus 06/18/20: Laxatives maintained Monitor closely O2 Increase activity 06/19/20: Monitor lungs O2 maintained Monitor for falls 06/20/20: Monitor for falls Pain monitoring O2 06/21/20: Monitor O2 Nebs MDI 06/22/20: Monitor O2 Monitor BP Improved status 06/23/20: Monitor O2 IS Monitor strength 06/24/20: Monitor CXR and clinical lung exam Appreciate Dr Moreland input PT OT 06/25/20: DC tomorrow HH orders placed (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 (2) A-fib (3) Presbycusis of both ears (4) Pneumonia (5) Cryptogenic stroke (6) History of DVT (deep vein thrombosis) Status: Chronic (7) Chronic hypoxemic respiratory failure Status: Chronic (8) Stroke Status: Acute (9) COPD (chronic obstructive pulmonary disease) Status: Chronic (10) COPD exacerbation Status: Acute Discharge Summary Discharge Physical Examination Allergies: Coded Allergies: No Known Drug Allergies (Unverified , 05/11/20) Vitals & I&Os Vital Signs Date Time Temp Pulse Resp B/P (MAP) Pulse Ox O2 Delivery O2 Flow Rate FiO2 06/26/20 11:30 36.4 111 20 115/75 99 Nasal Cannula 5.00 06/23/20 13:19 36 General Appearance: Alert, Oriented X3, Cooperative Respiratory: Clear to Auscultation Cardiovascular: Regular Rate Neuro: Normal Gait, Normal Speech, Strength at 5/5 X4 Ext Psych/Mental Status: Mental Status NL Hospital Course Was the Problem List Reviewed?: Yes Patient had a standard hospital course in IRF after suffering from COVID 03/2020 and CVA with recurrent PNA requiring bronchoscopy along with broad spectrum abx and Dr Moreland and Cardiology consultation. Patient required Eraxis for yeast on bronch Cx and weaned down from steroids. O2 maintained along with aggressive therapy in order to regain enough ADL function and ambulatory skills to DC home with assistance. No decompensation noted during stay and bowel function returned to normal and was deemed stable for DC. Labs (last 24 hrs) Laboratory Tests 06/16/20 15:39: Glucometer 133H 06/16/20 20:20: Glucometer 209H 06/17/20 04:43: White Blood Count 9.8, Red Blood Count 3.56L, Hemoglobin 10.7L, Hematocrit 34L, Mean Corpuscular Volume 96, Mean Corpuscular Hemoglobin 30, Mean Corpuscular Hemoglobin Concent 31L, Red Cell Distribution Width 14.7H, Platelet Count 363, Mean Platelet Volume 10.5, Immature Granulocyte % (Auto) 7, Neutrophils (%) (Auto) 73, Lymphocytes (%) (Auto) 9L, Monocytes (%) (Auto) 7, Eosinophils (%) (Auto) 4, Basophils (%) (Auto) 0, Neutrophils # (Auto) 7.2, Lymphocytes # (Auto) 0.9L, Monocytes # (Auto) 0.7, Eosinophils # (Auto) 0.4H, Basophils # (Auto) 0.0, Immature Granulocyte # (Auto) 0.7H, Sodium Level 136, Potassium Level 4.9, Chloride Level 100, Carbon Dioxide Level 29, Anion Gap 7, Blood Urea Nitrogen 25H, Creatinine 0.79, Estimat Glomerular Filtration Rate > 60, BUN/Creatinine Ratio 32, Glucose Level 146H, Calcium Level 7.9L, Corrected Calcium 8.9, Total Bilirubin 0.4, Aspartate Amino Transf (AST/SGOT) 15, Alanine Aminotransferase (ALT/SGPT) 22, Alkaline Phosphatase 157H, Total Protein 4.6L, Albumin 2.7L 06/17/20 04:53: Amylase Level 43, Lipase 17 06/17/20 05:22: Glucometer 152H 06/17/20 11:34: Glucometer 76 06/17/20 16:34: Glucometer 141H 06/17/20 20:02: Glucometer 44*L 06/17/20 20:11: Glucometer 43*L 06/17/20 20:38: Glucometer 141H 06/18/20 05:42: Glucometer 190H 06/18/20 05:50: White Blood Count 9.3, Red Blood Count 3.99L, Hemoglobin 12.1L, Hematocrit 38L, Mean Corpuscular Volume 96, Mean Corpuscular Hemoglobin 30, Mean Corpuscular Hemoglobin Concent 32, Red Cell Distribution Width 14.2, Platelet Count 383, Mean Platelet Volume 10.3, Immature Granulocyte % (Auto) 10, Neutrophils (%) (Auto) 69, Lymphocytes (%) (Auto) 10L, Monocytes (%) (Auto) 7, Eosinophils (%) (Auto) 4, Basophils (%) (Auto) 1, Neutrophils # (Auto) 6.4, Lymphocytes # (Auto) 0.9L, Monocytes # (Auto) 0.7, Eosinophils # (Auto) 0.4H, Basophils # (Auto) 0.1, Immature Granulocyte # (Auto) 0.9H, Neutrophils % (Manual) 64, Lymphocytes % (Manual) 10, Monocytes % (Manual) 8, Eosinophils % (Manual) 6, Myelocytes % 2, Atypical Lymphocytes 5, Reactive Lymphocytes 5, Clumped Platelets OCCASIONAL, Blood Morphology Comment NORMAL, Sodium Level 137, Potassium Level 4.3, Chloride Level 95L, Carbon Dioxide Level 31, Anion Gap 11, Blood Urea Nitrogen 18, Creatinine 0.81, Estimat Glomerular Filtration Rate > 60, BUN/Creatinine Ratio 22, Glucose Level 175H, Calcium Level 8.7, Corrected Calcium 9.4, Total Bilirubin 0.7, Aspartate Amino Transf (AST/SGOT) 19, Alanine Aminotransferase (ALT/SGPT) 21, Alkaline Phosphatase 153H, Total Protein 5.6L, Albumin 3.1L, Smear Scan YES 06/18/20 11:05: Glucometer 178H 06/18/20 16:15: Glucometer 142H 06/18/20 20:13: Glucometer 150H 06/19/20 05:06: Glucometer 140H 06/19/20 11:16: Glucometer 134H 06/19/20 16:28: Glucometer 195H 06/19/20 20:34: Glucometer 179H 06/20/20 05:35: Glucometer 157H 06/20/20 15:36: Glucometer 155H 06/20/20 20:36: Glucometer 168H 06/21/20 05:02: Glucometer 127H 06/21/20 10:53: Glucometer 179H 06/21/20 15:35: Glucometer 292H 06/21/20 20:02: Glucometer 107 06/22/20 05:37: Glucometer 150H 06/22/20 05:44: White Blood Count 9.9, Red Blood Count 3.55L, Hemoglobin 10.8L, Hematocrit 34L, Mean Corpuscular Volume 95, Mean Corpuscular Hemoglobin 30, Mean Corpuscular Hemoglobin Concent 32, Red Cell Distribution Width 13.9, Platelet Count 244, Mean Platelet Volume 10.5, Immature Granulocyte % (Auto) 6, Neutrophils (%) (Auto) 74, Lymphocytes (%) (Auto) 10L, Monocytes (%) (Auto) 8, Eosinophils (%) (Auto) 2, Basophils (%) (Auto) 0, Neutrophils # (Auto) 7.3, Lymphocytes # (Auto) 1.0, Monocytes # (Auto) 0.7, Eosinophils # (Auto) 0.2, Basophils # (Auto) 0.0, Immature Granulocyte # (Auto) 0.6H, Sodium Level 137, Potassium Level 4.3, Chloride Level 100, Carbon Dioxide Level 27, Anion Gap 10, Blood Urea Nitrogen 17, Creatinine 0.78, Estimat Glomerular Filtration Rate > 60, BUN/Creatinine Ratio 22, Glucose Level 171H, Calcium Level 8.1L, Corrected Calcium 8.8, Total Bilirubin 0.4, Aspartate Amino Transf (AST/SGOT) 19, Alanine Aminotransferase (ALT/SGPT) 24, Alkaline Phosphatase 270H, Total Protein 5.8L, Albumin 3.1L 06/22/20 11:18: Glucometer 217H 06/22/20 15:42: Glucometer 173H 06/22/20 21:15: Glucometer 243H 06/23/20 05:50: Glucometer 167H 06/23/20 10:54: Glucometer 174H 06/23/20 16:20: Glucometer 142H 06/23/20 20:51: Glucometer 149H 06/24/20 05:47: Glucometer 147H 06/24/20 11:02: Glucometer 151H 06/24/20 12:03: White Blood Count 10.3, Red Blood Count 3.55L, Hemoglobin 10.7L, Hematocrit 34L, Mean Corpuscular Volume 95, Mean Corpuscular Hemoglobin 30, Mean Corpuscular Hemoglobin Concent 32, Red Cell Distribution Width 13.7, Platelet Count 211, Mean Platelet Volume 10.0, Immature Granulocyte % (Auto) 3, Neutrophils (%) (Auto) 82H, Lymphocytes (%) (Auto) 7L, Monocytes (%) (Auto) 6, Eosinophils (%) (Auto) 1, Basophils (%) (Auto) 0, Neutrophils # (Auto) 8.4H, Lymphocytes # (Auto) 0.7L, Monocytes # (Auto) 0.7, Eosinophils # (Auto) 0.1, Basophils # (Auto) 0.0, Immature Granulocyte # (Auto) 0.3H, Neutrophils % (Manual) 84, Lymphocytes % (Manual) 4, Monocytes % (Manual) 9, Eosinophils % (Manual) 0, Basophils % (Manual) 0, Myelocytes % 1, Band Neutrophils 2, Blood Morphology Comment NORMAL, Sodium Level 139, Potassium Level 3.8, Chloride Level 101, Carbon Dioxide Level 30, Anion Gap 8, Blood Urea Nitrogen 14, Creatinine 0.80, Estimat Glomerular Filtration Rate > 60, BUN/Creatinine Ratio 18, Glucose Level 149H, Calcium Level 8.6, Corrected Calcium 9.3, Phosphorus Level 2.9, Magnesium Level 1.4L, Total Bilirubin 0.4, Aspartate Amino Transf (AST/SGOT) 19, Alanine Aminotransferase (ALT/SGPT) 26, Alkaline Phosphatase 258H, B-Type Natriuretic Peptide 212.7H, Total Protein 5.9L, Albumin 3.1L, Procalcitonin 0.04 06/24/20 16:24: Glucometer 205H 06/24/20 21:14: Glucometer 207H 06/25/20 05:36: Glucometer 208H 06/25/20 10:56: Glucometer 132H 06/25/20 15:51: Glucometer 173H 06/25/20 21:05: Glucometer 163H 06/26/20 05:26: Glucometer 171H Pending Labs Laboratory Tests 06/16/20 15:39: Glucometer 133 06/16/20 20:20: Glucometer 209 06/17/20 04:43: White Blood Count 9.8, Red Blood Count 3.56, Hemoglobin 10.7, Hematocrit 34, Mean Corpuscular Volume 96, Mean Corpuscular Hemoglobin 30, Mean Corpuscular Hemoglobin Concent 31, Red Cell Distribution Width 14.7, Platelet Count 363, Mean Platelet Volume 10.5, Immature Granulocyte % (Auto) 7, Neutrophils (%) (Auto) 73, Lymphocytes (%) (Auto) 9, Monocytes (%) (Auto) 7, Eosinophils (%) (Auto) 4, Basophils (%) (Auto) 0, Neutrophils # (Auto) 7.2, Lymphocytes # (Auto) 0.9, Monocytes # (Auto) 0.7, Eosinophils # (Auto) 0.4, Basophils # (Auto) 0.0, Immature Granulocyte # (Auto) 0.7, Sodium Level 136, Potassium Level 4.9, Chloride Level 100, Carbon Dioxide Level 29, Anion Gap 7, Blood Urea Nitrogen 25, Creatinine 0.79, Estimat Glomerular Filtration Rate > 60, BUN/Creatinine Ratio 32, Glucose Level 146, Calcium Level 7.9, Corrected Calcium 8.9, Total Bilirubin 0.4, Aspartate Amino Transf (AST/SGOT) 15, Alanine Aminotransferase (ALT/SGPT) 22, Alkaline Phosphatase 157, Total Protein 4.6, Albumin 2.7 06/17/20 04:53: Amylase Level 43, Lipase 17 06/17/20 05:22: Glucometer 152 06/17/20 11:34: Glucometer 76 06/17/20 16:34: Glucometer 141 06/17/20 20:02: Glucometer 44 06/17/20 20:11: Glucometer 43 06/17/20 20:38: Glucometer 141 06/18/20 05:42: Glucometer 190 06/18/20 05:50: White Blood Count 9.3, Red Blood Count 3.99, Hemoglobin 12.1, Hematocrit 38, Mean Corpuscular Volume 96, Mean Corpuscular Hemoglobin 30, Mean Corpuscular Hemoglobin Concent 32, Red Cell Distribution Width 14.2, Platelet Count 383, Mean Platelet Volume 10.3, Immature Granulocyte % (Auto) 10, Neutrophils (%) (Auto) 69, Lymphocytes (%) (Auto) 10, Monocytes (%) (Auto) 7, Eosinophils (%) ( Auto) 4, Basophils (%) (Auto) 1, Neutrophils # (Auto) 6.4, Lymphocytes # (Auto) 0.9, Monocytes # (Auto) 0.7, Eosinophils # (Auto) 0.4, Basophils # (Auto) 0.1, Immature Granulocyte # (Auto) 0.9, Neutrophils % (Manual) 64, Lymphocytes % (Manual) 10, Monocytes % (Manual) 8, Eosinophils % (Manual) 6, Myelocytes % 2, Atypical Lymphocytes 5, Reactive Lymphocytes 5, Clumped Platelets OCCASIONAL, Blood Morphology Comment NORMAL, Sodium Level 137, Potassium Level 4.3, Chloride Level 95, Carbon Dioxide Level 31, Anion Gap 11, Blood Urea Nitrogen 18, Creatinine 0.81, Estimat Glomerular Filtration Rate > 60, BUN/Creatinine Ratio 22, Glucose Level 175, Calcium Level 8.7, Corrected Calcium 9.4, Total Bilirubin 0.7, Aspartate Amino Transf (AST/SGOT) 19, Alanine Aminotransferase (ALT/SGPT) 21, Alkaline Phosphatase 153, Total Protein 5.6, Albumin 3.1, Smear Scan YES 06/18/20 11:05: Glucometer 178 06/18/20 16:15: Glucometer 142 06/18/20 20:13: Glucometer 150 06/19/20 05:06: Glucometer 140 06/19/20 11:16: Glucometer 134 06/19/20 16:28: Glucometer 195 06/19/20 20:34: Glucometer 179 06/20/20 05:35: Glucometer 157 06/20/20 15:36: Glucometer 155 06/20/20 20:36: Glucometer 168 06/21/20 05:02: Glucometer 127 06/21/20 10:53: Glucometer 179 06/21/20 15:35: Glucometer 292 06/21/20 20:02: Glucometer 107 06/22/20 05:37: Glucometer 150 06/22/20 05:44: White Blood Count 9.9, Red Blood Count 3.55, Hemoglobin 10.8, Hematocrit 34, Mean Corpuscular Volume 95, Mean Corpuscular Hemoglobin 30, Mean Corpuscular Hemoglobin Concent 32, Red Cell Distribution Width 13.9, Platelet Count 244, Mean Platelet Volume 10.5, Immature Granulocyte % (Auto) 6, Neutrophils (%) (Auto) 74, Lymphocytes (%) (Auto) 10, Monocytes (%) (Auto) 8, Eosinophils (%) (Auto) 2, Basophils (%) (Auto) 0, Neutrophils # (Auto) 7.3, Lymphocytes # (Auto) 1.0, Monocytes # (Auto) 0.7, Eosinophils # (Auto) 0.2, Basophils # (Auto) 0.0, Immature Granulocyte # (Auto) 0.6, Sodium Level 137, Potassium Level 4.3, Chloride Level 100, Carbon Dioxide Level 27, Anion Gap 10, Blood Urea Nitrogen 17, Creatinine 0.78, Estimat Glomerular Filtration Rate > 60, BUN/Creatinine Ratio 22, Glucose Level 171, Calcium Level 8.1, Corrected Calcium 8.8, Total Bilirubin 0.4, Aspartate Amino Transf (AST/SGOT) 19, Alanine Aminotransferase (ALT/SGPT) 24, Alkaline Phosphatase 270, Total Protein 5.8, Albumin 3.1 06/22/20 11:18: Glucometer 217 06/22/20 15:42: Glucometer 173 06/22/20 21:15: Glucometer 243 06/23/20 05:50: Glucometer 167 06/23/20 10:54: Glucometer 174 06/23/20 16:20: Glucometer 142 06/23/20 20:51: Glucometer 149 06/24/20 05:47: Glucometer 147 06/24/20 11:02: Glucometer 151 06/24/20 12:03: White Blood Count 10.3, Red Blood Count 3.55, Hemoglobin 10.7, Hematocrit 34, Mean Corpuscular Volume 95, Mean Corpuscular Hemoglobin 30, Mean Corpuscular Hemoglobin Concent 32, Red Cell Distribution Width 13.7, Platelet Count 211, Mean Platelet Volume 10.0, Immature Granulocyte % (Auto) 3, Neutrophils (%) (Auto) 82, Lymphocytes (%) (Auto) 7, Monocytes (%) (Auto) 6, Eosinophils (%) (Auto) 1, Basophils (%) (Auto) 0, Neutrophils # (Auto) 8.4, Lymphocytes # (Auto) 0.7, Monocytes # (Auto) 0.7, Eosinophils # (Auto) 0.1, Basophils # (Auto) 0.0, Immature Granulocyte # (Auto) 0.3, Neutrophils % (Manual) 84, Lymphocytes % (Manual) 4, Monocytes % (Manual) 9, Eosinophils % (Manual) 0, Basophils % (Manual) 0, Myelocytes % 1, Band Neutrophils 2, Blood Morphology Comment NORMAL, Sodium Level 139, Potassium Level 3.8, Chloride Level 101, Carbon Dioxide Level 30, Anion Gap 8, Blood Urea Nitrogen 14, Creatinine 0.80, Estimat Glomerular F iltration Rate > 60, BUN/Creatinine Ratio 18, Glucose Level 149, Calcium Level 8.6, Corrected Calcium 9.3, Phosphorus Level 2.9, Magnesium Level 1.4, Total Bilirubin 0.4, Aspartate Amino Transf (AST/SGOT) 19, Alanine Aminotransferase (ALT/SGPT) 26, Alkaline Phosphatase 258, B-Type Natriuretic Peptide 212.7, Total Protein 5.9, Albumin 3.1, Procalcitonin 0.04 06/24/20 16:24: Glucometer 205 06/24/20 21:14: Glucometer 207 06/25/20 05:36: Glucometer 208 06/25/20 10:56: Glucometer 132 06/25/20 15:51: Glucometer 173 06/25/20 21:05: Glucometer 163 06/26/20 05:26: Glucometer 171 Discharge Home Medications: Active Scripts Active Pantoprazole Sodium 40 Mg Tablet.dr 40 Mg PO BID Furosemide 40 Mg Tablet 40 Mg PO Q48H Klor-Con 10 (Potassium Chloride) 10 Meq Tablet.er 10 Meq PO Q48H Diltiazem 24Hr ER (Diltiazem HCl) 180 Mg Cap.er.24h 180 Mg PO BID Levemir Flextouch (Insulin Detemir) 100 Unit/1 Ml Insuln.pen 10 Units SC BID 7 Days Novolog Flexpen (Insulin Aspart) 300 Units/3 Ml Solution 4 Units SQ AC 7 Days Reported Yupelri (Revefenacin) 175 Mcg/3 Ml Vial.neb 175 Mcg IH DAILY Metformin HCl 500 Mg Tablet 500 Mg PO BID Aspirin EC (Aspirin) 325 Mg Tablet.dr 325 Mg PO DAILY Prednisone 5 Mg Tablet 5 Mg PO DAILY Ozempic (Semaglutide) 0.25 Mg/0.2 Ml Pen.injctr 0.25 Mg INJ WEEK Omeprazole 20 Mg Capsule.dr 20 Mg PO DAILY Eliquis (Apixaban) 5 Mg Tablet 5 Mg PO BID Atorvastatin Calcium 40 Mg Tablet 40 Mg PO HS Albuterol Sulfate 2.5 Mg/3 Ml Vial.neb 3 Ml NEB Q6H PRN Flomax (Tamsulosin HCl) 0.4 Mg Cap 0.4 Mg PO DAILY Budesonide 0.5 Mg/2 Ml Ampul.neb 0.5 Mg NEB BID Pramipexole Dihydrochloride (Pramipexole Di-HCl) 0.25 Mg Tablet 0.25 Mg PO HS Montelukast Sodium 10 Mg Tablet 10 Mg PO DAILY Lisinopril 10 Mg Tablet 10 Mg PO DAILY Metoprolol Tartrate 25 Mg Tablet 25 Mg PO BID Perforomist (Formoterol Fumarate) 20 Mcg/2 Ml Vial.neb 20 Mcg IH BID Cyclobenzaprine HCl 10 Mg Tablet 10 Mg PO DAILY Instructions to patient/family Please see electronic discharge instructions given to patient. Diagnosis/Problems Diagnosis/Problems (1) [id number] syndrome (2) A-fib (3) Presbycusis of both ears (4) Pneumonia (5) Cryptogenic stroke (6) History of DVT (deep vein thrombosis) Status: Chronic (7) Chronic hypoxemic respiratory failure Status: Chronic (8) Stroke Status: Acute (9) COPD (chronic obstructive pulmonary disease) Status: Chronic (10) COPD exacerbation Status: Acute BON LOAIZA DO Jun 26, 2020 10:44
--- NOTE | 2020-06-26 11:07 | Therapy Team Discharge Summary ---
Therapy Discharge Summary Discharge Recommendations Date of Discharge Occupational Therapy Decreased Activ Tolerance, Decreased Safety Aware, Decreased UE Strength, Impaired Funct Balance, Impaired I ADL's, Impaired Self-Care Skills Speech-Language Pathology Patient was admitted to the ARU s/p a two month fiore from COVID and weakness. Patient was given the SLUMS upon arrival which indicated he would benefit from skilled ST related to memory, safety awareness as well as problem solving. The patient has made progress with some difficulty noted on retention of new information. Patient is discharging to his home today with family and neighbor support. He will also receive skilled home health services to continue therapy. PT Long-Term Goals Long-Term Goals PT Long-Term Goals Time Frame: Jul 10, 2020 Roll Left to Right (QC): 6 Sit to Lying (QC): 6 Lying-Sitting on Side/Bed(QC): 6 Sit to Stand (QC): 6 Chair/Nqy-uj-Flfrc Xfer(QC): 6 Car Transfer (QC): 6 Does the Patient Walk: Yes Walk 10 feet (QC): 6 Walk 10ft-Uneven Surface(QC): 6 Walk 50ft with 2 Turns (QC): 6 Walk 150 ft (QC): 6 Wheel 50 feet with 2 turns (QC: 9 1 Step (curb) (QC): 6 4 Steps (QC): 6 12 Steps (QC): 9 Picking up an Object (QC): 6 OT Public Affairs Specialist Goals Public Affairs Specialist Goals Time Frame: Jul 10, 2020 Eating (QC): 6 (met) Oral Hygiene (QC): 6 (met) Shower/Bathe Self (QC): 6 (not met, supervision) Upper Body Dressing (QC): 6 (not met, set up) Lower Body Dressing (QC): 6 (not met, SBA) On/Off Footwear (QC): 6 (met) Toileting Hygiene (QC): 6 (met) Toilet/Commode Transfer (QC): 6 Additional Goals: 1-Demonstrate ADL Tasks, 2-Verbalize Understanding, 3- ImproveStrength/Lucy 1=Demonstrate adherence to instructed precautions during ADL tasks. 2=Patient will verbalize/demonstrate understanding of assistive devices/modifications for ADL. 3=Patient will improve strength/tolerance for activity to enable patient to perform ADL's. Speech Long-Term Goals Public Affairs Specialist Goals Patient will improve cognitive-communication necessary for safety and daily living tasks with minimal assist. NARDA CLEVELAND Jun 26, 2020 11:07
[2020-06-26 11:30] VITALS: BP 115/75
== END 2020-06-26 11:30 | disposition home health service (06) | DRG 948 ==
PROVIDERS: ADMIT Internal Medicine; ATTEND Internal Medicine
DX: R53.1 Weakness (principal); I48.19 Other persistent atrial fibrillation; J96.11 Chronic respiratory failure with hypoxia; I69.392 Facial weakness following cerebral infarction; Z86.19 Personal history of other infectious and parasitic diseases; Z87.01 Personal history of pneumonia (recurrent); J43.9 Emphysema, unspecified; I25.10 Atherosclerotic heart disease of native coronary artery without angina pectoris; E11.40 Type 2 diabetes mellitus with diabetic neuropathy, unspecified; I35.8 Other nonrheumatic aortic valve disorders; K21.9 Gastro-esophageal reflux disease without esophagitis; N40.0 Benign prostatic hyperplasia without lower urinary tract symptoms; Z79.01 Long term (current) use of anticoagulants; E78.00 Pure hypercholesterolemia, unspecified; M19.91 Primary osteoarthritis, unspecified site; H91.13 Presbycusis, bilateral; Z87.891 Personal history of nicotine dependence; Z86.718 Personal history of other venous thrombosis and embolism; Z79.82 Long term (current) use of aspirin; Z79.52 Long term (current) use of systemic steroids; Z99.81 Dependence on supplemental oxygen
CPT/HCPCS: 36415; 71045; 74018; 80053; 82150; 82962; 83690; 83735; 83880; 84100; 84145; 85007; 85025; 85027; 94640; 94760

== ENCOUNTER 2020-11-25 11:59 | Emergency (ER) | payer MEDICARE ==
[~2020-11-25] VITALS: Ht 182.8 cm; Wt 90.8 kg
[~2020-11-25 11:59] MED LIST changes: +DILT180C85 PO; +FURO40TA4 PO; +PANT40TA52 PO; +POTA10TA6 PO
--- NOTE | 2020-11-25 12:42 | ED General ---
General Chief Complaint: General Problems/Pain Stated Complaint: HURTS Nursing Triage Note: WAS DROPPED IN THEBATH TUB BY HOME HEALTH 2 WEEKS AGO AND IS HAVING UNRELIEVED PAIN TODAY. DENIES ADDITIONAL INJURY. Source of Information: Patient Exam Limitations: No Limitations History of Present Illness Date Seen by Provider: Nov 25, 2020 Time Seen by Provider: 12:30 Initial Comments This is a well appearing 80 yo male who presented to the ER with c/o right sided rib pain. States he was dropped in tub by home health 2 weeks ago. States he only fell from apx 1-2ft height. Has been taking his home hydrocodone 1/2 tab TID. States this has been helping his pain but this morning it was worse. States he was over toward the hospital getting labs and decided to have his side checked out. No fever, cough, shortness of breath. Allergies and Home Medications Allergies Coded Allergies: No Known Drug Allergies (Unverified , 05/11/20) Home Medications Albuterol Sulfate 2.5 Mg/3 Ml Vial.neb, 3 ML NEB Q6H PRN for SHORTNESS OF BREATH, (Reported) Apixaban 5 Mg Tablet, 5 MG PO BID, (Reported) Aspirin 325 Mg Tablet.dr, 325 MG PO DAILY, (Reported) Atorvastatin Calcium 40 Mg Tablet, 40 MG PO HS, (Reported) Budesonide 0.5 Mg/2 Ml Ampul.neb, 0.5 MG NEB BID, (Reported) Cyclobenzaprine HCl 10 Mg Tablet, 10 MG PO DAILY, (Reported) Diltiazem HCl 180 Mg Cap.er.24h, 180 MG PO BID Prescribed by: BON LOAIZA on 06/25/20 100 Formoterol Fumarate 20 Mcg/2 Ml Vial.neb, 20 MCG IH BID, (Reported) Furosemide 40 Mg Tablet, 40 MG PO Q48H Prescribed by: BON LOAIZA on 06/25/20 1003 Insulin Aspart 300 Units/3 Ml Solution, 4 UNITS SQ AC Prescribed by: BON LOAIZA on 06/25/20 1003 Insulin Detemir 100 Unit/1 Ml Insuln.pen, 10 UNITS SC BID Prescribed by: BON LOAIZA on 06/25/20 100 Lisinopril 10 Mg Tablet, 10 MG PO DAILY, (Reported) Metformin HCl 500 Mg Tablet, 500 MG PO BID, (Reported) Metoprolol Tartrate 25 Mg Tablet, 25 MG PO BID, (Reported) Montelukast Sodium 10 Mg Tablet, 10 MG PO DAILY, (Reported) Pantoprazole Sodium 40 Mg Tablet.dr, 40 MG PO BID Prescribed by: OBN LOAIZA on 06/25/20 1003 Potassium Chloride 10 Meq Tablet.er, 10 MEQ PO Q48H Prescribed by: BON LOAIZA on 06/25/20 1003 Pramipexole Di-HCl 0.25 Mg Tablet, 0.25 MG PO HS, (Reported) Prednisone 5 Mg Tablet, 5 MG PO DAILY, (Reported) Revefenacin 175 Mcg/3 Ml Vial.neb, 175 MCG IH DAILY, (Reported) Semaglutide 0.25 Mg/0.2 Ml Pen.injctr, 0.25 MG INJ WEEK, (Reported) Tamsulosin HCl 0.4 Mg Cap, 0.4 MG PO DAILY, (Reported) Patient Home Medication List Home Medication List Reviewed: Yes Review of Systems Review of Systems Constitutional: no symptoms reported EENTM: no symptoms reported Respiratory: no symptoms reported Cardiovascular: no symptoms reported Gastrointestinal: no symptoms reported Genitourinary: no symptoms reported Musculoskeletal: see HPI Skin: no symptoms reported Psychiatric/Neurological: No Symptoms Reported Hematologic/Lymphatic: No Symptoms Reported Immunological/Allergic: no symptoms reported Past Uyptpzp-Oayuvw-Zegnon Hx Patient Social History Tobacco Use?: No Use of E-Cig and/or Vaping dev: No Substance use?: No Alcohol Use?: No Pt feels they are or have been: No Immunizations Up To Date First/Initial COVID19 Vaccinat: 11/12/20 COVID19 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: Xola Past Medical History Surgeries: Yes (RIGHT SHOULDER X2, LEFT SHOULDER X1, bilat feet sx) Respiratory: Yes (WEARS OXYGEN AT HS AND PRN) COPD Cardiac: Yes (HX OF RHUEMATIC FEVER 6TH GRADER) Atrial Fibrillation, Coronary Artery Disease, Deep Vein Thrombosis, High Cholesterol Neurological: No Neuropathy, Stroke, TIA Reproductive Disorders: No Gastrointestinal: Yes Gall Bladder Disease Musculoskeletal: Yes Arthritis Endocrine: No Diabetes, Insulin dep Hearing Impairment: Hard of Hearing Cancer: No Psychosocial: No Integumentary: No Blood Disorders: No Family Medical History FH: pancreatic cancer G8 SISTER Physical Exam Vital Signs Vital Signs - First Documented 11/25/20 11/25/20 12:20 14:12 Temp 36.3 Pulse 76 Resp 20 B/P (MAP) 125/74 (91) Pulse Ox 92 O2 Delivery Room Air O2 Flow Rate 2.00 Capillary Refill : Height, Weight, BMI Height: 5'9.00" Weight: 206lbs. 4.0oz. 95.244379uq; 27.00 BMI Method:Stated General Appearance: No Apparent Distress, WD/WN Eyes: Bilateral Eye Normal Inspection, Bilateral Eye PERRL, Bilateral Eye EOMI HEENT: PERRL/EOMI, TMs Normal, Normal ENT Inspection, Pharynx Normal Neck: Full Range of Motion, Normal Inspection, Non Tender Respiratory: Lungs Clear, Normal Breath Sounds, No Accessory Muscle Use, Other Cardiovascular: No Edema, Normal Peripheral Pulses Gastrointestinal: Normal Bowel Sounds, Non Tender, Soft Back: Normal Inspection, No Vertebral Tenderness Extremity: Normal Inspection, Normal Range of Motion Neurologic/Psychiatric: Alert, Oriented x3, No Motor/Sensory Deficits, Normal Mood/Affect Skin: Normal Color, Warm/Dry Progress/Results/Core Measures Suspected Sepsis SIRS Temperature: Pulse: 76 Respiratory Rate: 20 Blood Pressure 125 /74 Mean: 91 Results/Orders My Orders Orders - REJI HOWARD APRN Ribs/Unilateral With Chest (11/25/20 12:40) Vital Signs/I&O 11/25/20 11/25/20 12:20 14:12 Temp 36.3 Pulse 76 76 Resp 20 20 B/P (MAP) 125/74 (91) 125/74 Pulse Ox 92 94 O2 Delivery Room Air Nasal Cannula O2 Flow Rate 2.00 Capillary Refill : Blood Pressure Mean: 91 Diagnostic Imaging Diagonstic Imaging: Xray Plain Films/CT/US/NM/MRI: chest Comments [facility] [place] [place] NAME: KEN LAROSE [facility] REC#: [id number] PT STATUS: REG ER : 1940 PHYSICIAN: REJI HOWARD APRN ADMIT DATE: 11/25/20/ER Signed Date of Exam:11/25/20 RIBS/UNILATERAL WITH CHEST INDICATION: Injury with right chest wall pain. Compared with chest radiograph of 06/24/2020. FINDINGS: The lungs are clear at follow-up with some chronic interstitial opacity, COPD and air trapping superimposed stable. No lung contusion, pneumothorax or hemothorax. No free air beneath the right hemidiaphragms. There is a slightly displaced distal and lateral right 10th rib fracture without new bone formation this appears acute or subacute. No other suspected rib injury. IMPRESSION: Mildly displaced distal right 10th rib fracture. No findings of pulmonary parenchymal or pleural injury, however. Chronic air trapping and COPD superimposed stable. Dictated by: Dictated on workstation # [id number] Dict: 11/25/20 1342 Trans: 11/25/20 1357 [id number] Interpreted by: COCO SIERRA Electronically signed by: COCO SIERRA 11/25/20 1826 Reviewed: Reviewed by Me Departure Impression Primary Impression: Rib fracture Disposition: 01 HOME, SELF-CARE Condition: Improved Departure-Patient Inst. Decision time for Depature: 13:57 Referrals: LASHAY ROB MD (PCP/Family) Primary Care Physician Patient Instructions: Rib Fractures in Adults Add. Discharge Instructions: Plan: 1. Use incentive spirometer every 2-4 hours while awake. Do 10 repetitions as shown in ED. 2. You can continue to take 1/2 a tab of your home hydrocodone for pain up to three times a day. 3. Return to ER if you develop fever, difficulty breathing, shortness of breath, or any new or concerning symptoms. 4. Follow up with Dr. Loaiza as needed. All discharge instructions reviewed with patient and/or family. Voiced understanding. Copy Copies To 1: BON LOAIZA [employer]OR[employer] Nov 25, 2020 12:42
--- NOTE | 2020-11-25 13:47 | Diagnostic Imaging Report ---
INDICATION: Injury with right chest wall pain. Compared with chest radiograph of 06/24/2020. FINDINGS: The lungs are clear at follow-up with some chronic interstitial opacity, COPD and air trapping superimposed stable. No lung contusion, pneumothorax or hemothorax. No free air beneath the right hemidiaphragms. There is a slightly displaced distal and lateral right 10th rib fracture without new bone formation this appears acute or subacute. No other suspected rib injury. IMPRESSION: Mildly displaced distal right 10th rib fracture. No findings of pulmonary parenchymal or pleural injury, however. Chronic air trapping and COPD superimposed stable. Dictated by: Dictated on workstation # [id number]
[2020-11-25 14:12] VITALS: BP 125/74
== END 2020-11-25 13:55 | disposition home or self-care (01) ==
LOC: EDUNIT# 11:59 → ER 12:01
DX: S22.31XA Fracture of one rib, right side, initial encounter for closed fracture (principal); I48.91 Unspecified atrial fibrillation; J44.9 Chronic obstructive pulmonary disease, unspecified; E78.00 Pure hypercholesterolemia, unspecified; I25.10 Atherosclerotic heart disease of native coronary artery without angina pectoris; E11.9 Type 2 diabetes mellitus without complications; Z86.718 Personal history of other venous thrombosis and embolism; Z86.73 Personal history of transient ischemic attack (TIA), and cerebral infarction without residual deficits; Z79.01 Long term (current) use of anticoagulants; Z79.82 Long term (current) use of aspirin; Z79.52 Long term (current) use of systemic steroids; Z79.899 Other long term (current) drug therapy; Z79.4 Long term (current) use of insulin; W17.89XA Other fall from one level to another, initial encounter
CPT/HCPCS: 71101

== ENCOUNTER → 2022-04-05 | Outpatient (CLI) | payer MEDICARE ==
[~2022-04-05] MED LIST changes: +ACET-11 PO; -ACET1TAB43 PO; +CYCL10TA25 PO; -CYCL10TA9 PO; +MONT-40 PO; -MONT10TA32 PO; +POTA-160 PO; -POTA10TA6 PO; +RT-ALBUTEROL SULF 2.5 MG/3 ML PRE-MIX VIAL INH ONE
[2022-04-05 15:22] LABS: ABG BASE EXCESS 3.1 MMOL/L (-2.5-2.5); ABG OXYGEN SATURATION 95 % (94-100); ABG PCO2 46 MMHG (35-45); ABG PO2 66 MMHG (79-93); ABG TCO2 28.8 MMOL/L (21.0-31.0)
[2022-04-05 15:23] LABS: ALLENS TEST POSITIVE; INSPIRED O2 2 L; PATIENT TEMP 99.6; VENTILATOR NO
--- NOTE | 2022-04-05 16:05 | Diagnostic Imaging Report ---
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 TECHNIQUE: Two view chest 2:58 PM CORRELATION STUDY: 11/25/2020 FINDINGS: Heart size is within normal lives. Rather prominent appearance about the central pulmonary arteries again demonstrated. Lung cross are significantly hyperinflated with prominent interstitial markings. Bullous changes about the lung apices. No infiltrate or effusion. Advanced degenerative changes of the thoracic spine. IMPRESSION: 1. Rather advanced emphysematous lung disease. No acute cardiopulmonary abnormality. Dictated by: Dictated on workstation # [id number]
== END ==
LOC: RT 14:30
PROVIDERS: ATTEND Internal Medicine Critical Care Medicine
DX: J43.2 Centrilobular emphysema (principal); J96.11 Chronic respiratory failure with hypoxia
CPT/HCPCS: 36600; 71046; 82805; 94060; 94726; 94729

== ENCOUNTER → 2022-06-02 | Outpatient (CLI) | payer MEDICARE ==
[~2022-06-02] MED LIST changes: -RT-ALBUTEROL SULF 2.5 MG/3 ML PRE-MIX VIAL INH ONE
[2022-06-02 14:29] LABS: HEMATOCRIT 39 % (40-54); HEMOGLOBIN 13.1 g/dL (13.3-17.7); MEAN CORPUSCULAR HEMOGLOBIN 31 pg (25-34); MEAN CORPUSCULAR HGB CONC 33 g/dL (32-36); MEAN CORPUSCULAR VOLUME 92 fL (80-99); MEAN PLATELET VOLUME 10.7 fL (9.0-12.2); PLATELET COUNT 219 10^3/uL (130-400); WHITE BLOOD COUNT 10.7 10^3/uL (4.3-11.0)
[2022-06-02 14:51] LABS: ALANINE AMINOTRANSFERASE 21 U/L (0-55); ALKALINE PHOSPHATASE 194 U/L (40-136); BILIRUBIN,TOTAL 0.6 MG/DL (0.1-1.0); BUN/CREATININE RATIO 15; CALCIUM 9.6 MG/DL (8.5-10.1); CARBON DIOXIDE 27 MMOL/L (21-32); CHLORIDE 100 MMOL/L (98-107); CREATININE SERUM 0.81 MG/DL (0.60-1.30); GFR ESTIMATED 89; GLUCOSE 127 MG/DL (70-105); POTASSIUM 4.5 MMOL/L (3.6-5.0); SODIUM 141 MMOL/L (135-145); TOTAL PROTEIN 7.1 GM/DL (6.4-8.2)
[2022-06-02 14:52] LABS: ALBUMIN 4.7 GM/DL (3.2-4.5)
[2022-06-03 14:36] LABS: CHOLESTEROL 107 MG/DL (< 200); HDL CHOLESTEROL 43 MG/DL (40-60); TRIGLYCERIDES 64 MG/DL (<150); VLDL CHOLESTEROL 13 MG/DL (5-40)
[2022-06-03 15:00] LABS: FREE T4 (FREE THYROXINE) 1.08 NG/DL (0.70-1.48)
== END ==
LOC: LABNPT 14:14
PROVIDERS: ATTEND Internal Medicine
DX: I11.0 Hypertensive heart disease with heart failure (principal); Z13.6 Encounter for screening for cardiovascular disorders; E03.9 Hypothyroidism, unspecified; R73.9 Hyperglycemia, unspecified
CPT/HCPCS: 80053; 80061; 83036; 84439; 84443; 85027

== ENCOUNTER 2023-02-08 09:53 | Outpatient (RCR) | payer MEDICARE ==
[~2023-02-08] VITALS: Wt 90.8 kg
[~2023-02-08 09:53] MED LIST changes: +DILT120C71 PO; -DILT120C85 PO; -INSU100I29 SC; +INSU100I30 SC
[2023-02-08] MEDS ORDERED: BENRALIZUMAB 30 MG/ML (FASENRA) SYRINGE SQ ONE (10:30)
[2023-02-08 10:55] VITALS: BP 123/68
== END 2023-03-07 | disposition home or self-care (01) ==
LOC: SDC 09:53
PROVIDERS: ATTEND Internal Medicine Critical Care Medicine
DX: J45.50 Severe persistent asthma, uncomplicated (principal)
CPT/HCPCS: 96372